=== PATIENT | female | born 1995 | race Caucasian/White ===

== ENCOUNTER 2017-11-28 04:36 | Emergency (ER) | payer BC, OTHER ==
[2017-11-28 05:13] LABS: Absolute Lymphocytes (CBC) 2.7 K/uL (0.7-4.9); Absolute Monocytes 0.6 K/uL (0.1-1.3); Absolute Neutrophil 2.7 K/uL (1.8-8.0); Basophils % 0.9 % (0-1.3); Hematocrit 40.2 % (36.0-45.0); MCH 29.4 pg (27.0-35.0); MCV 87.4 fL (80-100); MPV 7.9 fL (7.6-11.3); Monocytes % 9.4 % (3.3-12.3)
[2017-11-28 05:20] LABS: Protime INR 0.92
[2017-11-28 05:29] LABS: Bicarbonate 25 mEq/L (21-31); Glucose Level 97 mg/dL (65-120); Potassium 3.6 mEq/L (3.6-5.0); Sodium Level 138 mEq/L (135-145)
[2017-11-28 05:36] LABS: ALT/SGPT 26 IU/L (10-60); AST/SGOT 24 IU/L (10-42); Albumin 3.9 g/dL (3.2-5.5); Alkaline Phosphatase 62 IU/L (42-121); BUN Blood Urea Nitrogen 14 mg/dL (6-20); Bilirubin Direct < 0.1 mg/dL (0-0.2); Bilirubin Total 0.4 mg/dL (0.3-1.2); Creatine Phosphokinase 39 IU/L (22-269); Magnesium 1.8 mg/dL (1.8-2.5); Protein, Total 7.9 g/dL (6.0-8.3)
[2017-11-28 05:39] LABS: CKMB Creatine Kinase MB 0.6 ng/ml (0.3-4.0)
[2017-11-28 06:21] LABS: Urine Blood TRACE (NEG); Urine Glucose NEGATIVE (NEG); Urine Protein NEGATIVE (NEG); Urine Specific Gravity 1.015 (1.005-1.030); Urine pH 6.5 (5.0-7.0)
--- NOTE | 2017-11-28 07:52 | EDPHYS ---
Physician Documentation [facility] Name: Umm Bell Age: 22 yrs Sex: Female : 1995 Arrival Date: 11/28/2017 Time: 04:38 Bed 15 Private MD: Padmini Torres K ED Physician Yasmani Wan HPI: 11/28 06:35 This 22 yrs old Female presents to ER via Ambulatory with complaints of Chest tw4 Pain. 06:35 The patient or guardian reports chest pain that is located primarily in the anterior tw4 chest wall. The pain does not radiate. Associated signs and symptoms: Pertinent positives: shortness of breath. The chest pain is described as dull. Duration: The patient or guardian reports a single episode. Modifying factors: The symptoms are alleviated by nothing. the symptoms are aggravated by nothing. Severity of pain: At its worst the pain was moderate. The patient has not experienced similar symptoms in the past. 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 - Social history:: Smoking status: Patient/guardian denies using tobacco. ROS: 06:35 Constitutional: Negative for fever, chills, and weight loss, Respiratory: Negative for tw4 shortness of breath, cough, wheezing, and pleuritic chest pain, Abdomen/GI: Negative for abdominal pain, nausea, vomiting, diarrhea, and constipation, Back: Negative for injury and pain, MS/Extremity: Negative for injury and deformity, Neuro: Negative for headache, weakness, numbness, tingling, and seizure. 06:35 Cardiovascular: Positive for chest pain, Negative for edema, orthopnea, palpitations, paroxysmal nocturnal dyspnea. Exam: 06:35 Constitutional: This is a well developed, well nourished patient who is awake, alert, tw4 and in no acute distress. Head/Face: Normocephalic, atraumatic. Chest/axilla: Normal chest wall appearance and motion. Nontender with no deformity. No lesions are appreciated. Cardiovascular: Regular rate and rhythm with a normal S1 and S2. No gallops, murmurs, or rubs. Normal PMI, no JVD. No pulse deficits. Respiratory: Lungs have equal breath sounds bilaterally, clear to auscultation and percussion. No rales, rhonchi or wheezes noted. No increased work of breathing, no retractions or nasal flaring. Abdomen/GI: Soft, non-tender, with normal bowel sounds. No distension or tympany. No guarding or rebound. No evidence of tenderness throughout. Skin: Warm, dry with normal turgor. Normal color with no rashes, no lesions, and no evidence of cellulitis. MS/ Extremity: Pulses equal, no cyanosis. Neurovascular intact. Full, normal range of motion. Neuro: Awake and alert, GCS 15, oriented to person, place, time, and situation. Cranial nerves II-XII grossly intact. Motor strength 5/5 in all extremities. Sensory grossly intact. Cerebellar exam normal. Normal gait. Psych: Awake, alert, with orientation to person, place and time. Behavior, mood, and affect are within normal limits. 07:48 Musculoskeletal/extremity: DVT Exam: No signs of deep vein thrombosis. no pain, no gm swelling, no tenderness, negative Homans' sign noted on exam, no appreciated bluish discoloration, no erythema, no increased warmth. Vital Signs: 04:50 BP 147 / 108; Pulse 91; Resp 18 S; Temp 98(O); Pulse Ox 97% on R/A; Weight 52.16 kg bs1 (R); Height 5 ft. (152.40 cm); Pain 7/10; 04:53 BP 142 / 94; Pulse 91; Resp 16 S; Pulse Ox 99% on R/A; Pain 7/10; bs1 05:00 BP 131 / 92; Pulse 82; Resp 16; Pulse Ox 99% on R/A; bs1 05:15 BP 135 / 96; Pulse 87; Resp 17; Pulse Ox 100% on R/A; bs1 06:27 BP 131 / 86; Pulse 69; Resp 15; Pulse Ox 99% on R/A; Pain 0/10; bs1 07:20 BP 127 / 81; Pulse 78; Resp 18; Pulse Ox 99% on R/A; Pain 0/10; em 04:50 Body Mass Index 22.46 (52.16 kg, 152.40 cm) bs1 MDM: 04:45 Patient medically screened. tw4 06:35 Differential diagnosis: acute myocardial infarction, acute pericarditis, anxiety, chest tw4 wall pain, pulmonary embolus, stable angina, thoracic aortic disection. HEART Score: History: Slightly Suspicious (0), ECG: Non specific repolarization disturbance / LBTB / PM (1), Age: < or = 45 years (0), Risk Factors: No Risk Factors Known (0), Troponin: < or = 1 x Normal Limit (0), Total Score =. HUMBERTO Risk Score: not applicable. Data reviewed: vital signs, nurses notes. Data interpreted: child monitor: rhythm is normal sinus rhythm, Pulse oximetry: Interpretation: normal. Test interpretation: by ED physician or midlevel provider: ECG. Counseling: I had a detailed discussion with the patient and/or guardian regarding: the historical points, exam findings, and any diagnostic results supporting the discharge/admit diagnosis. 07:19 Patient medically screened. gm 11/28 04:51 Order name: Basic Metabolic Panel; Complete Time: 07:47 11/28 04:51 Order name: BNP; Complete Time: 07:47 11/28 04:51 Order name: CBC with Diff; Complete Time: 07:47 11/28 04:51 Order name: Ckmb; Complete Time: 07:47 11/28 04:51 Order name: CPK; Complete Time: 07:47 11/28 04:51 Order name: LFT's; Complete Time: 07:47 11/28 04:51 Order name: Magnesium; Complete Time: 07:47 11/28 04:51 Order name: PT-INR; Complete Time: 07:47 11/28 04:51 Order name: Ptt, Activated; Complete Time: 07:47 11/28 04:51 Order name: Troponin (emerg Dept Use Only); Complete Time: 07:47 11/28 06:08 Order name: Urine Dipstick--Ancillary (enter results); Complete Time: 07:47 em11/28 06:08 Order name: Urine --Ancillary (enter results); Complete Time: 07:47 11/28 04:51 Order name: XRAY Chest (1 view) 11/28 04:51 Order name: EKG; Complete Time: 04:52 11/28 04:51 Order name: Cardiac monitoring; Complete Time: 05:24 11/28 04:51 Order name: EKG - Nurse/Tech; Complete Time: 05:25 11/28 04:51 Order name: IV Saline Lock; Complete Time: 05:25 11/28 04:51 Order name: Labs collected and sent; Complete Time: 05:25 11/28 04:51 Order name: O2 Per Protocol; Complete Time: 05:25 11/28 04:51 Order name: O2 Sat Monitoring; Complete Time: 05:11/28 04:51 Order name: Urine Dipstick-Ancillary (obtain specimen); Complete Time: 06:04 11/28 04:51 Order name: CT Chest For PE Angio tw4 Administered Medications: No medications were administered Disposition: 11/28/17 07:51 Discharged to Home. Impression: Chest pain, unspecified. - Condition is Stable. - Discharge Instructions: Nonspecific Chest Pain, Nonspecific Chest Pain, Nsim-ce-Sxah, Aspirin and Your Heart. - Prescriptions for Pepcid 20 mg Oral Tablet - take 1 tablet by ORAL route every 12 hours for 10 days; 20 tablet. - Medication Reconciliation Form, Thank You Letter, Antibiotic Education, Prescription Opioid Use form. - Follow up: Padmini Torres; When: 2 - 3 days; Reason: Recheck today's complaints, Continuance of care, Re-evaluation by your physician. Follow up: Jc Paz; When: 2 - 3 days; Reason: Recheck today's complaints, Re-evaluation by your physician. - Problem is new. - Symptoms have improved. Signatures: Dispatcher [employer] Yasmani Starkey MD MD cha Munoz, Edgar, TELEVISION INSTALLER HELPER TELEVISION INSTALLER HELPER Janet Govea, RN RN bs1 Yovanny Palmer MD MD tw4
--- NOTE | 2017-11-28 07:52 | ER ---
Nurse's Notes [facility] Name: Umm Bell Age: 22 yrs Sex: Female : 1995 Arrival Date: 11/28/2017 Time: 04:38 Bed 15 Private MD: Padmini Torres K Diagnosis: Chest pain, unspecified Presentation: 11/28 04:46 Presenting complaint: Patient states: "I have been having chest pain since last night bs1 around 8pm, starts in my chest, and up my shoulders and then the back of my neck, also in the epigastric area, ever since I gave to twins I've been having high blood pressure.". Transition of care: patient was not received from another setting of care. Onset of symptoms was November 27, 2017 at 20:00. Initial Sepsis Screen: Does the patient meet any 2 criteria? No. Patient's initial sepsis screen is negative. Care prior to arrival: None. 04:46 Method Of Arrival: Ambulatory bs1 04:46 Acuity: MICHAEL 3 bs1 05:29 Initial Sepsis Screen: Does the patient have a suspected source of infection? No. bs1 Patient's initial sepsis screen is negative. 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 - Social history:: Smoking status: Patient/guardian denies using tobacco. Screenin:28 Abuse screen: Denies threats or abuse. Denies injuries from another. Nutritional bs1 screening: No deficits noted. Tuberculosis screening: No symptoms or risk factors identified. Fall Risk None identified. Assessment: 04:50 General: Appears uncomfortable, Behavior is cooperative, anxious. Pain: Complains of bs1 pain in chest Pain radiates to left shoulder, back of neck Pain currently is 7 out of 10 on a pain scale. Quality of pain is described as squeezing, Pain began gradually. Neuro: Level of Consciousness is awake, alert, obeys commands, Oriented to person, place, time, situation, Appropriate for age Hog Ribber are equal bilaterally Moves all extremities. Cardiovascular: Reports chest pain, Heart tones S1 S2 present Capillary refill < 3 seconds Patient's skin is warm and dry. Rhythm is regular. Respiratory: Airway is patent Trachea midline Respiratory effort is even, unlabored, Respiratory pattern is regular, symmetrical, Breath sounds are clear bilaterally. GI: Abdomen is flat, Bowel sounds present X 4 quads. Reports epigastric pain. : No deficits noted. No signs and/or symptoms were reported regarding the genitourinary system. EENT: No deficits noted. No signs and/or symptoms were reported regarding the EENT system. Derm: Skin is intact, Skin is pink, warm \\T\\ dry. Skin temperature is warm. Musculoskeletal: Circulation, motion, and sensation intact. Capillary refill < 3 seconds, Range of motion: intact in all extremities. 06:19 Reassessment: Was told by CT that IV blew. IV was pulled out. ao 06:27 Reassessment: Patient appears in no apparent distress at this time. Patient and/or bs1 family updated on plan of care and expected duration. Pain level reassessed. Patient is alert, oriented x 3, equal unlabored respirations, skin warm/dry/pink. Bruising/some swelling noted to right upper arm from IV infiltration. Patient states symptoms have improved. 07:04 Reassessment: Report given to TANA Jama. bs1 07:15 General: Appears in no apparent distress. comfortable, Behavior is calm, cooperative. em Pain: Complains of pain in diaphragm Pain currently is 0 out of 10 on a pain scale. Pain began last night at 1999. Neuro: Level of Consciousness is awake, alert, Oriented to person, place, time, situation. Cardiovascular: Reports nausea, Denies vomiting, Heart tones S1 S2 present Capillary refill < 3 seconds Patient's skin is warm and dry. Rhythm is regular. Respiratory: Airway is patent Respiratory effort is even, unlabored, Respiratory pattern is regular, symmetrical. GI: Abdomen is flat. : No signs and/or symptoms were reported regarding the genitourinary system. EENT: No signs and/or symptoms were reported regarding the EENT system. Derm: Skin is intact, Skin is pink, warm \\T\\ dry. Musculoskeletal: Range of motion: intact in all extremities. Vital Signs: 04:50 BP 147 / 108; Pulse 91; Resp 18 S; Temp 98(O); Pulse Ox 97% on R/A; Weight 52.16 kg bs1 (R); Height 5 ft. (152.40 cm); Pain 7/10; 04:53 BP 142 / 94; Pulse 91; Resp 16 S; Pulse Ox 99% on R/A; Pain 7/10; bs1 05:00 BP 131 / 92; Pulse 82; Resp 16; Pulse Ox 99% on R/A; bs1 05:15 BP 135 / 96; Pulse 87; Resp 17; Pulse Ox 100% on R/A; bs1 06:27 BP 131 / 86; Pulse 69; Resp 15; Pulse Ox 99% on R/A; Pain 0/10; bs1 07:20 BP 127 / 81; Pulse 78; Resp 18; Pulse Ox 99% on R/A; Pain 0/10; em 04:50 Body Mass Index 22.46 (52.16 kg, 152.40 cm) bs1 ED Course: 04:38 Patient arrived in ED. es 04:40 Padmini Torres MD is Private Physician. es 04:45 Yovanny Palmer MD is Attending Physician. tw4 04:46 Janet Rea, RN is Primary Nurse. bs1 04:48 Triage completed. bs1 05:02 No provider procedures requiring assistance completed. Inserted saline lock: 22 gauge bs1 in right upper arm, using aseptic technique. Patient maintains SpO2 saturation greater than 95% on room air. 05:07 X-ray completed. Portable x-ray completed in exam room. Patient tolerated procedure kw well. 05:08 XRAY Chest (1 view) In Process Unspecified. EDMS 05:09 Radiology exam delayed due to lab results not completed at this time. (BUN/Creatinine) cw1 test not completed at this time. 05:29 Patient has correct armband on for positive identification. Placed in gown. Bed in low bs1 position. Call light in reach. Side rails up X 1. satellite project site monitor on. Pulse ox on. NIBP on. Warm blanket given. 05:30 Arm band placed on placed. EKG completed in triage. Results shown to MD. bs1 06:33 CT Chest For PE Angio In Process Unspecified. EDMS 07:18 Attending Physician role handed off by Yovanny Palmer MD [facility] 07:18 Yasmani Wan MD is Attending Physician. gm 07:51 Padmini Torres MD is Referral Physician. gm 07:51 Jc Paz MD is Referral Physician. gm 08:10 IV discontinued, intact, bleeding controlled, No redness/swelling at site. Pressure em dressing applied. Administered Medications: No medications were administered Outcome: 07:51 Discharge ordered by MD. gm 08:09 Discharged to home ambulatory. em 08:09 Condition: good 08:09 Discharge instructions given to patient, Instructed on discharge instructions, follow up and referral plans. medication usage, Demonstrated understanding of instructions, follow-up care, medications, Prescriptions given X 1. 08:11 Patient left the ED. em Signatures: Dispatcher [employer] EDMA Yasmani Wan MD MD cha Salyer, Edna es Munoz, Edgar, ANIMAL RIDE ATTENDANT ANIMAL RIDE ATTENDANT Joan Meyers cw1 Kassy Reza Alex, RN RN ao Salazar, Brittany, RN RN bs1 Yovanny Palmer MD MD tw4
--- NOTE | 2017-11-28 07:55 | RAD REPORT ---
EXAM DESCRIPTION: Deepak Single View11/28/2017 5:10 am CLINICAL HISTORY: Chest pain COMPARISON: 2015 FINDINGS: The lungs appear clear of acute infiltrate. The heart is normal size IMPRESSION: No acute abnormalities displayed
[2017-11-28 08:15] VITALS: TEMP 98
[2017-11-28 08:20] VITALS: O2SAT 99
[2017-11-28 08:21] VITALS: BP 127/81
--- NOTE | 2017-11-28 08:26 | RAD REPORT ---
EXAM DESCRIPTION: CT - Chest For Pe Angio - 11/28/2017 6:32 am CLINICAL HISTORY: Chest pain since last night COMPARISON: 2015 TECHNIQUE: Dynamically enhanced axial 3 mm thick images of the chest were obtained during administra tion of <100> mL Isovue 370 IV contrast. Coronal and oblique reconstruction images were generated and reviewed. Exam utilizes a protocol for optimal evaluation of pulmonary arterial tree. Near the end o f the examination there was extravasation of contrast from the IV into the arm. Cold compresses were applied and the patient's nurse Wiley from the emergency room notified so that the arm could be monit ored All CT scans are performed using dose optimization technique as appropriate and may include automated exposure control or mA/KV adjustment according to patient size. FINDINGS: A pulmonary embolus is not seen. A thoracic aortic aneurysm is not noted. A pleural effusion is not seen. A pericardial effusion is not seen. A lung consolidation is not present. A 14 millimeter well-circumscribed mass nodule is present within the left breast. It is unchanged fro m a the prior exam IMPRESSION: Negative for a pulmonary embolism. 14 millimeter nodule within the left breast is unchanged from the prior exam and may represent a fibr oadenoma. A follow up left breast ultrasound in 6 months is recommended to reassess stability
--- NOTE | 2017-11-28 10:08 | EKG ---
Test Date: 2017-11-28 Test Time: 04:51:13 Director Of Corporate Sales: ELROY MEASUREMENT RESULTS: Intervals: Rate: 82 IL: 136 QRSD: 88 QT: 372 QTc: 434 [place]: P: 67 IL: 136 QRS: 69 T: 36 INTERPRETIVE STATEMENTS: Normal sinus rhythm Normal ECG No previous ECG available for comparison Electronically Signed On 11-28-17 10:07:20 CDT by Rip Liang
--- NOTE | 2017-11-28 10:08 | EKG ---
Test Date: 2017-11-28 Test Time: 04:54:12 Well Service Floor Worker: MEASUREMENT RESULTS: Intervals: Rate: 80 VA: 134 QRSD: 98 QT: 360 QTc: 415 Echo: P: 61 VA: 134 QRS: 66 T: 37 INTERPRETIVE STATEMENTS: Normal sinus rhythm Incomplete right bundle branch block Borderline ECG Compared to ECG 11/28/2017 04:51:13 Incomplete right bundle-branch block now present Electronically Signed On 11-28-17 10:07:18 CDT by Rip Liang
== END 2017-11-28 08:11 | disposition home or self-care (01) ==
LOC: ER 04:36
DX: R07.9 Chest pain, unspecified (principal); F41.9 Anxiety disorder, unspecified
CPT/HCPCS: 36415; 71045; 71275; 80048; 80076; 81003; 81025; 82550; 82553; 83735; 83880; 84484; 85025; 85610; 85730; 93005; 99285; Q9967

== ENCOUNTER 2019-07-01 19:44 | Emergency (ER) | payer BC, OTHER ==
--- OUTSIDE RECORDS SUMMARY | 2019-07-01 19:46 | XMS REPORT ---
:1995 Author [facility] Address [address] [place] [address] Dr. Martin [address] [place] [id number] Care Team Providers Name Role Phone Unavailable Unavailable Unavailable Problems This patient has no known problems. Allergies, Adverse Reactions, Alerts This patient has no known allergies or adverse reactions. Medications This patient has no known medications.
[2019-07-01 20:21] LABS: Absolute Lymphocytes (CBC) 2.9 K/uL (0.7-4.9); Basophils % 0.9 % (0-1.3); Hematocrit 37.8 % (36.0-45.0); Lymphocytes % 32.4 % (15.3-44.8); MPV 7.9 fL (7.6-11.3); Protime INR 0.9; RBC Red Blood Cell Count 4.41 M/uL (3.86-4.86)
[2019-07-01] MEDS ORDERED: KETOROLAC 30 MG/ML INJ ONE (20:34)
[2019-07-01 20:37] LABS: ALT/SGPT 24 U/L (12-78); AST/SGOT 21 U/L (15-37); Albumin 3.8 g/dL (3.4-5.0); Alkaline Phosphatase 99 U/L (45-117); BUN Blood Urea Nitrogen 12 mg/dL (7-18); Bicarbonate 29 mmol/L (21-32); Bilirubin Direct < 0.1 mg/dL (0-0.2); Bilirubin Total 0.3 mg/dL (0.2-1.0); Glucose Level 101 mg/dL (74-106); Magnesium 2.3 mg/dL (1.8-2.4); NT PRO-BNP 47 pg/mL (<125); Potassium 3.5 mmol/L (3.5-5.1); Protein, Total 7.9 g/dL (6.4-8.2); Sodium Level 141 mmol/L (136-145); Troponin (Emerg Dept Use Only) < 0.02 ng/mL (0.0-0.045)
[2019-07-01 21:16] LABS: Urine Blood NEGATIVE (NEG); Urine Glucose NEGATIVE (NEG); Urine Protein NEGATIVE (NEG); Urine Specific Gravity 1.015 (1.005-1.030); Urine pH 6.5 (5.0-7.0)
[2019-07-01] MEDS ORDERED: MAGNE/ALUM HYDROXD 30 ML UCUP ONE (22:04)
[2019-07-01] MEDS ORDERED: LIDOCAINE VISCOUS 2% SOLN 15 ML UDC ONE (22:05)
[2019-07-01] MEDS ORDERED: ONDANSETRON 4 MG/2 ML VIAL ONE (22:10)
--- NOTE | 2019-07-02 00:05 | ER ---
Nurse's Notes [facility] Name: Umm Bell Age: 24 yrs Sex: Female : 1995 Arrival Date: 07/01/2019 Time: 19:46 Bed 6 Private MD: Diagnosis: Chest pain, unspecified Presentation: 07/01 19:55 Presenting complaint: Patient states: Chest pain that radiates to neck x 6 hours, not tl2 getting better with pain medication. Pt reports intermittent nausea and shortness of breath. Transition of care: patient was not received from another setting of care. Onset of symptoms was July 01, 2019 at 13:00. Risk Assessment: Do you want to hurt yourself or someone else? Patient reports no desire to harm self or others. Initial Sepsis Screen: Does the patient meet any 2 criteria? No. Patient's initial sepsis screen is negative. Does the patient have a suspected source of infection? No. Patient's initial sepsis screen is negative. Care prior to arrival: None. 19:55 Method Of Arrival: Ambulatory tl2 19:55 Acuity: MICHAEL 3 tl2 Triage Assessment: 19:57 General: Appears in no apparent distress. Behavior is calm, cooperative, appropriate tl2 for age. 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 - Social history:: Smoking status: Patient/guardian denies using tobacco. - Ebola Screening: : No symptoms or risks identified at this time. Screenin:59 Abuse screen: Denies threats or abuse. Nutritional screening: No deficits noted. ea Tuberculosis screening: No symptoms or risk factors identified. Fall Risk None identified. Assessment: 20:22 General: Appears in no apparent distress. Behavior is calm, cooperative, appropriate ea for age. Pain: Complains of pain in mid-sternal area Pain radiates to neck Pain began 1 day ago. Neuro: Level of Consciousness is awake, alert, obeys commands, Oriented to person, place, time. Respiratory: Airway is patent Respiratory effort is even, unlabored, Respiratory pattern is regular, symmetrical. Derm: Skin is pink, warm \T\ dry. 20:22 Cardiovascular: Reports chest pain, Capillary refill < 3 seconds. GI: Reports nausea. rr5 : No signs and/or symptoms were reported regarding the genitourinary system. EENT: No signs and/or symptoms were reported regarding the EENT system. Musculoskeletal: Circulation, motion, and sensation intact. Capillary refill < 3 seconds. 21:12 Reassessment: Patient and/or family updated on plan of care and expected duration. Pain ea level reassessed. Patient is alert, oriented x 3, equal unlabored respirations, skin warm/dry/pink. 22:00 Reassessment: still having nausea and chest pain pain score 5/10. ED provider aware rr5 with order made and carried out. Patient states symptoms have not improved. 22:59 Reassessment: Patient appears in no apparent distress at this time. i feel the nausea rr5 is gone but the pain still the same. ED provider with order made of repeat ECG and troponin. 23:43 Reassessment: Patient appears in no apparent distress at this time. Patient and/or rr5 family updated on plan of care and expected duration. Pain level reassessed. Patient is alert, oriented x 3, equal unlabored respirations, skin warm/dry/pink. awaiting for troponin result. 07/02 00:20 Reassessment: Patient appears in no apparent distress at this time. Patient is alert, rr5 oriented x 3, equal unlabored respirations, skin warm/dry/pink. discharge instruction given and explained without complaints made. Vital Signs: 07/01 19:57 BP 141 / 99; Pulse 82; Resp 18; Temp 98.2(O); Pulse Ox 100% on R/A; Weight 58.97 kg; tl2 Height 5 ft. 0 in. (152.40 cm); Pain 5/10; 20:57 BP 119 / 81; Pulse 69; Resp 17; Pulse Ox 100% ; rr5 21:12 BP 107 / 71; Pulse 70; Resp 18; Pulse Ox 100% on R/A; ea 22:00 BP 105 / 62; Pulse 79; Resp 15; Pulse Ox 98% on R/A; Pain 5/10; rr5 23:00 BP 117 / 83; Pulse 63; Resp 17; Pulse Ox 99% on R/A; Pain 5/10; rr5 07/02 00:20 BP 115 / 70; Pulse 60; Resp 16; Temp 97.9; Pulse Ox 99% ; rr5 07/01 19:57 Body Mass Index 25.39 (58.97 kg, 152.40 cm) tl2 ED Course: 07/01 19:46 Patient arrived in ED. cf2 19:56 Yovanny Palmer MD is Attending Physician. tw4 19:56 Triage completed. tl2 19:57 Arm band placed on right wrist. tl2 19:59 Holly Velasquez, ROXANA is Primary Nurse. ea 19:59 Patient has correct armband on for positive identification. Placed in gown. Bed in low ea position. Call light in reach. grip wrapper on. Pulse ox on. NIBP on. 20:15 Inserted saline lock: 20 gauge in left antecubital area, using aseptic technique. Blood ea collected. Patient maintains SpO2 saturation greater than 95% on room air. 20:37 XRAY Chest (1 view) In Process Unspecified. EDMS 23:01 Repeat lab(s) drawn. by me, sent to lab. rr5 07/02 00:22 No provider procedures requiring assistance completed. IV discontinued, intact, rr5 bleeding controlled, No redness/swelling at site. Pressure dressing applied. Administered Medications: 07/01 20:47 Drug: TORadol 30 mg Route: IVP; Site: left antecubital; ea 22:07 Follow up: Response: No adverse reaction ea 22:08 Drug: GI Cocktail without - (Maalox Suspension 30 ml, Lidocaine Liquid 2 % 15 rr5 ml) Route: PO; 23:00 Follow up: Response: No adverse reaction rr5 22:15 Drug: Zofran 4 mg Route: IVP; Site: left antecubital; rr5 23:00 Follow up: Response: No adverse reaction; Marked relief of symptoms rr5 Outcome: 07/02 00:04 Discharge ordered by . tw4 00:22 Discharged to home ambulatory. rr5 00:22 Condition: stable 00:22 Discharge instructions given to patient, Instructed on discharge instructions, follow up and referral plans. medication usage, Demonstrated understanding of instructions, follow-up care, medications, Prescriptions given X 1. 00:24 Patient left the ED. rr5 Signatures: Dispatcher [employer] EDMarleny Ny RN RN tl2 Holly Velasquez RN Yovanny Restrepo ea, MD MD tw4 Devin Salamanca RN RN rr5 Jayshree Ruiz 2
--- NOTE | 2019-07-02 00:06 | EDPHYS ---
Physician Documentation [facility] Name: Umm Bell Age: 24 yrs Sex: Female : 1995 Arrival Date: 07/01/2019 Time: 19:46 Bed 6 Private MD: ED Physician Yovanny Palmer HPI: 07/01 21:28 This 24 yrs old Female presents to ER via Ambulatory with complaints of Chest tw4 Pain, Nausea, Shoulder Pain, Neck Pain, <24hrs Old. 21:28 The patient or guardian reports chest pain that is located primarily in the anterior tw4 chest wall. The pain does not radiate. Associated signs and symptoms: The patient has no apparent associated signs or symptoms. The chest pain is described as dull. Duration: The patient or guardian reports a single episode, that lasted 6 hour(s). Modifying factors: The symptoms are alleviated by nothing. the symptoms are aggravated by movement. Severity of pain: At its worst the pain was moderate in the emergency department the pain has improved. 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 - Social history:: Smoking status: Patient/guardian denies using tobacco. - Ebola Screening: : No symptoms or risks identified at this time. ROS: 21:28 Constitutional: Negative for fever, chills, and weight loss, Eyes: Negative for injury, tw4 pain, redness, and discharge, Respiratory: Negative for shortness of breath, cough, wheezing, and pleuritic chest pain, Abdomen/GI: Negative for abdominal pain, nausea, vomiting, diarrhea, and constipation, Back: Negative for injury and pain. 21:28 MS/Extremity: Negative for injury and deformity, Skin: Negative for injury, rash, and discoloration, Neuro: Negative for headache, weakness, numbness, tingling, and seizure. 21:28 Cardiovascular: Positive for chest pain. Exam: 21:28 Constitutional: This is a well developed, well nourished patient who is awake, alert, tw4 and in no acute distress. Head/Face: Normocephalic, atraumatic. Chest/axilla: Normal chest wall appearance and motion. Nontender with no deformity. No lesions are appreciated. Cardiovascular: Regular rate and rhythm with a normal S1 and S2. No gallops, murmurs, or rubs. Normal PMI, no JVD. No pulse deficits. Respiratory: Lungs have equal breath sounds bilaterally, clear to auscultation and percussion. No rales, rhonchi or wheezes noted. No increased work of breathing, no retractions or nasal flaring. Abdomen/GI: Soft, non-tender, with normal bowel sounds. No distension or tympany. No guarding or rebound. No evidence of tenderness throughout. Back: No spinal tenderness. No costovertebral tenderness. Full range of motion. MS/ Extremity: Pulses equal, no cyanosis. Neurovascular intact. Full, normal range of motion. Neuro: Awake and alert, GCS 15, oriented to person, place, time, and situation. Cranial nerves II-XII grossly intact. Motor strength 5/5 in all extremities. Sensory grossly intact. Cerebellar exam normal. Normal gait. Vital Signs: 19:57 BP 141 / 99; Pulse 82; Resp 18; Temp 98.2(O); Pulse Ox 100% on R/A; Weight 58.97 kg; tl2 Height 5 ft. 0 in. (152.40 cm); Pain 5/10; 20:57 BP 119 / 81; Pulse 69; Resp 17; Pulse Ox 100% ; rr5 21:12 BP 107 / 71; Pulse 70; Resp 18; Pulse Ox 100% on R/A; ea 22:00 BP 105 / 62; Pulse 79; Resp 15; Pulse Ox 98% on R/A; Pain 5/10; rr5 23:00 BP 117 / 83; Pulse 63; Resp 17; Pulse Ox 99% on R/A; Pain 5/10; rr5 07/02 00:20 BP 115 / 70; Pulse 60; Resp 16; Temp 97.9; Pulse Ox 99% ; rr5 07/01 19:57 Body Mass Index 25.39 (58.97 kg, 152.40 cm) tl2 MDM: 07/01 19:56 Patient medically screened. tw4 21:28 Differential diagnosis: abnormal EKG, myocarditis, pancreatitis, peptic ulcer disease, tw4 pulmonary embolus, thoracic aortic disection, unstable angina. Data reviewed: vital signs, nurses notes. Counseling: I had a detailed discussion with the patient and/or guardian regarding: the historical points, exam findings, and any diagnostic results supporting the discharge/admit diagnosis. Special discussion: I discussed with the patient/guardian in detail that at this point there is no indication for admission to the hospital. It is understood, however, that if the symptoms persist or worsen the patient needs to return immediately for re-evaluation. 07/01 19:57 Order name: Basic Metabolic Panel [facility] 07/01 19:57 Order name: CBC with Diff [facility] 07/01 19:57 Order name: LFT's [facility] 07/01 19:57 Order name: Magnesium [facility] 07/01 19:57 Order name: NT PRO-BNP [facility] 07/01 19:57 Order name: PT-INR [facility] 07/01 19:57 Order name: Troponin (emerg Dept Use Only) [facility] 07/01 19:57 Order name: XRAY Chest (1 view) [facility] 07/01 20:45 Order name: Urine Dipstick--Ancillary (enter results) [facility] 07/01 20:45 Order name: Urine --Ancillary (enter results) [facility] 07/01 20:56 Order name: D-Dimer [facility] 07/01 22:54 Order name: Troponin (emerg Dept Use Only) [facility] 07/01 19:57 Order name: EKG; Complete Time: 19:58 [facility] 07/01 19:57 Order name: Cardiac monitoring; Complete Time: 20:11 [facility] 07/01 19:57 Order name: EKG - Nurse/Tech; Complete Time: 20:10 [facility] 07/01 19:57 Order name: IV Saline Lock; Complete Time: 20:11 [facility] 07/01 19:57 Order name: Labs collected and sent; Complete Time: 20:11 [facility] 07/01 19:57 Order name: O2 Per Protocol; Complete Time: 20:11 [facility] 07/01 19:57 Order name: O2 Sat Monitoring; Complete Time: 20:10 tw4 EC/25 04:57 Rate is 70 beats/min. Rhythm is regular, Normal Sinus Rhythm. QRS Kirby is Normal. [place] tw4 interval is normal. QRS interval is normal. QT interval is normal. No Q waves. T waves are Normal. No ST changes noted. Clinical impression: Normal ECG. Interpreted by me. Reviewed by me. Administered Medications: 07/01 20:47 Drug: TORadol 30 mg Route: IVP; Site: left antecubital; ea 22:07 Follow up: Response: No adverse reaction ea 22:08 Drug: GI Cocktail without - (Maalox Suspension 30 ml, Lidocaine Liquid 2 % 15 rr5 ml) Route: PO; 23:00 Follow up: Response: No adverse reaction rr5 22:15 Drug: Zofran 4 mg Route: IVP; Site: left antecubital; rr5 23:00 Follow up: Response: No adverse reaction; Marked relief of symptoms rr5 Disposition: 07/02/19 00:04 Discharged to Home. Impression: Chest pain, unspecified. - Condition is Stable. - Discharge Instructions: Nonspecific Chest Pain, Pain Without a Known Cause. - Prescriptions for Ibuprofen 600 mg Oral Tablet - take 1 tablet by ORAL route every 6 hours As needed take with food; 30 tablet. - Medication Reconciliation Form, Thank You Letter, Antibiotic Education, Prescription Opioid Use form. - Follow up: Private Physician; When: Upon discharge from the Emergency Department; Reason: Recheck today's complaints, Continuance of care. - Problem is new. - Symptoms have improved. Signatures: Dispatcher [employer] [facility] Marleny Spencre, RN RN tl2 Holly Velasquez RN RN Yovanny Angel MD MD tw4 Devin Salamanca RN RN rr5 Corrections: (The following items were deleted from the chart) 20:56 20:24 D-DIMER+COAG.LAB.BRZ ordered. [facility] 07/02 00:24 00:04 07/02/2019 00:04 Discharged to Home. Impression: Chest pain, unspecified. rr5 Condition is Stable. Forms are Medication Reconciliation Form, Thank You Letter, Antibiotic Education, Prescription Opioid Use. Follow up: Private Physician; When: Upon discharge from the Emergency Department; Reason: Recheck today's complaints, Continuance of care. Problem is new. Symptoms have improved. tw4
[2019-07-02 01:31] VITALS: O2SAT 99
[2019-07-02 01:32] VITALS: BP 115/70; TEMP 97.9
--- NOTE | 2019-07-02 08:40 | RAD REPORT ---
EXAM DESCRIPTION: RAD - Chest Single View - 07/01/2019 8:37 pm CLINICAL HISTORY: Chest pain COMPARISON: November 2017 TECHNIQUE: AP portable chest image was obtained 2022 hours . FINDINGS: Lungs are clear. Heart and vasculature are normal. No measurable pleural effusion and no p neumothorax. No acute bony abnormality seen. No acute aortic findings suspected. IMPRESSION: No acute cardiopulmonary process. No significant interval change.
--- NOTE | 2019-07-02 09:33 | EKG ---
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
--- NOTE | 2019-07-02 09:35 | EKG ---
Test Date: 2019-07-01 Test Time: 20:02:48 Human Capital Consultant: [employer] MEASUREMENT RESULTS: Intervals: Rate: 70 MO: 132 QRSD: 86 QT: 388 QTc: 419 [place]: P: 52 MO: 132 QRS: 74 T: 46 INTERPRETIVE STATEMENTS: Normal sinus rhythm Normal ECG Compared to ECG 11/28/2017 04:54:12 Incomplete right bundle-branch block no longer present Electronically Signed On 07-02-19 09:34:03 PHLEBOTOMY SUPPORT TECH by Rip Liang
== END 2019-07-02 00:24 | disposition home or self-care (01) ==
LOC: ER 19:44
DX: R07.9 Chest pain, unspecified (principal); F41.9 Anxiety disorder, unspecified
CPT/HCPCS: 93005 ×2; 85025; 80048; 36415; 83735; 81025; 85610; 85379; 80076; 81003; 84484 ×2; 83880; 71045; 96375; 96374; 99285; J2405

== ENCOUNTER 2019-12-12 16:44 | Emergency (ER) | payer BC ==
--- OUTSIDE RECORDS SUMMARY | 2019-12-12 16:46 | XMS REPORT ---
:1995 Author Organization [facility] t Address [address] [place] [address] [address] [place] [address] Care Team Providers Name Role Phone Unavailable Unavailable Unavailable Problems This patient has no known problems. Allergies, Adverse Reactions, Alerts This patient has no known allergies or adverse reactions. Medications This patient has no known medications.
[2019-12-12 18:07] LABS: Urine Bacteria 20-50 /HPF (<20); Urine Culture Reflex Order NOT NEEDED; Urine Mucus 2+ /HPF (NONE SEEN); Urine RBC <5 /HPF (NONE SEEN)
[2019-12-12] MEDS ORDERED: NA CHLORIDE 0.9% 1,000 ML ONE (18:07)
[2019-12-12 18:14] LABS: Absolute Lymphocytes (CBC) 1.9 K/uL (0.7-4.9); Basophils % 0.5 % (0-1.3); Hematocrit 31.7 % (36.0-45.0); Lymphocytes % 23.7 % (15.3-44.8); MPV 7.8 fL (7.6-11.3); RBC Red Blood Cell Count 3.74 M/uL (3.86-4.86)
[2019-12-12 18:47] LABS: BUN Blood Urea Nitrogen 4 mg/dL (7-18); Bicarbonate 25 mmol/L (21-32); Glucose Level 98 mg/dL (74-106); HCG, Quantitative 16783 mIU/mL (1-3); Potassium 3.1 mmol/L (3.5-5.1); Sodium Level 137 mmol/L (136-145)
[2019-12-12] MEDS ORDERED: NITROFURAN MACRO 100 MG CAP PO ONE (19:42)
--- NOTE | 2019-12-12 21:16 | RAD REPORT ---
EXAM DESCRIPTION: US - OB Limited - 12/12/2019 9:07 pm CLINICAL HISTORY: ABD PAIN COMPARISON: Transvaginal OB dated 10/18/2019 FINDINGS: A single breech presenting gestation is identified. Heart rate normal. Amniotic fluid is s ubjectively normal. The placenta is grade 0, anterior in location.
--- NOTE | 2019-12-13 03:47 | EDPHYS ---
Physician Documentation [facility] Name: Umm Bell Age: 24 yrs Sex: Female : 1995 Arrival Date: 12/12/2019 Time: 16:46 Bed 16 Private MD: Jonah Casillas P ED Physician Anthony Vasquez HPI: 12/11 17:23 This 24 yrs old Female presents to ER via Ambulatory with complaints of snw Abdominal Pain, 16 wks Preg. 17:23 The patient presents with abdominal pain in the lower abdomen. Onset: The snw symptoms/episode began/occurred gradually, 1 week(s) ago, and became persistent. The symptoms do not radiate. Associated signs and symptoms: none. The symptoms are described as crampy. Severity of pain: At its worst the pain was moderate in the emergency department the pain is unchanged. The patient has not experienced similar symptoms in the past. The patient has been recently seen by a physician: Dr. Casillas 1 week(s) ago, with similar presenting complaints, but the patient's symptoms have persisted. Pt G4, P1 (twin gestation), miscarriage x 2. 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 - Social history:: Smoking status: Patient denies any tobacco usage or history of. ROS: 17:22 Constitutional: Negative for fever, chills, and weight loss, Eyes: Negative for injury, snw pain, redness, and discharge, ENT: Negative for injury, pain, and discharge, Neck: Negative for injury, pain, and swelling, Cardiovascular: Negative for chest pain, palpitations, and edema, Respiratory: Negative for shortness of breath, cough, wheezing, and pleuritic chest pain, Back: Negative for injury and pain, : Negative for injury, bleeding, discharge, and swelling, MS/Extremity: Negative for injury and deformity, Skin: Negative for injury, rash, and discoloration, Neuro: Negative for headache, weakness, numbness, tingling, and seizure, Psych: Negative for depression, anxiety, suicide ideation, homicidal ideation, and hallucinations. 17:22 Abdomen/GI: Positive for abdominal pain, of the suprapubic area, right lower quadrant and left lower quadrant. Exam: 17:21 Constitutional: This is a well developed, well nourished patient who is awake, alert, snw and in no acute distress. Head/Face: Normocephalic, atraumatic. Eyes: Pupils equal round and reactive to light, extra-ocular motions intact. Lids and lashes normal. Conjunctiva and sclera are non-icteric and not injected. Cornea within normal limits. Periorbital areas with no swelling, redness, or edema. ENT: Nares patent. No nasal discharge, no septal abnormalities noted. Tympanic membranes are normal and external auditory canals are clear. Oropharynx with no redness, swelling, or masses, exudates, or evidence of obstruction, uvula midline. Mucous membranes moist. Neck: Trachea midline, no thyromegaly or masses palpated, and no cervical lymphadenopathy. Supple, full range of motion without nuchal rigidity, or vertebral point tenderness. No Meningismus. Chest/axilla: Normal chest wall appearance and motion. Nontender with no deformity. No lesions are appreciated. Cardiovascular: Regular rate and rhythm with a normal S1 and S2. No gallops, murmurs, or rubs. Normal PMI, no JVD. No pulse deficits. Respiratory: Lungs have equal breath sounds bilaterally, clear to auscultation and percussion. No rales, rhonchi or wheezes noted. No increased work of breathing, no retractions or nasal flaring. Back: No spinal tenderness. No costovertebral tenderness. Full range of motion. Skin: Warm, dry with normal turgor. Normal color with no rashes, no lesions, and no evidence of cellulitis. MS/ Extremity: Pulses equal, no cyanosis. Neurovascular intact. Full, normal range of motion. Neuro: Awake and alert, GCS 15, oriented to person, place, time, and situation. Cranial nerves II-XII grossly intact. Motor strength 5/5 in all extremities. Sensory grossly intact. Cerebellar exam normal. Normal gait. Psych: Awake, alert, with orientation to person, place and time. Behavior, mood, and affect are within normal limits. 17:21 Abdomen/GI: Inspection: gravid appearance, is noted, Bowel sounds: normal, Palpation: mild abdominal tenderness, moderate abdominal tenderness, in the suprapubic area, right lower quadrant and left lower quadrant. Vital Signs: 16:49 BP 133 / 93; Pulse 91; Resp 16; Temp 98.1; Pulse Ox 99% ; Weight 57.61 kg; Pain 0/10; jl7 17:43 BP 117 / 76; Pulse 88; Resp 18 S; Pulse Ox 99% on R/A; ca1 18:40 BP 107 / 64; Pulse 76; Resp 18 S; Pulse Ox 99% on R/A; ca1 19:42 BP 108 / 63; Pulse 90; Resp 17 S; Pulse Ox 100% on R/A; ca1 20:30 BP 108 / 66; Pulse 85; Resp 18 S; Pulse Ox 100% on R/A; ca1 MDM: 17:00 Patient medically screened. snw 17:40 Data reviewed: vital signs, nurses notes. Data interpreted: Pulse oximetry: on room air snw is 99 %. Interpretation: normal. Counseling: I had a detailed discussion with the patient and/or guardian regarding: the historical points, exam findings, and any diagnostic results supporting the discharge/admit diagnosis, lab results, FHT's 160bpm. 12/11 16:50 Order name: Urine Culture [facility] 12/11 16:50 Order name: Urine Microscopic Only [facility] 12/11 17:18 Order name: Urine Dipstick--Ancillary (enter results) [facility]d 12/11 17:18 Order name: Urine --Ancillary (enter results) bd 12/11 17:20 Order name: Urine Microscopic Only [facility] 12/11 17:20 Order name: Urine Culture [facility] 12/11 16:50 Order name: Urine Dipstick-Ancillary (obtain specimen); Complete Time: 17:15 snw 12/11 17:48 Order name: Quantitative [facility] 12/11 17:48 Order name: Abo/rh Typing [facility] 12/11 17:48 Order name: Basic Metabolic Panel [facility] 12/11 17:48 Order name: CBC with Diff [facility] 12/11 16:50 Order name: FHT's; Complete Time: 17:37 snw 12/11 17:48 Order name: IV Saline Lock; Complete Time: 18:02 snw 12/11 17:48 Order name: Labs collected and sent; Complete Time: 18:02 snw 12/11 17:48 Order name: FSBS; Complete Time: 17:59 snw Administered Medications: 18:04 Drug: NS 0.9% 1000 ml Route: IV; Rate: 125 ml/hr; Site: left antecubital; ca1 21:00 Follow up: IV Status: Order to discontinue infusion; Order to discontinue infusion, pt ca1 is discharged 19:38 Drug: Macrobid 100 mg Route: PO; ca1 20:07 Follow up: Response: No adverse reaction ca1 Disposition: 12/12 08:20 Co-signature as Attending Physician, Anthony Vasquez MD I agree with the assessment and kdr plan of care. Disposition: 12/12/19 20:57 Discharged to Home. Impression: Hypokalemia, Urinary tract infection, site not specified, state. - Condition is Stable. - Discharge Instructions: Abdominal Pain During , Potassium Content of Foods, and Urinary Tract Infection, Pelvic Rest, Second Trimester of , [id number], Rehydration, Adult. - Prescriptions for Vitamin 27- 0.8 mg Oral Tablet - take 1 tablet by ORAL route once daily; 30 tablet. Macrobid 100 mg Oral Capsule - take 1 capsule by ORAL route every 12 hours for 10 days; 20 capsule. - Medication Reconciliation Form, Thank You Letter, Antibiotic Education, Prescription Opioid Use form. - Follow up: Emergency Department; When: As needed; Reason: Worsening of condition. Follow up: Jonah Casillas; When: 2 - 3 days; Reason: Recheck today's complaints, Continuance of care, Re-evaluation by your physician. Signatures: Dispatcher [employer] Anthony Coyne MD MD kdr Therrien, Shelly, HOME DESIGNER-C HOME DESIGNER-Faisalw Jeannine Bean RN RN jl7 Gloria Briscoe RN RN ca1 Corrections: (The following items were deleted from the chart) 12/11 21:15 20:57 12/12/2019 20:57 Discharged to Home. Impression: Hypokalemia; Urinary tract ca1 infection, site not specified; state. Condition is Stable. Discharge Instructions: Abdominal Pain During , Potassium Content of Foods, and Urinary Tract Infection, Pelvic Rest, Second Trimester of , [id number], Rehydration, Adult. Prescriptions for Vitamin 27-0.8 mg Oral Tablet - take 1 tablet by ORAL route once daily; 30 tablet, Macrobid 100 mg Oral Capsule - take 1 capsule by ORAL route every 12 hours for 10 days; 20 capsule. and Forms are Medication Reconciliation Form, Thank You Letter, Antibiotic Education, Prescription Opioid Use. Follow up: Emergency Department; When: As needed; Reason: Worsening of condition. Follow up: Jonah Casillas; When: 2 - 3 days; Reason: Recheck today's complaints, Continuance of care, Re-evaluation by your physician. snw
--- NOTE | 2019-12-13 03:47 | ER ---
Nurse's Notes [facility] Jessica Name: Umm Bell Age: 24 yrs Sex: Female : 1995 Arrival Date: 12/12/2019 Time: 16:46 Bed 16 Private MD: Jonah Casillas P Diagnosis: Hypokalemia;Urinary tract infection, site not specified; state Presentation: 12/11 16:49 Chief complaint: Patient states: Severe lower abdominal pain, described as cramping, jl7 and happens about q10 minutes, denies bleeding. Ashlyn Bell told me to use a heating pad, take a warm bath and drink lots of water. Reports feeling movement prior to a couple days ago and now hasn't felt any movement in a couple days. Denies urinary symptoms, reports normal bowel movements. Coronavirus screen: Proceed with normal triage. Patient denies a cough. Patient denies shortness of breath or difficulty breathing. Patient denies measured and/or subjective temperature greater than 100.4F prior to today's visit. Patient denies travel on a cruise ship or to a country the [facility] currently lists as an affected area. Patient denies contact with known and/or suspected case of COVID-19. Ebola Screen: No symptoms or risks identified at this time. Initial Sepsis Screen: Does the patient meet any 2 criteria? No. Patient's initial sepsis screen is negative. Does the patient have a suspected source of infection? No. Patient's initial sepsis screen is negative. Risk Assessment: Do you want to hurt yourself or someone else? Patient reports no desire to harm self or others. Onset of symptoms was December 05, 2019. Care prior to arrival: None. 16:49 Method Of Arrival: Ambulatory jl7 16:49 Acuity: MICHAEL 3 jl7 Triage Assessment: 16:55 General: Appears in no apparent distress. uncomfortable, Behavior is calm, cooperative, jl7 appropriate for age. Pain: Complains of pain in right lower quadrant and left lower quadrant Pain currently is 0 out of 10 on a pain scale. at worst was 9 out of 10 on a pain scale. Neuro: Level of Consciousness is awake, alert, obeys commands, Oriented to person, place, time, situation. Cardiovascular: Patient's skin is warm and dry. GI: Patient currently denies diarrhea, nausea, vomiting. Derm: Skin is pink, warm \T\ dry. FILLER PICKER: 16:57 LMP 2019 jl7 17:43 4, Full Term 2, 2, Living 2, pt has twins ca1 Historical: - Allergies: 16:55 No Known Allergies; jl7 - Home Meds: 16:55 Vitamin Oral [Active]; jl7 - PMHx: 16:55 Anxiety; Endometriosis; jl7 - PSHx: 16:55 Cholecystectomy; ovarian cystectomy; D \T\ C; jl7 - Immunization history:: Adult Immunizations up to date. - Social history:: Smoking status: Patient denies any tobacco usage or history of. Screenin:05 Abuse screen: Denies threats or abuse. Denies injuries from another. Nutritional ca1 screening: No deficits noted. Tuberculosis screening: No symptoms or risk factors identified. Fall Risk None identified. Assessment: 17:05 General: Appears in no apparent distress. comfortable, Behavior is calm, cooperative, ca1 appropriate for age. Pain: Complains of pain in suprapubic area, right lower quadrant and left lower quadrant Pain does not radiate. Pain began about a week on and off and has worsen in the past few days Is intermittent. Neuro: Level of Consciousness is awake, alert, obeys commands, Oriented to person, place, time, situation, Appropriate for age. Cardiovascular: Heart tones S1 S2 present Capillary refill < 3 seconds Patient's skin is warm and dry. Respiratory: Airway is patent Respiratory effort is even, unlabored, Respiratory pattern is regular, symmetrical, Breath sounds are clear bilaterally. GI: Abdomen is round non-distended, Bowel sounds present X 4 quads. Abd is soft and non tender X 4 quads. GI: Reports nausea, vomiting. : No signs and/or symptoms were reported regarding the genitourinary system. EENT: No signs and/or symptoms were reported regarding the EENT system. Derm: Skin is intact, is healthy with good turgor, Skin is pink, warm \T\ dry. Musculoskeletal: Circulation, motion, and sensation intact. Capillary refill < 3 seconds. 18:02 Reassessment: Patient appears in no apparent distress at this time. Patient and/or ca1 family updated on plan of care and expected duration. Pain level reassessed. Patient is alert, oriented x 3, equal unlabored respirations, skin warm/dry/pink. 19:00 Reassessment: Patient appears in no apparent distress at this time. Patient and/or ca1 family updated on plan of care and expected duration. Pain level reassessed. Patient is alert, oriented x 3, equal unlabored respirations, skin warm/dry/pink. Pending US. 19:42 Reassessment: Patient appears in no apparent distress at this time. Patient is alert, ca1 oriented x 3, equal unlabored respirations, skin warm/dry/pink. Pending US. 20:23 Reassessment: Patient appears in no apparent distress at this time. Patient and/or ca1 family updated on plan of care and expected duration. Pain level reassessed. Patient is alert, oriented x 3, equal unlabored respirations, skin warm/dry/pink. Pending US. 20:45 Reassessment: PT to US. ca1 21:13 Reassessment: Patient appears in no apparent distress at this time. Patient is alert, ca1 oriented x 3, equal unlabored respirations, skin warm/dry/pink. Vital Signs: 16:49 BP 133 / 93; Pulse 91; Resp 16; Temp 98.1; Pulse Ox 99% ; Weight 57.61 kg; Pain 0/10; jl7 17:43 BP 117 / 76; Pulse 88; Resp 18 S; Pulse Ox 99% on R/A; ca1 18:40 BP 107 / 64; Pulse 76; Resp 18 S; Pulse Ox 99% on R/A; ca1 19:42 BP 108 / 63; Pulse 90; Resp 17 S; Pulse Ox 100% on R/A; ca1 20:30 BP 108 / 66; Pulse 85; Resp 18 S; Pulse Ox 100% on R/A; ca1 Vitals: 17:36 Heart Tones 160. sv ED Course: 16:46 Patient arrived in ED. ag5 16:46 Jonah Casillas MD is Private Physician. ag5 16:54 Triage completed. jl7 16:57 Arm band placed on right wrist. jl7 17:00 Luz [facility]cd[facility]iel [facility] snw 17:00 Anthony Vasquez MD is Attending Physician. snw 17:01 Gloria Briscoe RN is Primary Nurse. ca1 17:05 Patient has correct armband on for positive identification. Placed in gown. Bed in low ca1 position. Call light in reach. Side rails up X 1. Pulse ox on. NIBP on. Warm blanket given. 17:05 No provider procedures requiring assistance completed. ca1 17:55 Initial lab(s) drawn, by me, sent to lab. Inserted saline lock: 20 gauge in left ca1 antecubital area, using aseptic technique. Blood collected. 20:57 Jonah Casillas MD is Referral Physician. snw 21:13 IV discontinued, intact, bleeding controlled, No redness/swelling at site. Pressure ca1 dressing applied. Administered Medications: 18:04 Drug: NS 0.9% 1000 ml Route: IV; Rate: 125 ml/hr; Site: left antecubital; ca1 21:00 Follow up: IV Status: Order to discontinue infusion; Order to discontinue infusion, pt ca1 is discharged 19:38 Drug: Macrobid 100 mg Route: PO; ca1 20:07 Follow up: Response: No adverse reaction ca1 Outcome: 20:57 Discharge ordered by MD. snw 21:13 Discharged to home ambulatory. ca1 21:13 Condition: stable 21:13 Discharge instructions given to patient, Instructed on discharge instructions, follow up and referral plans. medication usage, Demonstrated understanding of instructions, follow-up care, medications, Prescriptions given X 2. 21:15 Patient left the ED. ca1 Signatures: Deisy Luna, RN RN Luz Elena Peñaloza, NEW CAR DRIVER-C NEW CAR DRIVER-Csnw Jeannine Bean RN RN jl7 Gloria Briscoe RN RN ca1 Kojo To ag5 Corrections: (The following items were deleted from the chart) 20:30 19:42 BP 107 / 64; Pulse 90bpm; Resp 17bpm; Spontaneous; Pulse Ox 100% RA; ca1 ca1 20:46 19:00 Reassessment: Patient appears in no apparent distress at this time. Patient ca1 and/or family updated on plan of care and expected duration. Pain level reassessed. Patient is alert, oriented x 3, equal unlabored respirations, skin warm/dry/pink. ca1 20:46 19:42 Reassessment: Patient appears in no apparent distress at this time. Patient is ca1 alert, oriented x 3, equal unlabored respirations, skin warm/dry/pink. ca1 :46 20:23 Reassessment: Patient appears in no apparent distress at this time. Patient ca1 and/or family updated on plan of care and expected duration. Pain level reassessed. Patient is alert, oriented x 3, equal unlabored respirations, skin warm/dry/pink. ca1
[2019-12-13 04:10] LABS: Urine Blood NEGATIVE (NEG); Urine Glucose NEGATIVE (NEG); Urine Protein NEGATIVE (NEG)
[2019-12-13 18:25] VITALS: BP 108/63; O2SAT 100
== END 2019-12-12 21:15 | disposition home or self-care (01) ==
LOC: ER 16:44
DX: O23.42 Unspecified infection of urinary tract in pregnancy, second trimester (principal); O99.282 Endocrine, nutritional and metabolic diseases complicating pregnancy, second trimester; E87.6 Hypokalemia; Z3A.16 16 weeks gestation of pregnancy
CPT/HCPCS: 96361; 87088; 85025; 87086; 80048; 36415; 86900; 81025; 86901; 82947; 84702; 87077; 87186; 76815; 96360; 99284; J7030; 81003; 81015

== ENCOUNTER 2020-03-28 23:18 | Observation (INO) | payer BC ==
--- OUTSIDE RECORDS SUMMARY | 2020-03-28 23:23 | XMS REPORT | Continuity of Care Document ---
:1995 Author Organization [facility] t Address [address] [place] [address] Care Team Providers Name Role Phone Alcides Menchaca DO Attending Clinician Problems This patient has no known problems. Allergies, Adverse Reactions, Alerts This patient has no known allergies or adverse reactions. Medications This patient has no known medications. Procedures This patient has no known procedures. Encounters Start End Encounter Admission Attending Care Care Encounter Source Date/Time Date/Time Type Type Clinicians Facility Department ID 2019-12-16 2019-12-16 Emergency [facility] [id number] 08:56:53 11:19:00 Madeline Chacon [id number] [place] [id number] [place] [id number] Results This patient has no known results.
[2020-03-28] MEDS ORDERED: hydrOXYzine HCL 25 MG TAB ONE (23:50)
[2020-03-28] MEDS ORDERED: TERBUTALINE SULF 1 MG/1ML ONE (23:50)
[2020-03-29] MEDS ORDERED: BETAMET ACET/BETAMET NA PH 6 MG/ML VIAL IM ONE ×2 (01:46→02:20)
[2020-03-29] MEDS ORDERED: Ringers Lactate 1,000 ML IV SCH ×2 (02:00→05:00)
[2020-03-29 02:24] LABS: Absolute Lymphocytes (CBC) 2.4 K/uL (0.7-4.9); Basophils % 0.3 % (0-1.3); Hematocrit 26.8 % (36.0-45.0); MPV 7.3 fL (7.6-11.3); RBC Red Blood Cell Count 3.06 M/uL (3.86-4.86)
[2020-03-29 03:25] LABS: Urine Appearance CLEAR; Urine Bilirubin NEGATIVE (NEG); Urine Blood NEGATIVE (NEG); Urine Color YELLOW; Urine Glucose NEGATIVE (NEG); Urine Protein 1+ (NEG); Urine Specific Gravity 1.015 (1.005-1.030); Urine Urobilinogen 0.2 mg/dL (0.2-1.0)
[2020-03-29 03:29] VITALS: BMI 3655.6
[2020-03-29 03:36] LABS: Urine Microscopic Reflex ORDER UMIC
[2020-03-29 03:47] LABS: Calcium Oxalate Crystals- Ur FEW (NONE SEEN); Urine Amorphous Sediment 1+ /HPF (NONE SEEN); Urine Bacteria 20-50 /HPF (<20); Urine Culture Reflex Order REFLEXED; Urine Mucus 2+ /HPF (NONE SEEN); Urine RBC <5 /HPF (NONE SEEN)
[2020-03-29] MEDS ORDERED: BUTORPHANOL 1 MG/ML INJ ONE (03:49)
[2020-03-29] MEDS ORDERED: TERBUTALINE SULF 1 MG/1ML SQ ONE ×3 (03:55→04:20)
[2020-03-29] MEDS ORDERED: Ringers Lactate 1,000 ML IV ONE (04:04)
[2020-03-29] MEDS ORDERED: BUTORPHANOL 1 MG/ML INJ IV ONE (04:07)
[2020-03-29] MEDS ORDERED: hydrOXYzine HCL 25 MG TAB PO ONE ×2 (06:31→20:33)
--- NOTE | 2020-03-29 07:26 | P.PN ---
Date of Service: 03/29/20 S-No complaints O-Afeb, vs stable, cx 50% FT, vtx minus one, minus 2 A-Uterine irritibility, vs labor P-give second dose of steroids, start po nifedipine.
[2020-03-29] MEDS ORDERED: ONDANSETRON 4 MG (ODT) TAB PO PRN (07:28)
[2020-03-29] MEDS ORDERED: NIFEdipine 10 MG CAP PO SCH (09:00)
--- NOTE | 2020-03-29 09:02 | PREOPHP ---
Date of Admission: 03/29/2020 History Of Present Illness: Ms. Bell is a 25-year-old female, 4, para 1- 0-2-2 with 1 set of twins. She is now at about 32+ weeks gestation. She has been followed by me dur ing this without complications other than the perhaps increase uterine irritability. She p resents with contractions and cramping over about a 4 hour. This time she had noticed some brown dis charge in the morning and presented after taking Tylenol and observing cramping and it continued. Past Medical History: Please see record. Family History: Please see record. Review of Systems: She reports no recent cough, cold, fever, or chills. She has had some intermittent nausea, which has bothered her prior and this . She denies any breast knots or lumps. Infant has been active. She denies any urine symptoms. She has had some recent diarrhea about a week ago and s ome low abdominal cramping, but nothing more. She denies any symptoms over the last day or 2. Physical Examination: General: Reveals female, in no apparent distress. Neck: Supple without adenopathy or thyromegaly. Lungs: Clear. Cardiac: Regular rate and rhythm without murmurs. Breasts: Not examined. Abdomen: Estimated weight consistent with 32 weeks gestation, 4 pounds. Pelvic: Cervix, 50% effaced, -1 to -2 station, a fingertip per less dilated. Extremities: No cyanosis, clubbing, or edema. Impression: 32+ week , uterine irritability/ labor. Plan: The patient has been treated with subcu terbutaline, hydration, and mild sedation. She still continues with what looks like mostly uterine irritability rather than regular defined contractions, but infant is against the cervix and we will give second dose of steroids at appropriate time. We wi ll try nifedipine to see if this cuts down on uterine irritability. If labor ensues, we will transfe r to a facility with intensive care unit. This has been discussed with Ms. Bell. KYLIE/TASHA Voice ID: [id number]
[2020-03-29] MEDS: FERROUS SULFATE 325 MG TAB PO SCH (21:17)
--- NOTE | 2020-03-30 06:20 | P.PN ---
Date of Service: 03/30/20 S-No complaints O-Afeb, vs stable, ctx, and lots of uterine irritability, cx unchanged, vtx high A-Satisfactory P-Liberalize activity, give second dose of Celestone, possible home with nifedipine later today.
[2020-03-30] MEDS: FERROUS SULFATE 325 MG TAB PO SCH (09:00)
== END 2020-03-30 15:00 | disposition home or self-care (01) ==
LOC: L&D 23:18 → 2ND-WC 03-29 02:02
PROVIDERS: ADMIT Specialist; ATTEND Specialist
DX: O60.03 Preterm labor without delivery, third trimester (principal); Z3A.32 32 weeks gestation of pregnancy
CPT/HCPCS: 36415; 81003; 81015; 85025; 87086; 87088; G0378; G0379; J0595; J0702; J3105; J7120; U0003

== ENCOUNTER 2020-03-30 19:46 | Inpatient (IN) | payer BC ==
--- OUTSIDE RECORDS SUMMARY | 2020-03-30 19:48 | XMS REPORT | Continuity of Care Document ---
:1995 Author Organization [facility] t Address [address] [place] [address] Care Team Providers Name Role Phone Alcides [...] Facility Department ID 2019-12-16 2019-12-16 Emergency Nikolai [facility] [id number] 08:56:53 11:19:00 Madeline Chacon [id number] [place] [id number] [place] [id number] Results This patient has no known results.
[2020-03-30] MEDS ORDERED: TERBUTALINE SULF 1 MG/1ML SQ ONE (19:58)
[2020-03-30] MEDS ORDERED: Magnesium Sulfate 2gm IVPB 2 G/50 ML BAG IV ONE (20:39)
[2020-03-30] MEDS ORDERED: MAGNESIUM 50% 4 GM in NA CHLORIDE 0.9% 100 ML IV ONE (20:42)
[2020-03-30] MEDS ORDERED: Ringers Lactate 1,000 ML IV PRN (20:46)
[2020-03-30] MEDS ORDERED: TRANEXAMIC ACID 1,000 MG in NA CHLORIDE 0.9% 50 ML IV ONE (20:48)
[2020-03-30] MEDS ORDERED: Ringers Lactate 1,000 ML IV SCH (21:00)
[2020-03-30] MEDS ORDERED: MAGNESIUM SULF/STERILE WATER 1,000 ML IV ONE (21:11)
[2020-03-30 21:12] LABS: Absolute Lymphocytes (CBC) 2.3 K/uL (0.7-4.9); Basophils % 0.1 % (0-1.3); Hematocrit 27.3 % (36.0-45.0); Lymphocytes % 17.2 % (15.3-44.8); MPV 7.7 fL (7.6-11.3); RBC Red Blood Cell Count 3.14 M/uL (3.86-4.86)
[2020-03-30] MEDS: MAGNESIUM SULF/STERILE WATER 1,000 ML IV SCH (21:14)
[2020-03-30] MEDS ORDERED: TRANEXAMIC ACID 1,000 MG/10 ML VIAL IV ONE (21:27)
--- NOTE | 2020-03-30 21:27 | RAD REPORT ---
EXAM DESCRIPTION: US - OB Complete - 03/30/2020 9:19 pm CLINICAL HISTORY: 32 weeks, threatened COMPARISON: OB Complete dated 12/24/2019 FINDINGS: A single cephalic presenting gestation is identified. The 4 chamber heart view has a sasha l appearance. Heart rate normal. The intracranial contents and spine are grossly normal. A lef t-sided stomach bubble is seen with normal appearing bladder and kidneys. The 3 vessel cord, inserti on site and anterior abdominal wall have normal appearance. No abnormalities are identifiable. measurements are as follows: BPD:8.42 Centimeters 33 weeks 6 days HC:30.23 Centimeters 33 weeks 4 days AC:28.93 Centimeters 32 weeks 6 days HL:5.66 Centimeters 32 weeks 6 days FL:6.22 Centimeters 32 weeks 1 day The estimated gestational age (EGA) is 33 weeks 0 days with an DOMINGO of 05/18/2020. ratios are n ormal or within acceptable limits. The placenta is grade I, anterior in location. No low-lying or stas centa previa. The amniotic fluid volume is normal. GAYLE is normal at 12.22 cm. Cervix is 4.8 cm in length. Internal os appears closed. Maternal adnexa obscured by large uterine size. IMPRESSION: 1. Single, cephalic gestation with an EGA of 33 weeks 0 days and an DOMINGO of the 0. There has been appropriate interval growth since the December 23 study. 2. No abnormalities are identifiable. ratios are normal or within acceptable limits. 3. Grade I, anterior placenta with no low-lying or placenta previa. 4. Amniotic fluid volume is normal.
[2020-03-30] MEDS ORDERED: NA CHLORIDE 0.9% 0 ML IV ONE (21:29)
[2020-03-30 21:46] VITALS: BMI 25.4
[2020-03-30] MEDS ORDERED: hydrOXYzine HCL 25 MG TAB PO PRN (21:59)
[2020-03-30] MEDS ORDERED: BUTORPHANOL 1 MG/ML INJ IV ONE (23:18)
[2020-03-31] MEDS ORDERED: ONDANSETRON 4 MG/2 ML VIAL ONE (03:00)
[2020-03-31 03:33] LABS: RPR (Rapid Plasma Reagin) NON-REACT (NON-REACT)
[2020-03-31] MEDS ORDERED: ONDANSETRON 4 MG/2 ML VIAL IV SCH (05:00)
--- NOTE | 2020-03-31 07:56 | P.PN ---
Date of Service: 03/31/20 Ms. Bell is readmitted with worsening pain and contractions. The contractions never really stopped when she went home despite the nifedipine. The pain became worse and she returned. On the monitor she was having defined contractions every 90secs. She denied any bleeding and on exam the cx showed no change, from her dismissal exam of finger tip, 50%, minus 2-minus 3 station. She has been started on magnesium sulfate and has responded better than terbutaline or nifedipine with many less contractions. An ultrasound shows no obvious abnormalities. Will review with radiologist for possible small occult abruption as cause of continue contractions and pain. Exam: Unchanged from short stay, abdomen is soft, does not appear to be overly tender. Plan: 1. Review US, 2. Continue IV MgS04, 3. Consider [facility] telephone consult regarding management, and or possible transfer for care.
--- NOTE | 2020-03-31 14:39 | P.PN ---
Date of Service: 03/31/20 CX unchanged. CTX vary from few to q 3 minutes. Review with radiologist, no evidence of abruption visualized. Plan: Continue IV magnesium until am, then discontinue. If ctx ensue, consult [facility]
[2020-03-31] MEDS: ACETAMINOPHEN 500 MG TAB PO PRN (15:57)
[2020-03-31] MEDS ORDERED: ACETAMINOPHEN 500 MG TAB ONE (16:04)
[2020-03-31] MEDS: MAGNESIUM SULF/STERILE WATER 1,000 ML IV SCH (16:05)
[2020-03-31] MEDS ORDERED: hydrOXYzine HCL 25 MG TAB ONE (21:11)
--- NOTE | 2020-04-01 07:45 | P.PN ---
Date of Service: 04/01/20 CX unchanged. CTX vary from few to q 3 minutes. Review with radiologist, no evidence of abruption visualized. Plan: Continue IV magnesium until am, then discontinue. If ctx ensue, consult [facility] Pt has done well through the evening with no regular ctx, and little to no discomfort. Plan: Discontinue MgS04. Observe, if contractions ensue, transfer to [facility] care, if she remains quiescent send home with nifedipine prn.
[2020-04-01] MEDS: ACETAMINOPHEN 500 MG TAB PO PRN (09:45)
[2020-04-01 11:22] VITALS: BP 121/69; TEMP 98.8
--- NOTE | 2020-04-01 12:46 | P.PN ---
Date of Service: 04/01/20 CX unchanged. CTX vary from few to q 3 minutes. Review with radiologist, no evidence of abruption visualized. Plan: Continue IV magnesium until am, then discontinue. If ctx ensue, consult [facility] Pt has done well through the evening with no regular ctx, and little to no discomfort. Plan: Discontinue MgS04. Observe, if contractions ensue, transfer to [facility] care, if she remains quiescent send home with nifedipine prn. Pt has resumed painful contractions q2-3 minutes. Have discussed with patient and transfer to facility with [facility] and NICU care. Have arranged transfer to [facility]. Cx unchanged ft, vtx presentation.
== END 2020-04-01 13:30 | disposition designated cancer center or children's hospital (05) | DRG 833 ==
LOC: L&D 19:46 → 2ND-WC 20:52
PROVIDERS: ADMIT Specialist; ATTEND Specialist
DX: O26.893 Other specified pregnancy related conditions, third trimester (principal); Z3A.32 32 weeks gestation of pregnancy
CPT/HCPCS: 36415; 76805; 81003; 81015; 83735; 85025; 86592; 86850; 86900; 86901; 87086; 87088; G0378; G0379; J0595; J0702; J2405; J3105; J3475; J7120; U0003

== ENCOUNTER 2020-05-14 06:16 | Inpatient (IN) | payer BC ==
--- NOTE | 2020-05-13 12:39 | PREOPHP ---
Date of Admission: 05/14/2020 History Of Present Illness: Ms. Bell is a 25-year-old female, 4, para 1- 0-2-2, now will be 39 weeks gestation tomorrow. She will be admitted for elective induction of labor secondary to term with favorable cervix. She has been followed by me during this pregnanc y with complications of prior twin gestational , loss of twin early. In this , ane miguel and mild depression. Past Medical History: Please see record. Family History: Please see record. Review of Systems: She reports no recent cough, cold, fever, or chills. No recent nausea or vomiting. No breast knots or lumps. No bowel or bladder issues. has been active. Physical Examination: General: Reveals female in no apparent distress. Neck: Supple without adenopathy or thyromegaly. Lungs: Clear. Cardiac: Regular rate and rhythm without murmurs. Breasts: Not examined. Abdomen: Estimated weight approximately 7 pounds. Vertex presentation. heart tones wel l heard. Pelvic: Cervix is 1 to 1+ cm dilated, 75% effaced, vertex presentation, -1 station. Cervix is anter ior and soft. Extremities: Trace lower extremity edema. Impression: Term , favorable cervix, history of anemia, history of mild depression. Plan: Patient will be admitted tomorrow for induction of labor. She has signed a permit in my prese nce. KYLIE/TASHA Voice ID: [id number]
[2020-05-14] MEDS ORDERED: CARBOPROST TROME 250 MCG/ML IM PRN ×2 (07:02→14:43)
[2020-05-14] MEDS ORDERED: PROMETHAZINE INJ 25 MG/ML AMP IV PRN (07:02)
[2020-05-14] MEDS ORDERED: BUTORPHANOL 1 MG/ML INJ IV PRN (07:02)
[2020-05-14] MEDS ORDERED: Ringers Lactate 1,000 ML IV PRN (07:02)
[2020-05-14] MEDS ORDERED: METHYLERGONOVINE 0.2MG/ML AMP IM PRN ×2 (07:02→14:43)
[2020-05-14 07:18] VITALS: BMI 29.2
[2020-05-14] MEDS ORDERED: Ringers Lactate 1,000 ML IV SCH (08:00)
[2020-05-14] MEDS ORDERED: OXYTOCIN/LR 20 UNIT/1,000 ML BAG IV SCH ×2 (08:00→16:00)
--- NOTE | 2020-05-14 08:03 | P.PN ---
Date of Service: 05/14/20 Cx 1+, soft, 75% effaced, minus one station, anterior. FSE applied, no fluid noted, reactive FHT's, mild ctx q4 minute.
[2020-05-14 08:10] LABS: Absolute Lymphocytes (CBC) 1.9 K/uL (0.7-4.9); Basophils % 0.4 % (0-1.3); Hematocrit 30.7 % (36.0-45.0); Lymphocytes % 22.9 % (15.3-44.8); MPV 7.6 fL (7.6-11.3); RBC Red Blood Cell Count 3.58 M/uL (3.86-4.86)
[2020-05-14] MEDS ORDERED: FENTANYL CITR 100 MCG/2 ML IV ONE (08:12)
[2020-05-14] MEDS ORDERED: ROPIVACAINE HCL 100 ML IV PRN (08:12)
[2020-05-14] MEDS ORDERED: ROPIVACAINE HCL 0.2% 20ML AMP IV ONE (08:15)
[2020-05-14] MEDS ORDERED: FENTANYL CITR 100 MCG/2 ML ONE (08:30)
[2020-05-14] MEDS ORDERED: ROPIVACAINE HCL 0 ML ONE (08:43)
[2020-05-14] MEDS ORDERED: INFLUENZA VACCINE (for 3y+) 0.5 ML DOSE IMVAC ONE (09:00)
[2020-05-14] MEDS ORDERED: LIDOCAINE 1% MPF 30 ML VIAL ONE (13:20)
[2020-05-14] MEDS ORDERED: Oxycodone HCl/Acetaminophen 1 TAB TAB PO PRN (14:43)
[2020-05-14] MEDS ORDERED: ONDANSETRON 4 MG (ODT) TAB PO PRN (14:43)
[2020-05-14] MEDS ORDERED: METHYLERGONOVINE 0.2 MG TAB PO PRN (14:43)
--- NOTE | 2020-05-14 14:47 | P.BOP ---
Preoperative diagnosis: 39 wk Postoperative diagnosis: same, delivered Primary procedure: SCVD viable female Secondary procedure: Repair 2 degree midline laceration Specimen: less than 100ml Anesthesia: epidural Complications: None Transferred to: Other (272) Condition: Good
[2020-05-14] MEDS: IBUPROFEN 600 MG TAB PO PRN (17:45)
[2020-05-15 00:35] LABS: RPR (Rapid Plasma Reagin) NON-REACT (NON-REACT)
[2020-05-15] MEDS: IBUPROFEN 600 MG TAB PO PRN ×2 (02:37→10:15)
[2020-05-15] MEDS ORDERED: Ringers Lactate 1,000 ML IV ONE (10:45)
[2020-05-15] MEDS ORDERED: INFLUENZA VACCINE (for 3y+) 0.5 ML DOSE IMVAC ONE (13:00)
[2020-05-15] MEDS ORDERED: Tdap (Diph,Pertuss(Acell),Tet Vac) 0.5 ML SYR IMVAC ONE (13:00)
--- NOTE | 2020-05-15 14:48 | DN ---
Surgeon: Jonah Casillas MD Ms. Bell is a 25-year-old female, 4, para 1022, and now at 39 weeks gestation. She is admitted for elective induction of labor secondary to term with favorable cervix. After rupture of membranes, Pitocin induction of labor, she had a first stage of labor of 6 hours and 19 minute, second stage of labor 14 minutes. She delivered by spontaneous controlled vaginal delivery a 7 pounds 11 ounces female , 9 and 9. After a short delay, the cord was clamped, cut, and the infant was placed on mother's upper abdomen. Cord blood was obtained. The placenta was spontaneously expelled and appeared to be intact. Intrauterine examination revealed no retained placental fragments. She delivered with epidural anesthesia to good effect. She had quantitative blood loss of 64 mL. She suffered a second-degree midline perineal laceration repaired in a usual fashion with 3-0 Vicryl suture. Dismissal Summary. Final Hospital Discharge Diagnosis: 39 week delivered. Complications: Midline second-degree laceration. Procedures: Artificial rupture of membranes, Pitocin induction of labor, placement of epidural catheter, spontaneous controlled vaginal delivery of viable female , repair of second-degree perineal laceration. Hospital Course: The patient is a 25-year-old female, 4, para with 1 prior set of twins, who was admitted for induction of labor and delivery, 7 pounds 11 ounces female infant, 9 and 9 with epidural anesthesia. She was dismissed on the first day, ambulatory, on a select diet with routine post vaginal delivery activity restrictions. Lab work included an admission hemoglobin and hematocrit of 10.0 and 30.7, dismissal 30.1. She is not nonreactive RPR. She is O-positive blood type. She was dismissed with prescription of Tylenol No.3 #7 for pain relief, to continue taking her iron and vitamins, and to resume her Prozac. She will be seen back in my office in 1 week. She was dismissed with usual post vaginal delivery activity restrictions. KYLIE/TASHA Voice ID: [id number] Report ID: [id number] LIB[facility]
[2020-05-15 16:09] VITALS: BP 126/78; TEMP 97.6
--- OUTSIDE RECORDS SUMMARY | 2020-05-15 17:26 | XMS REPORT | Continuity of Care Document ---
:1995 Author Organization [facility] t Address [address] [place] [address] Care Team Providers Name Role Phone Alcides [...] Facility Department ID 2019-12-16 2019-12-16 Emergency Nikolai [facility] [id number] 08:56:53 11:19:00 Madeline Chacon [id number] [place] [id number] [place] [id number] [id number] Results This patient has no known results.
[2020-05-18 17:47] LABS: HBsAG Nonreactive (Nonreactive)
== END 2020-05-15 17:15 | disposition home or self-care (01) | DRG 807 ==
LOC: 2ND-WC 06:16
PROVIDERS: ADMIT Specialist; ATTEND Specialist
PROC: 10E0XZZ Delivery of Products of Conception, External Approach (ICD-10-PCS; principal; 2020-05-14)
PROC: 0KQM0ZZ Repair Perineum Muscle, Open Approach (ICD-10-PCS; 2020-05-14)
PROC: 3E033VJ Introduction of Other Hormone into Peripheral Vein, Percutaneous Approach (ICD-10-PCS; 2020-05-14)
PROC: 10907ZC Drainage of Amniotic Fluid, Therapeutic from Products of Conception, Via Natural or Artificial Opening (ICD-10-PCS; 2020-05-14)
PROC: 4A1H7CZ Monitoring of Products of Conception, Cardiac Rate, Via Natural or Artificial Opening (ICD-10-PCS; 2020-05-14)
PROC: 10H073Z Insertion of Monitoring Electrode into Products of Conception, Via Natural or Artificial Opening (ICD-10-PCS; 2020-05-14)
DX: O70.1 Second degree perineal laceration during delivery (principal); Z37.0 Single live birth; O99.02 Anemia complicating childbirth; Z3A.39 39 weeks gestation of pregnancy; Z23 Encounter for immunization; Z20.828 Contact with and (suspected) exposure to other viral communicable diseases
CPT/HCPCS: 36415; 85014; 85025; 86592; 86850; 86900; 86901; 87340; 90471; 90715; J2210; J2590; J2795; J3010; J7120; Q2035; U0003

== ENCOUNTER 2021-07-30 06:59 | Day surgery (SDC) | payer BC ==
[2021-07-27 10:01] LABS: Absolute Lymphocytes (CBC) 2.4 K/uL (0.7-4.9); Basophils % 0.6 % (0-1.3); Hematocrit 36.2 % (36.0-45.0); Lymphocytes % 30.2 % (15.3-44.8); MPV 7.3 fL (7.6-11.3); RBC Red Blood Cell Count 4.18 M/uL (3.86-4.86)
[2021-07-27 10:05] LABS: Urine Appearance CLEAR (Clear); Urine Bilirubin NEGATIVE (Negative); Urine Blood NEGATIVE (Negative); Urine Color YELLOW (Yellow); Urine Glucose NEGATIVE (Negative); Urine Microscopic Reflex NO UMIC; Urine Protein NEGATIVE (Negative); Urine Urobilinogen 0.2 mg/dL (0.2-1.0)
[2021-07-30 07:15] LABS: Specific Gravity 1.015 (1.005-1.030)
[2021-07-30] MEDS ORDERED: CEFAZOLIN/SWI 2gm 2 GM/20 ML SYR ONE (07:29)
[2021-07-30] MEDS ORDERED: Ringers Lactate 1,000 ML IV ONE ×2 (07:29→11:50)
[2021-07-30] MEDS ORDERED: BUPIVACAINE 0.25% PF 10 ML VIAL ONE (07:33)
[2021-07-30] MEDS ORDERED: LIDOCAINE 2% MPF 5 ML VIAL ONE (08:07)
[2021-07-30] MEDS ORDERED: KETAMINE HCL 500 MG/5 ML VIAL ONE (08:07)
[2021-07-30] MEDS ORDERED: NS 0.9% VIAL 10 ML ONE (08:07)
[2021-07-30] MEDS ORDERED: ROCURONIUM 50 MG/5 ML VIAL IV ONE (08:07)
[2021-07-30] MEDS ORDERED: propofoL 200 MG/20 ML VIAL IV ONE (08:07)
[2021-07-30] MEDS ORDERED: dexAMETHasone 10 MG/ML VIAL ONE (08:07)
[2021-07-30] MEDS ORDERED: MIDAZOLAM HCL 2 MG/2 ML INJ ONE (08:07)
[2021-07-30] MEDS ORDERED: FENTANYL CITR 250 MCG/5 ML ONE (08:07)
[2021-07-30] MEDS ORDERED: ONDANSETRON 4 MG/2 ML VIAL ONE ×2 (08:08→11:50)
[2021-07-30] MEDS ORDERED: SCOPOLAMINE HYDROBROMIDE PATCH TD ONE (08:38)
[2021-07-30] MEDS ORDERED: KETOROLAC 30 MG/ML INJ ONE (11:03)
[2021-07-30] MEDS ORDERED: MORPHINE 10 MG/ML VIAL ONE (11:09)
[2021-07-30] MEDS ORDERED: Mastisol Adhesive Liq ONE (11:18)
[2021-07-30] MEDS ORDERED: HOME MED 1 EA UNK (Hydroxyzine Hcl [Atarax] 10 MG Tablet) PO PRN (11:26)
[2021-07-30] MEDS ORDERED: HYDROCODONE/APAP 5/325 MG TAB PO PRN (11:27)
[2021-07-30] MEDS ORDERED: MEPERIDINE HCL 25 MG/ML SYR IM PRN (11:27)
[2021-07-30] MEDS ORDERED: IBUPROFEN 200 MG TAB PO PRN (11:27)
[2021-07-30] MEDS ORDERED: PROMETHAZINE INJ 25 MG/ML AMP IV PRN (11:27)
--- NOTE | 2021-07-30 11:32 | P.BOP ---
Preoperative diagnosis: AUB-O/A, deep dyspareunia, pelvic pain Postoperative diagnosis: same Primary procedure: diag hystersocopy, diag laparoscopy, TLH BS, CLIVE rectosigmoid Eye Specialist: Lynn Boyd Estimated blood loss: min Specimen: uterus tubes Findings: rectosigmoid adhesions to uterus obliterating CDS,b/l tubo-ov adhesions Anesthesia: General Complications: None Fluids & blood products: LR 1700, UO 200 Transferred to: Recovery Room Condition: Good
[2021-07-30 11:44] VITALS: O2SAT 100
[2021-07-30] MEDS ORDERED: MORPHINE 4 MG/ML SYR ONE (11:50)
[2021-07-30] MEDS ORDERED: MEPERIDINE HCL 25 MG/ML SYR ONE (11:51)
[2021-07-30] MEDS ORDERED: HYDROCODONE/APAP 5/325 MG TAB ONE (12:39)
[2021-07-30 12:48] VITALS: TEMP 98.7
--- NOTE | 2021-07-30 13:16 | OP ---
Date of Procedure: 07/30/2021 Surgeon: Jessica Hou MD Product Safety Consultant: Lynn Peralta. Preoperative Diagnoses: Abnormal uterine bleeding-leiomyomas/deep dyspareunia, pelvic pain. Postoperative Diagnoses: Abnormal uterine bleeding-leiomyomas/deep dyspareunia, pelvic pain. Procedures Performed: Diagnostic hysteroscopy, diagnostic laparoscopy, total laparoscopic hysterecto my, bilateral salpingectomy, lysis of periovarian adhesions and rectosigmoid adhesions with lysis of rectosigmoid adhesions to free up the cul-de-sac. Estimated Blood Loss: Minimal. Specimens: Uterus and tubes. Complications: No complications. Drains: No drains. Condition: Stable. Estimated Blood Loss: Minimal. Urine Output: 200. Fluids: LR 1700. Disposition: The patient was transferred to the recovery room in a stable fashion. Findings: Rectosigmoid adhesions were pulling the rectum all the way to the lowest part of the uteru s of the uterine wall. The adhesions were all the way around to the lateral lópez on both sides and the adhesions of the rectum were also to the left ovary and there were tubo-ovarian adhesions within the ovaries and the tubes and then the ovary and the lateral lópez on each side, and the posterior br oad ligament. All those was taken down to restore the anatomy before the procedure was done and then there were no other problems. The uterus appeared to be slightly enlarged, retroflexed. Ovaries were unremarkable mostly without a ny evidence of endometriosis. There was a questionable endometriotic lesion on the left distal utero sacral, which was cauterized and removed along with the specimen. Indications: The patient is a young 26-year-old, 4, para 3, 2 vaginal deliveries, 1 was pret erm, 3 living children, 1 set of twins, and then a kirby, status post tubal ligation, presented t o [facility] for irregular heavy bleeding, significant dysmenorrhea, pelvic pain, significant dyspareunia, an d bowel dysfunction. The patient also with history significant for bipolar depression. She had 3 pr ior surgeries, tubal ligation in November [address] Morton, then, Dr. Calderón and done laparoscopic surger y along with gallbladder removal in 2015 for some endometriosis excision, prior history of ruptured o varian cyst. There was another ruptured ovarian cyst that she had surgery for in October , w as seen by Dr. Kelsey. On physical examination, she has retroflexed uterus, very tender to palpation i n the cul-de-sac as well as on the uterine fundus and adnexa. She has lower pelvic tenderness as wel l. So, despite treatment for PID, she has not improved. The suspicion for endometriosis was very hi gh. The patient had irregular bleeding that was not well controlled by pills and she has gotten very upset due to the bleeding causing increased duration of pain during the month for her. Her pain had at times been severe to the point that she had gone to the ER or she was getting some pain medicatio n. The patient desired a hysterectomy and then if there was endometriosis excision; however, she was counseled that hysterectomy may not be the permanent option or a long-term option with her diagnosis of endometriosis present, possible endometriosis excision and hysteroscopy is she needed . She was also consented for possible hysterectomy, bilateral salpingectomy in case there was not vicente ugh endometriosis or pathology to explain her pain. The patient was consented, given 2 g of Ancef. Taken back to the OR, placed in supine fashion on the operating table. General anesthesia was given. She was placed in dorsal lithotomy using Logan stirrups. Abdomen, vulva, vagina, and perineum were prepped and draped in a sterile fashion. Sanchez placed to drain the bladder. Speculum placed to exp ose the cervix. Anterior lip was grasped with an Allis clamp and diagnostic uterus. The cavity was undistorted. No intracavitary lesions or abnormalities. The scope was pulled out. Diagn ostic VCare was placed and this was fixed in place. A 1 cm infraumbilical incision made with the scalpel using the open laparoscopy technique. The fasci a was incised and tagged with 0 Vicryl sutures. Peritoneum entered bluntly. S-retractors were place d and Yusuf introduced. Site of entry was checked, was unremarkable. Upper abdominal surface was u nremarkable as well. Physical examination of the peritoneum covering the liver and led under the bianca phragm on the lateral wall down including the appendix and unremarkable. No other inflammation was p resent. The tubes and ovaries were adhered as dictated in the findings above and there was significa nt pull-up of the rectosigmoid obliterating the cul-de-sac attached to the left and right ovaries. S o, at this point, on examination of the peritoneal surface anteriorly and posteriorly, there was no e vidence of any endometriosis or endometriotic implant and so I proceeded to decide that a hysterectom y would be a better option. Two 5 ports in left and right lower quadrants were placed and another 10 port through the suprapubic was placed under direct vision after injecting Marcaine at the fascia and skin. Exposure was gained and the ovaries were released from the adhesion complex. Then, the adhesions wer e taken down significantly in the posterior uterine wall and apical vaginal wall. Plane was created here with sharp dissection using scissors. Rectosigmoid was taken down in the center, then on the si summer and the uterosacral ligaments were identified, followed through to the distal end and then here s eparation was between the uterosacral and the cul-de-sac, and the adhesions were taken down, then sim ilarly all the adhesions were all these were taken the ovary and the tube from this complex. Once this was done, the ureter was well visualized. No evidence of any anatomical dis tortion. On the right side, similar dissection was performed to relieve the ovary and tube. The adhesions within the tubes and ovaries were also removed. Then, the distal part of the left tube was taken down with the help of LigaSure and then the entire t ube was detached. The uterine ligament and round ligament were taken down. Anterior broad ligament opened up to create a bladder flap all the way down to the anterior vaginal wall and then the periton eum incised and the bladder retracted inferiorly and dissected inferiorly. Then on the opposite side , we did the same dissection as on this side without any problems. Then, the posterior peritoneum wa s taken down on both sides as well. The vessels were skeletonized and vessels were taken down with t he help of the LigaSure and then the cardinal ligaments as well with the LigaSure. Anterior vesicova ginal space was entered using monopolar hook blade. Bladder dissected inferiorly and circumferential colpotomy was performed after taking down the vessels and cardinal ligaments on both sides. The spe cimen was pulled out through the vagina. The tube on the right side was excised and handed out for p athology. Some part of the distal tube missing on the side. Colpotomy was closed with a simple 0 Vicryl stitch at both angles and then 2-0 V-Loc running 2 layere d closure in the center. Thorough irrigation and suction were performed. Uterosacral ligaments were reattached to the vaginal cuff. The patient tolerated the procedure well. After thorough irrigatio n and suction, all the adhesions of the rectosigmoid were also cleanly removed with scissors. Then, ovaries were well tethered to the sidewall. All the trocars were removed. Instrument, needle, and s ponge counts were correct. Fascia at the umbilicus was closed with 0 Vicryl sutures and a simple 0 V icryl stitch at the suprapubic fascial site. All skin incisions closed with the help of 3-0 chromic in interrupted fashion. Sanchez and vaginal occluder were removed. Instrument, needle, and sponge cou nts x3 were correct at the end of the case. The patient was recovered from anesthesia and taken to P [facility] in stable condition. Findings were discussed with her and her mother on her consent. Bob wolfe will follow up in 1 week. OCTAVIO/TASHA Voice ID: [id number] Report ID: [id number]
[2021-07-30 13:19] VITALS: BP 124/73
[2021-07-30] MEDS ORDERED: SAMIDORPHAN MALATE PO SCH (21:00)
[2021-07-30] MEDS ORDERED: LITHIUM CARBONATE 300 MG PO SCH (21:00)
[2021-07-30] MEDS ORDERED: OLANZAPINE PO SCH (21:00)
== END 2021-07-30 13:25 | disposition home or self-care (01) ==
LOC: OR 06:59
PROVIDERS: ATTEND Obstetrics & Gynecology
PROC: 0UT74ZZ Resection of Bilateral Fallopian Tubes, Percutaneous Endoscopic Approach (ICD-10-PCS; 2021-07-30)
PROC: 0UJD8ZZ Inspection of Uterus and Cervix, Via Natural or Artificial Opening Endoscopic (ICD-10-PCS; 2021-07-30)
PROC: 0UJH0ZZ Inspection of Vagina and Cul-de-sac, Open Approach (ICD-10-PCS; 2021-07-30)
PROC: 0UT94ZZ Resection of Uterus, Percutaneous Endoscopic Approach (ICD-10-PCS; principal; 2021-07-30 08:15)
DX: N93.9 Abnormal uterine and vaginal bleeding, unspecified (principal); N94.6 Dysmenorrhea, unspecified; N94.12 Deep dyspareunia; N92.1 Excessive and frequent menstruation with irregular cycle; F31.32 Bipolar disorder, current episode depressed, moderate; D25.9 Leiomyoma of uterus, unspecified; R10.2 Pelvic and perineal pain; N73.6 Female pelvic peritoneal adhesions (postinfective); Z20.822 Contact with and (suspected) exposure to COVID-19
CPT/HCPCS: 58571; 58555; 57000; 85025; 36415; 86900; 86850; 81025; 86901; 88307; 81003; U0002; J2704; J2250; J3010; J1100; J2175; J0690; J7120 ×2; J2405 ×2

== ENCOUNTER 2021-11-08 11:38 | Emergency (ER) | payer BC ==
--- OUTSIDE RECORDS SUMMARY | 2021-11-08 11:42 | XMS REPORT | Continuity of Care Document ---
:1995 Author Organization [facility] t Address [address] [place] [address] Care Team Providers Name Role Phone Alcides Saenz Primary Care Physician BRENDON Attending Clinician Unavailable ERIN Attending Clinician Unavailable Erin LANDON Attending Clinician CANCINO Attending Clinician Unavailable Doctor Unassigned, Name Attending Clinician Unavailable Radiology Attending Clinician Unavailable RADIOLOGY Attending Clinician Unavailable Erin Edwards Attending Clinician Brendon LANDON Attending Clinician Amara SCHMIDT Attending Clinician Unavailable Pob, Lab Main Attending Clinician Unavailable Only, Test Attending Clinician Unavailable Alcides Menchaca DO Attending Clinician BRENDON Admitting Clinician Unavailable Brendon LANDON Admitting Clinician Payers Payer Name Policy Type Policy Number Effective Date Expiration Date S joel [employer] [place] - [id number] 2017 00:00:00 OUT OF STATE CIGNA II [id number] 2016 00:00:00 BCBS 2 [id number] 2020 00:00:00 Problems Condition Condition Condition Status Onset Resolution Last Treating Co mments Source Name Details Category Date Date Treatment Clinician Date Postoperat Postoperat Disease Active U nivers brittni brittni 01-06 [place] abdominal [place] pain with pain with 00 Medi heriberto fever fever Branch Postoperat Postoperat Disease Active U nivers rbittni seroma brittni seroma - it y of involving involving 00:00: Kylie cotter genitourin genitourin 00 Me dical nilson system nilson system Br anch after after genitourin genitourin nilson nilson procedure procedure Encounter Encounter Disease Active Overview: Univers for tubal for tubal 12-31 Formattin i ty of ligation ligation 00:00: g of this [place] as counseling counseling 00 note Me dical might be Branch different from the original. Added automatic ally from request for surgery [id number] Pre-op Pre-op Disease Active Univers examinatio examinatio 12-31 it y of n n 00:00: [address] Herpes, Herpes, Disease Active Univers vulvar vulvar 2-11 ity of 00:00: [address] Bipolar Bipolar Disease Active 2018-08 Univers disorder disorder - ity of 00:00: [address] Endometrio Endometrio Disease Active 2018-08 U nivers sis sis 1-25 ity of 00:00: [address] No known No known Disease Unive rs active active ity of problems problems [facility] Allergies, Adverse Reactions, Alerts Allergy Allergy Status Severity Reaction(s) Onset Inactive Treating Comm ents Source Name Type Date Date Clinician NO KNOWN Drug Active Univers ALLERGIE Class ity of S [facility] Social History Social Habit Start Date Stop Date Quantity Comments Source History of Cigarette Smoker Universi ty of tobacco use [facility] Exposure to Not sure Malcolm of SARS-CoV-2 [facility] (event) [place] Tobacco use and 2021-03-13 2021-03-13 Never used Universit y of exposure 00:00:00 00:00:00 [facility] Alcohol intake 2021-03-13 2021-03-13 Current drinker Unive rsity of 00:00:00 00:00:00 of alcohol [facility] (finding) [place] Tobacco Comment 2021-01-01 2021-01-01 quit 2016 Universit y of 00:00:00 00:00:00 [facility] Alcohol Comment 2020-08-11 2020-08-11 socially Universit y of 00:00:00 00:00:00 [facility] Sex Assigned At [birth year] Universit y of 00:00:00 00:00:00 [facility] Smoking Status Start Date Stop Date Source Former smoker 2021-03-13 00:00:00 2021-03-13 00:00:00 Universi ty of [facility] Never smoker University [facility] Medications Ordered Filled Start Stop Current Ordering Indication Dosage Frequency Signature Comments Components Source Medication Medication Date Date Medication? Clinician (SIG) Name Name LORazepam 2020- No [id number] 2mg 2 mg, Un oly (ATIVAN) 04-03 Oral, ity of tablet 2 mg 17:00: 15:57 [place]CE[place] 1 [place] dose, [facility] 04/03/21 at [place] [address], Routine LORazepam 2020- No [id number] 2mg 2 mg, Un oly (ATIVAN) 04-03 Oral, ity of tablet 2 mg 17:00: 15:57 [place]CE[place] dose, [facility] 04/03/21 at [place] [address], Routine LORazepam 2020- No [id number] 2mg 2 mg, Un oly (ATIVAN) 04-03 Oral, ity of tablet 2 mg 17:00: 15:57 ONCE, 1 [place] :[place] dose, [facility] 04/03/21 at [place] [address], Routine sodium 2020- No Slow IV Univers bicarbonate 04-03 Push, PRN, i ty of 8.4 % (1 16:42: 16:42 [place] mEq/mL) 49 :49 Tue Medical injection 04/03/21 at [place] [address], Until Discontinu ed, Routine sodium 2020- No Slow IV Univers bicarbonate 04-03 Push, PRN, i ty of 8.4 % (1 16:42: 16:42 [place] mEq/mL) 49 :49 Tue Medical injection 04/03/21 at [place] [address], Until Discontinu ed, Routine sodium 2020- No Slow IV Univers bicarbonate 04-03 Push, PRN, i ty of 8.4 % (1 16:42: 16:42 [place] mEq/mL) 49 :49 Fri Medical injection 04/03/21 at [facility] 1142, Until Discontinu ed, Routine lidocaine 2020- No PRN, Univers 2% 04-03 Starting ity of (XYLOCAINE) 16:42: 16:42 Fri [place] 20 mg/mL (2 24 :24 04/03/21 at [place] 1142, Branch injection Until Discontinu ed, Routine lidocaine 2020- No PRN, Univers 2% 04-03 Starting ity of (XYLOCAINE) 16:42: 16:42 Fri [place] 20 mg/mL (2 24 :24 04/03/21 at [place] 1142, Branch injection Until Discontinu ed, Routine lidocaine 2020- No PRN, Univers 2% 04-03 Starting ity of (XYLOCAINE) 16:42: 16:42 Fri [place] 20 mg/mL (2 24 :24 04/03/21 at [place] 1142, Branch injection Until Discontinu ed, Routine iopamidol 2020- No [id number] 100mL 100 mL, Univers (ISOVUE 03-02 07-26 Intravenou ity o f 370-500 mL) 23:30: 22:12 s, ONCE, 1 [place] injection 00 :00 dose, Mon Medic al 100 mL 03/02/21 at [place] [address], Routine carBAMazepi 0 Yes 1{tbl} 1 tablet. Univers ne 200 mg 6-17 ity of 12 hr 00:00: [place] tablet 00 [facility] carBAMazepi 2020-0 Yes 1{tbl} 1 tablet. Univers ne 200 mg 6-17 ity of 12 hr 00:00: [place] tablet 00 [facility] carBAMazepi 2020-0 Yes 1{tbl} 1 tablet. Univers ne 200 mg 6-17 ity of 12 hr 00:00: [place] tablet 00 [facility] carBAMazepi 2020-0 Yes 1{tbl} 1 tablet. Univers ne 200 mg 6-17 ity of 12 hr 00:00: [place] tablet 00 [facility] carBAMazepi 2020-0 Yes 1{tbl} 1 tablet. Univers ne 200 mg 6-17 ity of 12 hr 00:00: [place] tablet 00 [facility] carBAMazepi 2020-0 Yes 1{tbl} 1 tablet. Univers ne 200 mg 6-17 ity of 12 hr 00:00: [place] tablet 00 [facility] carBAMazepi 2020-0 Yes 1{tbl} 1 tablet. Univers ne 200 mg 6-17 ity of 12 hr 00:00: [place] tablet 00 [facility] carBAMazepi 2020-0 Yes 1{tbl} 1 tablet. Univers ne 200 mg 6-17 ity of 12 hr 00:00: [place] tablet 00 [facility] carBAMazepi 2020-0 Yes 1{tbl} 1 tablet. Univers ne 200 mg 6-17 ity of 12 hr 00:00: [place] tablet 00 [facility] carBAMazepi 2020-0 Yes 1{tbl} 1 tablet. Univers ne 200 mg 6-17 ity of 12 hr 00:00: [place] tablet 00 [facility] carBAMazepi 2020-0 Yes 1{tbl} 1 tablet. Univers ne 200 mg 6-17 ity of 12 hr 00:00: [place] tablet 00 [facility] carBAMazepi 2020-0 Yes 1{tbl} 1 tablet. Univers ne 200 mg 6-17 ity of 12 hr 00:00: [place] tablet 00 [facility] carBAMazepi 2020-0 Yes 1{tbl} 1 tablet. Univers ne 200 mg 6-17 ity of 12 hr 00:00: [place] tablet 00 [facility] polyethylen Yes 17g 17 g, Unive rs e glycol 01-07 Oral, ity of 3350 powder 14:00: DAILY, [place] 17 g 00 First dose Medical on Tue01/07/21 at 0900, Until Discontinu ed, Routine docusate Yes 100mg 100 mg, Unive rs (COLACE) 01-07 Oral, BID, ity o f capsule 100 13:30: First dose [place] mg 00 on Tue01/07/21 at Branch 0830, Until Discontinu ed, Routine lithium Yes 900mg 900 mg, Univer s carbonate 01-07 Oral, QHS, ity of (LITHONATE) 02:00: First dose [place] capsule 900 00 (after Medica l mg last Branch modificati on) on Tue01/06/21 at 2100, Until Discontinu ed gabapentin Yes 400mg 400 mg, Uni vers (NEURONTIN) 01-07 Oral, TID, it y of tablet 400 01:00: [place] [facility] at Branch 2000, Until Discontinu ed, Routine labetaloL Yes 100mg 100 mg, Univ ers (NORMODYNE) 01-07 Oral, BID, it y of tablet 100 01:00: [place] [facility] 01/[facility]/21 at Branch 2000, Until Discontinu ed, Routine lamoTRIgine No 200mg 200 mg, U nivers (LAMICTAL) 01-07 Oral, ity of tablet 200 00:30: 00:35 ONCE, 1 [place] mg 00 :00 dose, [facility] 01/06/21 at Branch 1930, Routine piperacilli No 3.375g 3.375 g, Univers n-tazobacta 01-06 IV ity of m (ZOSYN) 23:26: 13:50 Piggyback, [place] 3.375 g in 00 :00 Q6H ABX, 3 Med ical NaCl 0.9% doses, Branch (NS) 100 mL First dose MINI-BAG on Tue01/06/21 at 1830, Last dose on Tue01/07/21 at 0630, 100 mL
Reas on for Anti-Infec tive: Empiric Therapy for Suspected Infection< br>Empiric Therapy Site: Pelvic
Duration of therapy: 72 hours ibuprofen Yes 600mg 600 mg, Univ ers (IBU) 01-06 Oral, ity of tablet 600 22:17: Q6HPRN, [place] mg 31 Starting Medical [facility] 01/06/21 Branch at 1717, Until Discontinu ed, Routine, Pain (scale 1-3) metoclopram Yes 10mg 10 mg, Univ ers chava HCl 01-06 Slow IV ity of (REGLAN) 22:17: Push, [place] injection 17 Q6HPRN, Medical 10 mg Starting Branch [facility] 01/06/21 at 1717, Until Discontinu ed, Routine, Nausea and Vomiting (N/V) ondansetron Yes 4mg 4 [facility] ([facility] 01-06 Oral, ity of tablet 4 mg 22:15: Q4HPRN, [place] 01 Starting Medical 01/06/21 Branch at 1715, Until Discontinu ed, Routine, Nausea and Vomiting (N/V) acetaminoph Yes 650mg 650 mg, Un oly en 01-06 Oral, ity of (TYLENOL) 22:14: Q6HPRN, [place] tablet 650 14 Starting Medic al mg 01/06/21 Branch at 1714, Until Discontinu ed, Routine, Pain (scale 1-3) piperacilli 2020- No 3.375g 3.375 g, Univers n-tazobacta 01-06 IV ity of m (ZOSYN) 20:30: 19:56 Piggyback, [place] 3.375 g in 00 :00 ONCE, 1 Medica l NaCl 0.9% dose, Tue Branc h (NS) 100 mL 01/06/21 at MINI-BAG 1530, 100 mL
Reas on for Anti-Infec tive: Empiric Therapy for Suspected Infection< br>Empiric Therapy Site: Abdominal< br>Duratio n of therapy: 72 hours iopamidol 2020- No [id number] 120mL 120 mL, Univers (ISOVUE 01-06 Intravenou ity o f 370-500 mL) 19:15: 19:15 s, ONCE, 1 [place] injection 00 :00 dose, Tue Medic al 120 mL 01/06/21 at Branch 1415, Routine ondansetron 2020- No 4mg 4 mg, Slow Univers (ZOFRAN 01-06 IV Push, ity of (PF)) 18:45: 18:10 ONCE, 1 [place] injection 4 00 :00 dose, Tue Med ical mg 01/06/21 at Branch 1345, KRAIG acetaminoph 2020- No 650mg 650 mg, U nivers en 01-06 Oral, ity of (TYLENOL) 18:45: 18:09 ONCE, 1 [place] tablet 650 00 :00 dose, Tue Medi heriberto mg 01/06/21 at Branch 1345, KRAIG NaCl 0.9% 2020- No 1000mL at 999 Uni vers (NS) bolus 01-06 06-01 mL/hr, ity of infusion 17:45: 20:41 1,000 mL, [place] 1,000 mL 00 :00 IV Medical Infusion, Branch ONCE, 1 dose, 01/06/21 at 1245, KRAIG HYDROcodone 2020-0 Yes 1{tbl} 1 tablet, Univers -acetaminop 5-28 Oral, PRN, it y of hen (NORCO) 15:11: 1 dose, [place] 10-325 mg 33 Starting Medica l tablet 1 Fri Branch tablet 01/02/21 at 1011, Until Discontinu ed, Routine, Pain (scale 4-6), DSU Recovery HYDROcodone 0 Yes 1{tbl} 1 tablet, Univers -acetaminop 5-28 Oral, PRN, it y of hen (NORCO 15:11: 1 dose, [place] 5) 5-325 mg 33 Starting Medi heriberto tablet 1 Fri Branch tablet 01/02/21 at 1011, Until Discontinu ed, Routine, Pain (scale 1-3), DSU Recovery HYDROcodone 0 Yes 1{tbl} 1 tablet, Univers -acetaminop 5-28 Oral, PRN, it y of hen (NORCO) 15:11: 1 dose, [place] 10-325 mg 33 Starting Medica l tablet 1 Fri Branch tablet 01/02/21 at 1011, Until Discontinu ed, Routine, Pain (scale 7-10), DSU Recovery HYDROcodone 0 2020- No 1{tbl} 1 tablet, Univers -acetaminop 5-28 05-28 Oral, PRN, i ty of hen (NORCO) 15:11: 18:55 1 dose, [place] 10-325 mg 33 :21 Starting Medica l tablet 1 Fri Branch tablet 01/02/21 at 1011, Until Tue01/02/21 at 1355, Routine, Pain (scale 4-6), DSU Recovery HYDROcodone 0 2020- No 1{tbl} 1 tablet, Univers -acetaminop 5-28 05-28 Oral, PRN, i ty of hen (NORCO 15:11: 18:55 1 dose, [place] 5) 5-325 mg 33 :21 Starting Medi heriberto tablet 1 Fri Branch tablet 01/02/21 at 1011, Until Tue01/02/21 at 1355, Routine, Pain (scale 1-3), DSU Recovery HYDROcodone 2020-2020- No 1{tbl} 1 tablet, Univers -acetaminop 01-02 Oral, PRN, i ty of hen (NORCO) 15:11: 18:55 1 dose, [place] 10-325 mg 33 :21 Starting Medica l tablet 1 Tue Branch tablet 01/02/21 at 1011, Until Tue01/02/21 at 1355, Routine, Pain (scale 7-10), DSU Recovery sodium Yes PRN, Univers chloride 01-02 Starting ity of 0.9 % 14:40: Tue [place] irrigation 00 01/02/21 at [facility] ical solution 0940, Branch Until Discontinu ed, Intra-op sodium 2020-0 2020- No PRN, Univers chloride 01-02 Starting ity of 0.9 % 14:40: 18:55 Fri [place] irrigation 00 :21 01/02/21 at Med ical solution 0940, Branch Until Tue01/02/21 at 1355, Intra-op bupivacaine 2020- Yes PRN, Univer s (preserv 01-02 Starting ity of free) 14:38: Tue [place] [facility] 0938, Branch % (2.5 Until mg/mL) Discontinu injection ed, Routine, Intra-op bupivacaine 2020- No PRN, Unive rs (preserv 01-02 Starting ity of free) 14:38: 18:55 Tue [place] (SENSORCAIN 00 :21 01/02/21 at [place] [facility]) 0.25 0938, Branch % (2.5 Until Fri mg/mL) 01/02/21 at injection 1355, Routine, Intra-op lactated 2020- No 1000mL at 42 Unive rs ringers IV 01-02 mL/hr, ity of infusion 13:15: 13:25 1,000 mL, [place] 1,000 mL 00 :00 IV Medical Infusion, Branch ONCE, 1 dose, Tue01/02/21 at 0815, Routine, DSU Pre-op lactated 2020-0 2020- No 1000mL at 42 Unive rs ringers IV 5-28 05-28 mL/hr, ity of infusion 13:15: 13:25 1,000 mL, [place] 1,000 mL 00 :00 IV Medical Infusion, Branch ONCE, 1 dose, 01/02/21 at 0815, Routine, DSU Pre-op ibuprofen 2020-0 Yes [id number] 600mg Take 1 Univers 600 mg 5-28 tablet by ity of tablet 00:00: mouth [place] 00 every 6 Medical (six) Branch hours as needed for Pain (scale 1-3). ibuprofen 2020-0 Yes [id number] 600mg Take 1 Univers 600 mg 5-28 tablet by ity of tablet 00:00: mouth [place] 00 every 6 Medical (six) Branch hours as needed for Pain (scale 1-3). ibuprofen 2020-0 Yes [id number] 600mg Take 1 Univers 600 mg 5-28 tablet by ity of tablet 00:00: mouth [place] 00 every 6 Medical (six) Branch hours as needed for Pain (scale 1-3). ibuprofen 2020-0 Yes [id number] 600mg Take 1 Univers 600 mg 5-28 tablet by ity of tablet 00:00: mouth [place] 00 every 6 Medical (six) Branch hours as needed for Pain (scale 1-3). ibuprofen 2020-0 Yes [id number] 600mg Take 1 Univers 600 mg 5-28 tablet by ity of tablet 00:00: mouth [place] 00 every 6 Medical (six) Branch hours as needed for Pain (scale 1-3). ibuprofen 2020-0 202- No [id number] 600mg Take 1 Univers 600 mg 5-28 08-06 tablet by ity of tablet 00:00: 00:00 mouth [place] 00 :00 every 6 Medical (six) Branch hours as needed for Pain (scale 1-3). ibuprofen 2020-0 2020- No [id number] 600mg Take 1 Univers 600 mg 5-28 08-06 tablet by ity of tablet 00:00: 00:00 mouth [place] 00 :00 every 6 Medical (six) Branch hours as needed for Pain (scale 1-3). oxyCODONE 5 2020-0 202- No [id number] 5mg Take 1 Uni vers mg 5-28 06-05 tablet by ity of immediate 00:00: 04:59 mouth [place] release 00 :00 every 6 Medical tablet (six) Branch hours as needed for Pain (scale 7-10) for up to 7 days. Indication s: acute pain oxyCODONE 5 2020-0 2020- No [id number] 5mg Take 1 Uni vers mg 5-28 06-05 tablet by ity of immediate 00:00: 04:59 mouth [place] release 00 :00 every 6 Medical tablet (six) Branch hours as needed for Pain (scale 7-10) for up to 7 days. Indication s: acute pain oxyCODONE 5 2020-0 2020- No [id number] 5mg Take 1 Uni vers mg 5-28 06-05 tablet by ity of immediate 00:00: 04:59 mouth [place] release 00 :00 every 6 Medical tablet (six) Branch hours as needed for Pain (scale 7-10) for up to 7 days. Indication s: acute pain oxyCODONE 5 2020-0 2020- No [id number] 5mg Take 1 Uni vers mg 5-28 06-05 tablet by ity of immediate 00:00: 04:59 mouth [place] release 00 :00 every 6 Medical tablet (six) Branch hours as needed for Pain (scale 7-10) for up to 7 days. Indication s: acute pain lamoTRIgine 0 Yes Univer s 200 mg 5-17 ity of tablet 00:00: Medical Branch lamoTRIgine 2020-0 Yes Univer s 200 mg 5-17 ity of tablet 00:00: Medical Branch lamoTRIgine 2020-0 Yes Take by Un oly 200 mg 5-17 mouth once ity of tablet 00:00: now. Medical Branch lamoTRIgine 2020-0 Yes Take by Un oly 200 mg 5-17 mouth once ity of tablet 00:00: now. Medical Branch lamoTRIgine 2020-0 Yes Take by Un oly 200 mg 5-17 mouth once ity of tablet 00:00: now. Medical Branch lamoTRIgine 2020-0 Yes Take by Un oly 200 mg 5-17 mouth once ity of tablet 00:00: now. Medical Branch valACYclovi 2020-0 Yes as needed. Univers r 1 gram 3-14 ity of tablet 00:00: 00 Medical Branch valACYclovi 0 Yes as needed. Univers r 1 gram 3-14 ity of tablet 00:00: Medical Branch valACYclovi 2020-0 Yes as needed. Univers r 1 gram 3-14 ity of tablet 00:00: Medical Branch valACYclovi 0 Yes TAKE 1 Univ ers r 1 gram 3-14 TABLET BY ity of tablet 00:00: MOUTH 00 TWICE A Medical DAY FOR 7 Branch DAYS valACYclovi 0 Yes TAKE 1 Univ ers r 1 gram 3-14 TABLET BY ity of tablet 00:00: MOUTH 00 TWICE A Medical DAY FOR 7 Branch DAYS valACYclovi 0 Yes as needed. Univers r 1 gram 3-14 ity of tablet 00:00: Medical Branch valACYclovi 0 Yes as needed. Univers r 1 gram 3-14 ity of tablet 00:00: Medical Branch valACYclovi 0 Yes as needed. Univers r 1 gram 3-14 ity of tablet 00:00: Medical Branch valACYclovi 0 Yes as needed. Univers r 1 gram 3-14 ity of tablet 00:00: Medical Branch valACYclovi 0 Yes as needed. Univers r 1 gram 3-14 ity of tablet 00:00: Medical Branch valACYclovi 0 Yes as needed. Univers r 1 gram 3-14 ity of tablet 00:00: Medical Branch valACYclovi 0 Yes as needed. Univers r 1 gram 3-14 ity of tablet 00:00: Medical Branch valACYclovi 2020-0 Yes as needed. Univers r 1 gram 3-14 ity of tablet 00:00: Medical Branch valACYclovi 0 Yes as needed. Univers r 1 gram 3-14 ity of tablet 00:00: Medical Branch valACYclovi 2020-0 Yes as needed. Univers r 1 gram 3-14 ity of tablet 00:00: Medical Branch valACYclovi 0 Yes as needed. Univers r 1 gram 3-14 ity of tablet 00:00: Medical Branch valACYclovi 2020-0 Yes as needed. Univers r 1 gram 3-14 ity of tablet 00:00: [place] 00 Medical Branch valACYclovi 2021-0 Yes as needed. Univers r 1 gram 3-14 ity of tablet 00:00: [place] 00 Medical Branch valACYclovi 2021-0 Yes as needed. Univers r 1 gram 3-14 ity of tablet 00:00: [place] 00 Medical Branch gabapentin 2021-0 Yes Take by Uni vers 400 mg 3-01 mouth 3 ity of capsule 00:00: (three) [place] 00 times Medical daily. Branch gabapentin 2021-0 Yes Take by Uni vers 400 mg 3-01 mouth 3 ity of capsule 00:00: (three) [place] 00 times Medical daily. Branch gabapentin 2021-0 Yes Take by Uni vers 400 mg 3-01 mouth 3 ity of capsule 00:00: (three) [place] 00 times Medical daily. Branch gabapentin 2021-0 Yes Univers 400 mg 3-01 ity of capsule 00:00: [place] 00 Medical Branch gabapentin 2021-0 Yes Univers 400 mg 3-01 ity of capsule 00:00: [place] 00 Medical Branch gabapentin 2021-0 Yes Take by Uni vers 400 mg 3-01 mouth 3 ity of capsule 00:00: (three) [place] 00 times Medical daily. Branch gabapentin 2021-0 Yes Take by Uni vers 400 mg 3-01 mouth 3 ity of capsule 00:00: (three) [place] 00 times Medical daily. Branch gabapentin 2021-0 Yes Take by Uni vers 400 mg 3-01 mouth 3 ity of capsule 00:00: (three) [place] 00 times Medical daily. Branch gabapentin 2021-0 Yes Take by Uni vers 400 mg 3-01 mouth 3 ity of capsule 00:00: (three) [place] 00 times Medical daily. Branch gabapentin 2021-0 Yes Take by Uni vers 400 mg 3-01 mouth 3 ity of capsule 00:00: (three) [place] 00 times Medical daily. Branch gabapentin 2021-0 Yes Take by Uni vers 400 mg 3-01 mouth 3 ity of capsule 00:00: (three) [place] 00 times Medical daily. Branch gabapentin 2021-0 Yes Take by Uni vers 400 mg 3-01 mouth 3 ity of capsule 00:00: (three) [place] 00 times Medical daily. Branch gabapentin 2021-0 Yes Take by Uni vers 400 mg 3-01 mouth 3 ity of capsule 00:00: (three) [place] 00 times Medical daily. Branch gabapentin 2021-0 Yes Take by Uni vers 400 mg 3-01 mouth 3 ity of capsule 00:00: (three) [place] 00 times Medical daily. Branch gabapentin 2020-0 Yes Take by Uni vers 400 mg 3-01 mouth 3 ity of capsule 00:00: (three) [place] 00 times Medical daily. Branch gabapentin 2020-0 Yes Take by Uni vers 400 mg 3-01 mouth 3 ity of capsule 00:00: (three) [place] 00 times Medical daily. Branch gabapentin 2020-0 Yes Take by Uni vers 400 mg 3-01 mouth 3 ity of capsule 00:00: (three) [place] 00 times Medical daily. Branch gabapentin 2020-0 Yes Take by Uni vers 400 mg 3-01 mouth 3 ity of capsule 00:00: (three) [place] 00 times Medical daily. Branch gabapentin 2020-0 Yes Take by Uni vers 400 mg 3-01 mouth 3 ity of capsule 00:00: (three) [place] 00 times Medical daily. Branch levonorgest 2020- No [id number] 1{devi Univers reL 08-11 e} ity of (MIRENA) 18:15: 17:16 [place] IUD 1 00 :00 [employer] Branch levonorgest 2020- No [id number] 1{devi 1 Device, Univers reL 08-11 e} Intrauteri ity of (MIRENA) 18:15: 17:16 ne, ONCE, [place] IUD 1 00 :00 1 dose, [employer] 08/11/20 Branch at 1215, Routine levonorgest 2020- No [id number] 1{devi Univers reL 08-11 e} ity of (MIRENA) 18:15: 17:16 [place] IUD 1 00 :00 [employer] Branch levonorgest 2020- No [id number] 1{devi 1 Device, Univers reL 08-11 e} Intrauteri ity of (MIRENA) 18:15: 17:16 ne, ONCE, [place] IUD 1 00 :00 1 dose, [employer] 08/11/20 Branch at 1215, Routine levonorgest 2020- No [id number] 1{devic Univers reL 08-11 e} ity of (MIRENA) 18:15: 17:16 [place] IUD 1 00 :00 [employer] Branch levonorgest 202- No [id number] 1{devic 1 Device, [place] [facility] reL 08-11 e} Intrauteri ity of (MIRENA) 18:15: 17:16 ne, ONCE, [place] IUD 1 00 :00 1 dose, [employer] 08/11/20 Branch at 1215, Routine FLUoxetine Yes 40mg Take 40 mg U nivers 40 mg 1-04 by mouth. ity of capsule 16:53: [address] FLUoxetine Yes 40mg Take 40 mg U nivers 40 mg 1-04 by mouth. ity of capsule 16:53: [address] FLUoxetine Yes 40mg Take 40 mg U nivers 40 mg 1-04 by mouth. ity of capsule 16:53: [address] miSOPROStoL 2019- Yes [id number] 200ug Take 1 Univers 200 mcg 2-31 tablet by ity of tablet 00:00: mouth [place] ([facility]) Medical times [place] daily. Take the night before the procedure and the morning of. miSOPROStoL 2019- Yes [id number] 200ug Take 1 Univers 200 mcg 2-31 tablet by ity of tablet 00:00: mouth [place] ([facility]) Medical times [place] daily. Take the night before the procedure and the morning of. miSOPROStoL 2019- Yes [id number] 200ug Take 1 Univers 200 mcg 2-31 tablet by ity of tablet 00:00: mouth [place] ([facility]) Medical times Branch daily. Take the night before the procedure and the morning of. miSOPROStoL 2019- Yes [id number] 200ug Take 1 Univers 200 mcg 2-31 tablet by ity of tablet 00:00: mouth 2 [place] ([facility]) Medical times [place] daily. Take the night before the procedure and the morning of. labetaloL 2019- Yes 100mg Take 100 Uni vers 100 mg 2-30 mg by ity of tablet 00:00: mouth 2 [place] ([facility]) Medical times Branch daily. lithium 2020- Yes 450mg Take 450 Unive rs carbonate 2-30 mg by ity of CR 450 mg 00:00: mouth 2 [place] SR tablet 00 (two) Medical times Branch daily. labetaloL 2020- Yes 100mg Take 100 Uni vers 100 mg 2-30 mg by ity of tablet 00:00: mouth 2 [place] 00 (two) Medical times Branch daily. lithium 2020-1 Yes 450mg Take 450 Unive rs carbonate 2-30 mg by ity of CR 450 mg 00:00: mouth 2 [place] SR tablet 00 (two) Medical times Branch daily. labetaloL 2020- Yes 100mg Take 100 Uni vers 100 mg 2-30 mg by ity of tablet 00:00: mouth 2 [place] 00 (two) Medical times Branch daily. lithium 2020-1 Yes 450mg Take 450 Unive rs carbonate 2-30 mg by ity of CR 450 mg 00:00: mouth 2 [place] SR tablet 00 (two) Medical times Branch daily. labetaloL 2020- Yes 100mg Take 100 Uni vers 100 mg 2-30 mg by ity of tablet 00:00: mouth 2 [place] 00 (two) Medical times Branch daily. lithium 2020- Yes 450mg Take 450 Unive rs carbonate 2-30 mg by ity of CR 450 mg 00:00: mouth [place] SR tablet 00 every Medical evening. Branch labetaloL 2019- Yes 100mg Take 100 Uni vers 100 mg 2-30 mg by ity of tablet 00:00: mouth 2 [place] 00 (two) Medical times Branch daily. lithium 2020-1 Yes 450mg Take 450 Unive rs carbonate 2-30 mg by ity of CR 450 mg 00:00: mouth [place] SR tablet 00 every Medical evening. Branch labetaloL 2020- Yes 100mg Take 100 Uni vers 100 mg 2-30 mg by ity of tablet 00:00: mouth 2 [place] 00 (two) Medical times Branch daily. lithium 2020-1 Yes 450mg Take 450 Unive rs carbonate 2-30 mg by ity of CR 450 mg 00:00: mouth [place] SR tablet 00 every Medical evening. Branch labetaloL 2020-1 Yes 100mg Take 100 Uni vers 100 mg 2-30 mg by ity of tablet 00:00: mouth 2 [place] 00 (two) Medical times Branch daily. lithium 2020-1 Yes 450mg Take 450 Unive rs carbonate 2-30 mg by ity of CR 450 mg 00:00: mouth 2 [place] SR tablet 00 (two) Medical times Branch daily. labetaloL 2020-1 Yes 100mg Take 100 Uni vers 100 mg 2-30 mg by ity of tablet 00:00: mouth 2 [place] 00 (two) Medical times Branch daily. lithium 2020-1 Yes 450mg Take 450 Unive rs carbonate 2-30 mg by ity of CR 450 mg 00:00: mouth 2 [place] SR tablet 00 (two) Medical times Branch daily. labetaloL 2020-1 Yes 100mg Take 100 Uni vers 100 mg 2-30 mg by ity of tablet 00:00: mouth 2 [place] 00 (two) Medical times Branch daily. lithium 2020-1 Yes 450mg Take 450 Unive rs carbonate 2-30 mg by ity of CR 450 mg 00:00: mouth 2 [place] SR tablet 00 (two) Medical times Branch daily. labetaloL 2020-1 Yes 100mg Take 100 Uni vers 100 mg 2-30 mg by ity of tablet 00:00: mouth 2 [place] 00 (two) Medical times Branch daily. lithium 2020-1 Yes 450mg Take 450 Unive rs carbonate 2-30 mg by ity of CR 450 mg 00:00: mouth 2 [place] SR tablet 00 (two) Medical times Branch daily. labetaloL 2020-1 Yes 100mg Take 100 Uni vers 100 mg 2-30 mg by ity of tablet 00:00: mouth 2 [place] 00 (two) Medical times Branch daily. lithium 2020-1 Yes 450mg Take 450 Unive rs carbonate 2-30 mg by ity of CR 450 mg 00:00: mouth 2 [place] SR tablet 00 (two) Medical times Branch daily. labetaloL 2020-1 Yes 100mg Take 100 Uni vers 100 mg 2-30 mg by ity of tablet 00:00: mouth 2 [place] 00 (two) Medical times Branch daily. lithium 2020-1 Yes 450mg Take 450 Unive rs carbonate 2-30 mg by ity of CR 450 mg 00:00: mouth 2 [place] SR tablet 00 (two) Medical times Branch daily. labetaloL 2020-1 Yes 100mg Take 100 Uni vers 100 mg 2-30 mg by ity of tablet 00:00: mouth 2 [place] 00 (two) Medical times Branch daily. lithium 2020-1 Yes 450mg Take 450 Unive rs carbonate 2-30 mg by ity of CR 450 mg 00:00: mouth 2 [place] SR tablet 00 (two) Medical times Branch daily. labetaloL 2020-1 Yes 100mg Take 100 Uni vers 100 mg 2-30 mg by ity of tablet 00:00: mouth 2 [place] 00 (two) Medical times Branch daily. lithium 2020-1 Yes 450mg Take 450 Unive rs carbonate 2-30 mg by ity of CR 450 mg 00:00: mouth 2 [place] SR tablet 00 (two) Medical times Branch daily. labetaloL 2020-1 Yes 100mg Take 100 Uni vers 100 mg 2-30 mg by ity of tablet 00:00: mouth 2 [place] 00 (two) Medical times Branch daily. lithium 2020-1 Yes 450mg Take 450 Unive rs carbonate 2-30 mg by ity of CR 450 mg 00:00: mouth 2 [place] SR tablet 00 (two) Medical times Branch daily. labetaloL 2020-1 Yes 100mg Take 100 Uni vers 100 mg 2-30 mg by ity of tablet 00:00: mouth 2 [place] 00 (two) Medical times Branch daily. lithium 2020-1 Yes 450mg Take 450 Unive rs carbonate 2-30 mg by ity of CR 450 mg 00:00: mouth 2 [place] SR tablet 00 (two) Medical times Branch daily. labetaloL 2020-1 Yes 100mg Take 100 Uni vers 100 mg 2-30 mg by ity of tablet 00:00: mouth 2 [place] 00 (two) Medical times Branch daily. lithium 2020-1 Yes 450mg Take 450 Unive rs carbonate 2-30 mg by ity of CR 450 mg 00:00: mouth 2 [place] SR tablet 00 (two) Medical times Branch daily. labetaloL 2020-1 Yes 100mg Take 100 Uni vers 100 mg 2-30 mg by ity of tablet 00:00: mouth 2 [place] 00 (two) Medical times Branch daily. lithium 2020-1 Yes 450mg Take 450 Unive rs carbonate 2-30 mg by ity of CR 450 mg 00:00: mouth 2 [place] SR tablet 00 (two) Medical times Branch daily. labetaloL 2020-1 Yes 100mg Take 100 Uni vers 100 mg 2-30 mg by ity of tablet 00:00: mouth 2 [place] 00 (two) Medical times Branch daily. lithium 2020-1 Yes 450mg Take 450 Unive rs carbonate 2-30 mg by ity of CR 450 mg 00:00: mouth 2 [place] SR tablet 00 (two) Medical times Branch daily. labetaloL 2020-1 Yes 100mg Take 100 Uni vers 100 mg 2-30 mg by ity of tablet 00:00: mouth 2 [place] 00 (two) Medical times Branch daily. lithium 2019-08 Yes 450mg Take 450 Unive rs carbonate 2-30 mg by ity of CR 450 mg 00:00: mouth 2 [place] SR tablet 00 (two) Medical times Branch daily. labetaloL 2019-08 Yes 100mg Take 100 Uni vers 100 mg 2-30 mg by ity of tablet 00:00: mouth 2 [place] 00 (two) Medical times Branch daily. lithium 2019-08 Yes 450mg Take 450 Unive rs carbonate 2-30 mg by ity of CR 450 mg 00:00: mouth 2 [place] SR tablet 00 (two) Medical times Branch daily. labetaloL 2019-08 Yes 100mg Take 100 Uni vers 100 mg 2-30 mg by ity of tablet 00:00: mouth 2 [place] 00 (two) Medical times Branch daily. lithium 2019-08 Yes 450mg Take 450 Unive rs carbonate 2-30 mg by ity of CR 450 mg 00:00: mouth 2 [place] SR tablet 00 (two) Medical times Branch daily. lithium 2019-08 Yes 300mg Take 300 Unive rs carbonate 1-16 mg by ity of CR 300 mg 00:00: mouth [place] SR tablet 00 every Medical evening. Branch lithium 2019-08 Yes 300mg Take 300 Unive rs carbonate 1-16 mg by ity of CR 300 mg 00:00: mouth [place] SR tablet 00 every Medical evening. Branch lithium 2019-08 Yes 300mg Take 300 Unive rs carbonate 1-16 mg by ity of CR 300 mg 00:00: mouth [place] SR tablet 00 every Medical evening. Branch ALPRAZolam 2019-08 Yes TAKE 1/2 Uni vers 0.5 mg 1-02 TO 1 ity of tablet 00:00: TABLET BY [place] MOUTH Medical TWICE A Branch DAY NEEDED ALPRAZolam 2019-08 Yes TAKE 1/2 Uni vers 0.5 mg 1-02 TO 1 ity of tablet 00:00: TABLET BY [place] MOUTH Medical TWICE A Branch DAY NEEDED ALPRAZolam 2019-08 Yes TAKE 1/2 Uni vers 0.5 mg 1-02 TO 1 ity of tablet 00:00: TABLET BY [place] MOUTH Medical TWICE A Branch DAY NEEDED acetaminoph 2019-08 Yes 1{tbl} Take 1 Un oly en-codeine 0-08 tablet by ity of 300-30 mg 00:00: mouth [place] tablet 00 every 6 Medical (six) Branch hours as needed. acetaminoph 2020-1 Yes 1{tbl} Take 1 Un oly en-codeine 0-08 tablet by ity of 300-30 mg 00:00: mouth [place] tablet 00 every 6 Medical (six) Branch hours as needed. acetaminoph 2020-1 Yes 1{tbl} Take 1 Un oly en-codeine 0-08 tablet by ity of 300-30 mg 00:00: mouth [place] tablet 00 every 6 Medical (six) Branch hours as needed. NaCl 0.9% 2019-0 2020- No 1000mL at 999 Uni vers (NS) bolus 5-10 05-10 mL/hr, ity of infusion 15:15: 15:24 1,000 mL, [place] 1,000 mL 00 :00 Intravenou Medic al s, ONCE, 1 Branch dose, 12/16/19 at 1015, STAT Cholecalcif 2020-0 Yes 1{capsu Take 1 U nivers taylor, 3-18 le} capsule by ity of Vitamin D3, 00:00: [place] 1[place]250 mcg 00 Medical (50,000 Branch unit) capsule Cholecalcif 2020-0 Yes 1{capsu Take 1 U nivers t[place], 3-18 le} capsule by ity of Vitamin D3, 00:00: [place]. [place] 1,250 mcg 00 Medical (50,000 Branch unit) capsule Cholecalcif 2020-0 Yes 1{capsu Take 1 U nivers taylor, 3-18 le} capsule by ity of Vitamin D3, 00:00: [place]. [place] 1,250 mcg 00 Medical (50,000 Branch unit) capsule progesteron 2020-0 2020- No Unive rs e 200 mg 10-07 ity of capsule 00:00: 00:00 [place] 00 :00 Medical Branch progesteron 2020-0 2020- No Unive rs e 200 mg 10-07 ity of capsule 00:00: 00:00 [place] 00 :00 Medical Branch progesteron 2020-0 2020- No Unive rs e 200 mg 10-07 ity of capsule 00:00: 00:00 [place] 00 :00 Medical Branch ondansetron 2019-0 Yes 4mg Take 4 mg U nivers 4 mg 2-25 by mouth. ity of disintegrat 00:00: [place] ing tablet 00 Medical Branch ondansetron 2019-0 Yes 4mg Take 4 mg U nivers 4 mg 2-25 by mouth. ity of disintegrat 00:00: [place] ing tablet 00 Medical Branch ondansetron 2020-0 Yes 4mg Take 4 mg U nivers 4 mg 2-25 by mouth. ity of disintegrat 00:00: [place] ing tablet 00 Medical Branch atorvastati 2019-0 2020- No 10mg Take 10 mg Univers n 10 mg 2-19 02-19 by mouth. ity of tablet 00:00: 05:59 [place] 00 :00 Medical Branch metformin 2019-0 2020- No 500mg Take 500 Un oly ER 500 mg 2-19 02-19 mg by ity of 24 hr 00:00: 05:59 mouth. [place] tablet 00 :00 Medical Branch atorvastati 2019-0 2020- No 10mg Take 10 mg Univers n 10 mg 2-19 02-19 by mouth. ity of tablet 00:00: 05:59 [place] 00 :00 Medical Branch metformin 2019-0 2020- No 500mg Take 500 Un oly ER 500 mg 2-19 02-19 mg by ity of 24 hr 00:00: 05:59 mouth. [place] tablet 00 :00 Medical Branch atorvastati 2019-0 2020- No 10mg Take 10 mg Univers n 10 mg 2-19 02-19 by mouth. ity of tablet 00:00: 05:59 [place] 00 :00 Medical Branch metformin 2019-0 2020- No 500mg Take 500 Un oly ER 500 mg 2-19 02-19 mg by ity of 24 hr 00:00: 05:59 mouth. [place] tablet 00 :00 Medical Branch oseltamivir 2020-0 Yes Univer s 75 mg 1-27 ity of capsule 00:00: [place] 00 Medical Branch oseltamivir 2020-0 Yes Univer s 75 mg 1-27 ity of capsule 00:00: [place] 00 Medical Branch oseltamivir 2020-0 Yes Univer s 75 mg 1-27 ity of capsule 00:00: [place] 00 Medical Branch escitalopra 2018-08 Yes 40mg 40 mg. Univ ers m oxalate 1-23 ity of 20 mg 00:00: [place] tablet 00 Medical Branch escitalopra 2018-08 Yes 40mg 40 mg. Univ ers m oxalate 1-23 ity of 20 mg 00:00: [place] tablet 00 Medical Branch escitalopra 2018-08 Yes 40mg 40 mg. Univ ers m oxalate 1-23 ity of 20 mg 00:00: [place] tablet 00 Medical Branch escitalopra Yes TAKE 1 AND Univers m oxalate 5-23 1/2 ity of 20 mg 00:00: TABLETS BY [place] tablet 00 MOUTH ONCE Medical A DAY Branch escitalopra Yes TAKE 1 AND Univers m oxalate 5-23 1/2 ity of 20 mg 00:00: TABLETS BY [place] tablet 00 MOUTH ONCE Medical A DAY Branch escitalopra Yes TAKE 1 AND Univers m oxalate 5-23 1/2 ity of 20 mg 00:00: TABLETS BY [place] tablet 00 MOUTH ONCE Medical A DAY Branch escitalopra Yes TAKE 1 AND Univers m oxalate 5-23 1/2 ity of 20 mg 00:00: TABLETS BY [place] tablet 00 MOUTH ONCE Medical A DAY Branch escitalopra Yes TAKE 1 AND Univers m oxalate 5-23 1/2 ity of 20 mg 00:00: TABLETS BY [place] tablet 00 MOUTH ONCE Medical A DAY Branch LATUDA 60 Yes TAKE 1 Univer s mg Tab 5-07 TABLET BY ity of 00:00: MOUTH [place] 00 EVERY Medical EVENING Branch TAKE WITH FOOD, AT LEAST 350KCAL. LATUDA 60 Yes TAKE 1 Univer s mg Tab 5-07 TABLET BY ity of 00:00: MOUTH [place] 00 EVERY Medical EVENING Branch TAKE WITH FOOD, AT LEAST 350KCAL. LATUDA 60 Yes TAKE 1 Univer s mg Tab 5-07 TABLET BY ity of 00:00: MOUTH [place] 00 EVERY Medical EVENING Branch TAKE WITH FOOD, AT LEAST 350KCAL. LATUDA 60 Yes TAKE 1 Univer s mg Tab 5-07 TABLET BY ity of 00:00: MOUTH [place] 00 EVERY Medical EVENING Branch TAKE WITH FOOD, AT LEAST 350KCAL. LATUDA 60 Yes TAKE 1 Univer s mg Tab 5-07 TABLET BY ity of 00:00: MOUTH [place] 00 EVERY Medical EVENING Branch TAKE WITH FOOD, AT LEAST 350KCAL. Immunizations Ordered Filled Immunization Date Status Comments [facility] e Immunization Name Name Influenza Virus 2019-05-16 Completed Universit y of Vaccine [facility] IM 3+ 00:00:00 [facility] Influenza Virus 2019-05-16 Completed Universit y of Vaccine [facility] IM 3+ 00:00:00 [facility] Influenza Virus 2019-05-16 Completed Universit y of Vaccine [facility] IM 3+ 00:00:00 [facility] Influenza Virus 2019-05-16 Completed Universit y of Vaccine [facility] IM 3+ 00:00:00 [facility] Influenza Virus 2019-05-16 Completed Universit y of Vaccine [facility] IM 3+ 00:00:00 [facility] Influenza Virus 2019-05-16 Completed Universit y of Vaccine [facility] IM 3+ 00:00:00 [facility] Influenza Virus 2019-05-16 Completed Universit y of Vaccine Quad IM 3+ 00:00:00 [facility] Influenza Virus 2019-05-16 Completed Universit y of Vaccine Quad IM 3+ 00:00:00 [facility] Influenza Virus 2019-05-16 Completed Universit y of Vaccine Quad IM 3+ 00:00:00 [facility] Influenza Virus 2019-05-16 Completed Universit y of Vaccine Quad IM 3+ 00:00:00 [facility] Influenza Virus 2019-05-16 Completed Universit y of Vaccine Quad IM 3+ 00:00:00 [facility] Influenza Virus 2019-05-16 Completed Universit y of Vaccine Quad IM 3+ 00:00:00 [facility] Influenza Virus 2019-05-16 Completed Universit y of Vaccine Quad IM 3+ 00:00:00 [facility] Influenza Virus 2019-05-16 Completed Universit y of Vaccine Quad IM 3+ 00:00:00 [facility] Vital Signs Vital Name Observation Time Observation Value Comments Source Systolic blood 2021-04-03 17:10:00 152 mm[Hg] Univer sity of pressure [facility] Diastolic blood 2021-04-03 17:10:00 104 mm[Hg] Unive rsity of pressure [facility] Heart rate 2021-04-03 17:10:00 115 /min [place] [facility] Respiratory rate 2021-04-03 17:10:00 16 /min Univ ersity of [facility] Oxygen saturation in 2021-04-03 17:10:00 100 /min [facility] Arterial blood by [facility] Pulse oximetry Branch Body height 2021-04-03 15:48:00 152.4 cm Universi ty of [place] [facility] Body weight 2021-04-03 15:48:00 54.432 kg Universi ty of [place] [facility] BMI 2021-04-03 15:48:00 23.44 kg/m2 Universi ty of [place] [facility] Systolic blood 2021-03-13 18:28:00 146 mm[Hg] Univer sity of pressure [place] [facility] Diastolic blood 2021-03-13 18:28:00 89 mm[Hg] Unive rsity of pressure [place] [facility] Heart rate 2021-03-13 18:28:00 82 /min Universi ty of [place] [facility] Body temperature 2021-03-13 18:28:00 37.11 Zora Univ ersity of [place] [facility] Body height 2021-03-13 18:28:00 152.4 cm Universi ty of [place] [facility] Body weight 2021-03-13 18:28:00 58.378 kg Universi ty of [place] [facility] BMI 2021-03-13 18:28:00 25.13 kg/m2 Universi ty of [place] [facility] Oxygen saturation in 2021-03-13 18:28:00 99 /min University of Arterial blood by [place] [employer] [facility] Pulse oximetry Branch Systolic blood 2021-01-07 13:20:00 132 mm[Hg] Univer sity of pressure [place] [facility] Diastolic blood 2021-01-07 13:20:00 78 mm[Hg] Unive rsity of pressure [place] [facility] Heart rate 2021-01-07 13:20:00 80 /min Universi ty of [place] [facility] Body temperature 2021-01-07 13:20:00 37.06 Zora Univ ersity of [place] [facility] Respiratory rate 2021-01-07 13:20:00 18 /min Univ ersity of [place] [facility] Oxygen saturation in 2021-01-07 13:20:00 99 /min University of Arterial blood by [place] [employer] Pulse oximetry Branch Body height 2021-01-06 17:26:00 152.4 cm Universi ty of [place] [facility] Body weight 2021-01-06 17:26:00 58.968 kg Universi ty of [place] [facility] BMI 2021-01-06 17:26:00 25.39 kg/m2 Universi ty of [place] [facility] Systolic blood 2021-01-02 15:15:00 132 mm[Hg] Univer sity of pressure [place] [facility] Diastolic blood 2021-01-02 15:15:00 65 mm[Hg] Unive rsity of pressure [place] [facility] Body temperature 2021-01-02 15:15:00 36.72 Zora Univ ersity of [place] [facility] Heart rate 2021-01-02 15:10:00 74 /min Universi ty of [place] [facility] Respiratory rate 2021-01-02 15:10:00 25 /min Univ ersity of [place] [facility] Oxygen saturation in 2021-01-02 15:10:00 100 /min University of Arterial blood by [place] [employer] Pulse oximetry Branch Body height 2020-12-31 19:23:00 152.4 cm Universi ty of [place] [facility] Body weight 2020-12-31 19:23:00 59.1 kg Universi ty of [place] [facility] BMI 2020-12-31 19:23:00 25.45 kg/m2 Universi ty of [place] [facility] Systolic blood 2021-01-02 15:15:00 132 mm[Hg] Univer sity of pressure [place] [facility] Diastolic blood 2021-01-02 15:15:00 65 mm[Hg] Unive rsity of pressure [place] [facility] Body temperature 2021-01-02 15:15:00 36.72 Zora Univ ersity of [place] [facility] Heart rate 2021-01-02 15:10:00 74 /min Universi ty of [place] [facility] Respiratory rate 2021-01-02 15:10:00 25 /min Univ ersity of [place] [facility] Oxygen saturation in 2021-01-02 15:10:00 100 /min University of Arterial blood by [place] [employer] Pulse oximetry Branch Body height 2020-12-31 19:23:00 152.4 cm Universi ty of [place] [facility] Body weight 2020-12-31 19:23:00 59.1 kg Universi ty of [place] [facility] BMI 2020-12-31 19:23:00 25.45 kg/m2 Universi ty of [place] [facility] Systolic blood 2020-08-11 16:47:00 121 mm[Hg] Univer sity of pressure [place] [facility] Diastolic blood 2020-08-11 16:47:00 82 mm[Hg] Unive rsity of pressure [place] [facility] Heart rate 2020-08-11 16:47:00 75 /min Universi ty of [place] [facility] Body temperature 2020-08-11 16:47:00 36.78 Zora Univ ersity of [place] [facility] Respiratory rate 2020-08-11 16:47:00 16 /min Univ ersity of [place] [facility] Body height 2020-08-11 16:47:00 152.4 cm Universi ty of [place] [facility] Body weight 2020-08-11 16:47:00 60.499 kg Universi ty of [place] [facility] BMI 2020-08-11 16:47:00 26.05 kg/m2 Universi ty of [place] [facility] Systolic blood 2019-12-16 16:00:00 126 mm[Hg] Univer sity of pressure [place] [facility] Diastolic blood 2019-12-16 16:00:00 72 mm[Hg] Unive rsity of pressure [place] [facility] Heart rate 2019-12-16 16:00:00 84 /min Universi ty of [place] [facility] Respiratory rate 2019-12-16 16:00:00 16 /min Univ ersity of [place] [facility] Oxygen saturation in 2019-12-16 16:00:00 97 /min University of Arterial blood by [place] [employer] Pulse oximetry Branch Body temperature 2019-12-16 13:52:00 37.22 Zora Univ ersity of [place] [facility] Body weight 2019-12-16 13:52:00 56.7 kg Universi ty of [place] [facility] BMI 2019-12-16 13:52:00 24.41 kg/m2 Universi ty of [place] [facility] Systolic blood 2019-12-16 16:00:00 126 mm[Hg] Univer sity of pressure [place] [facility] Diastolic blood 2019-12-16 16:00:00 72 mm[Hg] Unive rsity of pressure [place] [facility] Heart rate 2019-12-16 16:00:00 84 /min Universi ty of [place] [facility] Respiratory rate 2019-12-16 16:00:00 16 /min Univ ersity of [place] [facility] Oxygen saturation in 2019-12-16 16:00:00 97 /min University of Arterial blood by [facility] [employer] Pulse oximetry Branch Body temperature 2019-12-16 13:52:00 37.22 Zora Univ ersity of [place] [facility] Body weight 2019-12-16 13:52:00 56.7 kg [facility] BMI 2019-12-16 13:52:00 24.41 kg/m2 [facility] Procedures Procedure Date / Time Performing Clinician Source Performed CYTO ORGAN ASPIRATION-FNA 2021-04-03 17:21:00 Stepan Neville [facility] IR FNA (FINE NEEDLE ASP) 2021-04-03 17:17:07 Carmen Stubbs [facility] WITH IMAGING [facility] FLOW CYTOMETRY 2021-04-03 17:15:[address] [facility] IMMUNOPHENOTYP [facility] PATIENT QUESTIONNAIRE 2021-03-13 05:01:00 Doctor Unassigned, [facility] CBC WITH DIFF 2021-01-07 10:59:00 Brendon Beny [facility] COMP. METABOLIC PANEL 2021-01-06 18:52:00 Beny Cantor [facility] ([id number]) [facility] BLOOD CULTURE SCREEN 2021-01-06 18:18:00 Beny Cantor [facility] CT ABDOMEN PELVIS W 2021-01-06 18:11:08 Beny Cantor [facility] CONTRAST [facility] BLOOD CULTURE SCREEN 2021-01-06 17:48:00 Beny Cantor [facility] CBC WITH DIFF 2021-01-06 17:48:00 Beny Cantor [facility] URINALYSIS 2021-01-06 17:48:00 Beny Cantor [facility] LACTIC ACID WHOLE BLOOD 2021-01-06 17:48:00 Beny Cantor [facility] COVID-19 (ID NOW RAPID 2021-01-06 17:48:00 Beny Cantor [facility] TESTING) [facility] LAB ONLY COVID 2021-01-06 17:48:[address] [facility] INTERPRETATION [facility] LAPAROSCOPIC 2021-01-02 13:23:[address] [facility] SALPINGECTOMY [facility] POCT TEST 2021-01-02 13:03:00 Laurent Hidalgo [facility] POCT TEST 2021-01-02 13:03:00 Laurent Hidalgo [facility] DAY SURGERY - ADC 2021-01-02 05:01:00 Doctor Trung, [facility] Name Medical Branch DSU PRE-OP 2021-01-01 05:01:00 Doctor Neetussvarun, [facility] [place] DSU PRE-OP 2021-01-01 05:01:00 Doctor Unapearl, [facility] Name Medical Branch DISCLOSURE AND CONSENT, 2020-12-30 05:01:00 Doctor Unassigned, [facility] MEDICAL AND SURGICAL [facility] PROCEDURES DISCLOSURE AND CONSENT, 2020-12-30 05:01:00 Doctor Unassigned, [facility] MEDICAL AND SURGICAL [facility] PROCEDURES CONSENT/REFUSAL FOR 2020-08-11 15:26:48 Doctor Trung, [facility] DIAGNOSIS AND TREATMENT [facility] [place] ASSIGNMENT OF BENEFITS 2020-08-11 15:26:34 [facility] Name Medical [place] POCT TEST 2020-08-11 00:00:00 Beny Olivas [facility] TOTAL BETA HCG ASSAY 2019-12-16 14:12:00 Madeline Menchaca [facility] URINALYSIS 2019-12-16 14:12:00 Madeline Menchaca [facility] Encounters Start End Encounter Admission Attending Care Care Encounter Source Date/Time Date/Time Type Type Clinicians Facility Department ID 2021-09-02 Outpatient [facility] [id number] [facility] St 14:23:52 [id number] Richard pelaez [facility] 2021-06-07 Emergency [facility] [id number] Univers 22:24:19 ity [facility] 2021-06-07 Outpatient R BENY OLIVAS [facility] [id number] [facility] 21:23[facility]-04 Emergency [facility] [id number] Univers 20:28:[facility] 2021-06-25 2021-06-25 Outpatient R BENY OLIVAS [facility] [id number] Univers 09:00:00 09:00:00 [id number] ity [facility] 2021-06-25 2021-06-25 Outpatient R BENY OLIVAS [facility] [id number] Univers 09:00:00 09:00:00 ity [facility] 2021-05-20 2021-05-20 Outpatient R IKERIVONNE [facility] [id number] Univers 10:00:00 10:00:00 CARMEN [id number] ity [facility] 2021-05-15 2021-05-15 Outpatient R IKERRAJENDRAVenus [facility] [id number] Univers 10:00:00 10:00:00 CARMEN [id number] ity [facility] 2021-04-10 2021-04-10 [facility] [id number] Univers 00:00:00 00:00:00 [facility] [id number] [place] [id number] [place] [id number] [facility] 144 Branch 2021-04-03 2021-04-03 [facility] [id number] Univers 10:25:16 23:59:00 Encounter Carmen Y HEALTH [id number] ity of CLINICS [id number] [id number] [facility] 803 Branch 2021-04-03 2021-04-03 Outpatient R ERIN [facility] [id number] Univers 11:00:00 11:00:00 CARMEN [id number] [facility] [facility] 2021-04-03 2021-04-03 Outpatient R ERIN [facility] [id number] Univers 00:00:00 00:00:00 CARMEN ity [facility] 2021-03-31 2021-03-31 Outpatient DEBRA CANCINO [id number] Debra 14:25:00 14:25:00 JAYNA dalton 2021-03-16 2021-03-16 [facility] 1.2.840.114 [id number] Univers 00:00:00 00:00:00 [facility] 350.1.13.10 it y of Cancer 4.2.7.2.686 [facility] - [phone] Med [facility] [address] 2021-03-13 2021-03-13 [facility] [id number]-20 Univers 13:45:00 13:45:00 CARMEN [id number] ity of [facility] 2021-03-13 2021-03-13 [facility] [id number] Univers 13:45:00 13:45:00 CARMEN ity of [facility] 2021-03-13 2021-03-13 [facility] 1.2.840.114 [id number] Univers 13:25:48 13:40:[address] [facility] [id number] it y of Cancer 4.2.7.2.686 [facility] - [phone] [facility] [address] 2021-03-13 2021-03-13 Orders Doctor SAWYER 1.2.840.114 [id number] Univers 00:00:00 00:00:00 Only Unassigned, MAHENDRA [id number] ity of [employer] [facility] 4.2.7.2.686 [place] [phone] [facility] [address] 2021-03-02 2021-03-02 Hospital Radiology [facility] 1.2.840.114 [id number] Univers 16:28:56 23:59:00 Encounter [place] [id number] ity of [place] 4.2.7.2.686 [facility] [phone] [facility] [address] 2021-03-02 2021-03-02 Outpatient [facility] [id number] -[id number] Univers 16:30:00 16:30:00 [id number] ity of [facility] 2021-03-02 2021-03-02 Outpatient R RADIOLOGY [facility] [id number] Univers 00:00:00 00:00:00 ity of [facility] 2021-03-02 2021-03-02 Outpatient R RADIOLOGY [facility] [id number] Univers 00:00:00 00:00:00 ity of [facility] 2021-01-29 2021-01-29 Outpatient R BENY OLIVAS [facility] [id number] [id number] Univers 14:00:00 14:00:00 [id number] ity [facility] 2021-01-29 2021-01-29 Outpatient R BENY OLIVAS [facility] [id number] Univers 14:00:00 14:00:00 ity of [facility] 2021-01-23 2021-01-23 Outpatient R BENY OLIVAS [facility] [id number] [id number] Univers 13:00:00 13:00:00 [id number] ity [facility] 2021-01-23 2021-01-23 Outpatient R BENY OLIVAS [facility] [id number] Univers 13:00:00 13:00:00 ity [facility] 2021-01-09 2021-01-09 Outpatient R BENY OLIVAS [facility] 724 [id number] Univers 14:30:00 14:30:00 [id number] ity [facility] 2021-01-09 2021-01-09 Outpatient R BENY OLIVAS [facility] [id number] Univers 14:30:00 14:30:00 ity [facility] 2021-01-06 2021-01-07 Emergency Beny Cantor [facility] 1.2.840. 114 [id number] Univers 12:19:00 10:00:00 [place] 350.1.13.10 ity [facility] [id number] [facility] [phone] [place] [address] Branch 2021-01-06 2021-01-06 Outpatient R BENY OLIVAS [facility] [id number] Univers 11:00:00 11:00:00 [id number] ity [facility] 2021-01-06 2021-01-06 Outpatient R BENY OLIVAS [facility] [id number] Univers 11:00:00 11:00:00 ity [facility] 2021-01-05 2021-01-05 Nurse SAWYER Maloney 1.2.840.114 [id number] Univers 00:00:00 00:00:00 Triage Linda MCCRAY 350.1.13.10 it y of [facility] 4.2.7.2.686 [place] [phone] [facility] 019 Branch 2021-01-02 2021-01-02 Surgery Beny Olivas [facility] 1.2.840.114 [id number] Univers 09:00:00 11:04:00 [place] 350.1.13.10 i ty [place] [phone] [facility] 020 Branch 2021-01-02 2021-01-02 [facility] Beny Olivas [facility] 1.2.840.114 [id number] Univers 07:58:00 10:46:00 Encounter [place] 350.1.13.10 ity [facility] 4.2.7.2.[place] [phone] [facility] 071 [place] 2021-01-01 2021-01-01 Outpatient R [facility] [id number] -[id number] Univers 07:45:00 07:45:00 [id number] ity of [facility] 2021-01-01 2021-01-01 Outpatient R BENY OLIVAS [facility] [id number] Univers 07:45:00 07:45:00 ity of [facility] 2020-12-31 2020-12-31 Outpatient R [facility] [id number] Univers 11:45:00 11:45:00 [id number] ity of [facility] 2020-12-31 2020-12-31 Outpatient R BENY OLIVAS [facility] [id number] Univers 11:45:00 11:45:00 ity of [facility] 2020-12-31 2020-12-31 Convertible Sofa Bedspring Tester Melissa, Adc Lab Main [facility] 1.2.8 40.114 [id number] Univers 11:26:15 11:41:15 Visit Beny Olivas 350.1.13.10 ity [facility] 4.2.7.2.[place] [phone] [place] [address] 2020-12-30 2020-12-30 Laboratory Only, Adc Test [facility] 1.2.840. 114 [id number] Univers 15:55:37 16:10:37 Only Beny Olivas 350.1.13.10 ity of [place] 4.2.7.2.686 [facility] [phone] [address] 2020-12-30 2020-12-30 Outpatient R BENY OLIVAS [facility] [id number] Univers 14:30:00 14:30:00 [id number] ity [facility] 2020-12-30 2020-12-30 Outpatient R BENY OLIVAS [facility] [id number] Univers 14:30:00 14:30:00 ity [facility] 2020-09-22 2020-09-22 Outpatient R BENY OLIVAS [facility] [id number]-20 Univers 14:00:00 14:00:00 [id number] ity [facility] 2020-09-18 2020-09-18 Outpatient R BENY OLIVAS [facility] [id number] [id number] Univers 15:30:00 15:30:00 [id number] ity [facility] 2020-09-18 2020-09-18 Outpatient R BENY OLIVAS [facility] [id number] Univers 15:30:00 15:30:00 ity [facility] 2020-09-10 2020-09-10 Outpatient R BENY OLIVAS [facility] [id number] Univers 10:00:00 10:00:00 [id number] ity [facility] 2020-09-10 2020-09-10 Outpatient R BENY OLIVAS [facility] [id number] Univers 10:00:00 10:00:00 ity [facility] 2020-08-12 2020-08-12 Outpatient R RADIOLOGY [facility] [id number]-20 Univers 11:00:00 11:00:00 [id number] ity [facility] 2020-08-12 2020-08-12 Outpatient R RADIOLOGY [facility] [id number] Univers 00:00:00 00:00:00 ity [facility] 2020-08-11 2020-08-11 Office FishBeny [facility] 1.2.840.114 [id number] Univers 09:27:31 11:12:51 Visit Ines 350.1.13.10 i ty [place]2.[place] [facility] [phone] [place] dical nal [address] [facility] 2020-08-11 2020-08-11 Outpatient R BENY OLIVAS [facility] [id number] Univers 09:30:00 09:30:00 [id number] ity of [facility] 2020-08-11 2020-08-11 Outpatient BENY SHIN [facility] [id number] Univers 09:30:00 09:30:00 ity [facility] 2020-08-11 2020-08-11 Orders Doctor SAWYER 1.2.840.114 [id number] Univers 00:00:00 00:00:00 Only Unassigned, MAHENDRA 350.1.13.10 ity of [employer] [facility] 4.2.7.2.686 [place] [phone] [address] 2020-06-25 2020-06-25 Outpatient BENY SHIN [facility] [id number] 232N-20 Univers 15:30:00 15:30:00 [id number] ity [facility] 2020-06-25 2020-06-25 Outpatient R BENY OLIVAS [facility] [id number] Univers 15:30:00 15:30:00 ity [facility] 2019-12-16 2019-12-16 Emergency [facility] 1.2.840.114 [id number] 08:56:53 11:19:00 Madeline Chacon 350.1.13.10 [place] 4.2.7.2.686 [place] [phone] [facility] 2019-12-16 2019-12-16 [facility] 1.2.840.114 [id number] Univers 08:56:53 11:19:00 Madeline Chacon 350.1.13.10 ity [facility] 4.2.7.2.686 [facility] [place] [phone] [address] Results Test Description Test Time Test Comments Results Result Comments Source [facility] 2021-04-04 21:09:30 Test Item Value Reference Range Interpretation Comme nts Case Report (test code = 7578906157) [facility] Cytology ?Case: [id number] ?Authorizing Provider: ?Antonio Mercer V, ?Collected: ? 04/03/2021 1221 ? MD ? Ordering Location: ? ? [facility] Interventional Received: ?04/03/2021 1227 ? Radiology ?Specimen: ? ?LYMPH NODE, CEVICAL RIGHT; ULTRASOUND (US) IMAGE-GUIDED FINE NEEDLE ASPIRATION ? ? ? Final Diagnosis (test code = f1pifGWaEUMht6krNBRiaYRzGfBxTpSkOfNoUp [facility] [id number]) WKsIQcfreUkWGhinDxdJMRtS3vfbbQqUOPzzWDxX9 MtlahuGOjzPG9mGB2knQejxOKqgFXpIYRgJyJxm3p oc766jBTcm6vwSFYScktcuWm5tXmsI41xt2W2Blbt H17jrSOyBYY9OEJzIYXvtKZyTNOdBVM3LYQgrOIuI 0anBKCbNW6jnkasFKaaMXgmRNLeaXZ7GMAtlBOiW3 ZuFLAeRFbtIJZpccd6NuElPx5pyWVgfFphNZeaBUD rCOEkYSnkJTMdNrPtYScuGTXuRWKOVX5GAOJGC2UC GUXIXJVQCJOBRTQJVXpQELntPZzNOwNHH0TCXUQlF EWiPVsBFFoFAMyFFENJTGDCXD9VGO8SHYIVZZUKE6 JJNbRLIN9YJxdpKXXlXZZCW1kLDJ0KMZpURSAtUTd XREwGI7oACQKuO46WP2uKODJAEZPSKOBOMEgNRKCV X0aZJIQYS6OELE1bsOHkFANkZF8yQVCbYv1hXJDLY SwDAA3WXDVXLBtODVlQGX6KREJLEAFqELzuUOKbE4 UEFRBYOD6QFpHuYXQvczxfJHN1l5iwpQUvCQNwlAZ oNfDpDXHeADXrp1rlGWTugPQtVkYdSjMoDhUgMlnl vGKrHYQlIcPcd8jvq558jGLnk5nmCPPzOiI1nRWwT EUzpJcscsz2mObnFzVmXXEgb4znjvGuJfXnNDThOP DzSATywRHjN110YNUcTHcqw7fwn2LtSKJtbKTyi9O 3FXQMDUerNqEsL072c0wyx0axyhGkhFM6BMVfULZ8 DVqiyvWoypI8SXsyfIOoAsF5ECqjkjNmDOnzvyLrn yTrBre3MKPyX621QIF1bScob5rcXAM8KFApDTYlDa ifDi8vzXYhZ871DZAmMPPOUXKmdVr6YFCrobBtzoM qdDKKa872A713u9zqVEZlupYqdTgLaqale5qxW357 JCXgxOCyodIrIlDeENOfiYCxtDS5ILCxTV8gqthgZ SvfXPrdLBHymhX9JCOjnPQoI0XmFRQqUF4odzydUW K3PNlxITZsUJL2YiAwICUti3Mmqwh9LeDdds4ffm6 3IYX2p3ZwiRcfMXG5PAG6EmFoWl8vmYPzDCAcEF2e AvMuiQSrJPTmgg85dBdtRBnibdGrdS9kYmSjTXTxe RUiPOKsFO4bnPIzLLOetM0gbdsqGJZrXxWsnxmkLD SkxVztyuMwRs5diYwjHBP2XWxrZ6rvjD1uDsT2ZRx fV2agzA3vGXg0NFfqaPS7NVZfuN5mXF1dcenif4bq EFqzSRcjLLPurtQ4vjA1UUUmlEWbZ0JguJ6uHWYbU E3lefyph3xzPRV0CCnaFITyTRS0VuNbNDAok7Qfps b7NfYde0RtfVIuESmlE34wu213MZTmyhJtB6kikDP heufudPAiltnlNLynmyN5KKCfMJRpQOrhAZLcTDGn MjBcbGFuZzEwMzNcaGljaFxmMVxkYmNoXGYxXGxvY 0zgIfCqE1GhTBAzYzIkdKUsGOexgIA7AXUdZSEky9 7skQl5MEUgulvjs2TkFTPkoHFfePQrmB5dseJtp2x oLGDdYJRiQYSaN9JvQMD0rQMdSLJewLAfaJT8KQ4e lyTwYI7pKTEmXdyfmkXqaXKjnbAxULBfGOira5qqN G0xSCVfxHkhrB9oyEF8GBRwu6vpuRRdnNMfw0opu3 QgclNiKFtsYHEgPOfeDDJpRKUxPH6cGFPlqSStpqP yp0V7ZdnfkMFqmvvcOfqnmtI1IJajslojNQLwCWol E2oaLlEcFCMufHwaXeeoi2RsRCTsWHSeMeklbDBcd X0= Final Diagnosis Comment (test code = b2wmqSSeCMEagOM8BPEhIASly4a zl8MxzZVdpJYnP [id number]) WezgQAqcpHlzk89jCE2yZ58EI2gMNMqMtW2BDAhmw E3Mkw8RFZnDJRhjOXeJ540i1ewh5tfqjVmlAS1jEj pJQRnxhadBuQ5FJlnBHDjjiiaMWa7NWlmXFXstFC4 VELwzBNcP8OrCJXhZR8donb9EXJ0LTegVXViHtF7Y RDrmQWiOBSiuNmeMNuon560FNH1CrWyNNJcjiPukC flfT5bDaTxQMEMxQSxlpVkw0wcqiHmg6i1gF9niMx yvOMlkPrzfDqfR4m0NCWiSZFnGOEinBP6k7Csg4Mp jLejCTVbEQIsuSPrKFreudFaCT35YWUgomBomY43G TQ2pX3zISNvcUYxAI7mcPelvZAmGJ5yUF6ldw9bfL 5vLDnpNs0jKQihxqNvkuCgLxKsloGbzMNLFMEbuXu xRIypES24yTEgFNJrECPeHKY7fILbInafnpPpbQAm uUO1lgeiIKAfiC8jkFKbqiQIiFnsESRazvOqSCJjm BqqHhqbTTMgCikdRZvlP7McR90cc7bsiQWplMD8oQ FbFXl1yXMvu2ldFLQjs7N2GL0vZo0nbWLvqBaeFL1 6MGAfbFkiGDooQI43jGCkTXWiBUTiivpzCCJ0 Clinical Information (test code = Post COVID-19 vaccine, post bilat eral [id number]) salpingectomy 01/02/21 for endometriosis, 10 months old baby at home. By imaging, looks reactive. No hx of CA Gross Description (test code = f8cofSPjWKTvjCQ1UBUsUYRke9gzu8GtjDDb cGFyX [id number]) SgrpUZzinLove41uIO1vR65MN0aXWYjXrX9HERvju W9Wlx2JKGkIOLvjWNjT898u8wgg9cxcsTtyDI3xLh zOJPezoenNcK0QNjlFOUmnmdqWCf9WHysFGXlkOZ4 LWWmjHXdO6DiSCNeXV7zrae9TLU2JTsnHWXsQuX4P RAvyNPpWLNgkTzkULgle344VQJ1AqPcLYXzvqL0IR zwXHKlL4FqU9IgXGccRHA2WBMpOGJwWHDmZPPjYJR rRLkttgC5i4hoAPUgtLKlRMB4JIghuSUsPLSvEYOk MNthGqWXVbAmGlXcKZQvMNWaXVVpOUo8JYodI0QRL GMvLBP0IzC5QCG4QxU7KPr3ENCCWn3nUABjIXY8EH JlTxJ7QGG1SKVuTPYnDnSpRKFbGShkNcUBtgktmQL nQTUdYSJdRRvriiQ3APIyUSzlGULrPeDgBE3eSNcM DWqhQa0GVR4ucPWfGSKjHvWpsFBnERWyCAHxOeFtP DWzJRGZBP3NKEEBS5GOMYRIDLDPLHIYXHHADTaHDU fzUPaZDbZDJ5XVALVaADNhIKvHLJgQIOrMIIMKJCK QDI7FOZ8LEJFZXNIFH8AXIaBFOQ6PPMZoceZBCIFi zPTqALSwlaNfqSPqhvWzIkFyQ8JwyzJrSkDyIK9wc Dotb5EiFW5xyDOlpFFsIK9jzPKfvgJjCZQ0LGAeyX iwFBFrd64dERJjkjMxLRauORIze8QhYKQdZWxmJHD aPpJoRMrcALXgnoLiISB2Wm1fqHPlNHJ9llWBGD2m rP7at7o8CFOvblBwxW20QQX2xS7jYAIzzCKhs0B0E SypkcBoxDBsSNEbRGAgamFsMJApz5dbMFLhHUlrKI CekYFwm0yxa1jiz7YrsW2qNSSvnBVqtinjNXTzvdD lRnARKEWxaphza3vnv4Dau6XyiC6yQPVppXHllwcp YIeabNPuHNRtdgAOk4LutZH0DLEhf3hwQBBoZJGht xqgXYAtE2gnJMCxJZUzEACaw2dlBYQ5iM4sZUS2Jl XnVQijhgTqmWWiSHlsAIPxxwCkqXOlm3j4zTLdSJP yUP54VZ6saCYgDL8dTWNucVI7ZVPeRJNnaAaptRUn wDkxnyTgpZ2qSXTmROE6WFJhozCckQSwW5A4bC6bZ H6vRCJvhJdcvqFqoUIqauQrkOyfWNgfqeDwNNN3UI NbvRBhARN3RI0swYcqZGGmB1AfQ3JsftU4JZXlfd9 = Cytology Rapid Assessment (test code = c0fxnSOvQOFgtXB 8SMDnYXAjj7hjk4ExkVXijTQdS [id number]) IqqyOSnuyMgjw68kVB3iB02BY0xSKEiHjQ2EYUckm P2Mju7IDKqMOIjhJXyB132o6psm2oghoGshHF9aLw sBAHptcnmCxV8NSnfIGJvudkfHYk1EMeiNPLfbXS0 APCnnMYfN7JgLYYuGU9hnni8KHP8OUypLGOmObR6T HPalCDsQQIadUkhDMwwn781UJW1MsZxDFXkrtU7ZH abOPPbL1YeF5WfAPnyCAB5PCWaZFOvECWtMLJkHBI bKErixdJ9c6sjCGJzeGEkHZZ8ITnvqDFzKHGsRBEq ELtuRlONAfDgOiItQAXfDTCiVHGkHIe1XEmsX0VTA ZGqKEX8EhV5WRU7VgM9NKx7CXSABs2cXUPkZRI4ET yeOpB4DNE7YCQfCKBfScGuWNGhHSgqSvQDqoekkGB hANSnGDVpPPnhwoU6FGUoBEqnULYpTxYyDS1zRVbK RQakXt8KVU4teNUfLHNarnOFRB9bOGlLZXOKOG4XM DClENWAOcRFR9VPDKSSS0gGNmPEBZJHOQPFRG3PSU zVDaalAK1DF1CvG3UNBLQOVAXAPvLlStTUVVxBYLJ FLKfYSJRMG29osTBcKTDypYyuMC3lNMFuxELmGRKp uOPqdHkbsbMwIKMvs7JyTVLnVvgmPPMrEnM5O3htx BzgLVWbRTVqeSHpuHylkeOCzEmcg0YaYBYvMHJayT BbdbImRFXcJsWtaE2tdO4yzaPdm3HwOCm5hTZes9N 8vXJvWbRWJWFgcadbvTUtZB26SYPxbkLntJ39LRA3 xD6xMDTtdVZzOE6rvShxgGAwSMQapuKkFNEgzPvcf I2smysskvBcyIQxIEOiyUXchKuzwevgw1FfLDWuxt MaCLcjmVEqpAEekYZ7oF2xCLVuQXUwv42aSW34TJg qyzBlODRfz5QvDXjhVAHtYGRkgMGtoJivmcClDQIk x8UyWNIhWBSuULQQFxENCSe5YKD1p03gY1HxrPVnK Moiq6QmsNXzAMLxHXFvOY7rxtQlm2d3xCQEsAJdRL KJULt6QPG8f93zVQJTADb4PZZ1c0rjqShsu1EwvPG lSU42OQFzcJXeOJL6HI3fkSjuTPA6 Disclaimer (test code = 1480352581) d1wejIOcIVSlp1jhGVIcqLPpMrJuQoA cZnRuYmpcd [file] fkGXmrZdZzZgOrRVsaDPM0nS== Embedded Images (test code = 5681774335) [facility]AL-MWG4389-28-28 21:09:30 Test Item Value Reference Range Interpretation Comments Case Report (test code = 9226245882) Final Diagnosis (test b3dwuKZhLBAet7nsZDAjxRT code = 9142465500) uZzEwMzNcZnRuYmpcdWMxIH rvygGpCMfaoKvaLYDkZ2lol hJrXIXihTNpG3OvhwlpYLwz AB4vCH1zaRuzmEBleZAvOMA oUgMoh4knc818uOIge5mdHW GHtabcnBk8vCkfY23gi8E9M lieL91tsRZbUZL7OILxAWQn jYCySYHuABJ0IQHsiWAqV6e yMPZdRV4vacsdSOmzNGcfDW KwsOL5EGZggNSmZ1EpAHRcS HxrNRYavms4ZyAhUb7rwQQw eTcyMFxwYXJkXHBsYWluXGZ lLrBcIMzuFHIgSSKREM3GVS LQC0EOXVWBNUDJABRUMLRJB VmVMHehIKpBNxKAU9KRIGMx VVMpIElNQUdFIEdVSURFRCB LIR6YAC0KNAHAGFSKQ7JQPk HVIW3PJxkeTJDlZAYHP2kUX Y0WQRgQTSBzCSnAYUwAA1nO DJEvT10AV5uRPVNZFGXRZGD SIGpEYTEEI0fWAWQKC0MRBF 6bkSPwVEEbXX0mAJHxRb3rM ZEZQEwZZB1SXEEFTLqRZPvF FX8WDIJEKWXfRZnuQPGxS1Y CZTYYTO7UCfWpFVZikcrbRB Z9r5donIWkYCHvfXGaEkPxY WOjBXUhz7ddIKXokMZiRcOh MzNcZnRuYmpcdWMxXGRlZmY zp0mrn068hAAlf1ksFXFpXe E0zSGfQNVtvUooyzx2tSbwL sLwAXEcd5migjLmNdTiSVEv CBWjSNIyjUGoT142DEUwGHy nx2kpc9JlCUQibBAos6X5TX KRHWrcSeHgJ883u3qjn3osx kAmfZH0SPBrWBH3UKpjbiLq nxD5TVdutGFqHeN1HRaccaJ wKPaxwoSrzlCyBmt7SHErE8 70FYN4mLhie5ngMMW8BALnL NKwCmelPg4nrVQvG777PXFx RTEGXCEzxNf8PKToqzHbomQ tcSQBm842L739h6qaCBUgne NdcEiIsjozq2qbB171WKNaq GVydzEyMjQwXHBhcGVyaDE1 WHFxLC7xwfqgXJqyTMyoAKF scmK2FTCbcRHcU7CzYTBzDM 5yjigmTDR7KSujCAXtQWI1G nAmPYSnl6Qomlc8WcPtcn4x ez10KGS4n4IqfMfwVZR4GRA 3NzSaHh6icHYgDAPkMV2cNk TzwRYfSKYlvg32eZdaKAjtm oQdhW9iRzWiYOTvtYNgDGUu RC3qfAUbCFRrvH4bnrprTDN nYnJkcmhlYWRccGdicmRyZm 5kzSaoLZU8HAcwG7rahS8cP fC0ZRpnB3nlmN9eJLn3ZKol yBP8OOEgrF8pOV8tdrxds1x bRNyvJGtfFSNbsdB3srD7DG PwwDIdS5XdaT0oJKSrRZ5hi abcg0otNGD0FCibVELiMCT7 CyOpHRKms5Qxtmv0UkVbs8W lcRObNYjnT88ib115FPDtuz EsK7mklQHlfewfhWRcgoauE YymmhE8VJTiWCItXAlsCOXi XGZzMjBcbGFuZzEwMzNcaGl jaFxmMVxkYmNoXGYxXGxvY2 vmRfDiG9IxSZByVdXweZHxC FhfoOK6ONFtDXMoa49tmYb7 ASJaxdqsj9HqIRRepERvfVQ lwP5bmgEct7sqVWBcLCAhLY PcV0SkSBU9gCJuFMEapINkl KP4RP7nnjIdOP1mSVEmAass lcRtxOSpwiDkUXEtJJjpc5q eUK0eLUUgkNognH1glUM4PJ Djl1ximJZiuINcj5wcq5Spe mFtZShzKSBtYXkgYXBwZWFy BS5uWILhyRWcqlTzf5P1Idk lwDLjhvdwKitqzwE9EYmavq etAYBrYIefI4ioYdAkRLCgk YbgHayte1WpXLGaQOHfYcfq cGFyfX0= Final Diagnosis f9jbeUBmHQLydUE8ISXrKRN Comment (test code = oj4lpt7BpmRMcyUPzBKcvgZ [id number]) FvmhNwmr74yUA6oG21LJ8eK RZjNdR4QYVgkuT1Kpn6PDYp CAVenMPgS652t8idb7dkncC ltXF1tSluLFFrwqmnMqI4WO luKEIhgegrDSi2NZccJUXpf UN9WJYzzFAxK8TpMFDgJV7n ieh6AVW9BJltWRFzHgE5GBD xhYIjRVDjqEwrOJkhl468YO O2WkGxRIFbedMdeVwxrG3hN uYwRXMQiMOhomHho8dtwvSz c3c2kE0fhCgaoBSevQwsuPs gG9t2KEDdRZFcQCNrdUO7s8 Noo0VfyIynDXWnPWUogERkR QngrsQiMY44TVJdagAumH85 EMA1uO4fMRYjnQLqKI6zhYe fhLEvWY3kKQ3ntr6lxG6aFT koSb2vCSzmbcGqmmJlSvKbi dGwhMNTAAWqeOnxPAfsCS62 nZFhPSZcUUVdZTQ6pCZyZbu pujFlpIQiyNV8fyeoZGDeyW 9ydCBpbiBFcGljIGZvciBkZ XRhaWxzLlxwYXIgRmluZGlu Y3DsA14un8xrwCRexDT1jCZ rAIr4fVQgt7ipAXJdq2P9FD 6lUl3meBRytCayTT42UFMcn NozQPjeTH20bHXvECFhLINh clxwYXJ9 Clinical Information Post COVID-19 vaccine, (test code = post bilateral [id number]) salpingectomy 01/02/21 for endometriosis, 10 months old baby at home. By imaging, looks reactive. No hx of CA Gross Description i4zuzPRxZZKvhDS6VMStZNI (test code = ea0ikq2UofPEcnMAbODofmB [id number]) HvvsVdiz95fJF6bV07RY0yS KKvIqQ4HEVbjjS2Adg3KCBm BKAavGFvO502k3ogq1jjmgY adIW6tYzfLBWvhbgmWsD4LS cvKJWbucveDAf7LDigJFXww MP9MRMqpWPwS3NyYPGcJC9m fpx7UMN1FWnfNONbXcT6VNS pcLBlMOBxaKztILpfr267KQ W8CvZgPMGqzrV3MZilOVHbH 5CtY3OyUJbnAKR4YZEvZLCv UTNkVFGjOGFiVVhnvyA5l8x tYMMwfCKfGDT2LUcgmZXlKT EwMDIgXFxkYiBPVlIgIiBaQ EVxLCYcAQCwYWt9MLqiU6EX UJImJKH1GcO6CMJ4UhZ8KRv 3CVEANe3mHDEbFAX8RGTaPa F1HZG7RLFkECSmXhJcXPRcH FxcZiBBcmlhbCBcXGZzIDEw BDcfrxL7JPQnWHoiRAPlEpK qES4fOGuDZSthNc3YOV8cfM FyXGZzMjJccGFyXGYwXGZzM nJnUWNsCKPYWS5ORWRZL7WK LCBDRVJWSUNBTCBSSUdIVDs oVFmBIzQPC4BWBALbHTZnRM xQNFlDOVsWOZIUEENESS7KE L1CTSLOZECEV7XLCwQBIN1M XHBhciBSZWNlaXZlZCBmcmV cgMYdrcHvSfCiB0BlshFsUd ScVX0lxYfgl0UzFF6gmBUfn MToNI2ckLCxniEsTWB3BECx aZfgGOQyt87eVDOkqtAeHXr uIWHxa2YkEKUbBPhdTARvUf MaLJkbDMYjudKqPJH3Zu2wj MDpCNZ6poNFEC4akD5to5v0 WLWcncLpqG52BWG6wX9pQDI uuHOsr8Y2VSdwizYqfWAxAV LqQRZeqvFrIRNox7ifIJDlC HppKXRexISta2ubp5sij2Zq yX1bNHVrmIIycmuyFGFokuB jMlPCVXDkspbvj5jew7Qwr0 LsxC9gHVFsaTLxghgoIEvcp VQjRBGyxkJDp2OcrBT2XMOm z4pwIDSxHRShiptiAQIdE6f wXKEsKSSiZJWxw3vdLQJ5oG 5gZBE5GoWtDOjcxwZppKLoB CiaNZMrbtCagVUca5r7sVXp LYBsBF91FB9wlLHiVE7xBDT rvWQ1EWUzNDScmYlgfRXjnR kzdtBlkK2gDIWyWXX3TJHsc aYmeOOtR5F4dC5iBU8aKMRv dGllbnQgaWRlbnRpdHkuIFx pclBkYCE6SCYzmASpRXI6WX 1yfAeyRKBkM2FgL7WpuaF6B HBhcn0= Cytology Rapid k1aszMFrKOExvRH9CSHqQQK Assessment (test code gq1woy9VgtYPamBIzHXdxuB = [id number]) MhuzHtag17tRH6kL03AM8xA UFfMnZ1RWQhzxB7Pth3ZFTy ZRKriHIdV058m4jet6mdjhE ucEE7tZdlAOHlztxvWzE9HT gyEWVovehmDJw9LTkdVUSyz MY5TURbuJUgN6SyWBJqIQ1u fxz3WOJ8UMrqELOwZlU4AFF fyMWuOZJolTykNJsat193ZY S3ZvZdJCRzcsU8FOjdOYUgT 3GmR0BmUJzrLTV7NFRkXTCq TKQhJMOaCRWzZYfjclI3p5y bPSImmNToSZO1HUpqyKBaFX EwMDIgXFxkYiBPVlIgIiBaQ MYnHTJxXGOiQLt7BBumQ5RX NYYiNRZ3XgM4LFR8LxL5XQn 6TVYNJr5qQVBuCLB4OZzyWg F2BPT8QDRjQWRpBcYeQBSqH FxcZiBBcmlhbCBcXGZzIDEw UYglvkA2SBWsMSnfFVXvKwN iSS2zLDhCJJyePv5VDX8eaE OfPSGjwgHPYH5fNXaGMTKVT S4IUQUiHENDNjEKQ1UBIDBC Z8rMGsWBBDLPSUROCR6TPIo RYytlSN6DI1HnZ7QAQWHDGU ZJTkUgTkVFRExFIEFTUElSQ KDVC06rbKPzPCQzsFliAF2p LXNpdGUgZXZhbHVhdGlvbiB pMKFze0QnVHGqEjanFMAyEk V1S7aasClbNOVlXFNeeNYxp QdemfRPiLtbd6UpODSoGYKz wVChgvOdEOUwXqBggY4liB6 hanKok7XiJVo8vBQfc1D0iK CnFrBTSFRwgkigzHCuCU30D MXfhsNysD26AIN0hX2bWSXt dVYjOL5sfWqjwLWnJRFpmwE wCXCagPjtgR0jzwxcxpBsfG RuZPDkwIAsxSbqgodzh9PfK GZpbmFsIGludGVycHJldGF0 jJ0pGWBoKYLmx04yDN38QBv hovEwEOXgv3AgXEtwGKSnVW VbtTEehJxrcwCpLSCni3EjK AMwHXLtPXNZOiLCXHk3QLZ0 c45pQ9PqdZXqLFhir6SwaKZ tPNXmUJAgHE4ktzDoe7n8oK HMcTHmATHMNFb4YBN2e06zV WRUFLf1FKE2u4fmfWkhq0Ol rHGdCV34WLIuwOUjVYE6FB4 kfVxwYXJ9 Disclaimer (test code i9vumKJzXHSgz2msNZIbqMP = [phone]) uZzEwMzNcZnRuYmpcdWMxIH pvgmWtUVxhd1OaB5ExErHjP FxhbnNpXGRlZmxhbmcxMDMz XED4kjFsVYMkJWwbADJgBFf iHw7htHHhgEbmHwXgVUHpn7 odylDWZEbfWzCrC254INNtU Awnj2dok1ZfEEKupBQfk0H0 IUFAydpmiTo0zKszP51ym8D 5BrphK8bfKEQsXCBzD0CyQM 0iWXBaKgh6NBT4VTK5HJWgF EElF7VyDX9gAQQglFMwHQl5 y7xblLqiRGHgAHO6f0yqHYq izsCdEZ2rrb9luLb4j5sdjr HrBMVfMDXgiPNJYMEsK2Vba RzlSk8ydIb5xOxeAzdgNST8 Bku5PN8jng33yle5rQaeXYB iypmlGkK4HPeiYPJnfnlaPQ w7JTbvPYFygPJ7RTDeyEDwJ 1VpKEOjFP4rmox1OYO7QIqp BQEwCkU2SUAcgQVzALRxmUy qHVygj908TNT8IuTrRJ8hG5 Jqj5Z7dI3fvJQoGJHycGAaA uGsESPyoc9emLSaEDxir0Xl WJT2dhH0bCFiiCSmIRVmJG1 6Gbttm6LpVlpdb3PtR19iyG T7QRsdu7ueUA5cHvL1peSqC Ovol9slhO7oAlC7ZPxgKS9o IY5tBOAygT2eexrdHVAmNdD snfdqIGHilBqpmxEbQi1jfL ogTXF7RGxlZ4mazK4qYqO1B CzdY7xidD5oYTz6QBelnIT3 YTBpdM9fSO9veucme3brMZk uABofYWPalcJ8owS0OJSsxF WwR7XiqV9jCNTpYQ1jfiupp 9pfEIP5FLmyXHLwJXL3LkEv XLFgz5Nfxuf0TtZpk7XbdXQ sPFcpB15ed195HTAvynHkZ9 xwbGFpblxwbGFpblxmMFxmc jH7INSmlvAfg9UqSJPhRXO9 ZAweKQzesVVvAACspCpiu8h yU2YjaWQyRHZwUBboHFEdED ZzMjBcbGFuZzEwMzNcaGlja PbsTRqpTkKcZBOhWWjaN1ar YcGfW6ZwHLXmIrJepJDsJ8y pIJskbaFeNOYqceXcpAB6GA lbF3n2BBLktlNnvAm8nnRiB zOlLNExNLX8PKvfmPPvCUDq p4XtxjontHEiZf5apMZmQXS aoB6eYUEfIIQbEQekNH7qgW y9CFOAzADamKGjNjNBTSEfP R12fxOlZMTGlspax1M9BRpc WOEcj0GqmHDrF8khr0MvWPK pl83cGB2oi8Z9n1rcOET8DH 0tb6RyPPLjgJLruTHiAFTod 6Ebkjbwf6JeLGYvrnWja0Ur ZCBhbmQgaXRzIHBlcmZvcm1 sujRzACEjFPRgT3FsyvvmcM riqiVcSZWbzk6vpgLgVCO4K AQNIRHtWWEzr2PdyN5vqFLK EOO4gLDfyc4rowQTlUPfZUA vxo44UOUkLY9tI7nvRUCdJH UxisBzkIOoh2WgXYTztXF3e FRpBE4KOaNHr09cYQPkBUCG uuXaATCgmLiwwTF1vsB8cI6 uIChGREEpLlx+IFRoZSBGRE DzTE7kpxXsr2GfubYgvJtaP OKedJXys0WagOKfh7MsaQga v7YebIIufJDxHU6oLIKcnnm nDCLhBBYNYpIKIDRuwsD5f5 IrJWQzQNUmUQV6rOvwnut5O LVzhH8rOZGmL5vdgyluSNbf XZMik4XksB6jmRHAyHNkd2G kbZQtlGZFjRVwHT2qhpRaYC bBQVfMMEL2cjRjOVUhy9FyN FgiY0btQ55fjPthaUr9vHS7 UUG1sO2dFyr+IFxwYXJccGF yIEFwcHJvcHJpYXRlbHkgcm JwP6VsdyFcmZ2kvFOxdhMqT N8iPM7bZ5M6mJUiXNElytRx h5yaHOffsnCfXlFjkpWfXWT uTXfvWEIvr3OxQHvyVTO7IO lucyBpbmNsdWRpbmcgSCZFL IFBqQTjoESnAMQ6QNgcrnJj uzBpCQ2twH5rtBbkzS7oiAO eoCP8dxkgMMVjPUJkcAmtAY ZvFF2boBTuEBKppvGSgGtpx BQmuW6nP2RpSMQdZJBwfc8u UJKprT4fNPzxi7AexpaiHZA jENTsMTXcdpUdie4xRSTxzP TNXI0MPTybqMEes3UbubZpV 1lTLQB2BZCaUvDdNfqoNHUk cDHsnDEpYZSiwh91JEWhmG7 frErgHJKceW7toV2goMdslI 1sTyUuSqOwGVghVG5tRFDlT 9vtdHAmECBwFPNdL4mzMmFb nE7wcUofQGfxVoHmVoBlEWn rFIS8jP== Embedded Images (test code = [id number]) [facility]UNOPHENOTYPING FOR LEUKEMIA/ATVRWAKE8739-10-88 22:45:29 Test Item Value Reference Range Interpretation Comments Specimen (test code = Fine needle aspiration of [id number]) lymph node Gating Population: Lymphocytes (test code = [id number]) Flow Cytometry RIGHT CERVICAL LYMPH Interpretation (test NODE, NEEDLE ASPIRATION, code = [id number]) FLOW CYTOMETRY ANALYSIS: ? ? ?- NO MONOCLONAL B-CELL POPULATION IDENTIFIED. ? ? ?- NO ABERRANT T-CELL POPULATION IDENTIFIED. ? ? ?- SEE COMMENT. Comments: (test code Immunophenotyping by flow = [id number]) cytometry detected a heterogeneous population in the lymphocyte gate consisting of a mixture of B-cells and T-cells. The B-cells are polyclonal with no co-expression of CD5 or CD10. The T-cells have no newman-T cell antigen deletion or aberrant antigen expression. ?The CD4/CD8 ratio is about 1.4:1. There are no increased events in CD45 dim blast gate. There is no immunophenotypic evidence of a non-Hodgkin lymphoproliferative disorder or acute leukemia identified in this specimen. Clinical correlation is suggested. T-Cell CD Markers (test code = 0529700163) CD2 (test code = Positive; Subset 5565821898) CD3 (test code = Positive; Subset 3479526135) CD4 (test code = Positive; Subset 9037125415) CD5 (test code = Positive; Subset 2249684715) CD7 (test code = Positive; Subset 3518940670) CD8 (test code = Positive; Subset 6756005076) CD56 (test code = Positive; Subset 7401911288) TCRab (test code = Positive; Subset 3721881230) TCRgd (test code = Positive; Subset 1463959195) B-Cell CD Markers (test code = 6739645731) CD10 (test code = Negative 1248545126) CD19 (test code = Positive; Subset 9317601732) CD20 (test code = Positive; Subset 0577988987) CD22 (test code = Positive; Subset 9162481991) [place] (test code = Polyclonal 6228373153) Lambda (test code = Polyclonal 4963476494) Monocytic/Macrophage CD Markers (test code = 8658742417) CD14 (test code = Negative 3526357584) Other CD Markers (test code = 1747757850) CD34 (test code = Negative 8469250166) CD45 (test code = Positive 4772230424) EILEEN (test code = EILEEN) Disclaimer: Analyte Specific Reagents (ASR) are used in many laboratory tests for standard medical care and generally do not require U.S. Food and Drug Administration (FDA) approval or clearance. This test was developed and its performance characteristics determined by the [facility]. It has not been cleared or approved by FDA. The FDA has determined that such clearance or approval is not necessary. This test is used for clinical purposes. It should not be regarded as investigational or for research use. [facility]TOMET[facility] IMMUNOPHENOTYPING FOR LEUKEMIA/[id number] 22:45:29 Test Item Value Reference Range Interpretation Comments Specimen (test code = Fine needle aspiration of 7418243131) lymph node Gating Population: Lymphocytes (test code = 5653978732) Flow Cytometry RIGHT CERVICAL LYMPH Interpretation (test NODE, NEEDLE ASPIRATION, code = 6133393779) FLOW CYTOMETRY ANALYSIS: ? ? ?- NO MONOCLONAL B-CELL POPULATION IDENTIFIED. ? ? ?- NO ABERRANT T-CELL POPULATION IDENTIFIED. ? ? ?- SEE COMMENT. Comments: (test code Immunophenotyping by flow = 5731926267) cytometry detected a heterogeneous population in the lymphocyte gate consisting of a mixture of B-cells and T-cells. The B-cells are polyclonal with no co-expression of CD5 or CD10. The T-cells have no newman-T cell antigen deletion or aberrant antigen expression. ?The CD4/CD8 ratio is about 1.4:1. There are no increased events in CD45 dim blast gate. There is no immunophenotypic evidence of a non-Hodgkin lymphoproliferative disorder or acute leukemia identified in this specimen. Clinical correlation is suggested. T-Cell CD Markers (test code = 2668700453) CD2 (test code = Positive; Subset 6869705515) CD3 (test code = Positive; Subset 2273832089) CD4 (test code = Positive; Subset 7201259917) CD5 (test code = Positive; Subset 5759595914) CD7 (test code = Positive; Subset 9206302006) CD8 (test code = Positive; Subset 7029714195) CD56 (test code = Positive; Subset 6635496705) TCRab (test code = Positive; Subset 1385107521) TCRgd (test code = Positive; Subset 3852572646) B-Cell CD Markers (test code = 4945363259) CD10 (test code = Negative 7839212290) CD19 (test code = Positive; Subset 2376289099) CD20 (test code = Positive; Subset 6837360168) CD22 (test code = Positive; Subset 6351038713) [place] (test code = Polyclonal 1102584731) Lambda (test code = Polyclonal 3382081083) Monocytic/Macrophage CD Markers (test code = 7335002584) CD14 (test code = Negative 0739359246) Other CD Markers (test code = 7976393572) CD34 (test code = Negative 5492068740) CD45 (test code = Positive 2744546560) EILEEN (test code = EILEEN) Disclaimer: Analyte Specific Reagents (ASR) are used in many laboratory tests for standard medical care and generally do not require U.S. Food and Drug Administration (FDA) approval or clearance. This test was developed and its performance characteristics determined by the [facility]. It has not been cleared or approved by FDA. The FDA has determined that such clearance or approval is not necessary. This test is used for clinical purposes. It should not be regarded as investigational or for research use. [facility] HospitalFLOW CYTOMETRY IMMUNOPHENOTYPING FOR LEUKEMIA/[id number] 22:45:29 Test Item Value Reference Range Interpretation Comments Specimen (test code = Fine needle 7312744309) aspiration of lymph node Gating Population: (test Lymphocytes code = 3230267246) Flow Cytometry Interpretation (test code = 7100110912) Comments: (test code = 4480295475) T-Cell CD Markers (test code = 5336158793) CD2 (test code = Positive; Subset 7818803598) CD3 (test code = Positive; Subset 8696634400) CD4 (test code = Positive; Subset 1210704628) CD5 (test code = Positive; Subset 5777842279) CD7 (test code = Positive; Subset 2117742555) CD8 (test code = Positive; Subset 6216642619) CD56 (test code = Positive; Subset 7434268086) TCRab (test code = Positive; Subset 0429989938) TCRgd (test code = Positive; Subset 9109606835) B-Cell CD Markers (test code = 2292707977) CD10 (test code = Negative 4267306388) CD19 (test code = Positive; Subset 1600039088) CD20 (test code = Positive; Subset 4143429543) CD22 (test code = Positive; Subset 2456527356) [place] (test code = Polyclonal 2523793032) Lambda (test code = Polyclonal 5590202204) Monocytic/Macrophage CD Markers (test code = 0207549118) CD14 (test code = Negative 4515327289) Other CD Markers (test code = 8791249854) CD34 (test code = Negative 8887311322) CD45 (test code = Positive 7851451700) EILEEN (test code = EILEEN) [facility]CBC WITH [id number] 11:39:00 Test Item Value Reference Range Interpretation Comments WBC (test code = See_Comment [Automated message] 6690-2) The system [employer] generated this result transmitted ref erence range: 4.30 - 1 1.10 10*3/?L. The re ference range was not u sed to interpret this result as normal/abnor mal. RBC (test code = See_Comment [Automated message] 789-8) The system [employer] generated this result transmitted ref erence range: 3.93 - 5 .25 10*6/?L. The re ference range was not u sed to interpret this result as normal/abnor mal. HGB (test code = 11.7 g/dL 11.6-15.0 718-7) HCT (test code = 36.9 % 35.7-45.2 4544-3) MCV (test code = 89.1 fL 80.6-95.5 787-2) MCH (test code = 28.3 pg 25.9-32.8 785-6) MCHC (test code = 31.7 g/dL 31.6-35.1 786-4) RDW-SD (test code 42.1 fL 39.0-49.9 = 95671-3) RDW-CV (test code 12.9 % 12.0-15.5 = 788-0) PLT (test code = See_Comment [Automated message] 777-3) The system [employer] generated this result transmitted ref erence range: 166 - 35 8 10*3/?L. The re ference range was not u sed to interpret this result as normal/abnor mal. MPV (test code = 9.5 fL 9.5-12.9 53482-1) NRBC/100 WBC (test See_Comment [Automat ed message] code = 2930283957) The syste m which generated this result transmitted ref erence range: 0.0 - 10 .0 /100 WBCs. The refer ence range was not u sed to interpret this result as normal/abnor mal. NRBC x10^3 (test <0.01 See_Comment [Automated message] code = 5284584526) The syste m which generated this result transmitted ref erence range: 10*3/?L. The reference range was not used to interpr et this result as normal/abnormal . GRAN MAT (NEUT) % 69.5 % (test code = 770-8) IMM GRAN % (test 0.40 % code = 7116437044) LYMPH % (test code 20.8 % = 736-9) MONO % (test code 6.4 % = 5905-5) EOS % (test code = 2.4 % 713-8) BASO % (test code 0.5 % = 706-2) GRAN MAT 5.84 10*3/uL 1.88-7.09 x10^3(ANC) (test code = 6886534169) IMM GRAN x10^3 0.03 10*3/uL 0.00-0.06 (test code = 3781121517) LYMPH x10^3 (test 1.75 10*3/uL 1.32-3.29 code = 731-0) MONO x10^3 (test 0.54 10*3/uL 0.33-0.92 code = 742-7) EOS x10^3 (test 0.20 10*3/uL 0.03-0.39 code = 711-2) BASO x10^3 (test 0.04 10*3/uL 0.01-0.07 code = 704-7) [facility] ONLY COVID [id number] 07:52:18COVID DMT InterpretationInterpretation/Recommendations: Molecular NAAT Tests for Active Infection with the SARS-CoV-2 Virus: The patient has currently tested negative for the SARS-CoV-2 virus that causes COVID-19 illness. This most likely indicates that the patient does not have an active infection with the SARS-CoV-2 virus. However, infection is not completely ruled out as the false negative rate for molecular NAAT testing using a nasopharyngeal sample can be up to 30%, mostly dependent on the timing of sample collection in relation to illness onset and any deficiencies in sampling techniques. If the patient has symptoms concerning for COVID-19 illness, a repeat NAAT test (PCR, Rapid ID Now, etc.) should be performed, at which time the SARS-CoV-2 virus - if present - may have reached a detectable viral load (usually peaking by the end of the first week of symptoms). Tests for IgM and/or IgGAntibodies to the SARS-CoV-2 Virus: If the patient develops COVID-19 illness in the future, testingfor IgM and IgG antibodies approximately 3 weeks after illness onset will likely indicate if the patient has produced antibodies to the SARS-CoV-2 virus. However, some patients may take longer to develop detectable antibodies, while some patients who were infected with SARS-CoV-2 may never develop antibodies. While antibodies to SARS-CoV-2 may provide some degree of immunity, at this time the strength and duration of the antibody response is unknown. Interpretation Result Comments:These interpretation comments are based upon all COVID-19 testing the patient has had at [facility], including molecular NAAT testing (more commonly known as PCR testing and Rapid ID Now testing) and antibody testing. It does not take into account any testing that a patient has had outside of the [facility] medical record. [facility] LABORATORY SERVICESCOVID Resu [id number] NAAT (no units) ? ? Date ? Value ? 12/30/2020 ? Not Detected ? SARS-CoV-2 Rapid ID NOW (no units) ? ? Date ? Value ? 01/06/2021 ? Not Detected ? [facility] METABOLIC PANEL ([id number])2021-01-06 19:36:00 Test Item Value Reference Range Interpretation Comments NA (test code = 139 mmol/L 135-145 7863169970) K (test code = 4.0 mmol/L 3.5-5.0 9157865721) CL (test code = 104 mmol/L 98-108 5544655461) CO2 TOTAL (test code 27 mmol/L 23-31 = 7824359493) AGAP (test code = 2-16 9576140603) BUN (test code = 8 mg/dL 7-23 7664170028) GLUCOSE (test code = 96 mg/dL 70-110 5929425403) CREATININE (test code 0.61 mg/dL 0.50-1.04 = 6140078185) TOTAL BILI (test code 0.6 mg/dL 0.1-1.1 = 7958355044) CALCIUM (test code = 9.4 mg/dL 8.6-10.6 6763059726) T PROTEIN (test code 7.3 g/dL 6.3-8.2 = 8048940286) ALBUMIN (test code = 4.1 g/dL 3.5-5.0 9869310084) ALK PHOS (test code = 81 U/L 34-122 2499398402) ALTv (test code = 14 U/L 5-35 1742-6) AST(SGOT) (test code 21 U/L 13-40 = 9769580619) eGFR (test code = mL/min/1.73m2 1301221187) EILEEN (test code = EILEEN) Association of Glomerular Filtration Rate (GFR) and Staging of Kidney Disease* + + +- +| GFR (mL/min/1.73 m2) ?| With Kidney Damage ?| ?Without Kidney Damage+ ------+ ----+ ------+| ?>90 ?| ?Stage one ?| ? Normal ?+ -+ + -+| ?60-89 ?| ?Stage two ?| ? Decreased GFR ? + + +- +| ?30-59 ?| ?Stage three ?| ? Stage three ? + + +- +| ?15-29 ?| ?Stage four ? | ? Stage four ?+ -+ + -+| ?<15 (or dialysis) ? ?| ?Stage five ? | ? Stage five ?+ -+ + -+ *Each stage assumes the associated GFR level has been in effect for at least three months. ?Stages 1 to 5, with or without kidney disease, indicate chronic kidney disease. Notes: Determination of stages one and two (with eGFR >59mL/min/1.73 m2) requires estimation of kidney damage for at least three months as defined by structural or functional abnormalities of the kidney, manifested by either:Pathological abnormalities or Markers of kidney damage (including abnormalities in the composition of the blood or urine or abnormalities in imaging tests). [facility] HospitalCT [facility] P[facility] W [id number] 18:26:17CT Abdomen and Pelvis with intravenous contrast. CLINICAL HISTORY: Abdominal pain, fever, postop. DOSE: Up-to-date CT equipment and radiation dose reduction techniques wereemployed. CTDIvol: 5.47 mGy.DLP: 259 mGy-cm. TECHNIQUE : Contiguous axial imaging from the level of the lung basesthrough the pubic symphysis were performed after the uncomplicatedadministration of Omnipaque contrast material. ?Coronal and sagittalreconstructions were obtained. Auto mA and/or iterative reconstruction wereused toreduce radiation dose. FINDINGS: ? Lower lungs: Clear. No pleural effusion or pericardial effusion. Nodefinite signs of hiatal hernia. Liver, Gallbladder and Spleen: S/P cholecystectomy. Liver is 15.7 cm andshowed mild fatty infiltration. Spleen is approximately 10 x 3 cm andappears normal. Biliary ducts and the pancreatic duct appear of normalsize. Peritoneum: ?No free air or free fluid. No lymphadenopathy. Pancreas and Adrenals: ?Unremarkable pancreas and adrenal glands. Kidneys and Ureters: ?No visible calculi in the renal collecting systems. No hydroureter or hydronephrosis. No enhancing kidneylesions. Vessels: Normal. Patent hepatic/portal venous circulation and renal veins. Retroperitoneum:No abnormal fluid or lymphadenopathy. Bowel: No acute findings. Appendix is not clearly visualized, however,there are no CT signs of acute appendicitis. Bladder and Reproductive Organs: Multiple bilateral cystic lesions withinslightly enlarged ovaries noted. Small amount of loculated fluid noted intheposterior cul-de-sac, measuring 2.4 x 1.4 cm size which could bepostoperative seroma. Slightly thicke scooter bladder lópez could be due toincomplete luminal distention. Uterus is laying in a retroflexed positionand show slightly heterogeneous myometrial enhancement without any focalfibroids. Bones: No acute findings. Soft tissues: Air bubbles are seen in the intermuscular tissue planes inthe left lower chest/abdominal wall as well as in the rectus sheathextending down into the suprapubic region, consistent with postoperativefindings. CONCLUSION:1. Bilaterally enlarged ovaries with multiple cysts, possibly sign of PCOS.Small amount of free fluid in the cul-de-sac including loculated fluid of2.4 x 1.4 cm size noted consistent with postoperative changes. Theloculated fluid collection does not appear infe cted.2. S/P cholecystectomy. [facility], Radiant Results Inft User - 01/06/2021 1:[address] Abdomen and Pelvis with intravenous contrast.CLINICAL HISTORY: Abdominal pain, fever, postop.DOSE: Up-to-date CT equipment and radiation dose reduction techniques wereemployed. CTDIvol: 5.47 mGy. DLP: 259 mGy-cm.TECHNIQUE : Contiguous axial imagingfrom the level of the lung basesthrough the pubic symphysis were performed after the uncomplicatedadministration of Omnipaque contrast material. Coronal and sagittalreconstructions were obtained. AutomA and/or iterative reconstruction wereused to reduce radiation dose.FINDINGS: Lower lungs: Clear. No pleural effusion or pericardial effusion. Nodefinite signs of hiatal hernia.Liver, Gallbladder andSpleen: S/P cholecystectomy. Liver is 15.7 cm andshowed mild fatty infiltration. Spleen is approximately 10 x 3 cm andappears normal. Biliary ducts and the pancreatic duct appear of normalsize.Peritoneum: No free air or free fluid. No lymphadenopathy.Pancreas and Adrenals: Unremarkable pancreas and adrenal glands.Kidneys and Ureters: No visible calculi in the renal collecting systems. No hydroureter or hydronephrosis. No enhancing kidney lesions. Vessels: Normal. Patent hepatic/portal venous circulation and renal veins.Retroperitoneum: No abnormal fluid or lymphadenopathy.Bowel: No acute findings. Appendix is not clearly visualized, however,there are no CT signs of acute appendicitis.Bladder and Reproductive Organs: Multiple bilateral cystic lesions withinslightly enlarged ovaries noted. Smallamount of loculated fluid noted inthe posterior cul-de-sac, measuring 2.4 x 1.4 cm size which could bepostoperative seroma. Slightly thickened bladder lópez could be due toincomplete luminal distention. Uterus is laying in a retroflexed positionand show slightly heterogeneous myometrial enhancement without any focalfibroids.Bones: No acute findings.Soft tissues: Air bubbles are seen in the intermuscular tissue planes inthe left lower chest/abdominal wall as well as in the rectus sheathextending downinto the suprapubic region, consistent with postoperativefindings.CONCLUSION:1. Bilaterally enlargedovaries with multiple cysts, possibly sign of PCOS.Small amount of free fluid in the cul-de-sac including loculated fluid of2.4 x 1.4 cm size noted consistent with postoperative changes. Theloculated fluid collection does not appear infected.2. S/P cholecystectomy.[facility] HospitalCOVID[facility] (ID NOW RAPID TESTING)2021-01-06 18:18:24 Test Item Value Reference Range Interpretation Comments SARS-CoV-2 Rapid ID NOW Not Detected Not Detected (test code = 62652-8) EILEEN (test code = EILEEN) ID NOW COVID-19 Assay is an isothermal nucleic acid amplification test intended for the qualitative detection of nucleic acid from SARS-CoV-2 viral RNA in nasopharyngeal (BATCH ROOM TECHNICIAN) specimens. It is used under Emergency Use Authorization (EUA) by FDA. The limit of detection (LOD) of the assay is 125 Genome Equivalents/mL. A positive result is indicative of the presence of SARS-CoV-2 RNA. ?Clinical correlation with patient history and other diagnostic information is necessary to determine patient infection status. A negative (Not Detected) result does not preclude SARS-CoV-2 infection. In patients with clinical symptoms and other tests that are consistent with SARS-CoV-2 infection, negative results should be treated as presumptive negative and a new specimen should be tested with alternative PCR molecular test. Invalid: Please collect a new specimen for repeat patient testing if clinically indicated. Lab Interpretation Normal (test code = 99207-1) [facility] HospitalURINALYSIS2021-06-[facility] 18:01:48 Test Item Value Reference Range Interpretation Comments APPEARANCE (test code = Clear Clear 1824510156) COLOR (test code = Yellow Yellow 7471268565) PH (test code = 4.8-8.0 4260451278) SP GRAVITY (test code = 1.003-1.030 8936642270) GLU U QUAL (test code = Normal Normal 4412278602) BLOOD (test code = 2+ Negative A Interfere nce from 5830916747) ascorbic acid m ay cause false neg ative results. KETONES (test code = Negative Negative 4592358977) PROTEIN (test code = Negative Negative 2887-8) UROBILIN (test code = Normal Normal 9902477511) BILIRUBIN (test code = Negative Negative 7342083835) NITRITE (test code = Negative Negative 5872632101) LEUK DONNA (test code = 25/uL Negative A 5552466594) RBC/HPF (test code = See_Comment [Autom ated message] 2623125093) The system [employer] generated this result transmitted ref erence range: 0 - 3 HP F. The reference range was not used to int erpret this result as normal/abnormal . WBC/HPF (test code = See_Comment [Autom ated message] 1854527995) The system [employer] generated this result transmitted ref erence range: 0 - 5 HP F. The reference range was not used to int erpret this result as normal/abnormal . BACTERIA (test code = Few Negative A 7317867342) SQ EPITH (test code = HPF 9699214831) ASCORBIC ACID (test 20 mg/dL+ code = 7333171224) Lab Interpretation Abnormal (test code = 22355-2) [facility] WITH [id number] 17:57:17 Test Item Value Reference Range Interpretation Comments WBC (test code = See_Comment H [Automated 6690-2) message] The sy stem which generated this result transmitted reference range : 4.30 - 11.10 10*3/?L. The reference range was not used to interpret this result as normal/abnormal . RBC (test code = See_Comment [Automated 789-8) message] The sy stem which generated this result transmitted reference range : 3.93 - 5.25 10*6/?L. The reference range was not used to interpret this result as normal/abnormal . HGB (test code = 13.0 g/dL 11.6-15.0 718-7) HCT (test code = 40.6 % 35.7-45.2 4544-3) MCV (test code = 88.3 fL 80.6-95.5 787-2) MCH (test code = 28.3 pg 25.9-32.8 785-6) MCHC (test code = 32.0 g/dL 31.6-35.1 786-4) RDW-SD (test code = 42.1 fL 39.0-49.9 34911-1) RDW-CV (test code = 13.0 % 12.0-15.5 788-0) PLT (test code = See_Comment [Automated 777-3) message] The sy stem which generated this result transmitted reference range : 166 - 358 10*3/ ?L. The reference r elizabeth was not used to interpret this result as normal/abnormal . MPV (test code = 9.7 fL 9.5-12.9 49703-2) NRBC/100 WBC (test See_Comment [Automat ed code = 1818158084) message] The system which generated this result transmitted reference range : 0.0 - 10.0 /100 WBCs. The refer ence range was not u sed to interpret th is result as normal/abnormal . NRBC x10^3 (test code <0.01 See_Comment [Auto mated = 4794764403) message] The s ystem which generated this result transmitted reference range : 10*3/?L. The reference range was not used to interpret this result as normal/abnormal . GRAN MAT (NEUT) % 78.8 % (test code = 770-8) IMM GRAN % (test code 0.40 % = 0966730328) LYMPH % (test code = 13.8 % 736-9) MONO % (test code = 5.6 % 5905-5) EOS % (test code = 1.1 % 713-8) BASO % (test code = 0.3 % 706-2) GRAN MAT x10^3(ANC) 9.35 10*3/uL 1.88-7.09 H (test code = 3286172977) IMM GRAN x10^3 (test 0.05 10*3/uL 0.00-0.06 code = 4292179137) LYMPH x10^3 (test code 1.64 10*3/uL 1.32-3.29 = 731-0) MONO x10^3 (test code 0.66 10*3/uL 0.33-0.92 = 742-7) EOS x10^3 (test code = 0.13 10*3/uL 0.03-0.39 711-2) BASO x10^3 (test code 0.04 10*3/uL 0.01-0.07 = 704-7) Lab Interpretation Abnormal (test code = 67443-1) [facility] Acid Whole [id number] 17:56:47 Test Item Value Reference Range Interpretation Comments LACTIC ACID (test code = 1.27 mmol/L 0.50-2.20 2883005128) Lab Interpretation (test code = Normal 34657-8) [facility] [id number] 13:06:00 Test Item Value Reference Range Interpretation Comments POCT PREG (test code = 1605) Negative On board controls acceptable with Yes C Line (test code = 3574) POCT PREG LOT # (test code = 3575) [id number] POCT PREG TEST DATE (test 2022-06-07 code = 3576) Lab Interpretation (test code = Normal 17984-5) [facility] [id number] 13:06:00 Test Item Value Reference Range Interpretation Comments POCT PREG (test code = 1605) Negative On board controls acceptable with Yes C Line (test code = 3574) POCT PREG LOT # (test code = 3575) [id number] POCT PREG TEST DATE (test 2022-06-07 code = 3576) Lab Interpretation (test code = Normal 82694-7) [facility] [id number] 16:43:00 Test Item Value Reference Range Interpretation Comments POCT PREG (test code = 1605) Negative On board controls acceptable with C Yes Line (test code = 3574) POCT PREG LOT # (test code = 3575) POCT PREG TEST DATE (test code = 3576) [facility] [id number] 16:43:00 Test Item Value Reference Range Interpretation Comments POCT PREG (test code = 1605) Negative On board controls acceptable with C Yes Line (test code = 3574) POCT PREG LOT # (test code = 3575) POCT PREG TEST DATE (test code = 3576) [facility] [id number] 16:43:00 Test Item Value Reference Range Interpretation Comments POCT PREG (test code = 1605) Negative On board controls acceptable with C Yes Line (test code = 3574) POCT PREG LOT # (test code = 3575) POCT PREG TEST DATE (test code = 3576) [facility] BHCG (QUANTITATIVE)2019-12-16 15:31:00 Test Item Value Reference Range Interpretation Comments BETA HCG (test See_Comment [Automated m essage] code = The system [employer] [employer] [id number]) generated this result transmit rock reference range : Non- fe male and male patien ts: <5 mIU/mL. The reference range was not used to interpret this result as normal/abnormal . EILEEN (test code Gestational Age ? ? = EILEEN) ?Range (mIU/mL) 1-10 ?Weeks ?[id number] Weeks ?[id number] Weeks ?[id number] Weeks ?[id number] Biotin has been reported to cause a negative bias, interpret results relative to patient's use of biotin. [facility] Test Item Value Reference Range Interpretation Comments APPEARANCE (test code = Hazy Clear A [id number]) COLOR (test code = Yellow Yellow [id number]) PH (test code = 4.8-8.0 6329970706) SP GRAVITY (test code = 1.003-1.030 7247980863) GLU U QUAL (test code = Normal Normal 6159538150) BLOOD (test code = Negative Negative 6468153433) KETONES (test code = Negative Negative 2463491054) PROTEIN (test code = Negative Negative 2887-8) UROBILIN (test code = Normal Normal 9784371754) BILIRUBIN (test code = Negative Negative 4762261369) NITRITE (test code = Negative Negative 8999945941) LEUK DONNA (test code = Negative Negative 2465529121) RBC/HPF (test code = See_Comment [Autom ated message] [id number]) The system [employer] generated this result transmitted ref erence range: 0 - 3 HP F. The reference range was not used to int erpret this result as normal/abnormal . WBC/HPF (test code = See_Comment [Autom ated message] [id number]) The system [employer] generated this result transmitted ref erence range: 0 - 5 HP F. The reference range was not used to int erpret this result as normal/abnormal . BACTERIA (test code = Few Negative A 0582448492) MUCOUS (test code = Slight Negative LPF A 5844095255) SQ EPITH (test code = HPF 0369115692) Lab Interpretation (test Abnormal code = 21034-4) [facility]"
[2021-11-08] MEDS ORDERED: TETANUS & DIPHTHERIA TOX,ADULT 0.5 ML VIAL ONE ×2 (12:07→12:17)
[2021-11-08] MEDS ORDERED: LIDOCAINE 1% MPF 5 ML VIAL ONE (12:07)
--- NOTE | 2021-11-08 12:41 | ER ---
Nurse's Notes [facility] Name: Umm Bell Age: 26 yrs Sex: Female : 1995 Arrival Date: 11/08/2021 Time: 11:39 Bed 19 Private MD: Diagnosis: Laceration without foreign body of left middle finger without damage to nail Presentation: 11/08 11:43 Chief complaint: Patient states: Cut left middle finger while cutting an avacado. jl7 Coronavirus screen: At this time, the client does not indicate any symptoms associated with coronavirus-19. Ebola Screen: No symptoms or risks identified at this time. Complicating Factors: There are no complicating factors for this patient. Risk Assessment: Do you want to hurt yourself or someone else? Patient reports no desire to harm self or others. Onset of symptoms was November 08, 2021 at 11:15. 11:43 Method Of Arrival: Ambulatory [facility] 11:43 Acuity: MICHAEL 4 jl7 12:21 Initial Sepsis Screen: Does the patient meet any 2 criteria? No. Patient's initial jd3 sepsis screen is negative. Does the patient have a suspected source of infection? No. Patient's initial sepsis screen is negative. Triage Assessment: 11:45 General: Appears in no apparent distress. uncomfortable, Behavior is calm, cooperative, jl7 appropriate for age. Pain: Complains of pain in left middle finger. Injury Description: Laceration sustained to left middle finger is 0.5 to 2.5 cm long, was sustained 30-60 minutes ago. is bleeding no active bleeding noted. 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 - Social history:: Smoking status: Patient denies any tobacco usage or history of. Screenin:21 Abuse screen: Denies threats or abuse. Nutritional screening: No deficits noted. jd3 Tuberculosis screening: No symptoms or risk factors identified. Fall Risk Ambulatory Aid- None/Bed Rest/Nurse Assist (0 pts). Gait- Normal/Bed Rest/Wheelchair (0 pts) Mental Status- Oriented to own ability (0 pts). Total Huff Fall Scale indicates No Risk (0-24 pts). Assessment: 12:15 General: Appears in no apparent distress. comfortable, Behavior is calm, cooperative, jd3 appropriate for age. Pain: Complains of pain in left middle finger Quality of pain is described as aching, tender. Neuro: Level of Consciousness is awake, alert, obeys commands, Oriented to person, place, time, situation. Cardiovascular: Capillary refill < 3 seconds Patient's skin is warm and dry. Respiratory: Airway is patent Respiratory effort is even, unlabored, Respiratory pattern is regular, symmetrical. GI: No signs and/or symptoms were reported involving the gastrointestinal system. : No signs and/or symptoms were reported regarding the genitourinary system. EENT: No signs and/or symptoms were reported regarding the EENT system. Derm: Skin is intact, Skin is dry, Skin is normal, Skin temperature is warm. Musculoskeletal: Circulation, motion, and sensation intact. Range of motion: intact in all extremities. Injury Description: Laceration sustained to left middle finger is clean, 2.6 to 7.5 cm long, not bleeding. 12:48 Reassessment: Patient appears in no apparent distress at this time. Patient and/or jd3 family updated on plan of care and expected duration. Pain level reassessed. Patient is alert, oriented x 3, equal unlabored respirations, skin warm/dry/pink. dressing placed on suture. pt reported understanding of discharge instructions and fallow-up care. Vital Signs: 11:45 BP 140 / 86; Pulse 87; Resp 15; Temp 98; Pulse Ox 98% ; Weight 65.77 kg (R); jl7 ED Course: 11:39 Patient arrived in ED. as 11:40 Brii Lamb FNP-C is PSYCHIATRICP. kb 11:40 Clayton Ballesteros MD is Attending Physician. kb 11:44 Triage completed. jl7 11:45 Arm band placed on right wrist. jl7 12:01 Sarmad Vargas RN is Primary Nurse. jd3 12:19 Assist provider with laceration repair on left ring finger that was between 2.6 to 7.5 jd3 cm using sutures. Set up tray. Performed by Brii GILL Dressed with 4X4s, Patient tolerated well. Patient did not have IV access during this emergency room visit. 12:21 Patient has correct armband on for positive identification. Bed in low position. Call jd3 light in reach. Side rails up X 1. Adult w/ patient. Pulse ox on. NIBP on. 12:45 Wound care: to laceration located on left middle finger was dressed with 4X4s, Patient jd3 tolerated well. Administered Medications: 12:12 Drug: Tetanus-Diphtheria Toxoid Adult 0.5 ml {Business Performance Specialist: [employer]. Exp: jd3 10/17/2023. Lot #: [id number]. } Route: IM; Site: left deltoid; 12:49 Follow up: Response: No adverse reaction jd3 12:18 Drug: Lidocaine (1 %) 1 vials Volume: 5 ml; Route: Infiltration; jd3 12:49 Follow up: Response: No adverse reaction jd3 Outcome: 12:40 Discharge ordered by . floyd 12:46 Discharged to home ambulatory, with family. jd3 12:46 Condition: stable 12:46 Discharge instructions given to patient, family, Instructed on discharge instructions, follow up and referral plans. Demonstrated understanding of instructions, follow-up care. 12:49 Patient left the ED. jd3 Signatures: Brii Lamb, BRIDGET CRATE ICER-Giana Thomas Jahala RN RN jl7 Sarmad Vargas RN RN jd3 Corrections: (The following items were deleted from the chart) 12:48 12:15 Pain: Complains of pain in left ring finger Quality of pain is described as jd3 aching, tender, jd3 12:48 12:15 Injury Description: Laceration sustained to left ring finger is clean, 2.6 to 7.5 jd3 cm long, not bleeding, jd3
--- NOTE | 2021-11-08 12:41 | EDPHYS ---
Physician Documentation [facility] Name: Umm Bell Age: 26 yrs Sex: Female : 1995 Arrival Date: 11/08/2021 Time: 11:39 Bed 19 Private MD: ED Physician Clayton Ballesteros HPI: 11/08 12:39 This 26 yrs old Female presents to ER via Ambulatory with complaints of Laceration - kb finger. 12:39 The patient has a laceration related to: cooking, from a knife, occurred at home, and kb there are no complicating factors. The injury was accidental. The laceration(s) is(are) located on the palmar aspect of proximal phalanx of left middle finger. Onset: The symptoms/episode began/occurred just prior to arrival. Associated signs and symptoms: The patient has no apparent associated signs or symptoms. The patient has not experienced similar symptoms in the past. The patient has not recently seen a physician. Pt states she was trying to stab the avacado seed with a knife and accidentally cut finger. 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 - Social history:: Smoking status: Patient denies any tobacco usage or history of. ROS: 12:38 Constitutional: Negative for fever, chills, and weight loss. kb 12:38 Skin: Positive for laceration(s), of the palmar aspect of proximal phalanx of left middle finger. 12:38 All other systems are negative. 12:38 All other systems are negative. Exam: 12:38 Constitutional: This is a well developed, well nourished patient who is awake, alert, kb and in no acute distress. Head/Face: Normocephalic, atraumatic. ENT: Moist Mucous membranes Respiratory: Respirations even and unlabored. No increased work of breathing. Talking in full sentences MS/ Extremity: Pulses equal, no cyanosis. Neurovascular intact. Full, normal range of motion. Neuro: Awake and alert, GCS 15, oriented to person, place, time, and situation. Moves all extremities. Normal gait. Psych: Awake, alert, with orientation to person, place and time. Behavior, mood, and affect are within normal limits. 12:38 Skin: injury, laceration(s), the wound is approximately 3 cm(s), of the palmar aspect of proximal phalanx of left middle finger, that can be described as clean, no foreign body, linear, with mild bleeding. Vital Signs: 11:45 BP 140 / 86; Pulse 87; Resp 15; Temp 98; Pulse Ox 98% ; Weight 65.77 kg (R); jl7 Laceration: 12:37 Wound Repair of 3cm ( 1.2in ) subcutaneous laceration to palmar aspect of proximal kb phalanx of left middle finger. Linear shaped.. Distal neuro/vascular/tendon intact. Anesthesia: Wound infiltrated with 3 mls of 1% lidocaine. Wound prep: Extensive cleansing with hibiclenz by me, Wound irrigation with saline by me. Skin closed with 6 5-0 Prolene using simple sutures and sterile technique. Patient tolerated well. MDM: 11:45 Patient medically screened. kb 12:37 Data reviewed: vital signs, nurses notes. Data interpreted: Pulse oximetry: on room air kb is 98 %. Interpretation: normal. Counseling: I had a detailed discussion with the patient and/or guardian regarding: the historical points, exam findings, and any diagnostic results supporting the discharge/admit diagnosis, the need for outpatient follow up, a family practitioner, to return to the emergency department if symptoms worsen or persist or if there are any questions or concerns that arise at home. 12:39 ED course: Cap refill less than 2 secs. Full ROM of finger without pain. kb 11/08 11:45 Order name: Gloves, Sterile; Complete Time: 12:18 kb 11/08 11:45 Order name: Prolene, Sutures; Complete Time: 12:18 kb 11/08 11:45 Order name: Setup Suture Tray; Complete Time: 12:18 kb Administered Medications: 12:12 Drug: Tetanus-Diphtheria Toxoid Adult 0.5 ml {Forge Utility Worker: [employer] Exp: jd3 10/17/2023. Lot #: [id number]. } Route: IM; Site: left deltoid; 12:49 Follow up: Response: No adverse reaction jd3 12:18 Drug: Lidocaine (1 %) 1 vials Volume: 5 ml; Route: Infiltration; jd3 12:49 Follow up: Response: No adverse reaction jd3 Disposition: 14:51 Co-signature as Attending Physician, Clayton Ballesteros MD. rn Disposition Summary: 11/08/21 12:40 Discharge Ordered Location: Home kb Condition: Stable kb Diagnosis - Laceration without foreign body of left middle finger without damage to nail kb Followup: kb - With: Emergency Department - When: As needed - Reason: Worsening of condition Followup: kb - With: Private Physician - When: 2 - 3 days - Reason: Recheck today's complaints, Continuance of care, Re-evaluation by your physician Discharge Instructions: - Discharge Summary Sheet kb - Laceration Care, Adult, [id number] kb Forms: - Medication Reconciliation Form kb - Thank You Letter kb - Antibiotic Education kb - Prescription Opioid Use kb Signatures: Brii Lamb, SALES REPRESENTATIVE HEALTH INSURANCE-C SALES REPRESENTATIVE HEALTH INSURANCE-Martinb Clayton Ballesteros MD MD rn Leal, Jahala RN RN jl7 Sarmad Vargas RN RN jd3
[2021-11-08 12:59] VITALS: BP 140/86; TEMP 98; O2SAT 98
== END 2021-11-08 12:49 | disposition home or self-care (01) ==
LOC: ER 11:38
PROC: 0JQK0ZZ Repair Left Hand Subcutaneous Tissue and Fascia, Open Approach (ICD-10-PCS; principal; 2021-11-08)
DX: S61.213A Laceration without foreign body of left middle finger without damage to nail, initial encounter (principal); W26.0XXA Contact with knife, initial encounter; Y93.G3 Activity, cooking and baking; Y92.010 Kitchen of single-family (private) house as the place of occurrence of the external cause; Z23 Encounter for immunization
CPT/HCPCS: 90471; 90714; 99284

== ENCOUNTER → 2023-08-04 | Emergency (ER) | payer BC ==
[~2023-08-04] MED LIST: KETOROLAC 30 MG/ML INJ ONE; NA CHLORIDE 0.9% 1,000 ML ONE; ONDANSETRON 4 MG/2 ML VIAL ONE
[2023-08-04 03:41] LABS: Absolute Lymphocytes (CBC) 1.6 K/uL (0.7-4.9); Hematocrit 38.1 % (36.0-45.0); Lymphocytes % 20.8 % (15.3-44.8); MCV 88.7 fL (80-100); MPV 7.5 fL (7.6-11.3); Platelets 251 thou/uL (152-406); RBC Red Blood Cell Count 4.29 M/uL (3.86-4.86)
[2023-08-04 03:48] LABS: Urine Bacteria None Seen /HPF (<20); Urine Mucus 1+ /HPF (None Seen); Urine RBC <5 /HPF (None Seen)
[2023-08-04 03:48] LABS: Albumin 3.6 g/dL (3.4-5.0); Bilirubin Total 0.3 mg/dL (0.2-1.0); Potassium 3.8 mEq/L (3.5-5.1); Protein, Total 7.4 g/dL (6.4-8.2)
[2023-08-04 03:53] LABS: Specific Gravity 1.025 (1.005-1.030); Urine Bilirubin NEGATIVE (Negative); Urine Blood Negative (Negative); Urine Clarity Extremely Turbid (Clear); Urine Color Light-Yellow (Yellow); Urine Glucose NEGATIVE (Negative); Urine Protein NEGATIVE (Negative); Urine Urobilinogen Normal (Normal); Urine pH 6.5 (5.0-7.0)
--- NOTE | 2023-08-04 04:18 | ER ---
Nurse's Notes [facility] Name: Umm Bell Age: 28 yrs Sex: Female : 1995 Arrival Date: 08/04/2023 Time: 02:37 Bed 18 Private MD: Jabari Dailey Diagnosis: Abdominal tenderness;Other ovarian cysts-6.7 cm simple right ovarian cyst Presentation: 08/04 02:52 Chief complaint: Patient states: I am having pelvic pain that started at 1130pm jb4 yesterday. I took a tramadol at about 0030 and woke up around 2 am with the pain again. I have had it before in the past. Coronavirus screen: At this time, the client does not indicate any symptoms associated with coronavirus-19. Ebola Screen: No symptoms or risks identified at this time. Initial Sepsis Screen: Does the patient meet any 2 criteria? No. Patient's initial sepsis screen is negative. Does the patient have a suspected source of infection? No. Patient's initial sepsis screen is negative. Risk Assessment: Do you want to hurt yourself or someone else? Patient reports no desire to harm self or others. Onset of symptoms was August 04, 2023. Transition of care: patient was not received from another setting of care. 02:52 Method Of Arrival: Ambulatory jb4 02:52 Acuity: MICHAEL 3 jb4 Triage Assessment: 02:55 General: Appears in no apparent distress. uncomfortable, Behavior is calm, cooperative, vc1 appropriate for age. Pain: Complains of pain in right inguinal area and left inguinal area Pain does not radiate. Pain currently is 5 out of 10 on a pain scale. at worst was 8 out of 10 on a pain scale. Quality of pain is described as pressure, sharp, Pain began suddenly, Noted to be guarding, resistant to movement. EENT: No deficits noted. No signs and/or symptoms were reported regarding the EENT system. Neuro: Level of Consciousness is awake, alert, obeys commands, Oriented to person, place, time, situation, Appropriate for age. Cardiovascular: No deficits noted. Respiratory: Airway is patent Respiratory effort is even, unlabored, Respiratory pattern is regular, symmetrical. GI: No deficits noted. No signs and/or symptoms were reported involving the gastrointestinal system. : Reports pain in bilateral in suprapubic area. Derm: No deficits noted. No signs and/or symptoms reported regarding the dermatologic system. Musculoskeletal: No deficits noted. No signs and/or symptoms reported regarding the musculoskeletal system. 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 - Social history:: Smoking status: Patient denies any tobacco usage or history of. Screenin:57 [facility] ED Fall Risk Assessment (Adult) History of falling in the last 3 months, vc1 including since admission No falls in past 3 months (0 pts) Confusion or Disorientation No (0 pts) Intoxicated or Sedated No (0 pts) Impaired Gait No (0 pts) Mobility Assist Device Used No (0 pt) Altered Elimination No (0 pt) Score/Fall Risk Level 0 - 2 = Low Risk Oriented to surroundings, Maintained a safe environment, Educated pt \T\ family on fall prevention, incl call for assistance when getting out of bed. Abuse screen: Denies threats or abuse. Nutritional screening: No deficits noted. Tuberculosis screening: No symptoms or risk factors identified. Assessment: 03:58 General: See triage assessment. vc1 Vital Signs: 02:52 BP 125 / 91; Pulse 91; Resp 18; Temp 97.6; Pulse Ox 100% ; Weight 61.23 kg; Height 5 vc1 ft. 0 in. ; Pain 5/10; 06:00 BP 122 / 74; Pulse 74; Resp 16; Pulse Ox 97% ; vc1 02:52 Body Mass Index 26.37 (61.23 kg, 152.4 cm) vc1 02:52 Pain Scale: Adult vc1 ED Course: 02:46 Patient arrived in ED. gm2 02:46 Jabari Dailey MD is Private Physician. gm2 02:49 Yasmani Ojeda PA is PHCP. cp 02:49 Yasmani Wan MD is Attending Physician. cp 02:52 Richa Zhang, ROXANA is Primary Nurse. vc1 02:53 Triage completed. jb4 02:53 Arm band placed on right wrist. jb4 02:57 Patient has correct armband on for positive identification. Bed in low position. Call vc1 light in reach. Pulse ox on. NIBP on. 03:18 Inserted saline lock: 22 gauge in left antecubital area, using aseptic technique. Blood vc1 collected. 03:58 CT Abd/Pelvis - IV Contrast Only In Process Unspecified. EDMS 05:45 Jabari Dailey MD is Referral Physician. [facility] 05:45 Jessica Hou MD is Referral Physician. gm 05:48 No provider procedures requiring assistance completed. vc1 05:55 US Transvaginal Study (Probe) In Process Unspecified. EDMS 06:04 IV discontinued, intact, bleeding controlled, No redness/swelling at site. vc1 Administered Medications: 03:19 Drug: Ketorolac IVP 15 mg IVP once Route: IVP; Site: left antecubital; vc1 03:27 Drug: Ondansetron IVP 4 mg IVP once; over 2 minutes Route: IVP; Site: left antecubital; vc1 03:27 Drug: NS 0.9% IV 1000 ml IV at 1 bolus Per protocol; 1000 mL bolus Route: IV; Rate: 1 vc1 bolus; Site: left antecubital; Medication: 02:57 VIS not applicable for this client. vc1 Outcome: 04:17 ER care complete, transfer ordered by . [facility] 05:46 Discharge ordered by . [facility] 05:48 Discharged to home ambulatory, vc1 05:48 Condition: good 05:56 Discharge instructions given to patient, Instructed on discharge instructions, follow vc1 up and referral plans. medication usage, Demonstrated understanding of instructions, follow-up care, medications, Prescriptions given X 3, 06:04 Patient left the ED. vc1 Signatures: Dispatcher [employer] EDNJ Yasmani Wan MD MD cha Page, Corey, PA PA cp Bryson, James RN RN jb4 Richa Zhang RN RN vc1 Becky Moreno gm2 Corrections: (The following items were deleted from the chart) 02:54 02:53 PSHx: Cholecystectomy; jb4 jb4
--- NOTE | 2023-08-04 04:18 | EDPHYS ---
Physician Documentation [facility] Name: Umm Bell Age: 28 yrs Sex: Female : 1995 Arrival Date: 08/04/2023 Time: 02:37 Bed 18 Private MD: Jabari Dailey ED Physician Yasmani Wan HPI: 08/04 03:10 This 28 yrs old Female presents to ER via Ambulatory with complaints of Pelvic Pain. cp 03:10 The patient presents with abdominal pain in the lower abdomen. Onset: The cp symptoms/episode began/occurred last night, about 2330. The symptoms do not radiate. 03:10 Associated signs and symptoms: Pertinent negatives: anorexia, chest pain, constipation, cp diarrhea, dysuria, fever, vaginal discharge, vomiting. The symptoms are described as waxing/waning. Severity of pain: in the emergency department the pain is unchanged despite home interventions. 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 - Social history:: Smoking status: Patient denies any tobacco usage or history of. ROS: 03:15 Abdomen/GI: Positive for abdominal pain, nausea, of the suprapubic area and right lower cp quadrant, 03:15 : Positive for pelvic pain, 03:15 Eyes: Negative for injury, pain, redness, and discharge, cp 03:15 Constitutional: Negative for chills, fever, poor PO intake, 03:15 ENT: Negative for drainage from ear(s), ear pain, sore throat, difficulty swallowing, difficulty handling secretions, 03:15 Cardiovascular: Negative for chest pain, 03:15 Respiratory: Negative for cough, shortness of breath, wheezing, 03:15 Back: Negative for radiated pain, 03:15 Neuro: Negative for altered mental status, dizziness, headache, weakness, 03:15 All other systems are negative, Exam: 03:20 Constitutional: The patient appears in no acute distress, alert, awake, non-toxic, well cp developed, well nourished, uncomfortable, 03:20 Head/Face: Normocephalic, atraumatic. cp 03:20 Eyes: Periorbital structures: appear normal, Conjunctiva: normal, no exudate, no injection, Sclera: no appreciated abnormality, Lids and lashes: appear normal, bilaterally, 03:20 ENT: External ear(s): are unremarkable, Nose: is normal, Mouth: Lips: moist, Oral mucosa: moist, Posterior pharynx: Airway: no evidence of obstruction, patent, 03:20 Chest/axilla: Inspection: normal, 03:20 Cardiovascular: Rate: normal, 03:20 Respiratory: the patient does not display signs of respiratory distress, Respirations: normal, no use of accessory muscles, labored breathing, is not present, Breath sounds: are clear throughout, no decreased breath sounds, no stridor, no wheezing, 03:20 Abdomen/GI: Inspection: abdomen appears normal, Bowel sounds: active, all quadrants, Palpation: soft, in all quadrants, mild abdominal tenderness, in the suprapubic area and right lower quadrant, rebound tenderness, is not appreciated, involuntary guarding, is not appreciated, 03:20 Back: pain, is absent, ROM is normal, Vital Signs: 02:52 BP 125 / 91; Pulse 91; Resp 18; Temp 97.6; Pulse Ox 100% ; Weight 61.23 kg; Height 5 vc1 ft. 0 in. ; Pain 5/10; 06:00 BP 122 / 74; Pulse 74; Resp 16; Pulse Ox 97% ; vc1 02:52 Body Mass Index 26.37 (61.23 kg, 152.4 cm) vc1 02:52 Pain Scale: Adult vc1 MDM: 02:49 Patient medically screened. cp 03:30 Differential diagnosis: ovarian cyst, uti, ureteral stone, bowel obstruction, cp appendicitis. 04:00 Differential diagnosis: appendicitis, Endometriosis, non-specific abd pain, Ovarian cp Torsion, Pyelonephritis, Ureterolithiasis, urinary tract infection. 08/04 03:07 Order name: CBC with Diff; Complete Time: 03:55 cp 08/04 03:55 Interpretation: Normal except: MPV 7.5. cp 08/04 03:07 Order name: CMP; Complete Time: 03:55 cp 08/04 03:55 Interpretation: Normal except: CL 108; GLUC 131; AST 12; GLOB 3.8; A/G 0.9. 08/04 03:07 Order name: Lipase; Complete Time: 03:55 08/04 03:56 Interpretation: Reviewed. 08/04 03:07 Order name: Urinalysis w/ reflexes; Complete Time: 04:04 08/04 03:55 Interpretation: Normal except: IKNA Extremely Turbid. 08/04 03:07 Order name: CT Abd/Pelvis - IV Contrast Only 08/04 05:24 Order name: US Transvaginal Study (Probe) [facility] 08/04 03:07 Order name: IV Saline Lock; Complete Time: 03:19 cp 08/04 03:07 Order name: Labs collected and sent; Complete Time: 03:19 cp Administered Medications: 03:19 Drug: Ketorolac IVP 15 mg IVP once Route: IVP; Site: left antecubital; vc1 03:27 Drug: Ondansetron IVP 4 mg IVP once; over 2 minutes Route: IVP; Site: left antecubital; vc1 03:27 Drug: NS 0.9% IV 1000 ml IV at 1 bolus Per protocol; 1000 mL bolus Route: IV; Rate: 1 vc1 bolus; Site: left antecubital; Disposition: 05:24 Co-signature as Attending Physician, Yasmani Wan MD I agree with the assessment and gm plan of care. Disposition Summary: 08/04/23 05:46 Discharge Ordered Notes: Location: Home gm Problem: new(08/04/23 05:46) gm Symptoms: have improved(08/04/23 05:46) gm Condition: Stable(08/04/23 05:46) gm Diagnosis - Abdominal tenderness gm - Other ovarian cysts - 6.7 cm simple right ovarian cyst gm Followup: gm - With: Jabari Dailey MD - When: 2 - 3 days - Reason: Recheck today's complaints, Continuance of care, Re-evaluation by your physician Followup: gm - With: Jessica Hou MD - When: 2 - 3 days - Reason: Recheck today's complaints, Re-evaluation by your physician Discharge Instructions: - Discharge Summary Sheet gm - Abdominal Pain, Adult gm - Ovarian Cyst gm - Abdominal Pain, Adult, [id number] gm - Ovarian Cyst, [id number] gm Forms: - Medication Reconciliation Form gm - Thank You Letter gm - Antibiotic Education gm - Prescription Opioid Use gm - Patient Portal Instructions gm - Leadership Thank You Letter gm Prescriptions: - Ibuprofen 600 mg Oral tablet - take 1 tablet ORAL route every 6 hours As needed take with food; 20 tablet; gm Refills: 0, Product Selection Permitted - Zofran 4 mg Oral Tablet - take 1 tablet ORAL route every 12 hours As needed; 20 tablet; Refills: 0, gm Product Selection Permitted - dicyclomine 20 mg Oral tablet - take 1 tablet ORAL route 4 times per day; 28 tablet; Refills: 0, Product [facility] Selection Permitted Signatures: Dispatcher [employer] EDYasmani Mello MD MD cha Page, Corey, PA PA Chano Parra RN RN jb4 Richa Zhang RN RN vc1 Corrections: (The following items were deleted from the chart) 02:54 02:53 PSHx: Cholecystectomy; jb4 jb4 03:35 03:29 : Positive for pelvic pain, cp cp 03:35 03:29 Abdomen/GI: Positive for abdominal pain, nausea, of the suprapubic area and right cp lower quadrant, cp 04:18 04:17 to [facility] cardio gm cp 04:18 04:17 [facility] gm cp 04:18 04:17 Higher level of care gm cp 04:18 04:17 Fair gm cp 04:18 04:17 new gm cp 04:18 04:17 have improved gm cp 04:18 04:17 Other specified heart block gm cp 04:18 04:17 Chest pain, unspecified gm cp 04:18 04:17 Dyspnea gm cp 04:18 04:17 Bradycardia, unspecified gm cp
[2023-08-04 08:34] VITALS: TEMP 97.6
[2023-08-04 08:40] VITALS: BP 122/74; O2SAT 97
--- NOTE | 2023-08-04 11:49 | RAD REPORT ---
EXAM DESCRIPTION: US - Transvaginal Study Probe - 08/04/2023 5:53 am CLINICAL HISTORY: The patient is 28 years old and is Female; PAIN hysterectomy TECHNIQUE: Real-time transvaginal pelvic ultrasound with image documentation. Transvaginal imaging was used for better evaluation of the endometrium and adnexa. Real-time duplex ultrasound scan of the arterial and venous flow of the pelvis with color Doppler flow and spectral waveform analysis. COMPARISON: CT abdomen and pelvis August 04, 2023 FINDINGS: Uterus/cervix: Uterus not visualized, surgically removed. Normal endometrial stripe thickness. No myometrial mass. Right ovary: Right ovary 7.4 x 6.4 x 6.0 cm. Complex right ovarian cyst with echogenic fluid debris and septations without internal vascul arity. This measures 6.4 x 5.8 x 4.3 cm. Peripheral vascularity demonstrated. No torsion. Left ovary: Left ovary 2.3 x 2.0 x 1.9 cm. No torsion. Free fluid: No free fluid. Bladder: Empty bladder which cannot be evaluated with this probe. Other findings: No torsion. IMPRESSION: 1. 6.4 cm right ovarian complex cyst as above. A component of this complexity is hemor rhage, with endometrioma and/or hemorrhagic cyst favored. ACR White Paper guidelines (Pantoja, et. al. Radiology 2010;256(3):943-954) suggest initial pelvic ultrasound follow-up in 6-12 weeks. Then, if lesion is persistent and follow-up with ultrasound or MRI does not confirm endometrioma or dermoi d, surgical evaluation should be considered. 2. Uterus not visualized, surgically removed. Electronically signed by: Deisy Garcia MD 08/04/2023 06:45 AM SCRAP PICKER Due to temporary technical issues with the PACS/Fluency reporting system, reports are being signed by the in house radiologists without review as a courtesy to insure prompt reporting. The interpreting radiologist is fully responsible for the content of the report.
--- NOTE | 2023-08-04 13:35 | RAD REPORT ---
EXAM DESCRIPTION: CT - Abdomen Pelvis W Contrast - 08/04/2023 6:44 am CLINICAL HISTORY: The patient is 28 years old and is Female; lower abdomen pain TECHNIQUE: Axial computed tomography images of the abdomen and pelvis with intravenous contrast. S agittal and coronal reformatted images were created and reviewed. This CT exam was performed using one or more of the following dose reduction techniques: automated exposure control, adjustment of t he mA and/or kV according to patient size, and/or use of iterative reconstruction technique. COMPARISON: No relevant prior studies available. FINDINGS: Lung bases: Unremarkable. No mass. No consolidation. ABDOMEN: Liver: Unremarkable. No mass. Gallbladder and bile ducts: Gallbladder is surgically absent. No ductal dilation. Pancreas: Unremarkable. No mass. No ductal dilation. Spleen: Unremarkable. No splenomegaly. Adrenals: Unremarkable. No mass. Kidneys and ureters: Unremarkable. No solid mass. No hydronephrosis. Stomach and bowel: Unremarkable. No obstruction. No mucosal thickening. PELVIS: Appendix: No findings to suggest acute appendicitis. Bladder: Unremarkable. Reproductive: 6.7 cm simple appearing cyst in the right adnexal region. Consider pelvic ultrasoun d for further evaluation if clinically indicated. Uterus is not seen. ABDOMEN and PELVIS: Intraperitoneal space: Unremarkable. No free air. No significant fluid collection. Bones/joints: No acute fracture. No dislocation. Soft tissues: Unremarkable. Vasculature: Unremarkable. No abdominal aortic aneurysm. Lymph nodes: Unremarkable. No enlarged lymph nodes. IMPRESSION: 6.7 cm simple appearing cyst in the right adnexal region. Consider pelvic ultrasound for further evaluation if clinically indicated. Electronically signed by: Jonah Faust MD 08/04/2023 05:18 AM SPRING TACKER Due to temporary technical issues with the PACS/Fluency reporting system, reports are being signed by the in house radiologists without review as a courtesy to insure prompt reporting. The interpreting radiologist is fully responsible for the content of the report.
== END ==
LOC: ER 02:37
DX: N83.291 Other ovarian cyst, right side (principal)
CPT/HCPCS: 85025; 36415; 81003; 83690; 80053; 74177; 76830; 96375; 96374; 99284; Q9967; J2405; J7030

== ENCOUNTER 2023-08-08 08:11 | Day surgery (SDC) | payer BC ==
[2023-08-08] MEDS ORDERED: Ringers Lactate 1,000 ML IV ONE ×2 (08:15→11:38)
[2023-08-08] MEDS ORDERED: SUCCINYLCHOLINE 20 MG/ML (10 ML) IV ONE (08:55)
[2023-08-08] MEDS ORDERED: SCOPOLAMINE HYDROBROMIDE PATCH TD ONE (09:00)
[2023-08-08] MEDS ORDERED: propofoL 200 MG/20 ML VIAL IV ONE (09:01)
[2023-08-08] MEDS ORDERED: MIDAZOLAM HCL 2 MG/2 ML INJ ONE (09:01)
[2023-08-08] MEDS ORDERED: ROCURONIUM 50 MG/5 ML VIAL IV ONE (09:01)
[2023-08-08] MEDS ORDERED: FENTANYL CITR 100 MCG/2 ML ONE (09:01)
[2023-08-08] MEDS ORDERED: BUPIVACAINE 0.25% PF 30 ML VIAL ONE (09:20)
[2023-08-08] MEDS ORDERED: LIDOCAINE HCL/EPINEPHRINE 20 ML MDV ONE (09:20)
[2023-08-08] MEDS ORDERED: KETOROLAC 30 MG/ML INJ ONE (10:41)
[2023-08-08] MEDS ORDERED: ONDANSETRON 4 MG/2 ML VIAL ONE (10:42)
[2023-08-08] MEDS ORDERED: dexAMETHasone 10 MG/ML VIAL ONE (10:43)
[2023-08-08] MEDS ORDERED: NEOSTIGMINE 1 MG/ML -10 ML VIAL ONE ×2 (10:52)
[2023-08-08] MEDS ORDERED: GLYCOPYRROLATE 0.2 MG/ML SYR ONE ×2 (10:53→10:54)
[2023-08-08] MEDS ORDERED: MEPERIDINE HCL 25 MG/ML SYR ONE (11:33)
[2023-08-08] MEDS ORDERED: HYDROCODONE/APAP 5/325 MG TAB ONE (11:49)
[2023-08-08 12:27] VITALS: BP 131/81; TEMP 97.8; O2SAT 99
--- NOTE | 2023-08-08 12:55 | OP ---
Date of Procedure: 08/08/2023 Surgeon: Jessica Hou MD Foil Operator: No assistants. Preoperative Diagnoses: Right lower quadrant pain, right complex ovarian cyst. Postoperative Diagnoses: Right lower quadrant pain, right complex ovarian cyst, right ovarian torsio n, necrosis of the right ovary, pendulous left ovary. Procedures Performed: Diagnostic laparoscopy, right oophorectomy with retrieval of the ovarian cyst and the ovary in a bag with contained morcellation through the umbilical access site, and left ovario pexy. Anesthesia: General endotracheal. Specimens: Right ovary with the cyst. Complications: No complications. Drains: No drains. Patient Condition: Stable. Estimated Blood Loss: Minimal. Findings: The right ovary was significantly hemorrhagic and bluish in discoloration. The ovarian pe dicle was pendulous and very likely does have torsion, which could have untwisted at that time as the re was no clear twist noted at that time, however. The ovarian pedicle or the IP ligament had some t hrombosis as well, so a decision was to remove the ovary along with the cyst and this was performed o n the left side. The left ovary also was pendulous on this IP ligament attachment, not attached to t he round ligament, so I performed a left ovariopexy to the base of the remnant of the left round liga ment on the left side. The specimen was placed in the bag. The fascial incision was extended and this was retrieved by morc ellation of the specimen in the bag and suction of the fluid in a contained manner with no spillage. The umbilical fascial site was closed with an 0 PDS in a continuous running fashion. Indications: The patient is a 28-year-old, 2, para 2-0-0-3, status post hysterectomy, histor y of endometriosis, 2 prior laparoscopies followed by hysterectomy, presented with acute onset right lower quadrant pain that was evaluated in the ER, at first diagnosed to be a complex 6.8 cm right adn exal mass. A CT scan followed by ultrasound were performed and no evidence of torsion was found at t hat time. The patient was seen in the office the following morning. She had significant right lower quadrant tenderness with localized rebound. However, since she is status post hysterectomy, hemorrh agic cyst versus torsion were in the differential and were explained to the patient as there is the p otential for loss of the ovary. Expectant management versus a surgical management was discussed and the patient was willing to observe and see if her pain improved, and if it did not, then they would p roceed with a surgery. She fully understood that the ovarian compromise is a possibility in case william s ends up being a torsion and since she is post hysterectomy, did not want to worry about loss of ova sowmya function. Two days later, she is still in significant pain, unable to perform her normal activities, although t his pain has not increased. It is impairing to her regular activities at home and it is at least 6/1 0 at baseline, nausea and vomiting, at times that there is pain exacerbations, so decided to bring he r to have a surgery today. She was consented for a diagnostic laparoscopy, right ovarian cystectomy, possible oophorectomy, and possible ovariopexy. Description Of Procedure: After informed consent was re-verified, she was taken back to OR, placed i n supine fashion on the operating table. General anesthesia was given, placed in a dorsal lithotomy position. Abdomen was prepped with ChloraPrep. Vulva, vagina, and perineum with Betadine. Position ing was checked. Time-out was done and procedure started. A sponge on a stick was placed in the vagina for retraction. Sanchez was placed to drain the bladder a nd all this area was draped. A 1 cm infraumbilical incision was made in the midline on the skin, then on the fascia. After perito neum was entered sharply, 2 tags of 0 Vicryl sutures were placed on the edges of the fascia on each s chava. S retractors were placed after Yusuf was introduced, inadequate insufflation was obtained. Si te of entry was checked and was unremarkable. Upper abdominal surface unremarkable. No evidence of endometriosis on the abdominal peritoneum or pelvic peritoneum. After the patient was placed in [facility], and 2.5 ports were placed suprapubic and left lower quadrants under direct vision after in jecting with 0.25% Marcaine at the fascia. The bowel was retracted superiorly and the patient placed in Trendelenburg. The findings are as dictated above with the right ovary that appeared to be hemor rhagic and possibly necrosed. No healthy ovarian tissue was noted. So, the decision was to perform the oophorectomy along with removal of the cyst. The IP pedicle was identified. The pelvic brim was identified and then LigaSure was used to cauterize and cut the IP. The specimen was detached. Left ovariopexy: The IP pedicle was pendulous on the left side as well. The base of the IP was stit ched to the base of the round ligament and then the ovary was stitched to the round ligament with 3-0 Monocryl sutures. Once this was done and I made sure that the peritoneum in between the sidewall an d the ovary did not leave any room for internal herniation through this by making sure the stitches w ere used to plicate the peritoneum leaving no gaps and thus the sutures were tied down and there was excellent suspension without excessive traction. Thorough irrigation and suction were performed. A 5 camera was used through the left lower quadrant port. An EndoCatch bag was introduced through the umbilical port and specimen placed into the back. Once the specimen was completely within the bag, i t was incised with laparoscopic scissors. The hemorrhagic fluid which was thin was suctioned out to decompress the specimen. Then the bag was closed without any spillage. The other 2 port sites were used to suction irrigate the pelvis and after all the pedicles were hemostatic, the trocars were also removed along with the instruments under direct visualization. Then, the umbilical trocar was remov ed and the specimen bag pulled out through the incision. It was clamped with a Diana clamp thick. T he fascial incision was extended by another cm and a half. The corner of this was picked up with a K ocher clamp. Specimen had to be retrieved by morcellating the specimen within the bag without any sp illage carefully. This was removed and handed off for permanent pathology. The fascia was closed wi th continuous running 0 PDS and the tagged 0 Vicryl sutures tied to each other. The skin incisions c losed in an interrupted fashion at the 5 ports with 5-0 Monocryl in continuous running subcuticular c losure at the umbilical port site. All areas were injected with 0.25% Marcaine before the patient wa s awake, took out from anesthesia. Vaginal sponge and the Sanchez were removed. Instrument, needle, and sponge counts correct. She will follow u p in 1 week at the office. OCTAVIO/TASHA Voice ID: [id number] Report ID: [id number]
== END 2023-08-08 12:36 | disposition home or self-care (01) ==
LOC: PACU 08:11
PROVIDERS: ATTEND Obstetrics & Gynecology
PROC: 0UQ14ZZ Repair Left Ovary, Percutaneous Endoscopic Approach (ICD-10-PCS; 2023-08-08)
PROC: 0UT04ZZ Resection of Right Ovary, Percutaneous Endoscopic Approach (ICD-10-PCS; principal; 2023-08-08 09:00)
DX: N83.11 Corpus luteum cyst of right ovary (principal); R10.31 Right lower quadrant pain; I10 Essential (primary) hypertension; F32.A Depression, unspecified
CPT/HCPCS: 88305; 58661; 58999; J2704; J2710; J2250; J3010; J1100; J2175; J2405; J7120 ×2

== ENCOUNTER 2024-11-15 19:30 | Emergency (ER) | payer BC, SELFPAY ==
--- OUTSIDE RECORDS SUMMARY | 2024-11-15 19:35 | XMS REPORT | Continuity of Care Document ---
Author Name Unknown Address [address] [facility] [address] [place] [address] [facility] [place] Address [address] [facility] [address] [place] [address] Care Team Providers Care Rehabilitation Counselor Name Role Phone Pcp, Patient Does Not Have A Primary Care Physic selene BENY OLIVAS Attending Clinician Unavailable MADELINE MITCHELL Attending Clinician Unavailab MADELINE Shetty Attending Clinician Unavailab Madeline Shetty DO Attending Clinician [phone] [email or web address] Attending Clinician UnavailFEDERICA Bejarano Attending Clinician Unavailable Agapito LANDON, Federica Attending Clinician [phone] Doctor Unassigned, [place] Attending Clinician U Carmen Champion MD Attending Clinician [phone] CARMEN KHAN Attending Clinician Unavailable JAYNA CANCINO Attending Clinician Unavailable Radiology Attending Clinician Unavailable RADIOLOGY Attending Clinician Unavailable Beny Edwards Attending Clinician [phone] Beny Olivas MD Attending Clinician [phone] Yunior8 Amara SCHMIDT, Linda Attending Clinician Unavailabl e Pob, Adc Lab Main Attending Clinician Venkatesh e Only, Adc Test Attending Clinician Unavailable BENY OLIVAS Admitting Clinician Unavailable [email or web address] Admitting Clinician Beny Gale MD Admitting Clinician Payers Payer Name Policy Type Policy Number Effective Date Expirati on Date Source [place] OUT OF STATE [id number] 2017 00:00:00 CIGNA II [id number] 2016 00:00:[place] [id number] 2023 00:00:00 BCBS 2 [id number] 2020 00:00:00 Problems Condition Name Condition Details Condition Category Status Onset Date Resolution Date Last Treatment Date Treating Clinician Comments Source Chest pain, unspecifie d type Chest pain, unspecifie d type Disease Active 2022-08 0- 00:00: 00 [facility] Palpitatio ns Palpitatio ns Disease Active 2022-08 0-03 00:00: 00 [facility] Hyperlipid emia, unspecifie d hyperlipid emia type Hyperlipid emia, unspecifie d hyperlipid emia type Disease Active 3-08 00:00: 00 [facility] Anxiety Anxiety Disease Active 7 00:00: 00 [facility] Enlarged lymph node in neck Enlarged lymph node in neck Disease Active 7 00:00: 00 [facility] Enlarged lymph node in neck Enlarged lymph node in neck Disease Active 7 00:00: 00 [facility] Postoperat brittni abdominal pain with fever Postoperat brittni abdominal pain with fever Disease Active 01-06 00:00: 00 [facility] Postoperat brittni seroma involving genitourin nilson system after genitourin nilson procedure Postoperat brittni seroma involving genitourin nilson system after genitourin nilson procedure Disease Active 01-06 00:00: 00 [facility] Encounter for tubal ligation counseling Encounter for tubal ligation counseling Disease Active 12-31 00:00: 00 Overview: Formattin g of this note might be different from the original. Added automatic ally from request for surgery [id number] [facility] Herpes, vulvar Herpes, vulvar Disease Active 2-11 00:00: 00 [facility] Bipolar disorder Bipolar disorder Disease Active 2018-08 00:00: 00 [facility] Endometrio sis Endometrio sis Disease Active 2018-08 00:00: 00 [facility] No known active problems No known active problems Disease [facility] Pre-op examinatio n Pre-op examinatio n Disease Resolve d 12-31 00:00: 00 2021-01-30 00:00:00 2021-01-30 09:57:54 [facility] Allergies, Adverse Reactions, Alerts Allergy Name Allergy Type Status Severity Reaction(s) Onset Date Inactive Date Treating Clinician Comments Source NO KNOWN ALLERGIE S Drug Class Active [facility] Social History Social Habit Start Date Stop Date Quantity Comments Source History of tobacco use Cigarette Smoker [facility] Alcoholic beverage intake 2024-06-20 00:00:00 2024-06-20 00:00:00 Current drinker of alcohol (finding) [facility] Alcohol intake 2023-05-10 00:00:00 2023-05-10 00:00:00 Current drinker of alcohol (finding) [facility] Exposure to SARS-CoV-2 (event) 2022-10-03 00:00:00 2022-10-13 10:47:00 Not sure [facility] Tobacco use and exposure 2022-09-06 00:00:00 2022-09-06 00:00:00 Smokeless tobacco non-user [facility] Tobacco Comment 2022-09-06 00:00:00 2022-09-06 00:00:00 quit 2016 [facility] History of Social function 2022-09-06 00:00:00 2022-09-06 00:00:00 [facility] Alcohol Comment 2020-08-11 00:00:00 2020-08-11 00:00:00 socially [facility] History SDOH Alcohol Frequency 2020-08-11 00:00:00 2020-08-11 00:00:00 99 [facility] History SDOH Alcohol Std Drinks 2020-08-11 00:00:00 2020-08-11 00:00:00 99 [facility] History SDOH Alcohol Binge 2020-08-11 00:00:00 2020-08-11 00:00:00 99 [facility] Sex assigned at 1995 00:00:00 1995 00:00:00 [facility] Smoking Status Start Date Stop Date Source Ex-smoker 2022-09-06 00:00:00 2022-09-06 [facility]00[facility] Medications Ordered Medication Name Filled Medication Name Start Date Stop Date Current Medication? Ordering Clinician Indication Dosage Frequency Signature (SIG) Comments Components Source labetaloL 200 mg tablet 2023-08 00:00: 00 Yes [id number] 200mg Take 1 tablet by mouth in the morning and 1 tablet in the evening. [facility] ketorolac (TORADOL) injection 30 mg 03-13 13:45: 00 03-13 13:05 :00 No 30mg 30 mg, Slow IV Push, ONCE, 1 dose, On Tue03/13/24 at 0845, Routine [facility] NaCl 0.9% (NS) bolus infusion 1,000 mL 03-13 13:45: 00 03-13 14:17 :00 No 1000mL at 999 mL/hr, 1,000 mL, IV Infusion, ONCE, 1 dose, On Tue03/13/24 at 0845, KRAIG [facility] dexamethaso ne sod phos PF injection 10 mg 03-13 13:00: 00 03-13 13:05 :00 No 10mg 10 mg, Slow IV Push, ONCE, 1 dose, On Tue03/13/24 at 0800, 1 mL [facility] diphenhydrA MINE (BENADRYL) injection 25 mg 03-13 13:00: 00 03-13 13:05 :00 No 25mg 25 mg, Slow IV Push, ONCE, 1 dose, On Tue03/13/24 at 0800, STAT [facility] metoclopram chava HCl (REGLAN) injection 10 mg 03-13 13:00: 00 03-13 13:05 :00 No 10mg 10 mg, Slow IV Push, ONCE, 1 dose, On Tue03/13/24 at 0800, KRAIG [facility] labetaloL 200 mg tablet 2022-08 0- 00:00: 00 06-20 00:00 :00 No [id number] 200mg Take 1 tablet by mouth in the morning and 1 tablet in the evening. [facility] labetaloL 100 mg tablet 08 00:00: 00 05-10 00:00 :00 No [id number] 100mg Take 1 tablet by mouth in the morning and 1 tablet in the evening. [facility] labetaloL 100 mg tablet 1-30 00:00: 00 10-13 00:00 :00 No [id number] 100mg Take 1 tablet by mouth in the morning and 1 tablet in the evening. [facility] LORazepam (ATIVAN) tablet 2 mg 04-03 17:00: 00 04-03 15:57 :00 No [id number] 2mg 2 mg, Oral, ONCE, 1 dose, Tue04/03/21 at 1200, Routine [facility] sodium bicarbonate 8.4 % (1 mEq/mL) injection 04-03 16:42: 49 04-03 16:42 :49 No Slow IV Push, PRN, Starting Tue04/03/21 at 1142, Until Discontinu ed, Routine [facility] lidocaine 2% (XYLOCAINE) 20 mg/mL (2 %) injection 04-03 16:42: 24 04-03 16:42 :24 No PRN, Starting Tue04/03/21 at 1142, Until Discontinu ed, Routine [facility] iopamidol (ISOVUE 370-500 mL) injection 100 mL 03-02 23:30: 00 03-02 22:12 :00 No [id number] 100mL 100 mL, Intravenou s, ONCE, 1 dose, 03/02/21 at 1830, Routine [facility] carBAMazepi ne 200 mg 12 hr tablet 01-22 00:00: 00 Yes 1{tbl} [address] [facility] polyethylen e glycol 3350 powder 17 g 01-07 14:00: 00 Yes 17g 17 g, Oral, DAILY, First dose on Tue01/07/21 at 0900, Until Discontinu ed, Routine [facility] docusate (COLACE) capsule 100 mg 01-07 13:30: 00 Yes 100mg 100 mg, Oral, BID, First dose on Tue01/07/21 at 0830, Until Discontinu ed, [facility] ([facility]ITHON[facility] capsule 900 mg 01-07 02:00: 00 Yes 900mg 900 mg, Oral, QHS, First dose (after last modificati on) on Tue01/06/21 at 2100, Until Discontinu ed [facility] gabapentin (NEURONTIN) tablet 400 mg 01-07 01:00: 00 Yes 400mg 400 mg, Oral, TID, First dose on Tue01/06/21 at 2000, Until Discontinu ed, Routine [facility] labetaloL (NORMODYNE) tablet 100 mg 01-07 01:00: 00 Yes 100mg 100 mg, Oral, BID, First dose on Tue01/06/21 at 2000, Until Discontinu ed, Routine [facility] lamoTRIgine (LAMICTAL) tablet 200 mg 01-07 00:30: 00 01-07 00:35 :00 No 200mg 200 mg, Oral, ONCE, 1 dose, Tue01/06/21 at 1930, Routine [facility] piperacilli n-tazobacta m (ZOSYN) 3.375 g in NaCl 0.9% (NS) 100 mL MINI-BAG 01-06 23:26: 00 01-07 13:50 :00 No 3.375g 3.375 g, IV Piggyback, Q6H ABX, 3 doses, First dose on Tue01/06/21 at 1830, Last dose on Tue01/07/21 at 0630, 100 mL
Reas on for Anti-Infec tive: Empiric Therapy for Suspected Infection< br>Empiric Therapy Site: Pelvic
Duration of therapy: 72 hours [facility] ibuprofen (IBU) tablet 600 mg 01-06 22:17: 31 Yes 600mg 600 mg, Oral, Q6HPRN, Starting Tue01/06/21 at 1717, Until Discontinu ed, Routine, Pain (scale 1-3) [facility] metoclopram chava HCl (REGLAN) injection 10 mg 01-06 22:17: 17 Yes 10mg 10 mg, Slow IV Push, Q6HPRN, Starting Tue01/06/21 at 1717, Until Discontinu ed, Routine, Nausea and Vomiting (N/V) [facility] ondansetron (ZOFRAN) tablet 4 mg 01-06 22:15: 01 Yes 4mg 4 mg, Oral, Q4HPRN, Starting Tue01/06/21 at 1715, Until Discontinu ed, Routine, Nausea and Vomiting (N/V) [facility] acetaminoph en (TYLENOL) tablet 650 mg 01-06 22:14: 14 Yes 650mg 650 mg, Oral, Q6HPRN, Starting Tue01/06/21 at 1714, Until Discontinu ed, Routine, Pain (scale 1-3) [facility] piperacilli n-tazobacta m (ZOSYN) 3.375 g in NaCl 0.9% (NS) 100 mL MINI-BAG 01-06 20:30: 00 01-06 19:56 :00 No 3.375g 3.375 g, IV Piggyback, ONCE, 1 dose, 01/06/21 at 1530, 100 mL
Reas on for Anti-Infec tive: Empiric Therapy for Suspected Infection< br>Empiric Therapy Site: Abdominal< br>Duratio n of therapy: 72 hours [facility] iopamidol (ISOVUE 370-500 mL) injection 120 mL 01-06 19:15: 00 01-06 19:15 :00 No [id number] 120mL 120 mL, Intravenou s, ONCE, 1 dose, 01/06/21 at 1415, Routine [facility] ondansetron (ZOFRAN (PF)) injection 4 mg 01-06 18:45: 00 01-06 18:10 :00 No 4mg 4 mg, Slow IV Push, ONCE, 1 dose, [facility]/06/21 [facility] 1345[facility] ([facility]) [facility] 650 mg 01-06 18:45: 00 01-06 18:09 :00 No 650mg 650 mg, Oral, ONCE, 1 dose, 01/06/21 at 1345, [facility] NaCl 0.9% (NS) bolus infusion 1,000 mL 01-06 17:45: 00 01-06 20:41 :00 No 1000mL at 999 mL/hr, 1,000 mL, IV Infusion, ONCE, 1 dose, 01/06/21 at 1245, KRAIG [facility] HYDROcodone -acetaminop hen (NORCO 5) 5-325 mg tablet 1 tablet 01-02 15:11: 33 Yes 1{tbl} 1 tablet, Oral, PRN, 1 dose, Starting Tue01/02/21 at 1011, Until Discontinu ed, Routine, Pain (scale 1-3), [facility] HYDROcodone -acetaminop hen (NORCO) 10-325 mg tablet 1 tablet 01-02 15:11: 33 01-02 18:55 :21 No 1{tbl} 1 tablet, Oral, PRN, 1 dose, Starting Tue01/02/21 at 1011, Until Tue01/02/21 at 1355, Routine, Pain (scale 4-6), [facility] sodium chloride 0.9 % irrigation solution 01-02 14:40: 00 Yes PRN, Starting Tue01/02/21 at 0940, Until Discontinu ed, Intra-op [facility] bupivacaine (preserv free) (SENSORCAIN E MPF) 0.25 % (2.5 mg/mL) injection 01-02 14:38: 00 Yes PRN, Starting Tue01/02/21 at 0938, Until Discontinu ed, Routine, Intra-op [facility] lactated ringers IV infusion 1,000 mL 01-02 13:15: 00 01-02 13:25 :00 No 1000mL at 42 mL/hr, 1,000 mL, IV Infusion, ONCE, 1 dose, Tue01/02/21 at 0815, Routine, DSU Pre-op [facility] ibuprofen 600 mg tablet 01-02 00:00: 00 03-13 00:00 :00 No [id number] 600mg Take 1 tablet by mouth every 6 (six) hours as needed for Pain (scale 1-3). [facility] oxyCODONE 5 mg immediate release tablet 01-02 00:00: 00 01-10 04:59 :00 No [id number] 5mg Take 1 tablet by mouth every 6 (six) hours as needed for Pain (scale 7-10) for up to 7 days. Indication s: acute pain [facility] lamoTRIgine 200 mg tablet 12-22 00:00: 00 Yes Take by mouth once now. [facility] valACYclovi r 1 gram tablet 10-19 00:00: 00 Yes as needed. [facility] gabapentin 400 mg capsule 10-06 00:00: 00 Yes Take by mouth 3 (three) times daily. [facility] levonorgest reL (MIRENA) IUD 1 Device 08-11 18:15: 00 08-11 17:16 :00 No [id number] 1{devic e} [facility] FLUoxetine 40 mg capsule 08-11 16:53: 24 Yes 40mg Take 40 mg by mouth. [facility] miSOPROStoL 200 mcg tablet 2019-08 00:00: 00 Yes [id number] 200ug Take 1 tablet by mouth 2 (two) times daily. Take the night before the procedure and the morning of. [facility] lithium carbonate CR 450 mg SR tablet 2019-08 00:00: 00 Yes 450mg Take 450 mg by mouth 2 (two) times daily. [facility] labetaloL 100 mg tablet 2019-08 00:00: 00 09-06 00:00 :00 No 100mg Take 100 mg by mouth 2 (two) times daily. [facility] lithium carbonate CR 300 mg SR tablet 2019-08 00:00: 00 Yes 300mg Take 300 mg by mouth every evening. [facility] ALPRAZolam 0.5 mg tablet 2019-08 00:00: 00 Yes TAKE 1/2 TO 1 TABLET BY MOUTH TWICE A DAY NEEDED [facility] acetaminoph en-codeine 300-30 mg tablet 2019-08 008 00:00: 00 Yes 1{tbl} Take 1 tablet by mouth every 6 (six) hours as needed. [facility] NaCl 0.9% (NS) bolus infusion 1,000 mL 12-15 15:15: 00 12-15 15:24 :00 No 1000mL at 999 mL/hr, 1,000 mL, Intravenou s, ONCE, 1 dose, 12/16/19 at 1015, STAT [facility] Cholecalcif taylor, Vitamin D3, 1,250 mcg (50,000 unit) capsule 10-23 00:00: 00 Yes 1{capsu le} Take 1 capsule by mouth. [facility] progesteron e 200 mg capsule 10-07 00:00: 00 08-11 00:00 :00 No [facility] ondansetron 4 mg disintegrat ing tablet 10-02 00:00: 00 Yes 4mg Take 4 mg by mouth. [facility] atorvastati n 10 mg tablet 09-26 00:00: 00 09-26 05:59 :00 No 10mg Take 10 mg by mouth. [facility] metformin ER 500 mg 24 hr tablet 09-26 00:00: 00 09-26 05:59 :00 No 500mg Take 500 mg by mouth. [facility] oseltamivir 75 mg capsule 09-03 00:00: 00 Yes [facility] escitalopra m oxalate 20 mg tablet 2018-08 00:00: 00 Yes 40mg 40 mg. [facility] escitalopra m oxalate 20 mg tablet 12-28 00:00: 00 Yes TAKE 1 AND 1/2 TABLETS BY MOUTH ONCE A DAY [facility] LATUDA 60 mg Tab 12-12 00:00: 00 Yes TAKE 1 TABLET BY MOUTH EVERY EVENING TAKE WITH FOOD, AT LEAST 350KCAL. [facility] Immunizations Ordered Immunization Name Filled Immunization Name Date Status Comments Source Influenza Virus Vaccine Quad IM 3+ 2024-03-13 07:49:00 Completed [facility] Influenza Virus Vaccine Quad IM 3+ 2023-05-10 13:00:00 Completed [facility] Influenza Virus Vaccine Quad IM 3+ 2019-05-16 00:00:00 Completed [facility] Influenza Virus Vaccine Quad IM + 2019-05-16 00:00:00 Completed [facility] Influenza Virus Vaccine Quad IM 3+ 2019-05-16 00:00:00 Completed [facility] Influenza Virus Vaccine Quad IM 2019-05-16 00:00:00 Completed [facility] Influenza Virus Vaccine Quad IM + 2019-05-16 00:00:00 Completed [facility] Influenza Virus Vaccine Quad IM 3+ 2019-05-16 00:00:00 Completed [facility] Influenza Virus Vaccine Quad IM 3+ 2019-05-16 00:00:00 Completed [facility] Influenza Virus Vaccine Quad IM 3+ YRS 2019-05-16 00:00:00 Completed [facility] Influenza Virus Vaccine Quad IM 3+ YRS 2019-05-16 00:00:00 Completed [facility] Influenza Virus Vaccine Quad IM 3+ YRS 2019-05-16 00:00:00 Completed [facility] Influenza Virus Vaccine Quad IM 3+ YRS 2019-05-16 00:00:00 Completed [facility] Influenza Virus Vaccine Quad IM 3+ YRS 2019-05-16 00:00:00 Completed [facility] Influenza Virus Vaccine Quad IM 3+ YRS 2019-05-16 00:00:00 Completed [facility] Vital Signs Vital Name Observation Time Observation Value Comments S ource Systolic blood pressure 2024-06-20 23:00:00 158 mm[Hg] [facility] Diastolic blood pressure 2024-06-20 23:00:00 96 mm[Hg] [facility] Heart rate 2024-06-20 23:00:00 70 /min [facility] Body temperature 2024-06-20 23:00:00 36.94 Zora [facility] Respiratory rate 2024-06-20 23:00:00 16 /min [facility] Oxygen saturation in Arterial blood by Pulse oximetry 2024-06-20 23:00:00 100 /min [facility] Body height 2024-06-20 19:52:00 152.4 cm [facility] Body weight 2024-06-20 19:52:00 65.772 kg [facility] BMI 2024-06-20 19:52:00 28.32 kg/m2 [facility] Systolic blood pressure 2024-03-13 14:49:00 123 mm[Hg] [facility] Diastolic blood pressure 2024-03-13 14:49:00 79 mm[Hg] [facility] Heart rate 2024-03-13 14:49:00 85 /min [facility] Body temperature 2024-03-13 14:49:00 37.61 Zora [facility] Respiratory rate 2024-03-13 14:49:00 16 /min [facility] Oxygen saturation in Arterial blood by Pulse oximetry 2024-03-13 14:49:00 99 /min [facility] Body height 2024-03-13 12:39:00 152.4 cm [facility] Body weight 2024-03-13 12:39:00 63.504 kg [facility] BMI 2024-03-13 12:39:00 27.34 kg/m2 [facility] Systolic blood pressure 2023-05-10 18:12:00 139 mm[Hg] [facility] Diastolic blood pressure 2023-05-10 18:12:00 96 mm[Hg] [facility] Heart rate 2023-05-10 18:12:00 69 /min [facility] Oxygen saturation in Arterial blood by Pulse oximetry 2023-05-10 18:12:00 100 /min [facility] Respiratory rate 2023-05-10 18:07:00 18 /min [facility] Body height 2023-05-10 18:07:00 152.4 cm [facility] Body weight 2023-05-10 18:07:00 59.829 kg [facility] BMI 2023-05-10 18:07:00 25.76 kg/m2 [facility] Systolic blood pressure 2022-10-13 17:03:00 134 mm[Hg] [facility] Diastolic blood pressure 2022-10-13 17:03:00 80 mm[Hg] [facility] Heart rate 2022-10-13 17:03:00 71 /min [facility] Body temperature 2022-10-13 17:03:00 36.56 Zora [facility] Body height 2022-10-13 17:03:00 152.4 cm [facility] Body weight 2022-10-13 17:03:00 67.677 kg [facility] BMI 2022-10-13 17:03:00 29.14 kg/m2 [facility] Oxygen saturation in Arterial blood by Pulse oximetry 2022-10-13 17:03:00 97 /min [facility] Systolic blood pressure 2022-09-06 15:27:00 133 mm[Hg] [facility] Diastolic blood pressure 2022-09-06 15:27:00 85 mm[Hg] [facility] Heart rate 2022-09-06 15:27:00 71 /min [facility] Respiratory rate 2022-09-06 15:27:00 17 /min [facility] Body height 2022-09-06 15:27:00 152.4 cm [facility] Body weight 2022-09-06 15:27:00 67.132 kg [facility] BMI 2022-09-06 15:27:00 28.90 kg/m2 [facility] Oxygen saturation in Arterial blood by Pulse oximetry 2022-09-06 15:27:00 100 /min [facility] Systolic blood pressure 2021-04-03 17:10:00 152 mm[Hg] [facility] Diastolic blood pressure 2021-04-03 17:10:00 104 mm[Hg] [facility] Heart rate 2021-04-03 17:10:00 115 /min [facility] Respiratory rate 2021-04-03 17:10:00 16 /min [facility] Oxygen saturation in Arterial blood by Pulse oximetry 2021-04-03 17:10:00 100 /min [facility] Body height 2021-04-03 15:48:00 152.4 cm [facility] Body weight 2021-04-03 15:48:00 54.432 kg [facility] BMI 2021-04-03 15:48:00 23.44 kg/m2 [facility] Systolic blood pressure 2021-03-13 18:28:00 146 mm[Hg] [facility] Diastolic blood pressure 2021-03-13 18:28:00 89 mm[Hg] [facility] Heart rate 2021-03-13 18:28:00 82 /min [facility] Body temperature 2021-03-13 18:28:00 37.11 Zora [facility] Body height 2021-03-13 18:28:00 152.4 cm [facility] Body weight 2021-03-13 18:28:00 58.378 kg [facility] BMI 2021-03-13 18:28:00 25.13 kg/m2 [facility] Oxygen saturation in Arterial blood by Pulse oximetry 2021-03-13 18:28:00 99 /min [facility] Systolic blood pressure 2021-01-07 13:20:00 132 mm[Hg] [facility] Diastolic blood pressure 2021-01-07 13:20:00 78 mm[Hg] [facility] Heart rate 2021-01-07 13:20:00 80 /min [facility] Body temperature 2021-01-07 13:20:00 37.06 Zora [facility] Respiratory rate 2021-01-07 13:20:00 18 /min [facility] Oxygen saturation in Arterial blood by Pulse oximetry 2021-01-07 13:20:00 99 /min [facility] Body height 2021-01-06 17:26:00 152.4 cm [facility] Body weight 2021-01-06 17:26:00 58.968 kg [facility] BMI 2021-01-06 17:26:00 25.39 kg/m2 [facility] Systolic blood pressure 2021-01-02 15:15:00 132 mm[Hg] [facility] Diastolic blood pressure 2021-01-02 15:15:00 65 mm[Hg] [facility] Body temperature 2021-01-02 15:15:00 36.72 Zora [facility] Heart rate 2021-01-02 15:10:00 74 /min [facility] Respiratory rate 2021-01-02 15:10:00 25 /min [facility] Oxygen saturation in Arterial blood by Pulse oximetry 2021-01-02 15:10:00 100 /min [facility] Body height 2020-12-31 19:23:00 152.4 cm [facility] Body weight 2020-12-31 19:23:00 59.1 kg [facility] BMI 2020-12-31 19:23:00 25.45 kg/m2 [facility] Systolic blood pressure 2021-01-02 15:15:00 132 mm[Hg] [facility] Diastolic blood pressure 2021-01-02 15:15:00 65 mm[Hg] [facility] Body temperature 2021-01-02 15:15:00 36.72 Zora [facility] Heart rate 2021-01-02 15:10:00 74 /min [facility] Respiratory rate 2021-01-02 15:10:00 25 /min [facility] Oxygen saturation in Arterial blood by Pulse oximetry 2021-01-02 15:10:00 100 /min [facility] Body height 2020-12-31 19:23:00 152.4 cm [facility] Body weight 2020-12-31 19:23:00 59.1 kg [facility] BMI 2020-12-31 19:23:00 25.45 kg/m2 [facility] Systolic blood pressure 2020-08-11 16:47:00 121 mm[Hg] [facility] Diastolic blood pressure 2020-08-11 16:47:00 82 mm[Hg] [facility] Heart rate 2020-08-11 16:47:00 75 /min [facility] Body temperature 2020-08-11 16:47:00 36.78 [facility] Respiratory rate 2020-08-11 16:47:00 16 /min [facility] Body height 2020-08-11 16:47:00 152.4 cm [facility] Body weight 2020-08-11 16:47:00 60.499 kg [facility] BMI 2020-08-11 16:47:00 26.05 kg/m2 [facility] Systolic blood pressure 2019-12-16 16:00:00 126 mm[Hg] [facility] Diastolic blood pressure 2019-12-16 16:00:00 72 mm[Hg] [facility] Heart rate 2019-12-16 16:00:00 84 /min [facility] Respiratory rate 2019-12-16 16:00:00 16 /min [facility] Oxygen saturation in Arterial blood by Pulse oximetry 2019-12-16 16:00:00 97 /min [facility] Body temperature 2019-12-16 13:52:00 37.22 Z[facility] Body weight 2019-12-16 13:52:00 56.7 kg [facility] BMI 2019-12-16 13:52:00 24.41 kg/m2 [facility] Systolic blood pressure 2019-12-16 16:00:00 126 mm[Hg] [facility] Diastolic blood pressure 2019-12-16 16:00:00 72 mm[Hg] [facility] Heart rate 2019-12-16 16:00:00 84 /min [facility] Respiratory rate 2019-12-16 16:00:00 16 /min [facility] Oxygen saturation in Arterial blood by Pulse oximetry 2019-12-16 16:00:00 97 /min [facility] Body temperature 2019-12-16 13:52:00 37.22 [facility] Body weight 2019-12-16 13:52:00 56.7 kg [facility] BMI 2019-12-16 13:52:00 24.41 kg/m2 [facility] Procedures Procedure Date / Time Performed Performing Clinician Source CREATINE KINASE 2024-06-20 21:04:00 Madeline Mitchell [facility] MAGNESIUM 2024-06-20 21:04:00 Madeline Mitchell [facility] COMP. METABOLIC PANEL (80697) 2024-06-20 21:04:00 Madeline Mitchell [facility] CBC WITH DIFF 2024-06-20 21:04:00 [facility] URINALYSIS 2024-06-20 21:04:00 Madeline Mitchell [facility] HB ECG ROUTINE & RHYTHM STRIP 2024-06-20 19:57:08 Madleine Mitchell [facility] INFLUENZA A/B RSV COVID NAAT 2024-03-13 13:01:00 Madeline Mitchell [facility] EXTERNAL PROVIDER - ADC REFERRAL 2022-10-27 05:01:00 Doctor Unassigned, [place] [facility] ASSIGNMENT OF BENEFITS 2022-10-13 16:49:54 Docto r Unassigned, [place] [facility] PATIENT QUESTIONNAIRE 2022-09-06 06:01:00 Doctor Unassigned, [place] [facility] EXTERNAL PROVIDER RECORDS 2021-11-16 05:01:00 Do ctor Unassigned, [place] [facility] CYTO ORGAN ASPIRATION-FNA 2021-04-03 17:21:00 Stepan Neville [facility] IR FNA (FINE NEEDLE ASP) WITH IMAGING 2021-04-03 17:17:07 Carmen Khan [facility] FLOW CYTOMETRY IMMUNOPHENOTYP 2021-04-03 17:15:00 Carmen Khan [facility] PATIENT QUESTIONNAIRE 2021-03-13 05:01:00 Doctor Unassigned, [place] [facility] CBC WITH DIFF 2021-01-07 10:59:00 Beny Olivas [facility] COMP. METABOLIC PANEL (69216) 2021-01-06 18:52:00 Beny Cantor [facility] BLOOD CULTURE SCREEN 2021-01-06 18:18:00 Beny Cantor [facility] CT ABDOMEN PELVIS W CONTRAST 2021-01-06 18:11:08 Beny Cantor [facility] BLOOD CULTURE SCREEN 2021-01-06 17:48:00 Beny Cantor [facility] CBC WITH DIFF 2021-01-06 17:48:00 Beny Cantor [facility] URINALYSIS 2021-01-06 17:48:00 Beny Cantor [facility] LACTIC ACID WHOLE BLOOD 2021-01-06 17:48:00 Me reji Cantor [facility] COVID-19 (ID NOW RAPID TESTING) 2021-01-06 17:48:00 Beny Cantor [facility] LAB ONLY COVID INTERPRETATION 2021-01-06 17:48:00 Beny Cantor [facility] LAPAROSCOPIC SALPINGECTOMY 2021-01-02 13:23:00 Beny Olivas [facility] POCT TEST 2021-01-02 13:03:00 Laurent Hidalgo [facility] POCT TEST 2021-01-02 13:03:00 Laurent Hidalgo [facility] DAY SURGERY - ADC 2021-01-02 05:01:00 Doctor Neetu ssigned, [place] [facility] DSU PRE-OP 2021-01-01 05:01:00 Doctor Unass igned, [place] [facility] DSU PRE-OP 2021-01-01 05:01:00 Doctor Unass igned, [place] [facility] DISCLOSURE AND CONSENT, MEDICAL AND SURGICAL PROCEDURES 2020-12-30 05:01:00 Doctor Unassigned, [place] [facility] DISCLOSURE AND CONSENT, MEDICAL AND SURGICAL PROCEDURES 2020-12-30 05:01:00 Doctor Unassigned, [place] [facility] CONSENT/REFUSAL FOR DIAGNOSIS AND TREATMENT 2020-08-11 15:26:48 Doctor Unassigned, [place] [facility] ASSIGNMENT OF BENEFITS 2020-08-11 15:26:34 Docto r Unassigned, [place] [facility] POCT TEST 2020-08-11 00:00:00 Beny Olivas [facility] TOTAL BETA HCG ASSAY 2019-12-16 14:12:00 Armen Mitchell [facility] URINALYSIS 2019-12-16 14:12:00 Madeline Mitchell [facility] Encounters Start Date/Time End Date/Time Encounter Type Admission Type Attending [facility] Care Facility Care Department Encounter ID Source 2021-09-02 14:23:52 Outpatient [facility] [id number] [facility] 2021-06-07 22:24:19 Emergency [facility] [id number] [facility] 2021-06-07 21:23:17 Outpatient R BENY OLIVAS [facility] FORGING MACHINE HAND [id number] [facility] 2021-06-04 20:28:32 Emergency [facility] [id number] [facility] 2024-06-27 10:22:22 2024-06-27 10:22:22 Outpatient [facility] [id number] Jose Mendenhall 2024-06-22 16:37:42 2024-06-22 16:37:42 Outpatient [facility] [id number] Jose Mendenhall 2024-06-20 14:00:00 2024-06-20 17:40:00 Emergency MADELINE DON SANDRA [facility] ERT [id number] [facility] 2024-06-20 14:00:00 2024-06-20 17:40:00 Emergency Madeline Mitchell [facility] 1.2.840.114 350.1.13.10 4.2.7.2.686 [id number] [facility] 2024-03-13 07:49:00 2024-03-13 09:51:00 Emergency MADELINE DON SANDRA [facility] ERT [id number] [facility] 2024-03-13 07:49:00 2024-03-13 09:51:00 Emergency Madeline Mitchell [facility] 1.2.840.114 350.1.13.10 4.2.7.2.686 [id number] [facility] 2023-11-05 00:00:00 2023-11-05 00:00:00 Outpatient GC_GCBZW_Ka diyala_S PRIV PRIV [id number] [facility] 2023-11-02 00:00:00 2023-11-02 00:00:00 Outpatient GC_GCBZW_Ka diyala_S PRIV PRIV [id number] [facility] 2023-10-27 00:00:00 2023-10-27 00:00:00 Outpatient GC_GCBZW_Ka diyala_S PRIV PRIV [id number] [facility] 2023-10-14 09:20:00 2023-10-14 09:20:00 Outpatient CARLOS TRAN[facility]ERLY [facility] [id number] [facility] 2023-10-08 00:00:00 2023-10-08 00:00:00 Outpatient GC_GCBZW_Ka diyala_S PRIV PRIV [id number] [facility] 2023-09-10 00:00:00 2023-09-10 00:00:00 Outpatient GC_GCBZW_Ka diyala_S PRIV PRIV [id number] [facility] 2023-08-06 00:00:00 2023-08-06 00:00:00 Outpatient GC_GCBZW_Ka diyala_S PRIV PRIV [id number] [facility] 2023-08-05 00:00:00 2023-08-05 00:00:00 Outpatient GC_GCBZW_Ka diyala_S PRIV PRIV [id number] [facility] 2023-08-04 00:00:00 2023-08-04 00:00:00 Outpatient GC_GCBZW_Ka diyala_S PRIV PRIV [id number] [facility] 2023-06-13 11:00:00 2023-06-13 11:00:00 [id number] 2023-05-10 13:00:00 2023-05-10 13:29:26 [facility] [id number] [facility] 2023-05-10 13:00:00 2023-05-10 13:29:26 Office Visit Agapito [facility] .840.114 350.1.13.10 4.2.7.2.686 [id number] [facility] 2022-10-27 00:00:00 2022-10-27 00:00:00 Orders Only Doctor Unassigned, [place] [facility] .840.114 350.1.13.10 4.2.7.2.686 [id number] [facility] 2022-10-13 11:00:00 2022-10-13 11:11:22 [facility] [id number] [facility] 2022-10-13 11:00:00 2022-10-13 11:11:22 Office Visit Agapito [facility] 1.2.840.114 350.1.13.10 4.2.7.2.686 [id number] [facility] 2022-10-13 00:00:00 2022-10-13 00:00:00 Orders Only Doctor Unassigned, [place] [facility] 1.2.840.114 350.1.13.10 4.2.7.2.686 [id number] [facility] 2022-09-06 09:20:00 2022-09-06 09:58:40 Outpatient R AGAPITO [facility] [id number] [facility] 2022-09-06 09:20:00 2022-09-06 09:58:40 Office Visit Agapito [facility] 1.2.840.114 350.1.13.10 4.2.7.2.686 [id number] [facility] 2022-09-06 00:00:00 2022-09-06 00:00:00 Orders Only Doctor Unassigned, [place] [facility] 1.2840.114 350.1.13.10 4.2.7.2.686 [id number] [facility] 2022-06-10 18:00:00 2022-06-10 18:00:00 Ambulatory Pre-Reg nullFlavo r [facility] [id number] Praneeth Mcuhgh 2021-11-16 00:00:00 2021-11-16 00:00:00 Orders Only Doctor Unassigned, [place] [facility] 1.84.114 350.1.13.10 4.2.7.2.686 [id number] [facility] 2021-06-25 09:00:00 2021-06-25 09:00:00 Outpatient R BENY OLIVAS [facility] [id number] [facility] 2021-04-10 00:00:00 2021-04-10 00:00:00 Telephone Erin [facility] 1.840.114 350.1.13.10 4.2.7.2.686 [id number] [facility] 2021-04-03 10:25:16 2021-04-03 23:59:00 [facility] .840.114 350.1.13.10 4.2.7.2.686 [id number] [facility] 2021-04-03 00:00:00 2021-04-03 00:00:00 Outpatient R ERIN CARMEN [facility] [id number] [facility] 2021-03-31 14:25:00 2021-03-31 14:25:00 Outpatient JAYNA CANCINO [id number] Debra Garza 2021-03-16 00:00:00 2021-03-16 00:00:00 Telephone Erin [facility] .840.114 350.1.13.10 4.2.7.2.686 [id number] [facility] 2021-03-13 13:45:00 2021-03-13 13:45:00 Outpatient R ERIN [facility] [id number] [facility] 2021-03-13 13:25:48 2021-03-13 13:40:48 [facility] 1.84.114 350.1.13.10 4.2.7.2.686 [id number] [facility] 2021-03-13 00:00:00 2021-03-13 00:00:00 Orders Only Doctor Unassigned, [place] [facility] 1.20.114 350.1.13.10 4.2.7.2.686 [id number] [facility] 2021-03-02 16:28:56 2021-03-02 23:59:00 Hospital Encounter Radiology [facility] 1..114 350.1.13.10 4.2.7.2.686 [id number] [facility] 2021-03-02 00:00:00 2021-03-02 00:00:00 Outpatient R RADIOLOGY [facility] [id number] [facility] 2021-03-02 00:00:00 2021-03-02 00:00:00 Outpatient R RADIOLOGY [facility] [id number] [facility] 2021-01-29 14:00:00 2021-01-29 14:00:00 Outpatient R GELA OLIVASN [facility] [id number] [facility] 2021-01-23 13:00:00 2021-01-23 13:00:00 Outpatient R BRENDON BENY [facility] [id number] [facility] 2021-01-09 14:30:00 2021-01-09 14:30:00 Outpatient R BENY OLIVAS [facility] [id number] [facility] 2021-01-06 12:19:00 2021-01-07 10:00:00 Emergency Beny Cantor Beny [facility] 1.84.114 350.1.13.10 4.2.7.2.686 [id number] [facility] 2021-01-06 11:00:00 2021-01-06 11:00:00 Outpatient R BENY OLIVAS [facility] [id number] [facility] 2021-01-05 00:00:00 2021-01-05 00:00:00 Nurse Triage AmaraLinda [facility] 1.2.840.114 350.1.13.10 4.2.7.2.686 [id number] [facility] 2021-01-02 09:00:00 2021-01-02 11:04:00 Surgery Beny Olivas [facility] 1.2840.114 350.1.13.10 4.2.7.2.686 [id number] [facility] 2021-01-02 07:58:00 2021-01-02 10:46:00 Hospital Encounter Beny Olivas [facility] 1.2840.114 350.1.13.10 4.2.7.2.686 [id number] [facility] 2021-01-01 07:45:00 2021-01-01 07:45:00 Outpatient R BENY OLIVAS [facility] [id number] [facility] 2020-12-31 11:45:00 2020-12-31 11:45:00 Outpatient R BENY OLIVAS [facility] [id number] [facility] 2020-12-31 11:26:15 2020-12-31 11:41:15 Career Development Associate Visit Pob, Adc Lab Main Brendon Beny [facility] 1.20.114 350.1.13.10 4.2.7.2.686 [id number] [facility] 2020-12-30 15:55:37 2020-12-30 16:10:37 Laboratory Only Only, Adc Test Beny Olivas [facility] 1.2.840.114 350.1.13.10 4.2.7.2.686 [id number] [facility] 2020-12-30 14:30:00 2020-12-30 14:30:00 Outpatient R BENY OLIVAS [facility] [id number] [facility] 2020-09-18 15:30:00 2020-09-18 15:30:00 Outpatient R BENY OLIVAS [facility] [id number] [facility] 2020-09-10 10:00:00 2020-09-10 10:00:00 Outpatient R BENY OLIVAS [facility] [id number] [facility] 2020-08-12 00:00:00 2020-08-12 00:00:00 Outpatient R RADIOLOGY [facility] [id number] [facility] 2020-08-11 09:27:31 2020-08-11 11:12:51 Office Visit Beny Olivas [facility] 1..840.114 350.1.13.10 4.2.7.2.686 [id number] [facility] 2020-08-11 09:30:00 2020-08-11 09:30:00 Outpatient R BENY OILVAS [facility] [id number] [facility] 2020-08-11 00:00:00 2020-08-11 00:00:00 Orders Only Doctor Unassigned, [place] [facility] 1.840.114 350.1.13.10 4.2.7.2.686 [id number] [facility] 2020-06-25 15:30:00 2020-06-25 15:30:00 Outpatient R BENY OLIVAS [facility] [id number] [facility] 2019-12-16 08:56:53 2019-12-16 11:19:00 Emergency Madeline Mitchell [facility] 1.840.114 350.1.13.10 4.2.7.2.686 [id number] 2019-12-16 08:56:53 2019-12-16 11:19:00 Emergency Madeline Mitchell [facility] 1.2.840.114 350.1.13.10 4.2.7.2.686 [id number] [facility] Results Test Description Test Time Test Comments Results Result Co mments Source [facility]:43:40* Test Item Value Reference Range Interpretation Comme nts MAGNESIUM (test code = 0442188996) 1.7 mg/dL 1.7-2.4 Lab Interpretation (test cod e = 03886-0) Normal [facility] (90622)2024-06-20 21:42:59* Test Item Value Reference Range Interpretation Comme nts NA (test code = 8766197548) 140 mmol/L 135-145 K (test code = 4715488327) 4.0 mmol/L 3.5-5.0 CL (test code = 4886503975) 102 mmol/L 98-108 CO2 TOTAL (test code = 5451339294) 30 mmol/L 23-31 AGAP (test code = 4227942479) 8 2-16 BUN (test code = 4084300643) 15 mg/dL 7-23 GLUCOSE (test code = 7527376333) 88 mg/dL 70-110 CREATININE (test code = 2160-0) 1.19 mg/dL 0.50-1.04 H TOTAL BILI (test code = 2196958394) 0.4 mg/dL 0.1-1.1 CALCIUM (test code = 2287171442) 10.0 mg/dL 8.6-10.6 T PROTEIN (test code = 4516577340) 8.2 g/dL 6.3-8.2 ALBUMIN (test code = 7543916091) 4.8 g/dL 3.5-5.0 ALK PHOS (test code = 9022412079) 52 U/L 34-122 ALTv (test code = 1742-6) 23 U/L 5-35 AST(SGOT) (test code = 6844596628) 33 U/L 13-40 eGFR (test code = 93506-4) 64.0 mL/min/1.73m2 CKD-EPI eGFR (2020). Assuming creatinine has been stable day-to-day for at least three months, the eGFR indicates Category G2 (60 - 89 mL/min/1.73 m2) Lab Interpretation (test code = 84434-9) Abnormal [facility] WITH [id number] 21:22:14* Test Item Value Reference Range Interpretation Comme nts WBC (test code = 6690-2) 8.10 4.30-11.10 RBC (test code = 789-8) 4.31 3.93-5.25 HGB (test code = 718-7) 12.6 g/dL 11.6-15.0 HCT (test code = 4544-3) 39.3 % 35.7-45.2 MCV (test code = 787-2) 91.2 fL 80.6-95.5 MCH (test code = 785-6) 29.2 pg 25.9-32.8 MCHC (test code = 786-4) 32.1 g/dL 31.6-35.1 RDW-SD (test code = 25007-3) 41.7 fL 39.0-49.9 RDW-CV (test code = 788-0) 12.6 % 12.0-15.5 PLT (test code = 777-3) 298 166-358 MPV (test code = 12855-1) 9.7 fL 9.5-12.9 NRBC/100 WBC (test code = 6661757754) 0.0 0.0-10.0 NRBC x10^3 (test code = 5989643581) See_Comment [Automated me ssage] The system which generated this result transmitted reference range: 10*3/?L. The reference range was not used to interpret this result as normal/abnormal. GRAN MAT (NEUT) % (test code = 770-8) 54.8 % IMM GRAN % (test code = 2579894513) 0.20 % LYMPH % (test code = 736-9) 33.7 % MONO % (test code = 5905-5) 8.3 % EOS % (test code = 713-8) 2.1 % BASO % (test code = 706-2) 0.9 % GRAN MAT x10^3(ANC) (test code = 8068505523) 4.44 10*3/uL 1.88-7.09 IMM GRAN x10^3 (test code = 5520587153) 0.00-0.06 LYMPH x10^3 (test code = 731-0) 2.73 10*3/uL 1.32-3.29 MONO x10^3 (test code = 742-7) 0.67 10*3/uL 0.33-0.92 EOS x10^3 (test code = 711-2) 0.17 10*3/uL 0.03-0.39 BASO x10^3 (test code = 704-7) 0.07 10*3/uL 0.01-0.07 [facility] [id number] 21:09:30* Test Item Value Reference Range Interpretation Comme nts Case Report (test code = 8219119136) FNA Cytology ?Case: [id number] ?Authorizing Provider: ?Antonio Mercer V, ?Collected: ? 04/03/2021 1221 ? MD ? Ordering Location: ? ? [facility] Interventional Received: ?04/03/2021 1227 ? Radiology ?Specimen: ? ?LYMPH NODE, CEVICAL RIGHT; ULTRASOUND (US) IMAGE-GUIDED FINE NEEDLE ASPIRATION ? ? ? Final Diagnosis (test code = 9410884103) l4ynyABdRQXhi2kkACYmvFCu ZzEwMzNcZnRuYmpcdWMxIHtc fdTlKFofcCcfWMCzX7yznsCn VXXrqBWrF8LegzxvOPueED9q PN5dtJicaKDstFNnGPChVfDi u2hwr797eNOzy5hnCQVWufww mAl0nGetT00qr0R1IghmH83u hPHeTSQ0TOQgTEBcvATrJHPn PZL3SVZumZImQ3kvRGCnHM6v boleQWgeNHwwTXZgwXR5WYGm qCNpO1OrOVBySHjxXQRyxwb5 DtFoCa3jtNAdkLphSJuqVCKr XHBsYWluXGZzMjAgQVxiIDEu AOJXTQ4AXPSJJ8NVSEODLCRC SUNBTCBSSUdIVDsgVUxUUkFT O9UAWTYhNADzFJmEUWwRSKwT LIIRVWOQOV8REA4PIQLEDBVB U1FXIeGVRY9PYsmxLORjYRDV R3lJJZ5IBXvZMZQgLQtWIGpS A2cJXSXnB41OR1eARODXEIYS VYTHSYwJDVCSA7nUXGQGU2UN FN1ntEOuWEWjPE3eNMChSu2z WFYRCUrFLG6ONVDRSMdOXSqJ QR1SHBEYIBDiMMbyJTOyB0NW IUZZPS5MSlNlODZbtwtaMSW7 o5trpFUvKIZurPJiDjGtNQWn HGZht8pzXBLusXJsPlQhYbEk PtNgOhymbJQtRZIlVuLfr3lq g174dMSbz5bqCFSaKqD2sSPq WQIffTdudjm8fGupBzCmCOVc k0kvxqReXwXhITWuGJEbWLOj uLXoR862ODByWUxjo0dpc5Sm EGWhjCUgd1Z9TJZLCOqkEvAw J348g3evg3trfgKpqHJ5SXVn JFA7PLvjphJhtaY3JCjpuAXh OwN9LRzgilUgBBndbzPxkiXo Abg8ICIpK111OXZ5gUpfj5dv ORS8GMYwJJBbXavyEp5qlOGp M411NLDlGFBYXRUrvAe7ICFi lwDahuVicEPCb543T448h0hq PTJfwpXcuHmRwopmt4coZ381 XHBhcGVydzEyMjQwXHBhcGVy xYW3KIIxTF0pfsjmJTadIFgy HDSfriT4KLEyfZFwJ2MgMWWn SI5icbvbJJT0XUokTSDvALQ0 OpVoONBww5Swura9GhGnqk8g yc34XAO4d1DjeZnlSME3GEW6 XaOkAc5rmVTzOJBxLA7yPdCu fGInZHDfbe12nLkmQGtrkfKw hE8yNiXbSFWifFDlWJXfTX2z xUDiTYJtdV9tlyxhMRJmWmSq kikrTBZseUzqxqNyLn4ejPll UNZ2HWucY4omxR9gGzO4JNji D5mmoA2eYGh7UVepuMI3YBEr hI0aMW3prrokr4mcQQkfNSmf TWGxuzJ2nsS9HMRddGAcY4Th vK0sMFVnLI3fjgcjg9xjKGC4 DGilZJYrBGB8FqKoXAFmz5Fd uzm8StSho0XauDYeQKivP97u u920UQBjrjQdV2acuSSkxhbp mZOmdxhvJWyropP2JCTkVSWr YWluXGYxXGZzMjBcbGFuZzEw MzNcaGljaFxmMVxkYmNoXGYx ITscL0orWbNxO8BvGGKcDwZd oVVvNLdkyMY8OTWnDZKlv38r jFy2ZICkoqgtn3LbKTAmdQXg tDFysZ7ewqWjv3czTNNaRUJf GDOfZ5LePAM5hVOqXBLxhRXx mYB6LC6zcwHmJI6vJKAwVvfq ypPsgVGjanZdXAPaYNyvg0re YR0kZXNrjDmaaZ9igXX7AVVj s2yawGFddXKqd5hgz3QxoqDr GThcBHYzDYaiHIFvSRXiIY1i KGDucPZaatSyj5Q7JwkwjPUr hrmpQqxtieS5TDanermuKYZh OYcgK4nrNgOmYYAesAmlWdqt z8BxBEJqXUNlCwzgkGHaoK7= Final Diagnosis Comment (test code = [id number]) k2kbiYKrTXCewPF3JSChGOBl v2jra3MssUKwrDIxCDaqqVNp leDwdm23lKU5pF56PN2cABUk MfI3NBPzdjP2Rgb8HTHlCRCu eTIeA468i4hqw7kwetXrePA5 aDlgFJDbnuzrFvA3RKphHLTz ogxpXJw2KOqdZFJtdDN7VGKt uYSjH1VpPSGwQZ6oqde4MUB9 FLqgEWCuCvJ3GSNzeRDnCBNl fKqaLVoli489WUF2WlOuFOGp tgPwkXdckU3dAcXlIDVHxXMk tkFjx6plohNaa2q5dM9btXjn xKKvhYjdrAtjU1l1NPBcJKZl YQRxuXG9k2Bkj6LvqBnqSRDl KDChgQRtBNhiavJnXE30ROQe raGciQ80RXT1vX8wSOJulMMq AI0cqMmbbLVlAY0iIP5iiy0l eG5iOHztQb3cQWojocNskuHn YmVycmFudCBULWNlbGxzIGlk SQ07uLMbXOPiLCSfVAN5gZRe CibocbIuwWWqfPP5ewnyAFLh oJ6geRZzwlUSgWxgMZIlglHo ZXRhaWxzLlxwYXIgRmluZGlu G6UkM22xk5elnFXsbEA9eYQi JUo1iFZuy7rkQDJri1H5HR1r Hd8imQQuaEebVR21LXEfnIkn HNjvOT03lOFwVMUiBMNiqqhc YXJ9 Clinical Information (test code = [id number]) Post COVID-19 vaccine, post bilateral salpingectomy 01/02/21 for endometriosis, 10 months old baby at home. By imaging, looks reactive. No hx of CA Gross Description (test code = [id number]) c0uzfDBmIPWdwZH8JXVyVPZd b1zrg2NjbPEifKSfJMwaiWBr qpSjki18cPX4iK75OG1wRDYr CgY5NQYkqcM1Vus2ZEVsEMRf mJMzQ573z5fkt3junxSdhVR0 aNyjAJAhgxorUvH0DUjrEEWe raxwJUq4YIowGZWeyCE0PONv bIBbC8TtSZCzJN9nftl5PFL0 UQrcQJGaVtK7PZGmoKPyOSLv fSmhJUbnr534QHJ7XcTuSYCm niY7BOupWIIsM4QaH7WdGXlg RQM1RFItBNIpHJMxGHEnKFBj NMttleI9i7scWHIjaKSeDWZ5 IFxcaWQgNTEwMDIgXFxkYiBP VlIgIiBaQTEzOTIwOSIgOTk5 TUtpT7WVOAOmOPQ6BoB8PID8 RvV4BHe9UMCXEt0eXHFnGWY0 RLWuOeO7SRE9DFZyBSEsVrKf XGZsIFxcZiBBcmlhbCBcXGZz TJYvTBopfmS6ZDPiLFopPJEh WqHaYO1aVAxUISnuEf5BRH5b cGFyXGZzMjJccGFyXGYwXGZz MdYcUTExASOIES6IKNDYQ7WK LCBDRVJWSUNBTCBSSUdIVDsg OLbGDuIVZ1GIGSApPCWsNPeH KTpJMMxGIUYTBFGKDQ0ZEQ6C ZNZDMCPMB1LAXhWXUF0SQZVq ciBSZWNlaXZlZCBmcmVzaCBp coPdBeEeC3JbmbZzAlKcHA5e uBxbi5YyNN8yhTBunKKaOG0n jWCefhGxEJT3GISbqPsxGGFj c79gCUVupnUvDVcaTXZze1Tl ZXMpKVxwYXIgTmVlZGxlIHJp uvZzBEU9Zf1euDDxXPX3jdAG FE5agV0qz6e3WGBleaVicT67 STM6iL8vHQCiqVWgu3U5VSsv cyBccGFyIFByZXBhcmVkIDQg o0wqLLVlRBizVNHvyLQwt2ux r9kgx3IllD8iMPHbwGSdjavc GYBcqtHhAsFJPTWjplulc6bc d2Cma9HuaM4zTNDlpXIphfor OCdvxVSqJMWfluMNu2VcdEH6 ABKkv0ghEFEpYACyiosbHGLi B4pkWBHrSAQkTOZbq6uqHWJ5 dX2dQME0DhLcTVmwpaGkiAVp FIlsUMIwdgVneAVdz4t8wFCc TEHqSY42UA6ztNTgTR6gGKCh qKS8QKZhPZVfyVrfuSMuiVqr alDcyD8aGBSfGDU0TXPtzfLn tQDkC9H3sP9bHC3jPJZegWex bnQgaWRlbnRpdHkuIFxmczIy GRA7VZTqcTQoTCC8MR2zfXho GBNtI5IjL6YyndA1FHHkfc2= Cytology Rapid Assessment (test code = [id number]) g6xnaYQaWSJrtGZ8XRNqTHUd y1vum0MqgNOmiNUkAYgbeKPr ejTwwz14lXJ6wE72WZ7aILXc FdQ6YPVybzQ0Enq1XSFxWSJk fHYhF394b5vyo7nrmeNnzXL9 oTunUSYcknhzFyC2GWxcGRVp ykyhFIr1QSamKZDqrWI3TWOi nQDcL3OuWAPlFY0nhdz4FUA8 GGpmZOHlYaM0ABYuxOTyWMBm rRaaLYwzp298TWG5LfBeQHEu osQ9VDzoAEMaD2ZeC0LpKIsq FCG7HRUnYXJeLRNjGXHxQXGc XKfawyZ1n8yqDLPblNPzVVJ8 IFxcaWQgNTEwMDIgXFxkYiBP VlIgIiBaQTEzOTIwOSIgOTk5 KQkjI7XTUDZmFRJ6IaS9WMU1 XbR9EXq4SWDRFc0tZCBoCTQ3 RPfaJcB3JNJ3VXKrVHUdCmVc XGZsIFxcZiBBcmlhbCBcXGZz KTAsJAnpwmW7UXDtHXpyZKAo VsMkFF1aWWwOCFxcDr6BWL2g gTJhZKPbhaBAOI9bNZcJUTIT OJ6JEJJqULEJEiFXF3TRZRQA T3rYByKJQIVGXSKHKX1NCTjX CpvxGE9LC1RoY4SVITDZCPOA TkUgTkVFRExFIEFTUElSQVRJ R42ztPUvTGEbdLcbBE0rIKDj dGUgZXZhbHVhdGlvbiBwZXJm o6MdSCUeEerxPXWpCzX7E5gu aVxwYXIgRXZhbHVhdGlvbiBF zOsqw8CzGUQhVJLooIPfljTq XJPtUqBgmM9sbP6qdnWxr6Vd YLo4nNSsz1J5vVQzBeLJTAOn vpoczAVeMC45VQGxaqWmlM69 SHK7xH5sRSKyrGQdGY7lnVnb tOJcEYCciaOrTPKglCfvkQ6s cnkgcmFwaWQgZXZhbHVhdGlv mtazn8YuKOAkzbGmYBqicJUu xNWtkRT5mB8zFPPcSAZwt70d BP98AFbajzSqPUOcj9SlKMlw YXIgRXZhbHVhdGlvbiBwZXJm f7DcDZMkVGUdVYMROeYWUQz0 DRH9m29eF2UlsISfPZosb8Rd oATcIOAhHSBpLV7sogOlq6w5 sOLIaVAyCQBROCv6DQC0j67s AUMYANh2WOX5k7kwgKpmn6Vb pJAlXB89PCZgxNCgWRB5YR0d fVxwYXJ9 Disclaimer (test code = [id number]) l6bzlKPwAZIsh7exROTeoLFa ZzEwMzNcZnRuYmpcdWMxIHtc flFgSDbej5MpX8RuLwVvUAnx bnNpXGRlZmxhbmcxMDMzXGZ0 huBbXHZjIQssYCMtNLjeRj6b zXSnbRgqQuUhVEPxr3csjiAY NQyhXxPoT963NOZqZUoud0cx y4UzKYXpcVHqm3M0RKMTwdsh dYn4rVwsK14et0W3ItpxJ8za GVGbXJFpH3JbUA5wMPKjYyx9 PQB6XWX2FXRaNFNwH4GrHN9y TMDgpRUlULa6o8ohaCjsIIAf UGE6l7agPCfvuiDoWW9jwh9s nLe9g4ryjfUhOZGwPLIrdTEI WVGbP7CcgCbhPk4liLr1hZug FvyhVBO3Qpo6YI6arg05thi9 oIhkUUSnohuyCeL3JQpmDCYi vdgqSFg8MDlvHMPcjYP5FKLs oSAnL5JeKHOqMI2aaaz2VEP2 PEdmVFNjQlI5MPLmoGIgVIBx oXbtFPzum372WJS7QsSzJO6s D3Rbd8X5iJ1txSJwJXYmpRPy AnXaGIKicg5ltLYoTCqqe5Ab FQU1liJ6oRFivYKmOIJdDL01 Yzvrl4IdWaywf3WrF97tmWY2 DNchm3bxHP5aLtI7ueQpTQhz p2gxjQ8vTvY0UFosTY0uTL4z MJCskB4tpjsqCLJnLoUabxyw XBVnvHihnwNqOx2klBfoYUQ0 GZswJ4wveM7sFrB1MMzwC3rb kT7nGOv1XNmhyOK9YMXswR2u RI3xgslxp5pkYQrrPSurTHDs jbR7shD7SFWqyTCeG0KweT3u ZSGeIM5hrppmk6owWER3ZGyf RDIvRDL7WwGyPNYas9Ouuxe3 YgJwt7EoyNTpFJrrK06ta202 KHEmqiCvU5xhvVIasaypbQHa zmdrPOlcktI8CWTdpzWgm0Pr AUHnUIE7AXisSBghcUUbDKDq uAqvm6yuE2YkyZWzDJVeWFst XGYxXGZzMjBcbGFuZzEwMzNc aGljaFxmMVxkYmNoXGYxXGxv Q6yqLoMkL1IvRFNsSvWbuMFg Q8tqICoimfPdCBSqiqYibBT7 YFkmA3b7GZHvkjOsfLk6kaRr WeMgZOTtBSR8QEwmrMLvZQZg d1VcxbrxoAQpPv9jvKGjJYDd gU2hLJBjNDJcKKcuRN8ncCt3 KCVRlJLoqKByLkFGFXKyEG50 awPmGRDIrrblq1K5HUvzWETk p0PhuNLqT4ytd2BuTYRjx49q MF6cq6I5r0xyIHL0GQ1jg2Sb CPFrtCKegUVjWGZtd8Azwumh v8NmPOXphzBdd7BjYDGaemEg lEOcBCAyfyIcuk9rzcFyLOMe UTTnO7AajgsqiJrfssRpECHq zg1aziQhYHN9THELICOdTXKr b8HfyJ4wkQMJMLO5eXXfgj5j vnHWoDRzEXCwbu68EJDzUI7x Z3goJYNpKTUklvFtoCBif8Dk JHSszXK9aRXpMR8ZVdLXr35y IGFuZCBEcnVnIEFkbWluaXN0 ygN0cR6qWPvCRQHiXde+IFRo TYJCTNTtTI6uxqXjt4BdxwBh kFylPUGfsCPss2DwtFMwv3Dx mItis3VokAOotQLaIY1pWNUq clxwYXIgVVRNQiBMYWJvcmF0 s5SpLWWoVICvLWJ1hYxjszh2 HHVbgH1dFXUzV1ovelxkPGne SLScm4TlwQ4knHLSqKSar9Cc wUPdnPNSyYFrBC8dpbZiTYrH IQaPMGT9wyMmSQDcd4IqIPtd W6bcZ83huWxxuOx6yBC9VIQ2 qP9sHii+IFxwYXJccGFyIEFw rRUyyFBzHQKkoEddlgTqM3Hh lbSbnB3pfBNcrkZtVD1rCN4o A4V4yRVwRBWhrfCxo1nxABus dmUgYmVlbiByZXZpZXdlZCBm z7ZlQPbeVHM7ZClgkpPkkpFy dWRpbmcgSCZFLCBTcGVjaWFs YTX3MCpxtfXijrIjGS7qfD6b jXrhgW6yhXXlyFG3utjoYRFh AXWjaPseXEUuXQ1bkZZzRHRz jmWMwGjkaCAnsB3wT7RwDPOk YEFogl5pSGQjhJ0eCHbpt5Ze tuecPBNvZKUvDGChrnWcge7p LEEvuUQINR0KHGhhyBWbl0Se cuAyB0uKHEJ7AXWnTtQpHesl CMZmgLVszMHsIVGhgf66BZSv fK0xdGijKRZllI2qcS8iwBdm cC7aYpMySrZzJTonOC1bIJGc M3qltGGiIONpYLRkB2sqGnRq uA5fvGzuNHdmAxSkPrCoGBwq YXJ9fQ== Embedded Images (test code = [id number]) [facility] BSLFZYXOPC-[id number] 21:09:30* Test Item Value Reference Range Interpretation Comme nts Case Report (test code = [id number]) Final Diagnosis (test code = [id number]) u3poyEHwXCRuv9fvBYHhtBW uZzEwMzNcZnRuYmpcdWMxIH hnefPxWJcyaFlpNXWnW7isl gEiLVDkwDZvR7HzfjqhREbl WL4gID9waXrggCXvfNMxTYP iStSmn9gbn731yJQzj9jdEF NHxjkpvSk6bIbsS72mu3L4Q gasK82unAArGSJ5JTLcKSWg iLFlEPIqGYN3VHFdrCQzT4y wZIDzGC0kwdjbGFywHWdfCF EfbNU3VXYvbYAuB0ZhOZRmO QitYAZxmnn7UzHcJn6rvLFx eTcyMFxwYXJkXHBsYWluXGZ qBcXnJSccGJAbBYEEEN2DFZ HYQ9EBPVXWPWQAKXVXKHJRV LwVJFmfUSsCPzQNY3RYQFYy VVMpIElNQUdFIEdVSURFRCB TFA0AMP2AQATSHIDWM3NDGt PNAG6NOdroZAEoSRBVC5lFE U1MQNkKIKOyPUkWRGsDW5vV HYXmT93UR0rYVXNUCJUHLJD RTPyPKIOJE8sTWDWKS0FAJI 1xpMTkYFCoAL2eTUOxDq9vN XNNVIyHXJ0MADGVXSfZIKdD NI4WJVUGKMTpSVmfFYUnQ8L LWBMGUH7GKuKfZMZiwcuoUC B4r0ivqVKeDFNykMNhUzSmN TCfTEYxq0rtAVAflHOuPpGs MzNcZnRuYmpcdWMxXGRlZmY ku1cre911mYWrq8qkFLWqEk K4lBUfRLDgzYucddf4mEviX iXlOQWth8hufqWcEoLvFCOl EJMzJXVjrHNeI460HCCpEMd er6gow4NuZLFutXNes6Y9IR TZQCfeVdGmR832b5qsh8qvu rRytID8NLNoEUY3RPgjfsZd jlG3KCjrlYAbRxK4OPfuqoU uXYfqazSphlPtDng3DWHaO6 21FZT7vYbms8rxYVE9LYDnA DQuWrmsOn9aiSCzT384FTNq BNPODZRjrTj9XGWbpoMjwhW epLPEj623G809y7eyUVZvil IpaSeCjipzr1uiF838TQIts GVydzEyMjQwXHBhcGVyaDE1 ZTIiQU7unghoSYfyPPdxVAU vocX2YLBcvWBsT4QfOBMfVA 3kzvwoKOK1ISwnIZWaHXU5S gXaCOGkv5Gfhoi1CgGdon9a ow24HYG7b3QmfKwdRCE9YKB 7VyBhNr0cuAPkZCOwHA1aIb OubMGaXXCudg73mYmoZTnpm fSnmC4zKqXaTISciWCfTHCf NL1dmPHbODEdgR9hnndsOJU nYnJkcmhlYWRccGdicmRyZm 0jnQogFLQ3IHifR4locD1bR bR5LLbjW9sodU9pQPr0CCko eKM0YMQzgL6kOQ9xlubyc5c uXGrsXIypLUQcoxG7ttR9XP JrsJOhW1FjsQ6zTLPiFK7lk dmxo8kwXQD7IOkyKWYiWCA6 CoNqOWFcq0Daaog0ZlRot5D tmBMcQVjxG45fm135USGlau EwZ0weiPBxmrflaUPbkwyzH XgvulB7USMmKMSrQPccISNp XGZzMjBcbGFuZzEwMzNcaGl jaFxmMVxkYmNoXGYxXGxvY2 wpAoNnL6NeJPOwFgZmpUZxZ JhcuYR3LJTgGPTti28jmVy8 OOVujujub2JbDENjzPYvcWB haR7xvoAmv0djUJYgJCNkJX GjI1UaFUH7oUUaJSOmjJBqw KI5OL1byoVgQB1wPDZaQitv lySanHLdilTjOKSxXYisw9j pUO8zLIQuiOfuoC1aeAQ4OG Olf7onyTIsvHNij0zhj8Yyj mFtZShzKSBtYXkgYXBwZWFy SE1gOGFeeZEdjgYcn7K3Rch vkLPjwmgqMdleifD6WBpfgk kmBQFiBWuoZ9tiMkIhKPOzj GebBnsyb2VuHELeHMAhIcvt cGFyfX0= Final Diagnosis Comment (test code = [id number]) d9hmsRPyGMKkmPF0BIAePZT ww6axp1JpxLAlgMQuYIylqA VwpxQqup71xJN1uX11SE2qJ DCsPzT0PJOccaE1Wly4PBAk FIFanPGmM917f9tij9qdzqE biJF5dRazAJCnprddAbD5TD pfCAZranedYBj0OPenAPJvq LV9UKIigTAkH5YtAOSoLI8d pgh7VPJ3PXxcVRSoHcK1OPK hhDUlPJGgjDssEOuoi444DL Q3VzLaMELjstGjcTbtzG1gU oTjITSVwZNzybDpw5quilIv f6n7bY2gpBahpHWjmVutgIv gB8r3RAXyOUFbBWAzcGD9p6 Tjx1TowUmjXYRoPTDvcBNtV JlvbhCvPF22NGHosrJivG38 CBM3yU6kPIKfmVFnEM6mbSc mhQCaTC2oAQ4vaw2tiE0jJX acKp4vPSuqnzChecGeQrYsb mLniWISUYWhzZtlOVenPU34 mBIjDKQjDOLeTBE9wSUhPys rpfJdbIOylKB0napmKKItjS 9ydCBpbiBFcGljIGZvciBkZ XRhaWxzLlxwYXIgRmluZGlu Z7QhU50dm0yujLExnFM4aNZ dDWv6bINbh2hgEAKub4S8ET 4wEz1xfTIcrYnsAM99SEIns UgdFDciSM60qYVjUFFaFFDu clxwYXJ9 Clinical Information (test code = [id number]) Post COVID-19 vaccine, post bilateral salpingectomy 01/02/21 for endometriosis, 10 months old baby at home. By imaging, looks reactive. No hx of CA Gross Description (test code = [id number]) s7tjgIOqZICzdDO2YGKxHTS ug0sjr4QvtGExdSKcRBxbhS WqnlTwqq53bTC6kK37QK3bY HGtChA4LETrtfD4Ktb2STTx KKYdsVAvE967c2fvg8edsdY cmST5dZqnTUWinjjbIeI1WV dyQPYugdkzPTy5XLfsCAQfq FL8VNUklSRsH4LwOQEfGY4s ybq6BVC4HLdbLZJnIoJ1IJB kfBAyLVBwsUydBNefw230NG G4UmOzVABaclW0YKhgEVUcU 1YnJ6IjMDdzZEC8VPKbAMMf QBVjNFZyPPFtMEazxwB3r2b sMKWxsIVtZEJ1JHtmmLAiZA EwMDIgXFxkYiBPVlIgIiBaQ PQcBMTlRCTqEQo8QKooR7WS LEJgRBT3LwB6VAQ8ZaW8SUs 5RXUXCl2gQRJvBBV7BUNoSj A3YWH8FOBiMVMuHqMlZFZuJ FxcZiBBcmlhbCBcXGZzIDEw JGqokgJ1YSFaFFmhFBQjKdU jXK8wCTeDPLpbRa6SNV8xxO FyXGZzMjJccGFyXGYwXGZzM oSiDPQsFYRSGP3WOMYIS4FJ LCBDRVJWSUNBTCBSSUdIVDs qPAbSFeLCP4BBNFAzSDLcLN dGBHiIQBuBRFQOQOMGGR8VB W6VRKTOHVVCH7WRYvIIVV8A XHBhciBSZWNlaXZlZCBmcmV amMCmqdClXtMeG8YrcwUjNv EeUX8tfJkld3LfHH3ptIAfy VCzXB4kzVZzmgBoDIE4XATd qJpxYMUae75mAIHbczUpNWl bIHGzf3ZeFZOuZQzrGXZtUh OpOQdaQIJuzrOqQIU2Ke3pg QXbQLJ1kwRISG9wmF9rt0i3 SFAniyHulC25MYO0cD9kOGV akHPvo1N5BQftcnDdxSGoQM OyAPAyjeZnKJLyr8cyFOUmT SbtYJKasDTzi3nxk4qrm0Pn jA9hTWPwwIHgmvzlSWBdxvF mNnTKRKSikptoq2lqv0Gym1 QrgF6gJMRelWPbpczuQHcpm OUtREQvdmXTp2ZdpAE7KIJc e0hhTWJpZKMobeinWYAtU6y oSDGsPFDaTSYkl9ziUKD5nO 2mSTI6BwYqSRdoxtVfxDAdE MgzJXRwenEwnYRpe5v7kCZz IKUbCE03KH5loBRbXT0fLQC kjRR7PDZtIIEvvIkfjWPtgJ smkrUnvC9gXWUeLWT0XEMwf gNbhWOkJ2M7eX2lJX1lNCQf dGllbnQgaWRlbnRpdHkuIFx aqwFwSVG5EGUplOXmXXZ6SG 3tfPjoCFQhV6AsG9HldzK3A HBhcn0= Cytology Rapid Assessment (test code = [id number]) t7acyVWtQRLafBQ2QZGfDDT wd5tti6NazVWtjHRrTTbipY EypwMbdb07nZT6fD39PT9fI WLcYjP2BWYawxA4Vsy7TJDf VAGtiBDtD101u6sso2zxzlE qrXD3qPnxKXKztssxQzL5HS ahEDOtecqrNEo4SOpgJWIhf AX5ZOHjqTEsQ2YiBKFuDT7x ayj2QJM5CXvkFPLgZyP6QJR eaQDyPXZloZmsZYdpd008XI E8LxDuAJOduuB1XAyjRYVpE 4EoR2OiNMjvHJX2BTMnPRSt BIHuPLSlBZJlASqwwrO6l4h pVJEofWFbQRD3IVegrNQnBB EwMDIgXFxkYiBPVlIgIiBaQ RZbPPSzESGjRIr1SVotI0RW WQNpBXK2QaZ5AEU3MxH4VWe 4BZLPMw7uNHYnIOY5DPljGd S4TLO1AQWzSYCkYlJoKCXgB FxcZiBBcmlhbCBcXGZzIDEw IHfyhwS6DXBhZSvqILNtRsY aAR5lDBpRQPfuLt1ORL1xmD EoRKBvrrVLAI0qKCdETZCUM O9QTCYlBZCOLeYZQ5UVCWNG D7bDClBJIOJJWSYFOE6OKDa BAtqrOZ1AH2XhF9WJCCCYJE ZJTkUgTkVFRExFIEFTUElSQ MVTI01ywZOxVDYfvDboYZ3s LXNpdGUgZXZhbHVhdGlvbiB bRQKnv0FoAESkRiydUWAkCu V9O0mesMbhJMOcIFHydPXwx HeqitMPaOlns3KbAFBqKVLw gMYijsPeVOHrGpDiaV7fmD1 yobOiq3SxIZh7wFWuc3M0yJ LaAxFWAUWawdwbfVQxYV13I RZkgpMmlB96PDZ4tC1vQVHe nUKuYP4nvQfjhFMiRBEpgpI vTOJuoUzkzZ2sidxkhzDmbA BbJINhnJXcmDcjwkvoc9YdE GZpbmFsIGludGVycHJldGF0 aZ5yYKJtFBJoe36uSI77ODp kjzRiPEFqd1GbTZniRPIxFA GqvVNomFkfqiWiBOTzv8EbD LLdLMZyRGXEWaSMVEw5CAP5 d98rI3SkbOWhICemn2UteQD yNJErYPDxLC9hnjQzc1r7rX SVwZFrAWDSBOa4CVX0s25xD EZYTNt1IBX1o7rtxCwal3Sw mABtDQ60UCTvuOPcUZY0IQ1 kfVxwYXJ9 Disclaimer (test code = [id number]) x2daeRIaUVQzi8xpDOHmsOS uZzEwMzNcZnRuYmpcdWMxIH iqxjJmSDwxm4CrM4LpXoOaG FxhbnNpXGRlZmxhbmcxMDMz KPI8teOlNCFpOHrpQPGzTBs qHm7nnFOweBnhMcRyIEYml9 qwfeVLCOwlFcGlC454VBWsZ Ucdx4dxc8TcDKYcsHBwp9B5 YCRVetbxtAz2mFxcF80gc7C 6XnrvB2gnOXBjJFHwR7CbFA 5hHFEsKyc6UIR4DUG2ULYfB IDaY9GcUU2wKMCvvNNjPLk0 g4zdmZmsLFIbEZP3d0kuZPh dakCwKS4srj9zfBo4z7aqtk KeYMWpIDRnjWNSLUZoR3Zgn WiaYq7ufDr5sIpvUmpaFAT9 Uwn1TP0hbu86osn5iFzhLWX rbazfKyM9OXpnOUImpyezOR i0RVioWBJuxCO3AJDecIKeB 7HuJLCqFR7mvpk0ZSC2XNmf NTBjWnD4BERiaVUfSBQkcIw qRHbop303FZD7UgCtCD9aG3 Lft2O1aT2kzZNqOYLtqUKrR fRsFPJlke1wvVWhCOkbr4Zw QZA0yfO1zMZzzPLfLPUfNZ8 5Nbpme8CwJyiws2FyU51grY H1GQxjn7lcNT9jEgV7ulZsJ Ccqc5zitZ2rKaR9EIfcDP9k UR6cGLPslN1mlxlmFXVfPhJ rbtgtQSWwdBezmeWlOi4ypE ddPVJ7NKybE3ermN8uWtQ0J JzlG7rewY4fQSv3JElqpXX7 QTMgpH1nBX1msswbo0auVMf fJCpaVYLivyX0guG5WKGzfE NrB4TwdF4pGFAvZX3qqksvn 9xsUBB0BCnbDCVrHEP1HnRx USVlk0Ynfyx5YtTyk8CumJU wPGmuA76si586AGBqolAaY1 xwbGFpblxwbGFpblxmMFxmc lZ2AXXrmyUuq1LaRDBuEPY4 MNboXVwwxHHwXMMxdVumh8w hT8ElfPOgWXOyRPisQWIxTB ZzMjBcbGFuZzEwMzNcaGlja LnfQGqzLgOmYHWiWOuiR5hb IeHzY2ItKOZxLaNlbHJyO6k eREgoflLqYIShgzYisBW0RE vlU3t7IQTkgyIkaEz2yyJyC iMzICHbWTB8IPltdNArFRGt d8OtdepmiYKcFa2cbRBrXOK cfC7zYVHlCRYlDOkwBF8boC x6MOEGtREnoJBfFuGQHSRjW H90psXeXFQUbhrwo3B6XDur RINnz5RivOZpR9bwi1WzTCS ac73rOB4sq4Q7n8juGTQ3IQ 0nm0YzBTSjxXPlwNNuMALcd 7Perlywn4PvBXTbwvQer7Ua ZCBhbmQgaXRzIHBlcmZvcm1 rlaNjWSZgDRTtI0NozbfznB shjeRlETGpav0ltgAuDZE1L PLNRMByYUYoj8RklI6wqCUY ANB6wJBmvh5hriDTfKKfPFB jqy19GHWdJD9qR1tnWPJoKB WltlGjrYXue0WoPVSirZK2x BZrRC0EWlVUi62wDHNxTQKD yoRqUURcaMmhaAH6ftB3kI6 uIChGREEpLlx+IFRoZSBGRE BhRL8zzlPke3TrpkDevLknP GYzvQVta7MeuGAsu1GsdNyi t2RkfEFibRFsNO9aHXUtqvs pIMDnYBYZIxYNVXYgxmH8j1 BjOTYgUSGnZBV2pLwsuzt6L PQrkJ3hFSPdS1kubwjsJXub JWQjd8KltT9zuBJIqOMry1T yoNCxjEHSmGVxUP3knjIoFK qKCWlBIRO9giRvCKOeu2NdV HfrF5ofI06hcCcpgMy5hER8 LRU4hR5aQpu+IFxwYXJccGF yIEFwcHJvcHJpYXRlbHkgcm ZyZ5HssuQfxK9duJOsxlWeT U6eLJ9bU6I2mMUxCIGxkaRg s8eaQJxaonIoSgHyrqXeIVT cVWugIPYba3YpCAqlBNG1LH lucyBpbmNsdWRpbmcgSCZFL NRZfVEcyKAbAEI9KFjjeoEt czFcHT3zqG7jzWwiaD1uuHE hrBQ6knicBVCgRPPqdJxjMT FkNR5neUOtOMUygzKEgAico NFqtK1rZ9SgVWRoCFIonr1j BALsfK0eWMqez5OldrsfTRA aFTHiKALsxyExyh1hBEDurL TFEP5JLAvnjVSrv4JhkqTkZ 4eKMLP3RMLxBuGbVhukYWEb iDBluLBxSDBtpa52QFYbsZ8 rnXqjRWZszW8dpR4kpDfrtK 4oTjLcXjNhZQurDJ1kYYRwO 5gqwLEyRZToXKInP5hnBdYe bU4bhClsJLejBtVeZfIlNOx hUVS6sT== Embedded Images (test code = 2565522048) [facility] IMMUNOPHENOTYPING FOR LEUKEMIA/[id number] 22:45:29* Test Item Value Reference Range Interpretation Comme nts Specimen (test code = 9598952613) Fine needle aspiration of lymph node Gating Population: (test code = 2767102910) Lymphocytes Flow Cytometry Interpretation (test code = 4805757241) RIGHT CERVICAL LYMPH NODE, NEEDLE ASPIRATION, FLOW CYTOMETRY ANALYSIS: ? ? ?- NO MONOCLONAL B-CELL POPULATION IDENTIFIED. ? ? ?- NO ABERRANT T-CELL POPULATION IDENTIFIED. ? ? ?- SEE COMMENT. Comments: (test code = 8470749737) Immunophenotyping by flow cytometry detected a heterogeneous population in the [...] suggested. T-Cell CD Markers (test code = 1673209444) CD2 (test code = 0531698608) Positive; Subset CD3 (test code = 1708615889) Positive; Subset CD4 (test code = 9478414353) Positive; Subset CD5 (test code = 0405972947) Positive; Subset CD7 (test code = 3575254089) Positive; Subset CD8 (test code = 9451938559) Positive; Subset CD56 (test code = 3392238118) Positive; Subset TCRab (test code = 8388171065) Positive; Subset TCRgd (test code = 4156713938) Positive; Subset B-Cell CD Markers (test code = 0037465893) CD10 (test code = 2254486727) Negative CD19 (test code = 3153818439) Positive; Subset CD20 (test code = 6664373987) Positive; Subset CD22 (test code = 5881983844) Positive; Subset [place] (test code = 5609436634) Polyclonal Lambda (test code = 8609426065) Polyclonal Monocytic/Macrophage CD Markers (test code = 5063425510) CD14 (test code = 9772077347) Negative Other CD Markers (test code = 2725546935) CD34 (test code = 4347614841) Negative CD45 (test code = 1106205971) Positive EILEEN (test code = EILEEN) Disclaimer: Analyt e Specific Reagents (ASR) are used in many laboratory tests for standard medical care and generally do not require U.S. Food and Drug Administration (FDA) approval or clearance. This test was developed and its performance characteristics determined by the [facility]. It has not been cleared or approved by FDA. The FDA has determined that such clearance or approval is not necessary. This test is used for clinical purposes. It should not be regarded as investigational or for research use. [facility]wood[facility] CY[facility] IMMUNOPHENOTYPING FOR LEUKEMIA/OXRLVLBP1172-93-38 22:45:29* Test Item Value Reference Range Interpretation Comme nts Specimen (test code = 4271838711) Fine needle aspiration of lymph node Gating Population: (test code = 2920968385) Lymphocytes Flow Cytometry Interpretation (test code = 6647277836) RIGHT CERVICAL LYMPH NODE, NEEDLE ASPIRATION, FLOW CYTOMETRY ANALYSIS: ? ? ?- NO MONOCLONAL B-CELL POPULATION IDENTIFIED. ? ? ?- NO ABERRANT T-CELL POPULATION IDENTIFIED. ? ? ?- SEE COMMENT. Comments: (test code = 4160496380) Immunophenotyping by flow cytometry detected a heterogeneous population in the [...] suggested. T-Cell CD Markers (test code = 4565209007) CD2 (test code = 7335733710) Positive; Subset CD3 (test code = 8064378413) Positive; Subset CD4 (test code = 2883783644) Positive; Subset CD5 (test code = 4166105622) Positive; Subset CD7 (test code = 8691727955) Positive; Subset CD8 (test code = 3624430073) Positive; Subset CD56 (test code = 3016067999) Positive; Subset TCRab (test code = 1312618517) Positive; Subset TCRgd (test code = 2891300788) Positive; Subset B-Cell CD Markers (test code = 1312931311) CD10 (test code = 2361830857) Negative CD19 (test code = 0681488661) Positive; Subset CD20 (test code = 0875584629) Positive; Subset CD22 (test code = 8344300986) Positive; Subset [place] (test code = 5125158525) Polyclonal Lambda (test code = 5547529875) Polyclonal Monocytic/Macrophage CD Markers (test code = 8411141947) CD14 (test code = 6791744699) Negative Other CD Markers (test code = 0328671558) CD34 (test code = 2751134989) Negative CD45 (test code = 4766913380) Positive EILEEN (test code = EILEEN) Disclaimer: Analyt e Specific Reagents (ASR) are used in many laboratory tests for standard medical care and generally do not require U.S. Food and Drug Administration (FDA) approval or clearance. This test was developed and its performance characteristics determined by the [facility]. It has not been cleared or approved by FDA. The FDA has determined that such clearance or approval is not necessary. This test is used for clinical purposes. It should not be regarded as investigational or for research use. [facility]wood[facility] IMMUNOPHENOTYPING FOR LEUKEMIA/HKEQOAXZ2626-23-22 22:45:29* Test Item Value Reference Range Interpretation Comme nts Specimen (test code = 8094669123) Fine needle aspiration of lymph node Gating Population: (test code = 3112719485) Lymphocytes Flow Cytometry Interpretation (test code = 3259295234) Comments: (test code = 4464177737) T-Cell CD Markers (test code = 6261890882) CD2 (test code = 3407198318) Positive; Subset CD3 (test code = 9928755843) Positive; Subset CD4 (test code = 6458024595) Positive; Subset CD5 (test code = 4572604279) Positive; Subset CD7 (test code = 2731863597) Positive; Subset CD8 (test code = 2637530245) Positive; Subset CD56 (test code = 4439261729) Positive; Subset TCRab (test code = 5385619215) Positive; Subset TCRgd (test code = 2315383094) Positive; Subset B-Cell CD Markers (test code = 0739390355) CD10 (test code = 9085476873) Negative CD19 (test code = 2108556244) Positive; Subset CD20 (test code = 7408918195) Positive; Subset CD22 (test code = 3346217954) Positive; Subset [place] (test code = 1874969334) Polyclonal Lambda (test code = 0736679447) Polyclonal Monocytic/Macrophage CD Markers (test code = 6299096770) CD14 (test code = 0747367956) Negative Other CD Markers (test code = 4832661215) CD34 (test code = 4016898234) Negative CD45 (test code = 3031849945) Positive EILEEN (test code = EILEEN) [facility] WITH [id number] 11:39:00* Test Item Value Reference Range Interpretation Comme nts WBC (test code = 6690-2) See_Comment [Automated [employer]] The system which generated this result transmitted reference range: 4.30 - 11.10 10*3/?L. The reference range was not used to interpret this result as normal/abnormal. RBC (test code = 789-8) See_Comment [Automated [employer]] The system which generated this result transmitted reference range: 3.93 - 5.25 10*6/?L. The reference range was not used to interpret this result as normal/abnormal. HGB (test code = 718-7) 11.7 g/dL 11.6-15.0 HCT (test code = 4544-3) 36.9 % 35.7-45.2 MCV (test code = 787-2) 89.1 fL 80.6-95.5 MCH (test code = 785-6) 28.3 pg 25.9-32.8 MCHC (test code = 786-4) 31.7 g/dL 31.6-35.1 RDW-SD (test code = 90179-5) 42.1 fL 39.0-49.9 RDW-CV (test code = 788-0) 12.9 % 12.0-15.5 PLT (test code = 777-3) See_Comment [Automated messa ge] The system which generated this result transmitted reference range: 166 - 358 10*3/?L. The reference range was not used to interpret this result as normal/abnormal. MPV (test code = 77366-5) 9.5 fL 9.5-12.9 NRBC/100 WBC (test code = 1411033361) See_Comment [Automated me ssage] The system which generated this result transmitted reference range: 0.0 - 10.0 /100 WBCs. The reference range was not used to interpret this result as normal/abnormal. NRBC x10^3 (test code = 5012267916) <0.01 See_Comment [Automated me ssage] The system which generated this result transmitted reference range: 10*3/?L. The reference range was not used to interpret this result as normal/abnormal. GRAN MAT (NEUT) % (test code = 770-8) 69.5 % IMM GRAN % (test code = 6261065272) 0.40 % LYMPH % (test code = 736-9) 20.8 % MONO % (test code = 5905-5) 6.4 % EOS % (test code = 713-8) 2.4 % BASO % (test code = 706-2) 0.5 % GRAN MAT x10^3(ANC) (test code = 3412422914) 5.84 10*3/uL 1.88-7.09 IMM GRAN x10^3 (test code = 6669496473) 0.03 10*3/uL 0.00-0.06 LYMPH x10^3 (test code = 731-0) 1.75 10*3/uL 1.32-3.29 MONO x10^3 (test code = 742-7) 0.54 10*3/uL 0.33-0.92 EOS x10^3 (test code = 711-2) 0.20 10*3/uL 0.03-0.39 BASO x10^3 (test code = 704-7) 0.04 10*3/uL 0.01-0.07 [facility] QAQJULSOYBMIJT3458-93-01 07:52:18COVID DMT InterpretationInterpretation/Recommendations: Molecular NAAT Tests for Active Infection with the SARS-CoV-2 Virus: The patient has currently tested negative for the SARS-CoV-2 virus that causes COVID-19 illness. This most likely indicates that the patient does not have an active infectionwith the SARS-CoV-2 virus. However, infection is not completely ruled out as the false negative rate for molecular NAAT testing using a nasopharyngeal sample can be up to 30%, mostly dependent on thetiming of sample collection in relation to illness [...] week of symptoms). Tests for IgM and/or IgG Antibodies to the SARS-CoV-2 Virus: If the patient develops COVID-19 illness in the future, testing for IgM and IgG antibodies approximately 3 weeks [...] COVID-19 testing the patient has had at [facility], including molecular NAAT testing (more commonly known as PCR testing and Rapid ID Now testing) and antibody testing. It does not take into account any testing that a patient has had outside of the [facility] medical record. [facility] LABORATORY SERVICESCOVID KshvpnyVYQW-TrS-0 NAAT (no units) ? ? Date ? Value ? 12/30/2020 ? Not Detected ? SARS-CoV-2 Rapid ID NOW (no units) ? ? Date ? Value ? 01/06/2021 ? Not Detected ? [facility] METABOLIC PANEL (62456)2021-01-06 19:36:00* Test Item Value Reference Range Interpretation Comme nts NA (test code = 8279680462) 139 mmol/L 135-145 K (test code = 3991916873) 4.0 mmol/L 3.5-5.0 CL (test code = 6133121574) 104 mmol/L 98-108 CO2 TOTAL (test code = 1238590190) 27 mmol/L 23-31 AGAP (test code = 2273665679) 2-16 BUN (test code = 4166046446) 8 mg/dL 7-23 GLUCOSE (test code = 2959112713) 96 mg/dL 70-110 CREATININE (test code = 9955791382) 0.61 mg/dL 0.50-1.04 TOTAL BILI (test code = 7389605685) 0.6 mg/dL 0.1-1.1 CALCIUM (test code = 2291767931) 9.4 mg/dL 8.6-10.6 T PROTEIN (test code = 6416998075) 7.3 g/dL 6.3-8.2 ALBUMIN (test code = 0238568994) 4.1 g/dL 3.5-5.0 ALK PHOS (test code = 1420056144) 81 U/L 34-122 ALTv (test code = 1742-6) 14 U/L 5-35 AST(SGOT) (test code = 8216715578) 21 U/L 13-40 eGFR (test code = 3777512969) mL/min/1.73m2 EILEEN (test code = EILEEN) Association of [...] or urine or abnormalities in imaging tests). [facility] W [id number] 18:26:17CT Abdomen and Pelvis with intravenous contrast. CLINICAL HISTORY: Abdominal pain, fever, postop. DOSE: Up-to-date CT equipment and radiation dose reduction techniques wereemployed. CTDIvol: 5.47 mGy. DLP: 259 mGy-cm. TECHNIQUE : Contiguous axial imaging from the level of the lung basesthrough the pubic symphysis were performed after the uncomplicatedadministration of Omnipaque contrast material.?Coronal and sagittalreconstructions were obtained. Auto mA and/or iterative reconstruction wereused to reduce radiation dose. FINDINGS: ? Lower lungs: Clear. No pleural effusion or pericardial effusion. Nodefinite signs of hiatal hernia. Liver, Gallbladder and Spleen: S/P cholecystectomy. Liver is15.7 cm andshowed mild fatty infiltration. Spleen is [...] Patent hepatic/portal venous circulation and renal veins. Retroperitoneum: No abnormal fluid or lymphadenopathy. Bowel: No acute findings. Appendix is not clearly v isualized, however,there are no CT signs of acute appendicitis. Bladder and Reproductive Organs: Multiple bilateral cystic lesions withinslightly enlarged ovaries noted. Small amount of loculated fluid noted inthe posterior cul-de-sac, measuring 2.4 x 1.4 cm size which could bepostoperative seroma.Slightly thickened bladder lópez could be due toincomplete [...] fluid collection does not appear infected.2. S/P cholecystectomy. [facility], Radiant Results Inft User - 01/06/2021 1:[address] Abdomen and Pelvis with intravenous contrast.CLINICAL HISTORY: Abdominal pain, fever, postop.DOSE: Up-to-date CT equipment and radiation dose reduction techniques wereemployed. CTDIvol: 5.47 mGy. DLP: 259 mGy-cm.TECHNIQUE : Contiguous axial imaging from the level of the lung basesthrough the pubic symphysis were performed after the uncomplicatedadministration of Omnipaque contrast material. Coronal and sagittalreconstructions were obtained. Auto mA and/or iterative reconstruction wereused to reduce radiation dose.FINDINGS:Lower lungs: Clear. No pleural effusion or pericardial effusion. Nodefinite signs of hiatal hernia.Liver, Gallbladder and Spleen: S/P cholecystectomy. Liver is [...] No enhancing kidney lesions. Vessels: Normal. Patent hep atic/portal venous circulation and renal veins.Retroperitoneum: No abnormal fluid or lymphadenopathy.Bowel: No acute findings. Appendix is not clearly visualized, however,there are no CT signs of acute appendicitis.Bladder and Reproductive Organs: Multiple bilateral cystic lesions withinslightly enlarged ovaries noted. Small amount of loculated fluid noted inthe posterior cul-de-sac, measuring 2.4 x 1.4 cm size which could bepostoperative seroma. Slightly thickened bladder lóepz could be due toincomplete luminal distention. Uterus is laying in a retroflexed positionand show slightly heterogeneous myometrial enhancement without any focalfibroids.Bones: No acute findings.Soft tissues: Air bubbles are seen in the intermuscular tissue planes inthe left lower chest/abdominal wall as well as inthe rectus sheathextending down into the suprapubic region, consistent with postoperativefindings.CONCLUSION:1. Bilaterally enlarged ovaries with multiple cysts, possibly sign of PCOS.Small amount offree fluid in the cul-de-sac including loculated fluid of2.4 x 1.4 cm size noted consistent with postoperative changes. Theloculated fluid collection does not appear infected.2. S[facility]olecyst[facility]APID [facility]2021-01-06 18:18:24* Test Item Value Reference Range Interpretation Comme nts SARS-CoV-2 Rapid ID NOW (test code = 68176-3) Not Detected Not Detected EILEEN (test code = EILEEN) ID NOW COVID-19 As say is an isothermal nucleic acid amplification test intended for the qualitative detection of nucleic acid from SARS-CoV-2 viral RNA in nasopharyngeal (CATALOG SPECIALIST) specimens. It is used under Emergency Use [...] patient testing if clinically indicated. Lab Interpretation (test code = 48926-8) Normal [facility]21[facility] 18:01:48* Test Item Value Reference Range Interpretation Comme nts APPEARANCE (test code = 8116325058) Clear Clear COLOR (test code = 6224927840) Yellow Yellow PH (test code = 3855907516) 4.8-8.0 SP GRAVITY (test code = 3762743722) 1.003-1.030 GLU U QUAL (test code = 3908135575) Normal Normal BLOOD (test code = 4979091736) 2+ Negative A Interference fro m ascorbic acid may cause false negative results. KETONES (test code = 8644199532) Negative Negative PROTEIN (test code = 2887-8) Negative Negative UROBILIN (test code = 2773181005) Normal Normal BILIRUBIN (test code = 3986889635) Negative Negative NITRITE (test code = 0404741239) Negative Negative LEUK DONNA (test code = 1235725971) 25/uL Negative A RBC/HPF (test code = 7762721235) See_Comment [Automated [employer]] The system which generated this result transmitted reference range: 0 - 3 HPF. The reference range was not used to interpret this result as normal/abnormal. WBC/HPF (test code = 9068826168) See_Comment [Automated [employer]] The system which generated this result transmitted reference range: 0 - 5 HPF. The reference range was not used to interpret this result as normal/abnormal. BACTERIA (test code = 1482864661) Few Negative A SQ EPITH (test code = 8689958287) HPF ASCORBIC ACID (test code = 6445975827) 20 mg/dL+ Lab Interpretation (test code = 45554-0) Abnormal [facility] WITH [id number] 17:57:17* Test Item Value Reference Range Interpretation Comme nts WBC (test code = 6690-2) See_Comment H [Automated [employer]] The system which generated this result transmitted reference range: 4.30 - 11.10 10*3/?L. The reference range was not used to interpret this result as normal/abnormal. RBC (test code = 789-8) See_Comment [Automated messa ge] The system which generated this result transmitted reference range: 3.93 - 5.25 10*6/?L. The reference range was not used to interpret this result as normal/abnormal. HGB (test code = 718-7) 13.0 g/dL 11.6-15.0 HCT (test code = 4544-3) 40.6 % 35.7-45.2 MCV (test code = 787-2) 88.3 fL 80.6-95.5 MCH (test code = 785-6) 28.3 pg 25.9-32.8 MCHC (test code = 786-4) 32.0 g/dL 31.6-35.1 RDW-SD (test code = 60756-6) 42.1 fL 39.0-49.9 RDW-CV (test code = 788-0) 13.0 % 12.0-15.5 PLT (test code = 777-3) See_Comment [Automated messa ge] The system which generated this result transmitted reference range: 166 - 358 10*3/?L. The reference range was not used to interpret this result as normal/abnormal. MPV (test code = 08626-6) 9.7 fL 9.5-12.9 NRBC/100 WBC (test code = 4106681407) See_Comment [Automated [employer]] The system which generated this result transmitted reference range: 0.0 - 10.0 /100 WBCs. The reference range was not used to interpret this result as normal/abnormal. NRBC x10^3 (test code = 2297828884) <0.01 See_Comment [Automated messa ge] The system which generated this result transmitted reference range: 10*3/?L. The reference range was not used to interpret this result as normal/abnormal. GRAN MAT (NEUT) % (test code = 770-8) 78.8 % IMM GRAN % (test code = 4411340853) 0.40 % LYMPH % (test code = 736-9) 13.8 % MONO % (test code = 5905-5) 5.6 % EOS % (test code = 713-8) 1.1 % BASO % (test code = 706-2) 0.3 % GRAN MAT x10^3(ANC) (test code = 0862186688) 9.35 10*3/uL 1.88-7.09 H IMM GRAN x10^3 (test code = 7928825877) 0.05 10*3/uL 0.00-0.06 LYMPH x10^3 (test code = 731-0) 1.64 10*3/uL 1.32-3.29 MONO x10^3 (test code = 742-7) 0.66 10*3/uL 0.33-0.92 EOS x10^3 (test code = 711-2) 0.13 10*3/uL 0.03-0.39 BASO x10^3 (test code = 704-7) 0.04 10*3/uL 0.01-0.07 Lab Interpretation (test code = 81954-6) Abnormal [facility]wood[facility] Acid Whole [id number] 17:56:47* Test Item Value Reference Range Interpretation Comme nts LACTIC ACID (test code = 0990918715) 1.27 mmol/L 0.50-2.20 Lab Interpretation (test cod e = 81093-1) Normal [facility] [id number] 13:06:00* Test Item Value Reference Range Interpretation Comme nts POCT PREG (test code = 1605) Negative On board controls acceptable with C Line (test code = 3574) Yes POCT PREG LOT # (test code = 3575) [id number] POCT PREG TEST DATE ( test code = 3576) 2022-06-07 Lab Interpretation (test cod e = 01830-0) Normal [facility] [id number] 13:06:00* Test Item Value Reference Range Interpretation Comme nts POCT PREG (test code = 1605) Negative On board controls acceptable with C Line (test code = 3574) Yes POCT PREG LOT # (test code = 3575) [id number] POCT PREG TEST DATE ( test code = 3576) 2022-06-07 Lab Interpretation (test cod e = 65309-3) Normal [facility] [id number] 16:43:00* Test Item Value Reference Range Interpretation Comme nts POCT PREG (test code = 1605) Negative On board controls acceptable with C Line (test code = 3574) Yes POCT PREG LOT # (test code = 3575) POCT PREG TEST DATE ( test code = 3576) [facility] [id number] 16:43:00* Test Item Value Reference Range Interpretation Comme nts POCT PREG (test code = 1605) Negative On board controls acceptable with C Line (test code = 3574) Yes POCT PREG LOT # (test code = 3575) POCT PREG TEST DATE ( test code = 3576) [facility] [id number] 16:43:00* Test Item Value Reference Range Interpretation Comme nts POCT PREG (test code = 1605) Negative On board controls acceptable with C Line (test code = 3574) Yes POCT PREG LOT # (test code = 3575) POCT PREG TEST DATE ( test code = 3576) [facility]CG (QUANTITATIVE)2019-12-16 15:31:00* Test Item Value Reference Range Interpretation Comme nts BETA HCG (test code = 6227784907) See_Comment [Automated messa ge] The system which generated this result transmitted reference range: Non- female and male patients: <5 mIU/mL. The reference range was not used to interpret this result as normal/abnormal. EILEEN (test code = EILEEN) Gestational Age ?Range (mIU/mL) 1-10 ?Weeks ?74-12380078-96 Weeks ?62576-45607641-02 Weeks ?2178-19886588-64 Weeks ?3795-497991 Biotin has been reported to cause a negative bias, interpret results relative to patient's use of biotin. [facility]wood[facility]inalysis2020-[facility] 14:23:00* Test Item Value Reference Range Interpretation Comme nts APPEARANCE (test code = 2842322462) Hazy Clear A COLOR (test code = 0428964006) Yellow Yellow PH (test code = 6807621993) 4.8-8.0 SP GRAVITY (test code = 4652000316) 1.003-1.030 GLU U QUAL (test code = 3827069914) Normal Normal BLOOD (test code = 0883408595) Negative Negative KETONES (test code = 2287159456) Negative Negative PROTEIN (test code = 2887-8) Negative Negative UROBILIN (test code = 4110275664) Normal Normal BILIRUBIN (test code = 5369099978) Negative Negative NITRITE (test code = 9912496208) Negative Negative LEUK DONNA (test code = 8137805417) Negative Negative RBC/HPF (test code = 5583415734) See_Comment [Automated messa ge] The system which generated this result transmitted reference range: 0 - 3 HPF. The reference range was not used to interpret this result as normal/abnormal. WBC/HPF (test code = 3693828592) See_Comment [Automated messa ge] The system which generated this result transmitted reference range: 0 - 5 HPF. The reference range was not used to interpret this result as normal/abnormal. BACTERIA (test code = 4316174631) Few Negative A MUCOUS (test code = 6551062230) Slight Negative LPF A SQ EPITH (test code = 5175936674) HPF Lab Interpretation (test code = 30118-0) Abnormal [facility] Notes Date/Time Note Provider Source 2024-06-20 17:38:50 Pt given printed and verbal discharge instructions regarding myalgia Prescriptions provided Pt verbalized understanding of instructions, pt awake alert oriented, resp reg unlabored, skin w/d, color appropriate for race, moves all ext well,pt encouraged to follow up with pcp Advised to seek medical attention for new/prolonged/worsening of symptoms, PIV d'cd, dressing to site, catheter in tact. Awake, alert oriented, resp reg unlabored, skin w/d, pt leaving amb with steady gait, in no apparent distress, SSEAU CONSULTANT Gloria Freeman RN [facility] 2024-06-20 13:52:35 Reports body aches for two weeks, states she has not taken her blood pressure meds in over a year. 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 She denies any cough or congestion. No fevers or chills. No nausea, vomiting or diarrhea. She reports she is not physically active. She does have a history of high blood pressure and high cholesterol and stopped her medications, including labetalol, over 1 year ago. She does not smoke. She also reports history of a hysterectomy many years ago and therefore is not . Here for evaluation. Past Medical History/Immunizations: Past Medical History: Diagnosis Date Anemia Anxiety Bipolar 1 disorder Depression Endometriosis Hypertension Pap smear abnormality of cervix 2016 Tetanus received in last 5 years: Yes Allergies: No Known Allergies Past Social History: Tobacco Use Former; Cigarettes: 2013 - 2015 Smokeless Tobacco: Never used smokeless tobacco. Comments: quit 2016 Vaping Use Never used Alcohol Use Yes. Comments: socially Drug Use Never. Sexual Activity Sexually active; Partners: Male; Control/Protection: None. Comments: last had sex 08/06/2020 Past Surgical History: Past Surgical History: Procedure Laterality Date CHOLECYSTECTOMY DILATION AND CURETTAGE (SHX) LAPAROSCOPIC EXCISION OF ENDOMETRIOSIS (SHX) LAPAROSCOPIC SALPINGECTOMY Bilateral 01/02/2021 Surgeon: Beny Olivas MD; [place] [facility] [place]IAN CYSTECTOMY TOTAL ABDOMINAL HYSTERECTOMY Review of Systems: Review of Systems Constitutional: Negative for chills and fever. Respiratory: Negative for cough and shortness of breath. Cardiovascular: Positive for palpitations. Negative for chest pain. Gastrointestinal: Negative for abdominal pain, nausea and vomiting. Genitourinary: Negative for dysuria. Musculoskeletal: Positive for myalgias. Negative for neck pain and neck stiffness. Skin: Negative for wound. Neurological: Negative for dizziness. Psychiatric/Behavioral: Negative for agitation. Endocrine: Negative for goiter. Physical Exam: ED Triage Vitals [06/20/24 1352] Weight 65.8 kg (145 lb) Actual or estimated Estimated by patient/family report Height 1.524 m (5') BP (!) 147/100 Pulse 81 Resp 18 Temp 36.7 ?C (98.1 ?F) Temp source Oral SpO2 100 % Measured on Room air Physical Exam Vitals and nursing note reviewed. Constitutional: Appearance: Normal appearance. She is normal weight. HENT: Head: Normocephalic and atraumatic. Mouth/Throat: Mouth: Mucous membranes are dry. Eyes: Conjunctiva/sclera: Conjunctivae normal. Pupils: Pupils are equal, round, and reactive to light. Cardiovascular: Rate and Rhythm: Normal rate and regular rhythm. Pulses: Normal pulses. Pulmonary: Effort: Pulmonary effort is normal. No respiratory distress. Breath sounds: No stridor. No wheezing or rhonchi. Abdominal: General: There is no distension. Palpations: Abdomen is soft. There is no mass. Tenderness: There is no abdominal tenderness. There is no guarding or rebound. Hernia: No hernia is present. Musculoskeletal: General: Normal range of motion. Cervical back: Normal range of motion and neck supple. Skin: General: Skin is warm. Neurological: General: No focal deficit present. Mental Status: She is alert and oriented to person, place, and time. Radiology: No orders to display Lab Results: Lab Results COMP. METABOLIC PANEL (06799) - Abnormal Result Value Ref Range NA 140 135 - 145 mmol/L K 4.0 3.5 - 5.0 mmol/L CL 102 98 - 108 mmol/L CO2 TOTAL 30 23 - 31 mmol/L AGAP 8 2 - 16 BUN 15 7 - 23 mg/dL GLUCOSE 88 70 - 110 mg/dL CREATININE 1.19 (*) 0.50 - 1.04 mg/dL TOTAL BILI 0.4 0.1 - 1.1 mg/dL CALCIUM 10.0 8.6 - 10.6 mg/dL T PROTEIN 8.2 6.3 - 8.2 g/dL ALBUMIN 4.8 3.5 - 5.0 g/dL ALK PHOS 52 34 - 122 U/L ALTv 23 5 - 35 U/L AST(SGOT) 33 13 - 40 U/L eGFR 64.0 mL/min/1.73m2 URINALYSIS - Abnormal APPEARANCE Cloudy (*) Clear COLOR Yellow Yellow PH 7.0 4.8 - 8.0 SP GRAVITY 1.015 1.003 - 1.030 GLU U QUAL Normal Normal BLOOD Negative Negative KETONES Negative Negative PROTEIN Negative Negative UROBILIN Normal Normal BILIRUBIN Negative Negative NITRITE Negative Negative LEUK DONNA Negative Negative RBC/HPF 2 0 - 3 HPF WBC/HPF 15 (*) 0 - 5 HPF BACTERIA Few (*) Negative AMORPHOUS Moderate (*) Rare HPF SQ EPITH 47 HPF WBC CLUMPS 11 (*) <=1 HPF CA OXALATE 32 (*) <=1 HPF YEAST BUD 56 (*) <=1 HPF MAGNESIUM - Normal MAGNESIUM 1.7 1.7 - 2.4 mg/dL CREATINE KINASE - Normal CK 41 33 - 194 U/L CBC WITH DIFF WBC 8.10 4.30 - 11.10 10*3/?L RBC 4.31 3.93 - 5.25 10*6/?L HGB 12.6 11.6 - 15.0 g/dL HCT 39.3 35.7 - 45.2 % MCV 91.2 80.6 - 95.5 fL MCH 29.2 25.9 - 32.8 pg MCHC 32.1 31.6 - 35.1 g/dL RDW-SD 41.7 39.0 - 49.9 fL RDW-CV 12.6 12.0 - 15.5 % PLT 298 166 - 358 10*3/?L MPV 9.7 9.5 - 12.9 fL NRBC/100 WBC 0.0 0.0 - 10.0 /100 WBCs NRBC x10 3 <0.01 10*3/?L GRAN MAT (NEUT) % 54.8 % IMM GRAN % 0.20 % LYMPH % 33.7 % MONO % 8.3 % EOS % 2.1 % BASO % 0.9 % GRAN MAT x10 3 (ANC) 4.44 1.88 - 7.09 10*3/uL IMM GRAN x10 3 <0.03 0.00 - 0.06 10*3/uL LYMPH x10 3 2.73 1.32 - 3.29 10*3/uL MONO x10 3 0.67 0.33 - 0.92 10*3/uL EOS x10 3 0.17 0.03 - 0.39 10*3/uL BASO x10 3 0.07 0.01 - 0.07 10*3/uL EKG: If EKG completed, see Procedure Note. Orders and Treatments: Orders Placed This Encounter Procedures CBC WITH DIFF COMP. METABOLIC PANEL (86448) Magnesium URINALYSIS Creatine Kinase Orders Placed This Encounter Medications labetaloL 200 mg tablet First Provider Eval: ED Events Date/Time Event User Comments 06/20/24 1350 Medical Screening Begins MADELINE MITCHELL DO -- 06/20/24 135Simone First Provider Evaluation MADELINE MITCHELL DO -- ED COURSE Diagnosis/Impression as of 06/20/24 1732 Myalgia Procedures: EKG-12 Lead ROUTINE ONCE Date/Time: 06/20/2024 2:02 PM Performed by: Madeline Mitchell DO Authorized by: Madeline Mitchell DO ECG interpreted by ED Physician in the absence of a trampoline team coach: yes Interpretation: Interpretation: normal Rate: ECG rate: 75 ECG rate assessment: normal Rhythm: Rhythm: sinus rhythm Ectopy: Ectopy: none QRS: QRS axis: Normal QRS intervals: Normal QRS conduction: normal ST segments: ST segments: Normal T waves: T waves: normal Q waves: Abnormal Q-waves: not present MDM: Medical Decision Making The patient presents from home for evaluation for body aches and palpitations she has been having for the past 2 weeks. She denies any cough or congestion. No fevers or chills. No nausea, vomiting or diarrhea. She reports she is not physically active. She does have a history of high blood pressure and high cholesterol and stopped her medications, including labetalol, over 1 year ago. She does not smoke. She also reports history of a hysterectomy many years ago and therefore is not . Vital signs are stable in the ER. Her heart is regular rhythm. Her lungs are clear bilaterally. She does have dry mucous membranes. Her EKG shows a normal sinus rhythm, no STEMI. Will check laboratory studies to eval for any possible electrolyte abnormality, anemia or rhabdomyolysis may be causing her symptoms. Final disposition pending. 1730 -the patient is doing well from ER. Her laboratory studies are unremarkable. She reports no significant change in her symptoms. Will refill her blood pressure medication. Spoke with the patient about the possibility of mono as the cause of her symptoms however as it is a viral syndrome and she does not participate in any type of contact sports there is no indication for testing here. She remained stable here in the ER and is okay for discharge home with PCP follow-up. Problems Addressed: Myalgia: acute illness or injury Amount and/or Complexity of Data Reviewed Labs: ordered. Decision-making details documented in ED Course. ECG/medicine tests: ordered and independent interpretation performed. Decision-making details documented in ED Course. Risk Prescription drug management. Flowsheet Documentation: Scoring Tools: No data recorded Disposition/Condition: ED Disposition ED Disposition Discharge Condition Stable Comment -- Discharge Medications: Current Discharge Medication List CONTINUE these medications which have CHANGED Details labetaloL 200 mg tablet Take 1 tablet by mouth in the morning and 1 tablet in the evening. Qty: 180 tablet, Refills: 3 Associated Diagnoses: Primary hypertension; Palpitations CONTINUE these medications which have NOT CHANGED Details carBAMazepine 200 mg 12 hr tablet 1 tablet. gabapentin 400 mg capsule Take by mouth 3 (three) times daily. valACYclovir 1 gram tablet as needed. lithium carbonate CR 450 mg SR tablet Take 450 mg by mouth 2 (two) times daily. Follow-up: Electronically signed by: Madeline Mitchell DO 06/20/241731 [facility] 2024-03-13 09:50:22 Pt given printed and verbal discharge instructions regarding acute intractable headache, encouraged hydration. Pt verbalized understanding of instructions, pt awake alert oriented, resp reg unlabored, skin w/d, color appropriate for race, moves all ext well, pt encouraged to follow up with pcp. Advised to seek medical attention for new/prolonged/worsening of symptoms. Symptoms addressed. No adverse reaction to meds given in ER noted upon discharge. PIV d'cd, dressing to site, catheter intact. Pt leaving amb with steady gait, in no apparent distress. Swati Renteria RN [facility] 2024-03-13 07:38:34 Patient states "I have anne sick for four days and my temperature gets up to 104 and it is hard to bring down and I have a headache, it hurts to move my eyes and to move my head." TAT Edwar Fitch RN [facility] 2024-03-13 07:26:00 [facility] Emergency Department Note Patient Name: Umm Bell Date of : 1995 29 year old female Treatment Room: Room/bed info not found Primary Care Physician: Laurent Saenz Patient Escorted by: Self [9] Mode of Arrival: Personal means [1] EMS Treatment Prior to ED 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 She complains of fevers in the evening up to 104 degrees. She reports in the morning when she wakes up she feels better however her symptoms worsen throughout the day. She last had medications for symptoms yesterday evening. She does report a history of migraines and reports her migraine medication is not helping. No history of diabetes. No sick contacts. No cough or congestion. No ear pain. No dysuria or hematuria. She does not smoke. Here for evaluation. Past Medical History/Immunizations: Past Medical History: Diagnosis Date Anemia Anxiety Bipolar 1 disorder Depression Endometriosis Hypertension Pap smear abnormality of cervix 2016 Tetanus received in last 5 years: Yes Allergies: No Known Allergies Past Social History: Tobacco Use Former; Cigarettes: 2013 - 2015 Smokeless Tobacco: Never used smokeless tobacco. Comments: quit 2016 Vaping Use Never used Alcohol Use Yes. Comments: socially Drug Use Never. Sexual Activity Sexually active; Partners: Male; Control/Protection: None. Comments: last had sex 08/06/2020 Past Surgical History: Past Surgical History: Procedure Laterality Date CHOLECYSTECTOMY DILATION AND CURETTAGE (SHX) LAPAROSCOPIC EXCISION OF ENDOMETRIOSIS (SHX) LAPAROSCOPIC SALPINGECTOMY Bilateral 01/02/2021 Surgeon: Beny Olivas MD; [place] [facility] [place] OVARIAN CYSTECTOMY TOTAL ABDOMINAL HYSTERECTOMY Review of Systems: Review of Systems Constitutional: Positive for fever. Negative for chills. Respiratory: Negative for cough. Cardiovascular: Negative for chest pain. Gastrointestinal: Negative for abdominal pain. Musculoskeletal: Positive for neck pain and neck stiffness. Negative for arthralgias. Skin: Negative for wound. Neurological: Positive for headaches. Psychiatric/Behavioral: Negative for agitation. Endocrine: Negative for goiter. Physical Exam: ED Triage Vitals [03/13/24 0739] Weight 63.5 kg (140 lb) Actual or estimated Height 1.524 m (5') BP (!) 138/93 Pulse 84 Resp 18 Temp 37.6 ?C (99.7 ?F) Temp source Oral SpO2 99 % Measured on Room air Physical Exam Vitals and nursing note reviewed. Constitutional: Appearance: Normal appearance. HENT: Head: Normocephalic and atraumatic. Right Ear: Tympanic membrane and ear canal normal. Left Ear: Tympanic membrane and ear canal normal. Nose: Nose normal. Mouth/Throat: Mouth: Mucous membranes are moist. Pharynx: Oropharynx is clear. No oropharyngeal exudate or posterior oropharyngeal erythema. Neck: Comments: Mild stiffness to her neck Cardiovascular: Rate and Rhythm: Normal rate. Pulmonary: Effort: Pulmonary effort is normal. No respiratory distress. Abdominal: General: There is no distension. Palpations: Abdomen is soft. There is no mass. Tenderness: There is no abdominal tenderness. There is no guarding. Hernia: No hernia is present. Musculoskeletal: General: Normal range of motion. Cervical back: Neck supple. No tenderness. Skin: General: Skin is warm and dry. Neurological: General: No focal deficit present. Mental Status: She is alert and oriented to person, place, and time. Radiology: No orders to display Lab Results: Lab Results INFLUENZA A/B RSV COVID NAAT - Normal Result Value Ref Range Influenza A NAAT Negative Negative Influenza B NAAT Negative Negative RSV by PCR Negative Negative SARS-CoV-2 NAAT Negative Negative EKG: If EKG completed, see Procedure Note. Orders and Treatments: Orders Placed This Encounter Procedures Influenza A B RSV COVID NAAT Lab Only COVID Interpretation Orders Placed This Encounter Medications NaCl 0.9% (NS) bolus infusion 1,000 mL metoclopramide HCl (REGLAN) injection 10 mg diphenhydrAMINE (BENADRYL) injection 25 mg dexamethasone sod phos PF injection 10 mg ketorolac (TORADOL) injection 30 mg First Provider Eval: ED Events Date/Time Event User Comments 03/13/24 0741 Medical Screening Begins MADELINE MITCHELL DO -- 03/13/24 0741 First Provider Evaluation MADELINE MITCHELL DO -- ED COURSE Diagnosis/Impression as of 03/13/24 0931 Acute intractable headache, unspecified headache type Procedures: Procedures MDM: Medical Decision Making The patient presents from home for evaluation for headache for the past 4 days as well as fevers in the evening with neck stiffness. She reports her fevers get as high as 104 degrees. She reports the morning she feels better however her symptoms worsen throughout the day. No sick contacts. No cough or congestion. She last had medications for her symptoms yesterday evening. She does report strict migraine headaches and states that her normal migraine medication is not helping. She does not smoke. Vital signs are stable in the ER. She is nontoxic in appearance. Her tympanograms are pearly harding. Her pharynx is pink and without exudates or erythema. She does have slight stiffness to her neck. Low concern for bacterial meningitis based on her presentation. Differential diagnosis includes viral meningitis, viral syndrome, migraine headache. Will screen patient for COVID, RSV as well as influenza. Will give a migraine cocktail here in the ER. As the treatment for viral meningitis is supportive care we will not proceed with a lumbar puncture at present time as it will not change her treatment. Anticipate discharge home later. 09 -the patient is doing well from ER. Her headache has resolved with the medications given here in the ER. Her viral swab is negative for COVID, influenza as well as RSV. She remained stable here in the ER and is okay for discharge home with PCP follow-up. Problems Addressed: Acute intractable headache, unspecified headache type: acute illness or injury Amount and/or Complexity of Data Reviewed Labs: ordered. Decision-making details documented in ED Course. Risk OTC drugs. Prescription drug management. Flowsheet Documentation: Scoring Tools: No data recorded Disposition/Condition: ED Disposition ED Disposition Disch - Home Condition Stable Comment -- Discharge Medications: Patient's Medications START taking these medications No medications on file CONTINUE taking these medications which have NOT CHANGED CARBAMAZEPINE 200 MG 12 HR TABLET 1 tablet. GABAPENTIN 400 MG CAPSULE Take by mouth 3 (three) times daily. LABETALOL 200 MG TABLET Take 1 tablet by mouth in the morning and 1 tablet in the evening. LITHIUM CARBONATE CR 450 MG SR TABLET Take 450 mg by mouth 2 (two) times daily. VALACYCLOVIR 1 GRAM TABLET as needed. START taking Modified Medications as Prescribed No medications on file STOP taking these medications No medications on file Follow-up: Electronically signed by: Madeline Mitchell DO 03/13/24 09 [facility]
[2024-11-15 20:51] LABS: Absolute Basophils 0.1 K/uL (0-0.5); Absolute Eosinophils 0.1 K/uL (0-0.5); Absolute Lymphocytes (CBC) 2.6 K/uL (0.7-4.9); Absolute Monocytes 0.8 K/uL (0.1-1.3); Absolute Neutrophil 5.1 K/uL (1.8-8.0); Basophils % 0.9 % (0-1.3); Eosinophils % 1.4 % (0-4.4); Hematocrit 36.5 % (36.0-45.0); Hemoglobin 12.6 g/dL (12.0-15.0); Lymphocytes % 30.1 % (15.3-44.8); MCH 29.6 pg (27.0-35.0); MCHC 34.5 g/dL (32.0-36.0); MCV 85.7 fL (80-100); Monocytes % 8.7 % (3.3-12.3); Neutrophils % 58.9 % (41.7-73.7); Nucleated Red Blood Cells % 0.1 % (0-0); Platelets 260 thou/uL (152-406); RBC Red Blood Cell Count 4.25 M/uL (3.86-4.86); Red Cell Distribution Width 13.8 % (12.1-15.2)
[2024-11-15 21:14] LABS: ALT/SGPT 21 U/L (13-56); Albumin 3.6 g/dL (3.4-5.0); Alkaline Phosphatase 61 U/L (45-117); Anion Gap 7.6 mEq/L (5.0-15.0); BUN Blood Urea Nitrogen 15 mg/dL (7-18); Bicarbonate 25 mEq/L (21-32); Bilirubin Total 0.4 mg/dL (0.2-1.0); Globulin 3.6 g/dL (2.3-3.5); Glomerular Filtration Rate 122 ml/min (=/>90); Glucose Level 107 mg/dL (74-106); Lipase 43 U/L (13-75); Potassium 3.6 mEq/L (3.5-5.1); Protein, Total 7.2 g/dL (6.4-8.2); Sodium Level 138 mEq/L (136-145)
[2024-11-15 21:19] LABS: AST/SGOT < 10 U/L (15-37); Bilirubin Direct < 0.2 mg/dL (0-0.2); Bilirubin Indirect, Calculated 0.2 mg/dL (0.2-0.8); Troponin High Sensitivity < 3.0 pg/mL (<58.9)
--- NOTE | 2024-11-15 22:06 | RAD REPORT ---
EXAMINATION: ONE VIEW CHEST XR CLINICAL INDICATION: Female, 29 years old.,(pt with hysterectomy);Chest pain TECHNIQUE: Frontal chest projection is submitted. Examination is limited by patient positioning and t echnique. COMPARISON: 07/01/2019 FINDINGS: The lungs are well inflated and clear. No pneumothorax or sizable effusion. The heart is normal in s ize. Mediastinal contours are unremarkable. IMPRESSION: No acute intrathoracic abnormalities.
--- NOTE | 2024-11-15 23:08 | ER ---
Nurse's Notes [facility] Name: Umm Bell Age: 29 yrs Sex: Female : 1995 Arrival Date: 11/15/2024 Time: 19:30 Bed DX4 Private MD: Diagnosis: Chest pressure Presentation: 11/15 20:23 Chief complaint: Patient states: chest pressure that radiates to neck. Coronavirus vc1 screen: Client denies travel out of the [place] in the last 14 days. At this time, the client does not indicate any symptoms associated with coronavirus-19. Ebola Screen: Patient negative for fever greater than or equal to 101.5 degrees Fahrenheit, and additional compatible Ebola Virus Disease symptoms Patient denies exposure to infectious person. Patient denies travel to an Ebola-affected area in the 21 days before illness onset. No symptoms or risks identified at this time. Initial Sepsis Screen: Does the patient meet any 2 criteria? No. Patient's initial sepsis screen is negative. Does the patient have a suspected source of infection? No. Patient's initial sepsis screen is negative. Risk Assessment: Do you want to hurt yourself or someone else? Patient reports no desire to harm self or others. Onset of symptoms was November 15, 2024. 20:23 Method Of Arrival: Ambulatory vc1 20:23 Acuity: MICHAEL 3 vc1 Triage Assessment: 20:24 General: Appears in no apparent distress. uncomfortable, Behavior is calm, cooperative, vc1 appropriate for age. Pain: Denies pain. Neuro: Level of Consciousness is awake, alert, obeys commands, Oriented to person, place, time, situation, Appropriate for age. Cardiovascular: Reports chest pressure Capillary refill < 3 seconds Patient's skin is warm and dry. Derm: Skin is intact, is healthy with good turgor, Skin is dry, Skin is normal, Skin temperature is warm. Musculoskeletal: Circulation, motion, and sensation intact. Range of motion: intact in all extremities. Historical: - Allergies: 20:24 No Known Allergies; vc1 - PMHx: 20:24 Anxiety; Bipolar disorder; Endometriosis; vc1 - PSHx: 20:24 Cholecystectomy; Ovarian cyst removal; Total abdominal hysterectomy; tubal ligation; vc1 - Immunization history:: Client reports receiving the 2nd dose of the Covid vaccine, Flu vaccine is up to date. - Infectious Disease History:: Denies. - Social history:: Smoking status: Patient denies any tobacco usage or history of. Screenin:16 [facility] ED Fall Risk Assessment (Adult) History of falling in the last 3 months, vc1 including since admission No falls in past 3 months (0 pts) Confusion or Disorientation No (0 pts) Intoxicated or Sedated No (0 pts) Impaired Gait No (0 pts) Mobility Assist Device Used No (0 pt) Altered Elimination No (0 pt) Score/Fall Risk Level 0 - 2 = Low Risk Oriented to surroundings, Maintained a safe environment, Hourly rounding (assess needs \T\ fall precautionary measures) done. Abuse screen: Denies threats or abuse. Nutritional screening: No deficits noted. Tuberculosis screening: No symptoms or risk factors identified. Assessment: 23:18 General: Appears in no apparent distress. Behavior is calm, cooperative, appropriate vc1 for age. Pain: Denies pain. Vital Signs: 20:23 BP 141 / 87; Pulse 71; Resp 18; Temp 97.4; Pulse Ox 98% ; Weight 68.04 kg; Height 5 ft. vc1 0 in. ; Pain 0/10; 20:23 Body Mass Index 29.29 (68.04 kg, 152.4 cm) vc1 20:23 Pain Scale: Adult vc1 ED Course: 19:32 Patient arrived in ED. [email or web address] 20:07 Karl Mixon MD is Attending Physician. sp3 20:24 Triage completed. vc1 20:24 Arm band placed on right wrist. vc1 20:24 Patient has correct armband on for positive identification. Provided Education on: f/u vc1 with PCP. 20:24 Pulse ox on. NIBP on. vc1 20:31 EKG done, by ED staff, reviewed by Karl Mixon MD. oe 20:45 Basic Metabolic Panel Sent. oe 20:45 CBC with Diff Sent. oe 20:45 D-Dimer Sent. oe 20:45 LFT's Sent. oe 20:45 Troponin HS Sent. oe 21:05 Lipase Sent. oe 21:05 Basic Metabolic Panel Sent. oe 21:05 D-Dimer Sent. oe 21:05 LFT's Sent. oe 21:05 Troponin HS Sent. oe 21:26 XRAY Chest (1 view) In Process Unspecified. EDMS 23:17 No provider procedures requiring assistance completed. Patient did not have IV access vc1 during this emergency room visit. Patient maintains SpO2 saturation greater than 95% on room air. Administered Medications: No medications were administered Medication: 23:17 VIS not applicable for this client. vc1 Outcome: 23:07 Discharge ordered by . angelica 23:17 Discharged to home ambulatory, vc1 23:17 Condition: stable 23:17 Discharge instructions given to patient, Instructed on discharge instructions, follow up and referral plans. Demonstrated understanding of instructions, follow-up care, 23:18 Patient left the ED. vc1 Signatures: Dispatcher [employer] EDMS Julio London Setul, MD MD sp3 Sandra Garcia Vanessa RN RN vc1
--- NOTE | 2024-11-15 23:08 | EDPHYS ---
Physician Documentation [facility] Name: Umm Bell Age: 29 yrs Sex: Female : 1995 Arrival Date: 11/15/2024 Time: 19:30 Bed DX4 Private MD: ED Physician Karl Mixon HPI: 11/15 20:30 This 29 yrs old Female presents to ER via Ambulatory with complaints of Chest Pain, sp3 Shortness Of Breath. 20:30 29-year-old female with history of endometriosis, bipolar disease, anxiety, sp3 hypertension (-induced but not currently on any medications) that presents to the ED with chief complaint chest pressure radiating up superiorly into her jaw. She states it does not feel like anxiety or reflux. She had some shortness of breath which is now resolved. She denies pain per se. Review of systems negative for headache, neck pain posteriorly, fever, cough, URI symptoms, sinus pain, back pain, abdominal pain, vomiting, diarrhea, nausea, rash, bleeding, prolonged immobilization, recent travel, known sick contacts, prior DVT or PE, any hypercoagulable pathology in the past, or any other signs or symptoms on ROS at this time.. Historical: - Allergies: 20:24 No Known Allergies; vc1 - PMHx: 20:24 Anxiety; Bipolar disorder; Endometriosis; vc1 - PSHx: 20:24 Cholecystectomy; Ovarian cyst removal; Total abdominal hysterectomy; tubal ligation; vc1 - Immunization history:: Client reports receiving the 2nd dose of the Covid vaccine, Flu vaccine is up to date. - Infectious Disease History:: Denies. - Social history:: Smoking status: Patient denies any tobacco usage or history of. ROS: 20:31 Constitutional: Negative for fever, chills, and weight loss, Eyes: Negative for injury, sp3 pain, redness, and discharge, ENT: Negative for injury, pain, and discharge, Neck: Negative for injury, pain, and swelling, Abdomen/GI: Negative for abdominal pain, nausea, vomiting, diarrhea, and constipation, Back: Negative for injury and pain, MS/Extremity: Negative for injury and deformity, Skin: Negative for injury, rash, and discoloration, Neuro: Negative for headache, weakness, numbness, tingling, and seizure, Psych: Negative for depression, anxiety, suicide ideation, homicidal ideation, and hallucinations, Allergy/Immunology: Negative for hives, rash, and allergies, Endocrine: Negative for neck swelling, polydipsia, polyuria, polyphagia, and marked weight changes, Hematologic/Lymphatic: Negative for swollen nodes, abnormal bleeding, and unusual bruising, 20:31 All other systems are negative, Exam: 20:31 Constitutional: This is a well developed, well nourished patient who is awake, alert, sp3 and in no acute distress. Head/Face: Normocephalic, atraumatic. Eyes: Pupils equal round and reactive to light, extra-ocular motions intact. Lids and lashes normal. Conjunctiva and sclera are non-icteric and not injected. Cornea within normal limits. Periorbital areas with no swelling, redness, or edema. ENT: Nares patent. No nasal discharge, no septal abnormalities noted. External auditory canals are clear. Oropharynx with no redness, swelling, or masses, exudates, or evidence of obstruction, uvula midline. Mucous membranes moist. Neck: Trachea midline, no thyromegaly or masses palpated, and no cervical lymphadenopathy. Supple, full range of motion without nuchal rigidity, or vertebral point tenderness. No Meningismus. Chest/axilla: Normal chest wall appearance and motion. Nontender with no deformity. No lesions are appreciated. Cardiovascular: Regular rate and rhythm with a normal S1 and S2. No gallops, murmurs, or rubs. Normal PMI, no JVD. No pulse deficits. Respiratory: Lungs have equal breath sounds bilaterally, clear to auscultation and percussion. No rales, rhonchi or wheezes noted. No increased work of breathing, no retractions or nasal flaring. Abdomen/GI: Soft, non-tender, with normal bowel sounds. No distension or tympany. No guarding or rebound. No evidence of tenderness throughout. Back: No spinal tenderness. No costovertebral tenderness. Full range of motion. Skin: Warm, dry with normal turgor. Normal color with no rashes, no lesions, and no evidence of cellulitis. MS/ Extremity: Pulses equal, no cyanosis. Neurovascular intact. Full, normal range of motion. Neuro: Awake and alert, GCS 15, oriented to person, place, time, and situation. Cranial nerves II-XII grossly intact. Motor strength 5/5 in all extremities. Sensory grossly intact. Cerebellar exam normal. Normal gait. Psych: Awake, alert, with orientation to person, place and time. Behavior, mood, and affect are within normal limits. 20:31 ECG was reviewed by the Attending Physician. EKG demonstrates normal sinus rhythm at 77 bpm with normal intervals, normal QRS, normal axis, normal ST/T-segment's without evidence of acute ischemia. Vital Signs: 20:23 BP 141 / 87; Pulse 71; Resp 18; Temp 97.4; Pulse Ox 98% ; Weight 68.04 kg; Height 5 ft. vc1 0 in. ; Pain 0/10; 20:23 Body Mass Index 29.29 (68.04 kg, 152.4 cm) vc1 20:23 Pain Scale: Adult vc1 MDM: 20:08 Medical Screening Exam initiated sp3 20:31 Data reviewed: vital signs, nurses notes, old medical records, lab test result(s), EKG, sp3 radiologic studies. ED course: 29-year-old female with chest pressure radiating superiorly into her anterior neck and jaw. Differential diagnosis is broad but I am not highly suspicious of any critical illness. Differential diagnosis includes musculoskeletal pain, esophageal reflux, anxiety, and to a much lesser degree acute coronary syndrome, vascular pathology, PE, or any other critical process. Vital signs are normal. Will obtain chest x-ray and additional labs including troponin and D-dimer and lipase. EKG is normal. If workup negative we will safely discharge patient home to PCP follow-up and general supportive care.. 23:07 ED course: Laboratory having difficulty with D-dimer. We will discharge patient home sp3 and call her back if necessary. Clinically I am not highly suspicious of PE. Patient acknowledged and understands the plan.. 23:10 ED course: D-dimer at 0.45. No further diagnostics indicated.. sp3 11/15 20:23 Order name: Basic Metabolic Panel; Complete Time: : sp3 11/15 20: Order name: CBC with Diff; Complete Time: 22: sp3 11/15 20:23 Order name: D-Dimer; Complete Time: 23: sp3 11/15 20: Order name: LFT's; Complete Time: : sp3 11/15 20: Order name: Troponin HS; Complete Time: 22: sp3 11/15 20:23 Order name: Lipase; Complete Time: 22:08 sp3 11/15 20:23 Order name: XRAY Chest (1 view); Complete Time: 22:08 sp3 11/15 19:39 Order name: EKG - Nurse/Tech; Complete Time: 20:15 ms3 11/15 20:23 Order name: Labs collected and sent; Complete Time: 20:45 sp3 Administered Medications: No medications were administered Disposition Summary: 11/15/24 23:07 Discharge Ordered Notes: Location: Home sp3 Condition: Stable sp3 Diagnosis - Chest pressure sp3 Followup: sp3 - With: Private Physician - When: Upon discharge from the Emergency Department - Reason: Continuance of care Discharge Instructions: - Discharge Summary Sheet sp3 - Nonspecific Chest Pain, Adult sp3 Forms: - Medication Reconciliation Form sp3 - Antibiotic Education sp3 - Prescription Opioid Use sp3 - Patient Portal Instructions sp3 - Leadership Thank You Letter sp3 Signatures: Dispatcher [employer] EDYamil Hirsch DO DO ms3 Karl Mixon MD MD sp3 Richa Zhang RN RN vc1
[2024-11-16 00:23] VITALS: BP 141/87; TEMP 97.4; O2SAT 98
--- NOTE | 2024-11-16 14:15 | EKG ---
Test Date: 2024-11-15 Test Time: 20:03:19 [place]: ANICETO MEASUREMENT RESULTS: Intervals: Rate: 77 MI: 144 QRSD: 90 QT: 366 QTc: 414 [place]: P: 60 MI: 144 QRS: 46 T: 33 INTERPRETIVE STATEMENTS: Normal sinus rhythm Normal ECG Compared to ECG 07/01/2019 23:03:41 Sinus arrhythmia no longer present Electronically Signed On 11-16-24 14:12:43 CDT by Sebastien Gilliam
== END 2024-11-15 23:18 | disposition home or self-care (01) ==
LOC: ER 19:30
DX: R07.89 Other chest pain (principal); F41.9 Anxiety disorder, unspecified
CPT/HCPCS: 36415; 71045; 80048; 80076; 83690; 84484; 85025; 85379; 93005; 99284

== ENCOUNTER 2025-06-05 20:52 | Emergency (ER) | payer OTHER, SELFPAY ==
[2025-06-05 22:02] LABS: Absolute Lymphocytes (CBC) 2.8 K/uL (0.7-4.9); Hematocrit 38.1 % (36.0-45.0); Hemoglobin 12.8 g/dL (12.0-15.0); MCH 29.5 pg (27.0-35.0); MCHC 33.7 g/dL (32.0-36.0); MCV 87.3 fL (80-100); MPV 7.7 fL (7.6-11.3); Nucleated RBC Absolute Count 0.0 (0-0); Nucleated Red Blood Cells % 0.0 % (0-0); RBC Red Blood Cell Count 4.36 M/uL (3.86-4.86); White Blood Count 8.70 thou/uL (4.3-10.9)
[2025-06-05] MEDS ORDERED: ONDANSETRON 4 MG/2 ML VIAL ONE (22:06)
[2025-06-05] MEDS ORDERED: MORPHINE 2 MG/ML SYR ONE (22:06)
[2025-06-05 22:11] LABS: D-Dimer 0.496 FEUug/mL (0-0.500); PT Prothrombin Time 11.7 SECONDS (10-13.0); Protime INR 1.04
[2025-06-05 22:27] LABS: ALT/SGPT 25 U/L (13-56); AST/SGOT 13 U/L (15-37); Albumin 3.9 g/dL (3.4-5.0); Albumin/Globulin Ratio 1.0 (1.1-1.8); Alkaline Phosphatase 71 U/L (45-117); Anion Gap 9.5 mEq/L (5.0-15.0); BUN Blood Urea Nitrogen 13 mg/dL (7-18); Globulin 3.9 g/dL (2.3-3.5); Glucose Level 104 mg/dL (74-106); Magnesium 2.2 mg/dL (1.6-2.4); NT PRO-BNP 55 pg/mL (<125); Potassium 3.5 mEq/L (3.5-5.1)
[2025-06-05 22:30] LABS: Bilirubin Indirect, Calculated 0.2 mg/dL (0.2-0.8); Troponin High Sensitivity < 3.0 pg/mL (<58.9)
[2025-06-05] MEDS ORDERED: KETOROLAC 30 MG/ML INJ ONE (22:34)
--- NOTE | 2025-06-05 22:38 | ER ---
Nurse's Notes [facility] Name: Umm Bell Age: 30 yrs Sex: Female : 1995 Arrival Date: 06/05/2025 Time: 20:52 Bed 4 Private MD: Diagnosis: Chest pain, unspecified Presentation: 06/05 21:01 Chief complaint: Patient states: CP STARTED 6:30P WHILE EATING DINNER. NAUSEA. HAD A bp STRESS TEST ON TUESDAY SHOWED ISCHEMIA. IS SCHEDULE FOR A CARDIAC CT ON TUESDAY. Coronavirus screen: At this time, the client does not indicate any symptoms associated with coronavirus-19. Ebola Screen: No symptoms or risks identified at this time. Initial Sepsis Screen: Does the patient meet any 2 criteria? No. Patient's initial sepsis screen is negative. Does the patient have a suspected source of infection? No. Patient's initial sepsis screen is negative. Risk Assessment: Do you want to hurt yourself or someone else? Patient reports no desire to harm self or others. Onset of symptoms was June 05, 2025. 21:01 Method Of Arrival: Wheelchair bp 21:01 Acuity: MICHAEL 3 bp Triage Assessment: 21:04 General: Appears in no apparent distress. uncomfortable, Behavior is calm, cooperative, bp appropriate for age. Pain: Denies pain. Complains of pain in chest Pain radiates to left arm. Cardiovascular: Reports chest pain, nausea. 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 - Infectious Disease History:: Denies. - Social history:: Smoking status: Patient denies any tobacco usage or history of. Patient/guardian denies using alcohol, street drugs, IV drugs. Screenin:59 [facility] ED Fall Risk Assessment (Adult) History of falling in the last 3 months, cp4 including since admission No falls in past 3 months (0 pts) Confusion or Disorientation No (0 pts) Intoxicated or Sedated No (0 pts) Impaired Gait No (0 pts) Mobility Assist Device Used No (0 pt) Altered Elimination No (0 pt) Score/Fall Risk Level 0 - 2 = Low Risk Oriented to surroundings, Maintained a safe environment, Assessed \T\ reinforced patient's understanding of fall precautions, Hourly rounding (assess needs \T\ fall precautionary measures) done. Abuse screen: Denies threats or abuse. Denies injuries from another. Nutritional screening: No deficits noted. Tuberculosis screening: No symptoms or risk factors identified. Never had TB. Assessment: 21:59 General: Appears in no apparent distress. uncomfortable, Behavior is calm, cooperative, cp4 appropriate for age. Pain: Complains of pain in left arm and chest Pain does not radiate. Pain currently is 7 out of 10 on a pain scale. Pain began 3 hours ago. Neuro: Level of Consciousness is awake, alert, obeys commands, Oriented to person, place, time, situation. Cardiovascular: Patient's skin is warm and dry. Rhythm is sinus rhythm. Respiratory: Airway is patent Respiratory effort is even, unlabored. GI: No signs and/or symptoms were reported involving the gastrointestinal system. : No signs and/or symptoms were reported regarding the genitourinary system. EENT: No signs and/or symptoms were reported regarding the EENT system. Derm: No signs and/or symptoms reported regarding the dermatologic system. Musculoskeletal: No signs and/or symptoms reported regarding the musculoskeletal system. 23:11 Reassessment: Patient appears in no apparent distress at this time. Patient and/or cp4 family updated on plan of care and expected duration. Pain level reassessed. Patient is alert, oriented x 3, equal unlabored respirations, skin warm/dry/pink. 06/06 01:47 Reassessment: Patient appears in no apparent distress at this time. Patient and/or cp4 family updated on plan of care and expected duration. Pain level reassessed. Patient is alert, oriented x 3, equal unlabored respirations, skin warm/dry/pink. Vital Signs: 06/05 21:01 BP 156 / 111; Pulse 79; Resp 16; Temp 98.4; Pulse Ox 100% ; Weight 68.04 kg; Height 5 bp ft. 0 in. ; Pain 7/10; 22:10 BP 145 / 94; Pulse 78; Resp 18; Pulse Ox 98% ; cp4 23:11 BP 138 / 92; Pulse 74; Resp 18; Pulse Ox 98% ; cp4 06/06 00:33 BP 112 / 78; Pulse 71; Resp 18; Pulse Ox 98% ; cp4 02:12 BP 119 / 90; Pulse 74; Resp 18; Pulse Ox 99% ; cp4 06/05 21:01 Body Mass Index 29.29 (68.04 kg, 152.4 cm) bp 06/05 21:01 Pain Scale: Adult bp ED Course: 06/05 20:53 Patient arrived in ED. im 20:54 Yasmani Ojeda PA-C is PHCP. cp 20:54 Blue Al MD is Attending Physician. cp 21:04 Triage completed. bp 21:04 Arm band placed on right wrist. bp 21:51 Shelia Cuba is Primary Nurse. cp4 21:59 Bed in low position. Call light in reach. Side rails up X2. Client placed on continuous cp4 cardiac and pulse oximetry monitoring. NIBP monitoring applied. dowel pin man on. Pulse ox on. NIBP on. 21:59 No provider procedures requiring assistance completed. Initial lab(s) drawn, by ED cp4 staff, sent to lab. EKG done, by ED staff, reviewed by Yasmani Ojeda PA-C. Inserted saline lock: 20 gauge in right antecubital area, using aseptic technique. Blood collected. Flushed with 10 mL NS. Patient maintains SpO2 saturation greater than 95% on room air. 22:03 XRAY Chest (1 view) In Process Unspecified. EDMS 22:17 EKG done, by digital camera technician. reviewed by Yasmani Ojeda PA-C. ts3 22:44 Primary Nurse role handed off by Shelia Cuba rv1 22:45 Shelia Cuba is Primary Nurse. cp4 06/06 01:00 US Extremity Venous W Compression Lars In Process Unspecified. EDMS 02:10 intact, bleeding controlled, No redness/swelling at site. Pressure dressing applied. cp4 02:11 Provided Education on: chest pain. cp4 Administered Medications: 06/05 22:10 Drug: morphine IVP or IV 4 mg IVP once over 4 mins Route: IVP; Infused Over: 4 mins; cp4 Site: left antecubital; 22:46 Follow up: Response: No adverse reaction; Pain is decreased cp4 22:10 Drug: Ondansetron IVP 4 mg IVP once; over 2 minutes Route: IVP; Site: left antecubital; cp4 22:46 Follow up: Response: No adverse reaction; Nausea is decreased cp4 22:46 Drug: Ketorolac IVP 15 mg IVP once Route: IVP; Site: left antecubital; cp4 06/06 01:48 Follow up: Response: No adverse reaction; Pain is decreased cp4 Medication: 06/05 21:59 VIS not applicable for this client. cp4 Outcome: 06/06 01:24 Discharge ordered by MD. cp 02:10 Discharged to home ambulatory, cp4 02:10 Condition: stable 02:11 Discharge instructions given to patient, family, Instructed on discharge instructions, cp4 follow up and referral plans. medication usage, Demonstrated understanding of instructions, follow-up care, medications, Prescriptions given X 3, 02:27 Patient left the ED. cp4 Signatures: Dispatcher [employer] EDMS Yasmani Ojeda, Laurent Todd PA-C, cp RN Ana Davis RN RN jjPerla Fierro rv1 Sue Olivo Christina cp4 Radha Staples ts3 Corrections: (The following items were deleted from the chart) 06/05 22:45 22:36 Eloped from waiting room, after seeing physician Time discovered patient gone: cp4 June 05, 2025 at 22:37 [address] MEDICATIONS. DR ELMO conte 22:45 22:38 Patient left the ED. jj7 cp4
--- NOTE | 2025-06-05 22:38 | EDPHYS ---
Physician Documentation [facility] Name: Umm Bell Age: 30 yrs Sex: Female : 1995 Arrival Date: 06/05/2025 Time: 20:52 Bed 4 Private MD: ED Physician Blue Al HPI: 06/05 21:50 This 30 yrs old Female presents to ER via Wheelchair with complaints of Chest Pain. cp 21:50 The patient or guardian reports chest pain that is located primarily in the substernal cp area, anterior chest wall, bilaterally. The pain radiates to neck, jaw. 21:50 Duration: The patient or guardian reports a single episode, that is still ongoing, and cp worsening, started at 1830 this evening at home while eating dinner. 21:50 Severity of pain: in the emergency department the pain is actually worse. 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 - Infectious Disease History:: Denies. - Social history:: Smoking status: Patient denies any tobacco usage or history of. Patient/guardian denies using alcohol, street drugs, IV drugs. ROS: 21:55 Constitutional: Negative for body aches, chills, fever, poor PO intake, cp 21:55 Cardiovascular: Positive for chest pain, Negative for edema, palpitations, cp 21:55 Eyes: Negative for injury, pain, redness, and discharge, cp 21:55 ENT: Negative for drainage from ear(s), ear pain, sore throat, difficulty swallowing, cp difficulty handling secretions, 21:55 Respiratory: Negative for cough, shortness of breath, wheezing, 21:55 Abdomen/GI: Negative for abdominal pain, vomiting, diarrhea, constipation, 21:55 Back: Negative for radiated pain, 21:55 Neuro: Negative for altered mental status, dizziness, headache, syncope, near syncope, weakness, 21:55 All other systems are negative, Exam: 22:00 ECG was reviewed by the Attending Physician. cp 22:02 Constitutional: The patient appears in no acute distress, alert, awake, cp non-diaphoretic, non-toxic, well developed, well nourished, uncomfortable, 22:02 Head/Face: Normocephalic, atraumatic. cp 22:02 Eyes: Periorbital structures: appear normal, Conjunctiva: normal, no exudate, no injection, Sclera: no appreciated abnormality, Lids and lashes: appear normal, bilaterally, 22:02 ENT: External ear(s): are unremarkable, Nose: is normal, Mouth: Lips: moist, Oral mucosa: moist, Posterior pharynx: Airway: no evidence of obstruction, patent, 22:02 Neck: ROM/movement: is normal, is supple, without pain, no range of motions limitations, 22:02 Chest/axilla: Inspection: normal, Palpation: crepitus, is not appreciated, tenderness, that is moderate, of the mid-sternal area, 22:02 Cardiovascular: Rate: normal, Rhythm: regular, Edema: is not appreciated, JVD: is not cp appreciated, 22:02 Respiratory: the patient does not display signs of respiratory distress, Respirations: cp normal, no use of accessory muscles, no retractions, labored breathing, is not present, Breath sounds: are clear throughout, no decreased breath sounds, no stridor, no wheezing, 22:02 Abdomen/GI: Inspection: abdomen appears normal, Bowel sounds: active, all quadrants, Palpation: abdomen is soft and non-tender, in all quadrants, 22:02 Back: pain, is absent, ROM is normal, 22:02 Neuro: Orientation: to person, place \T\ time. Mentation: is normal, Cerebellar function: is grossly normal, Motor: moves all fours, strength is normal, Sensation: is normal, Vital Signs: 21:01 BP 156 / 111; Pulse 79; Resp 16; Temp 98.4; Pulse Ox 100% ; Weight 68.04 kg; Height 5 bp ft. 0 in. ; Pain 7/10; 22:10 BP 145 / 94; Pulse 78; Resp 18; Pulse Ox 98% ; cp4 23:11 BP 138 / 92; Pulse 74; Resp 18; Pulse Ox 98% ; cp4 06/06 00:33 BP 112 / 78; Pulse 71; Resp 18; Pulse Ox 98% ; cp4 02:12 BP 119 / 90; Pulse 74; Resp 18; Pulse Ox 99% ; cp4 06/05 21:01 Body Mass Index 29.29 (68.04 kg, 152.4 cm) bp 06/05 21:01 Pain Scale: Adult bp MDM: 06/05 21:06 Medical Screening Exam initiated cp 22:30 Differential diagnosis: abnormal EKG, acute myocardial infarction, acute pericarditis, cp anxiety, pancreatitis, pleurisy, pneumonia, pneumothorax, pulmonary embolus, thoracic aortic disection, choledocholithiasis. 06/06 01:05 ED course: US tech reports negative bilateral lower extremity US for DVT. cp 01:17 Data reviewed: vital signs, nurses notes, lab test result(s), EKG, radiologic studies, cp plain films, ultrasound. Consideration of Admission/Observation Escalation of care including admission/observation considered. Special discussion: Based on the patient's history, exam, and Dx evaluation, there is no indication for emergent intervention or inpatient Tx. It is understood by the patient/guardian that if the Sx's persist or worsen they need to return immediately for re-evaluation. ED course: Vital signs stable. Reviewed results of labs, EKG and chest x-ray that was negative for any acute signs of an [place] and also low suspicion for a pulmonary embolism. Pain improved. Discussed continued observation versus follow-up as scheduled with primary monument setter helper. Patient would like to follow-up with her monument setter helper as an outpatient and I will discharge and sent home with medications to help for pain and discomfort. 06/05 21: Order name: Basic Metabolic Panel; Complete Time: 22:31 cp 06/06 01:00 Interpretation: Normal except: CRE 1.07; GFR 72. cp 06/05 21:29 Order name: CBC with Diff; Complete Time: 22:30 cp 06/05 22:31 Interpretation: Reviewed. 06/05 21: Order name: D-Dimer; Complete Time: 22:30 cp 06/05 22:30 Interpretation: Reviewed. 06/05 21: Order name: LFT's; Complete Time: 22:31 cp 06/05 21: Order name: Magnesium; Complete Time: 22:31 cp 06/05 21: Order name: NT PRO-BNP; Complete Time: 22:31 cp 06/05 21: Order name: PT-INR; Complete Time: 22:30 cp 06/05 21:29 Order name: Troponin HS; Complete Time: 22:31 cp 06/05 22:30 Order name: UDS; Complete Time: 23:17 cp 06/05 23:17 Interpretation: Reviewed. cp 06/06 00:09 Order name: Troponin High Sensitivity; Complete Time: 00:59 cp 06/06 00:59 Interpretation: Reviewed. cp 06/05 21:29 Order name: XRAY Chest (1 view) cp 06/06 00:14 Order name: US Extremity Venous W Compression Lars cp 06/05 21:29 Order name: EKG; Complete Time: 21:30 cp 06/05 21:29 Order name: Cardiac monitoring; Complete Time: 21:52 cp 06/05 21: Order name: EKG - Nurse/Tech; Complete Time: 21:52 cp 06/05 21: Order name: IV Saline Lock; Complete Time: 22:01 cp 06/05 21:29 Order name: Labs collected and sent; Complete Time: 22:01 cp 06/05 21:29 Order name: O2 Per Protocol; Complete Time: 21:52 cp 06/05 21: Order name: O2 Sat Monitoring; Complete Time: 21:52 cp EC/29 22:00 Rate is 78 beats/min. Rhythm is regular. WV interval is normal. QRS interval is normal. cp QT interval is normal. T waves are Inverted in lead aVR. Interpreted by me. Reviewed by me. Administered Medications: 22:10 Drug: morphine IVP or IV 4 mg IVP once over 4 mins Route: IVP; Infused Over: 4 mins; cp4 Site: left antecubital; 22:46 Follow up: Response: No adverse reaction; Pain is decreased cp4 22:10 Drug: Ondansetron IVP 4 mg IVP once; over 2 minutes Route: IVP; Site: left antecubital; cp4 22:46 Follow up: Response: No adverse reaction; Nausea is decreased cp4 22:46 Drug: Ketorolac IVP 15 mg IVP once Route: IVP; Site: left antecubital; cp4 06/06 01:48 Follow up: Response: No adverse reaction; Pain is decreased cp4 Disposition: 05:48 Co-signature as Attending Physician, Blue Al MD I agree with the assessment sp4 and plan of care. I reviewed the patient's care provided by Advanced Practice Provider \T\ agree w/ the diagnosis \T\ care plan. I personally saw the pt \T\ performed a substantive portion of the visit, incldng all aspects of the (History/Exam/Medical Decision Making). Disposition Summary: 06/06/25 01:24 Discharge Ordered Notes: Location: Home cp Problem: new cp Symptoms: have improved cp Condition: Stable cp Diagnosis - Chest pain, unspecified cp Followup: cp - With: Private Physician - When: Primary monument setter helper as scheduled on Tuesday - Reason: Recheck today's complaints Discharge Instructions: - Discharge Summary Sheet cp - Nonspecific Chest Pain, Adult cp - Aspirin and Your Heart cp Forms: - Medication Reconciliation Form cp - Antibiotic Education cp - Prescription Opioid Use cp - Patient Portal Instructions cp - Leadership Thank You Letter cp Prescriptions: - Ibuprofen 800 mg Oral Tablet - take 1 tablet ORAL route every 8 hours As needed take with food; 30 tablet; cp Refills: 0, Product Selection Permitted - Pepcid 20 mg Oral Tablet - take 1 tablet ORAL route every 12 hours for 10 days; 20 tablet; Refills: 0, cp Product Selection Permitted - Tramadol 50 mg Oral Tablet - take 1 tablet ORAL route every 8 hours as needed; 12 tablet; Refills: 0, cp Product Selection Permitted Signatures: Dispatcher [employer] EDAZ Yasmani Ojeda PA-C PA-C cp Peltier, Brian, RN RN Ana Long RN RN [email or web address] Blue Al MD MD sp4 Shelia Cuba cp4 Corrections: (The following items were deleted from the chart) 06/05 21:30 21:30 BASIC METABOLIC PANEL+C.LAB.BRZ ordered. EDMS EDMS 21:30 21:30 CBC+H.LAB.BRZ ordered. EDMS EDMS 21:30 21:30 D-DIMER+COAG.LAB.BRZ ordered. EDMS EDMS 21:30 21:30 HEPATIC FUNCTION+C.LAB.BRZ ordered. EDMS EDMS 21:30 21:30 MAGNESIUM+C.LAB.BRZ ordered. EDMS EDMS 21:30 21:30 PROBNP+C.LAB.BRZ ordered. EDMS EDMS 21:30 21:30 PROTIME (+INR)+COAG.LAB.BRZ ordered. EDMS EDMS : 21:30 Troponin High Sensitivity+C.LAB.BRZ ordered. EDMS EDMS : 21:30 Chest Single View+RAD.RAD.BRZ ordered. EDMS EDMS : 22:38 after being seen by provider [email or web address] rv1 : 22:38 unknown j7 [facility] 06/06 00:10 00:10 Troponin High Sensitivity+C.LAB.BRZ ordered. EDMS EDMS 01:42 01:03 Chest For PE Angio+CT.RAD.BRZ ordered. EDMS EDMS 01:42 01:03 Abdomen Pelvis W Con+CT.RAD.BRZ ordered. EDMS EDMS 06/07 01:44 06/05 21:50 Duration: The patient or guardian reports a single episode, that is still cp ongoing, and worsening, started at 1830 this evening at home, cp
[2025-06-05 23:01] VITALS: TEMP 98.4
[2025-06-05 23:12] LABS: METHAMPHETAM NEGATIVE (NEGATIVE); THC Cannibis NEGATIVE (NEGATIVE)
--- NOTE | 2025-06-06 02:03 | RAD REPORT ---
EXAM: US Duplex Bilateral Upper Extremities Veins CLINICAL HISTORY: PAIN TECHNIQUE: Real-time duplex ultrasound scan of the bilateral upper extremity veins integrating B-mode two-dimens ional vascular structure, Doppler spectral analysis, color flow Doppler imaging and compression. COMPARISON: No relevant prior studies available. FINDINGS: Right deep veins: Unremarkable. No DVT in the right internal jugular, subclavian, axillary, or br achial veins. The veins demonstrate normal color flow, are normally compressible, with normal phasic flow and/or augmentation response. Right superficial veins: Unremarkable. No thrombus in the visualized right basilic and cephalic v eins. Left deep veins: Unremarkable. No DVT in the left internal jugular, subclavian, axillary, or brac hial veins. The veins demonstrate normal color flow, are normally compressible, with normal phasic flow and/or augmentation response. Left superficial veins: Unremarkable. No thrombus in the visualized left basilic and cephalic vei ns. Soft tissues: No acute findings. IMPRESSION: No evidence for deep venous thrombosis within the bilateral upper extremity. Electronically signed by: Makeda Taveras MD 06/06/2025 01:59 AM T Due to temporary technical issues with the PACS/[employer] reporting system, reports are being diamond d by the in-house radiologist without review as a courtesy to ensure prompt reporting the interpreting radiologist is fully responsible for the content of the report. Transcribed Date/Time: 06/06/2025 2:02 AM
[2025-06-06 03:02] VITALS: BP 119/90; O2SAT 99
--- NOTE | 2025-06-06 05:18 | RAD REPORT ---
EXAMINATION: ONE VIEW CHEST XR CLINICAL INDICATION: Female, 30 years old.,CHEST PAIN TECHNIQUE: Frontal chest projection is submitted. Examination is limited by patient positioning and t echnique. COMPARISON: 11/15/2024 FINDINGS: The lungs are well inflated and clear. No pneumothorax or sizable effusion. The heart is normal in s ize. Mediastinal contours are unremarkable. IMPRESSION: No acute intrathoracic abnormalities.
== END 2025-06-06 02:27 | disposition home or self-care (01) ==
LOC: ER 20:52
DX: R07.89 Other chest pain (principal); F41.9 Anxiety disorder, unspecified
CPT/HCPCS: 93005; 85025; 80048; 36415; 83735; 85610; 85379; 80076; 84484 ×2; 83880; 80307; 71045; 93970; 96375; 96374; 99285; J1885; J2270; J2405

== ENCOUNTER 2025-06-07 17:08 | Emergency (ER) | payer OTHER ==
[2025-06-07 17:58] LABS: Absolute Lymphocytes (CBC) 2.2 K/uL (0.7-4.9); Hematocrit 40.6 % (36.0-45.0); Hemoglobin 13.9 g/dL (12.0-15.0); MCH 29.5 pg (27.0-35.0); MCHC 34.1 g/dL (32.0-36.0); MCV 86.4 fL (80-100); MPV 7.5 fL (7.6-11.3); Nucleated RBC Absolute Count 0.0 (0-0); Nucleated Red Blood Cells % 0.1 % (0-0); RBC Red Blood Cell Count 4.69 M/uL (3.86-4.86); White Blood Count 7.50 thou/uL (4.3-10.9)
[2025-06-07 18:20] LABS: ALT/SGPT 23 U/L (13-56); Albumin 3.9 g/dL (3.4-5.0); Albumin/Globulin Ratio 0.9 (1.1-1.8); Alkaline Phosphatase 76 U/L (45-117); Anion Gap 10.6 mEq/L (5.0-15.0); BUN Blood Urea Nitrogen 11 mg/dL (7-18); Globulin 4.2 g/dL (2.3-3.5); Glucose Level 92 mg/dL (74-106); NT PRO-BNP 13 pg/mL (<125); Potassium 3.6 mEq/L (3.5-5.1)
[2025-06-07 18:31] LABS: AST/SGOT < 10 U/L (15-37); Bilirubin Indirect, Calculated 0.2 mg/dL (0.2-0.8); Troponin High Sensitivity < 3.0 pg/mL (<58.9)
--- NOTE | 2025-06-07 19:12 | RAD REPORT ---
EXAMINATION: ONE VIEW CHEST XR CLINICAL INDICATION: Female, 30 years old.,CHEST PAIN TECHNIQUE: Frontal chest projection is submitted. Examination is limited by patient positioning and t echnique. COMPARISON: 06/05/2025 FINDINGS: The lungs are well inflated and clear. No pneumothorax or sizable effusion. The heart is normal in s ize. Mediastinal contours are unremarkable. IMPRESSION: No acute intrathoracic abnormalities.
--- NOTE | 2025-06-07 19:24 | RAD REPORT ---
EXAM: CT Chest For Pe Angio TECHNIQUE: CT angiogram of the chest was performed following intravenous contrast administration, inc luding sagittal and coronal as well as maximum intensity projection reformats. One or more of the following dose reduction techniques were used: Automated exposure control, adjustment of the mA and k V according to patient size, and iterative reconstruction. Unless otherwise specified, incidental findings do not require dedicated imaging follow-up. INDICATION: [facility] MAIN Chest pain;Dyspnea Bed Name: 17 Y COMPARISON: Chest radiograph of the same day. FINDINGS: LINES/TUBES: None. PULMONARY ARTERIES: Main pulmonary arteries are normal in caliber. No filling defects within the pul monary arteries to suggest pulmonary embolus. LUNGS AND AIRWAYS: The lungs and central airways are normal without focal abnormality. PLEURA: No effusion or pneumothorax. HEART AND MEDIASTINUM: The visualized thyroid gland is normal. No mediastinal, hilar, or axillary lym phadenopathy. Heart is unremarkable. No pericardial effusion. SOFT TISSUES AND BONES: No acute osseous abnormality. No significant soft tissue finding. UPPER ABDOMEN: Unremarkable. IMPRESSION: No evidence of acute central pulmonary emboli. No suspicious intrathoracic findings..
[2025-06-07] MEDS ORDERED: ONDANSETRON 4 MG/2 ML VIAL ONE (20:13)
[2025-06-07] MEDS ORDERED: FENTANYL CITR 100 MCG/2 ML ONE (20:14)
[2025-06-07] MEDS ORDERED: KETOROLAC 30 MG/ML INJ ONE (20:14)
--- NOTE | 2025-06-07 20:14 | EDPHYS ---
Physician Documentation [facility] Name: Umm Bell Age: 30 yrs Sex: Female : 1995 Arrival Date: 06/07/2025 Time: 17:08 Bed IW9 Private MD: ED Physician Blue Al HPI: 06/07 18:26 This 30 yrs old Female presents to ER via EMS with complaints of Chest Pain, Shortness rn Of Breath. 18:26 Patient reports chest pain and shortness of breath, intermittent for a year but worse rn over the last week. Patient states seen here few days ago and discharged home with negative workup. Symptoms becoming more frequent. States had outpatient stress test that showed ischemia and scheduled for outpatient coronary CT but not till next week. No fever or chills. Has had family member with CO in their 20s. Has familial hypercholesterolemia. 20:09 Aspirin was given to the patient by EMS prior to arrival. 324 mg p.o. aspirin was given sp4 by EMS.. MALARIOLOGIST: 19:36 unknown, hysterctomy 5 years ago ss12 Historical: - Allergies: 17:49 No Known Allergies; ll1 - Home Meds: 22:08 Vitamin Oral [Active]; ss12 - PMHx: 17:49 Anxiety; Bipolar disorder; Endometriosis; ll1 - PSHx: 17:49 Cholecystectomy; Ovarian cyst removal; Total abdominal hysterectomy; tubal ligation; ll1 - Immunization history:: Adult Immunizations up to date. - Infectious Disease History:: Denies. - Family history:: not pertinent. - Hospitalizations: : No recent hospitalization is reported. - Social history:: Smoking status: unknown. ROS: 18:26 Constitutional: Negative for fever, chills, and weight loss, Cardiovascular: Positive rn for chest pain Respiratory: Positive for shortness of breath Abdomen/GI: Negative for abdominal pain, nausea, vomiting, diarrhea, and constipation, MS/Extremity: Negative for injury and deformity, Neuro: Negative for headache, weakness, numbness, tingling, and seizure, Exam: 18:26 Constitutional: This is a well developed, well nourished patient who is awake, alert, rn and in no acute distress. Cardiovascular: Regular rate and rhythm. No pulse deficits. Respiratory: No increased work of breathing, no retractions or nasal flaring. Abdomen/GI: Soft, non-tender MS/ Extremity: Pulses equal, no cyanosis. Neurovascular intact. Full, normal range of motion. Equal circumference. Neuro: Awake and alert, GCS 15 18:34 ECG was reviewed by the Attending Physician. rn Vital Signs: 17:30 BP 134 / 76; Pulse 62; Resp 18; Temp 98.2; Pulse Ox 100% on R/A; kj2 18:30 BP 132 / 72; Pulse 64; Resp 18; Pulse Ox 100% ; kj2 19:15 BP 132 / 83; Pulse 79; Resp 18 S; Temp 98.1(O); Pulse Ox 100% on R/A; ss12 19:15 Weight 72.53 kg; Height 5 ft. 0 in. ; ss12 20:30 BP 129 / 80; Pulse 71; Resp 18; Pulse Ox 99% on R/A; ss12 21:00 BP 118 / 67; Pulse 68; Resp 18 S; Pulse Ox 99% on R/A; ss12 22:00 BP 127 / 77; Pulse 66; Resp 18; Temp 98.2(O); Pulse Ox 99% on R/A; ss12 19:15 Body Mass Index 31.23 (72.53 kg, 152.4 cm) ss12 Lapel Coma Score: 19:15 Eye Response: spontaneous(4). Verbal Response: oriented(5). Motor Response: obeys ss12 commands(6). Total: 15. MDM: 17:18 Medical Screening Exam initiated rn 19:02 Transition of care:. rn 19:52 ED course: COMPARISON: Chest radiograph of the same day. FINDINGS: LINES/TUBES: None. sp4 PULMONARY ARTERIES: Main pulmonary arteries are normal in caliber. No filling defects within the pulmonary arteries to suggest pulmonary embolus. LUNGS AND AIRWAYS: The lungs and central airways are normal without focal abnormality. PLEURA: No effusion or pneumothorax. HEART AND MEDIASTINUM: The visualized thyroid gland is normal. No mediastinal, hilar, or axillary lymphadenopathy. Heart is unremarkable. No pericardial effusion. SOFT TISSUES AND BONES: No acute osseous abnormality. No significant soft tissue finding. UPPER ABDOMEN: Unremarkable. IMPRESSION: No evidence of acute central pulmonary emboli. No suspicious intrathoracic findings.. 19:53 ED course: FINDINGS: Right deep veins: Unremarkable. No DVT in the right internal sp4 jugular, subclavian, axillary, or brachial veins. The veins demonstrate normal color flow, are normally compressible, with normal phasic flow and/or augmentation response. Right superficial veins: Unremarkable. No thrombus in the visualized right basilic and cephalic veins. Left deep veins: Unremarkable. No DVT in the left internal jugular, subclavian, axillary, or brachial veins. The veins demonstrate normal color flow, are normally compressible, with normal phasic flow and/or augmentation response. Left superficial veins: Unremarkable. No thrombus in the visualized left basilic and cephalic veins. Soft tissues: No acute findings. IMPRESSION: No evidence for deep venous thrombosis within the bilateral upper extremity. Electronically signed by: Makeda Tavears MD 06/06/2025 01:59 AM . 20:09 ED course: CLINICAL INDICATION: Female, 30 years old.,CHEST PAIN TECHNIQUE: Frontal sp4 chest projection is submitted. Examination is limited by patient positioning and technique. COMPARISON: 06/05/2025 FINDINGS: The lungs are well inflated and clear. No pneumothorax or sizable effusion. The heart is normal in size. Mediastinal contours are unremarkable. IMPRESSION: No acute intrathoracic abnormalities.. 20:14 Differential diagnosis: acute myocardial infarction, acute pericarditis, anxiety, sp4 coronary artery disease chest wall pain, esophagitis, gastritis, pulmonary embolus, stable angina, unstable angina. HEART Score: History: Highly Suspicious (2), ECG: Normal (0), Age: < or = 45 years (0), Risk Factors: No Risk Factors Known (0), Troponin: < or = 1 x Normal Limit (0), Total Score = 2. Data reviewed: vital signs, nurses notes, lab test result(s), EKG, radiologic studies, CT scan, plain films. 21:08 ED course: Patient was accepted at [facility] to Debra pineda4 hospitalist. 06/07 17:23 Order name: Basic Metabolic Panel; Complete Time: 18:43 rn 06/07 17:23 Order name: CBC with Diff; Complete Time: 18:28 rn 06/07 17:23 Order name: LFT's; Complete Time: 18:43 rn 06/07 17:23 Order name: NT PRO-BNP; Complete Time: 18:43 rn 06/07 17:23 Order name: Troponin HS; Complete Time: 18:43 rn 06/07 17:23 Order name: Test, Urine rn 06/07 17:23 Order name: XRAY Chest (1 view); Complete Time: 19:50 rn 06/07 17:23 Order name: CT Chest For PE Angio; Complete Time: 19:50 rn 06/07 17:23 Order name: EKG; Complete Time: 17:24 rn 06/07 17:23 Order name: Cardiac monitoring; Complete Time: 18:36 rn 06/07 17:23 Order name: EKG - Nurse/Tech; Complete Time: 17:51 rn 06/07 17:23 Order name: IV Saline Lock; Complete Time: 17:51 rn 06/07 17:23 Order name: Labs collected and sent; Complete Time: 17:51 rn 06/07 17:23 Order name: O2 Per Protocol; Complete Time: 17:51 rn 06/07 17:23 Order name: O2 Sat Monitoring; Complete Time: 17:51 rn EC:34 Rate is 63 beats/min. Rhythm is regular. QRS Rule is Normal. NM interval is normal. QRS rn interval is normal. QT interval is normal. No Q waves. T waves are Normal. No ST changes noted. Clinical impression: Normal ECG. Interpreted by me. Reviewed by me. Administered Medications: 20:20 Drug: fentaNYL (PF) IVP 50 mcg IVP once Route: IVP; Site: left antecubital; ss12 20:20 Drug: Ondansetron IVP 4 mg IVP once; over 2 minutes Route: IVP; Site: left antecubital; ss12 20:20 Drug: Ketorolac IVP 15 mg IVP once Route: IVP; Site: left antecubital; ss12 20:20 Drug: Droperidol IVP 2.5 mg IVP once Route: IVP; Site: left antecubital; ss12 20:20 Drug: NS 0.9% IV 1000 ml IV at 125 ml/hr Per protocol; to be given at 125 ml / hour ss12 Route: IV; Rate: 125 ml/hr; Site: left antecubital; 22:21 Follow up: Response: No adverse reaction ha1 22:21 Follow up: IV Status: Completed infusion kb3 21:50 Drug: Heparin (CO-Bolus No thrombolytic) - HEParin IVP 60 units/kg IVP once; Max 5000 ss12 units {Co-Signature: al5 (Kaylee Huggins RN).} Route: IVP; Site: right upper arm; 22:21 Follow up: Response: No adverse reaction ha1 21:50 Drug: Heparin (CO Drip) 12 units/kg/[place] - ([place] [address] units, D5W IV 500 ml) IV at ss12 calculated rate Per protocol; Max initial rate 1000 units/hr {Co-Signature: al5 (Kaylee Huggins RN).} Route: IV; Rate: calculated rate; Site: right upper arm; 22:21 Follow up: Response: No adverse reaction; IV Status: Infusion continued upon transfer ha1 22:14 Drug: Nitroglycerin Transdermal Ointment 2 % 0.5 inches Transdermal once Route: ss12 Transdermal; Site: anterior chest wall; Disposition: 20:13 Chart complete. sp4 Disposition Summary: 06/07/25 20:14 Transfer Ordered Notes: Transfer Location: [facility] sp4 Reason: Higher level of care sp4 Condition: Stable sp4 Problem: new sp4 Symptoms: have improved sp4 Accepting Physician: [facility] hospitalist(06/07/25 22:22) ha1 Diagnosis - Unstable angina sp4 - Angina with positive stress test sp4 Forms: - Medication Reconciliation Form sp4 - SBAR form sp4 Signatures: Dispatcher [employer] EDMS Clayton Ballesteros MD MD rn Lewis, Lynsay RN RN ll1 Lashae Chris RN RN ha1 Blue Al MD MD sp4 Samira Laird RN RN kj2 Mackenzie Mann RN RN ss12 Diana Guillaume RN kb3 Kaylee Huggins RN al5 Corrections: (The following items were deleted from the chart) 17:24 17:24 Chest Single View+RAD.RAD.BRZ ordered. EDMS EDMS 17:24 17:24 Test, Urine+UC.LAB.BRZ ordered. EDMS EDMS 22:22 20:14 [facility] hospitalist sp4 ha1
--- NOTE | 2025-06-07 20:14 | ER ---
Nurse's Notes [facility] Name: Umm Bell Age: 30 yrs Sex: Female : 1995 Arrival Date: 06/07/2025 Time: 17:08 Bed IW9 Private MD: Diagnosis: Unstable angina;Angina with positive stress test Presentation: 06/07 17:20 Chief complaint: Patient states: Still having CP from visit two days ago. Coronavirus ll1 screen: Client denies travel out of the [place] in the last 14 days. At this time, the client does not indicate any symptoms associated with coronavirus-19. Ebola Screen: Patient denies travel to an Ebola-affected area in the 21 days before illness onset. Initial Sepsis Screen: Does the patient meet any 2 criteria? No. Patient's initial sepsis screen is negative. Does the patient have a suspected source of infection? No. Patient's initial sepsis screen is negative. Risk Assessment: Do you want to hurt yourself or someone else? Patient reports no desire to harm self or others. 17:20 Method Of Arrival: EMS ll1 17:20 Acuity: MICHAEL 3 ll1 18:34 Onset of symptoms was June 05, 2025 at 20:00. 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 - Infectious Disease History:: Denies. - Family history:: not pertinent. - Hospitalizations: : No recent hospitalization is reported. - Social history:: Smoking status: unknown. Screenin:30 [facility] ED Fall Risk Assessment (Adult) History of falling in the last 3 months, kj2 including since admission No falls in past 3 months (0 pts) Confusion or Disorientation No (0 pts) Intoxicated or Sedated No (0 pts) Impaired Gait No (0 pts) Mobility Assist Device Used No (0 pt) Altered Elimination No (0 pt) Score/Fall Risk Level 0 - 2 = Low Risk Maintained a safe environment, Hourly rounding (assess needs \T\ fall precautionary measures) done. Abuse screen: Denies threats or abuse. Denies injuries from another. Nutritional screening: No deficits noted. Tuberculosis screening: No symptoms or risk factors identified. Assessment: 17:30 General: Appears in no apparent distress. Behavior is cooperative. Pain: Complains of kj2 pain in chest Pain currently is 5 out of 10 on a pain scale. Neuro: Level of Consciousness is awake, alert, obeys commands, Oriented to person, place, time, situation. Cardiovascular: Patient's skin is warm and dry. Chest pain began 2 days ago. Respiratory: Airway is patent Respiratory effort is even, unlabored. GI: Parent/caregiver reports the patient having nausea. : No signs and/or symptoms were reported regarding the genitourinary system. 18:30 Reassessment: Patient appears in no apparent distress at this time. Patient is alert, kj2 oriented x 3, equal unlabored respirations, skin warm/dry/pink. 19:15 General: Appears in no apparent distress. comfortable, Behavior is calm, cooperative. ss12 Pain: Complains of pain in chest pain Pain radiates to shoulder Pain currently is 5 out of 10 on a pain scale. Quality of pain is described as aching. Neuro: Level of Consciousness is awake, alert, obeys commands, Oriented to person, place, time, situation, Stage Driver are equal bilaterally Moves all extremities. Gait is steady. Cardiovascular: Capillary refill < 3 seconds is brisk in bilateral fingers toes Patient's skin is warm and dry. Respiratory: Airway is patent Respiratory effort is even, unlabored, Respiratory pattern is regular, symmetrical. GI: Patient currently denies nausea, vomiting. : Denies burning with urination, inability to void, incontinence, urinary frequency, urgency. EENT: Parent/caregiver reports the patient having. Derm: Skin is healthy with good turgor, Skin is dry, Skin is pink, warm \T\ dry. normal, Skin temperature is warm. Musculoskeletal: No deficits noted. 20:15 Reassessment: Patient appears in no apparent distress at this time. Patient and/or ss12 family updated on plan of care and expected duration. Pain level reassessed. Patient is alert, oriented x 3, equal unlabored respirations, skin warm/dry/pink. 21:00 Reassessment: Patient appears in no apparent distress at this time. Patient and/or ss12 family updated on plan of care and expected duration. Pain level reassessed. Patient is alert, oriented x 3, equal unlabored respirations, skin warm/dry/pink. 22:06 Reassessment: Patient appears in no apparent distress at this time. Patient and/or ss12 family updated on plan of care and expected duration. Pain level reassessed. Patient is alert, oriented x 3, equal unlabored respirations, skin warm/dry/pink. 06/08 07:37 General: 50mcg fentanyl wasted at 0700 with Mackenzie Mann RN. Devi made aware. kb3 Unable to waste in [facility] due to EPIC cutover.. Vital Signs: 06/07 17:30 BP 134 / 76; Pulse 62; Resp 18; Temp 98.2; Pulse Ox 100% on R/A; kj2 18:30 BP 132 / 72; Pulse 64; Resp 18; Pulse Ox 100% ; kj2 19:15 BP 132 / 83; Pulse 79; Resp 18 S; Temp 98.1(O); Pulse Ox 100% on R/A; ss12 19:15 Weight 72.53 kg; Height 5 ft. 0 in. ; ss12 20:30 BP 129 / 80; Pulse 71; Resp 18; Pulse Ox 99% on R/A; ss12 21:00 BP 118 / 67; Pulse 68; Resp 18 S; Pulse Ox 99% on R/A; ss12 22:00 BP 127 / 77; Pulse 66; Resp 18; Temp 98.2(O); Pulse Ox 99% on R/A; ss12 19:15 Body Mass Index 31.23 (72.53 kg, 152.4 cm) ss12 Gisselle Coma Score: 19:15 Eye Response: spontaneous(4). Verbal Response: oriented(5). Motor Response: obeys ss12 commands(6). Total: 15. ED Course: 17:18 Patient arrived in ED. rn 17:18 Clayton Ballesteros MD is Attending Physician. rn 17:30 Arm band placed on Patient placed. EKG completed in triage. Results shown to MD. kj2 17:48 Initial lab(s) drawn, by me, sent to lab. EKG done, by ED staff, reviewed by Clayton ll1 Favian LANDON. 17:48 Maintain EMS IV. Dressing intact. Good blood return noted. Site clean \T\ dry. Gauge \T\ ll 1 site: 20 G L AC. Flushed with 10 mL NS. 17:49 Patient has correct armband on for positive identification. Provided Education on: ER ll1 procedures and process. 18:03 Triage completed. ll1 18:25 Samira Laird RN is Primary Nurse. kj2 18:32 No provider procedures requiring assistance completed. kj2 18:37 XRAY Chest (1 view) In Process Unspecified. EDMS 19:00 CT Chest For PE Angio In Process Unspecified. EDMS 19:17 Primary Nurse role handed off by Samira Laird RN ss12 19:17 Mackenzie Mann RN is Primary Nurse. ss12 19:18 Report given to ROXANA Mann. kj2 19:50 Attending Physician role handed off by Clayton Ballesteros MD sp4 19:50 Blue Al MD is Attending Physician. sp4 20:15 initiated transfer to [facility] spoke to shell. vk 21:13 Patient was accepted to [facility] to Dr. Shen \T\[id number] accepting admin approval Shell Shay \T\2020 #[id number] Report# [id number]. 21:30 Inserted saline lock: 20 gauge in right upper arm, using aseptic technique. Blood ss12 collected. Flushed with 10 mL NS. 22:20 Patient transferred, IV remains in place. ha1 Administered Medications: 20:20 Drug: fentaNYL (PF) IVP 50 mcg IVP once Route: IVP; Site: left antecubital; ss12 20:20 Drug: Ondansetron IVP 4 mg IVP once; over 2 minutes Route: IVP; Site: left antecubital; ss12 20:20 Drug: Ketorolac IVP 15 mg IVP once Route: IVP; Site: left antecubital; ss12 20:20 Drug: Droperidol IVP 2.5 mg IVP once Route: IVP; Site: left antecubital; ss12 20:20 Drug: NS 0.9% IV 1000 ml IV at 125 ml/hr Per protocol; to be given at 125 ml / hour ss12 Route: IV; Rate: 125 ml/hr; Site: left antecubital; 22:21 Follow up: Response: No adverse reaction ha1 22:21 Follow up: IV Status: Completed infusion kb3 21:50 Drug: Heparin (TX-Bolus No thrombolytic) - HEParin IVP 60 units/kg IVP once; Max 5000 ss12 units {Co-Signature: gaudencio (Kaylee Huggins RN).} Route: IVP; Site: right upper arm; 22:21 Follow up: Response: No adverse reaction ha1 21:50 Drug: Heparin ([place] Drip) 12 units/kg/[place] - ([place] [address] units, D5W IV 500 ml) IV at ss12 calculated rate Per protocol; Max initial rate 1000 units/hr {Co-Signature: gaudencio (Kaylee Huggins RN).} Route: IV; Rate: calculated rate; Site: right upper arm; 22:21 Follow up: Response: No adverse reaction; IV Status: Infusion continued upon transfer ha1 22:14 Drug: Nitroglycerin Transdermal Ointment 2 % 0.5 inches Transdermal once Route: ss12 Transdermal; Site: anterior chest wall; Medication: 18:32 VIS not applicable for this client. kj2 Outcome: 20:14 ER care complete, transfer ordered by sp4 22:08 Transferred by ground EMS to [facility], 12 22:08 Condition: stable 22:08 Instructed on the need for transfer, 22:22 Patient left the ED. ha1 Signatures: Dispatcher [employer] EDMS Clayton Ballesteros MD MD rn Lewis, Lynsay RN RN ll1 Lashae Chris RN RN ha1 Diana Guillaume RN RN kb3 Potepalov, Sergey, MD MD sp4 Radha Robledo Krystal, RN RN kj2 Mackenzie Mann RN RN ss12 Kaylee Huggins RN al5 Corrections: (The following items were deleted from the chart) 19:21 19:18 Reassessment: Patient appears in no apparent distress at this time. kj2 ss12
[2025-06-07] MEDS ORDERED: NA CHLORIDE 0.9% 1,000 ML ONE (20:15)
[2025-06-07] MEDS ORDERED: HEPARIN 5000 UNIT/ML 1 ML VIAL ONE (21:39)
[2025-06-07] MEDS ORDERED: HEPARIN/D5W 25,000 UNIT/500 ML BAG IV ONE (21:39)
[2025-06-07] MEDS ORDERED: NITROGLYCERIN 1 GM PKT TD ONE (22:13)
[2025-06-08 06:27] VITALS: O2SAT 99
[2025-06-08 06:29] VITALS: BP 127/77; TEMP 98.2
== END 2025-06-07 22:22 | disposition short-term general hospital (02) ==
LOC: ER 17:08
DX: I20.0 Unstable angina (principal); R94.39 Abnormal result of other cardiovascular function study; F41.9 Anxiety disorder, unspecified
CPT/HCPCS: 93005; 85025; 80048; 36415; 80076; 84484; 83880; 71275; 71045; 99285; Q9967; J1885; J1644; J3010; J2405; J1790; J7030